=== PATIENT | female | born 1970 ===

== ENCOUNTER 2020-10-08 15:33 | Outpatient (REF) | payer MEDICAID, SELFPAY ==
--- NOTE | 2020-10-08 | MM_ITS ---
EXAMINATION: MM SCREENING DIGITAL BREAST TOMOSYNTHESIS, BILATERAL CLINICAL INFORMATION: Screening. Asymptomatic. The lifetime risk of breast cancer based on the Tyrer-Cuzick Model is 6%. COMPARISON: Mammography: 10/03/2019, 08/24/2018, 08/03/2017 TECHNIQUE: Digital breast tomosynthesis is performed in both the craniocaudal and mediolateral oblique views along with computer-aided detection (CAD). Synthesized 2D images are generated from the tomosynthesis. FINDINGS: There are scattered areas of fibroglandular density (ACR BI-RADS breast composition Category b). There are no significant masses, abnormal calcifications, or other abnormalities. Parenchymal pattern is similar to prior studies. Low right axillary tail node stable. No significant changes. MM/MM tomosynthesis screening BI IMPRESSION: No mammographic evidence of malignancy. ASSESSMENT: BI-RADS 2: Benign RECOMMENDATION: Routine annual mammography screening. This patient's information was entered into a reminder system with a target due date for their next mammogram.
== END 2020-10-08 15:34 | disposition home or self-care (01) ==
LOC: HO.MAMMO 15:33
PROVIDERS: PCP Nurse Practitioner Family; Visit Provider Nurse Practitioner Family
DX: Z12.31 Encounter for screening mammogram for malignant neoplasm of breast (principal)
CPT/HCPCS: 77063; 77067

== ENCOUNTER 2020-11-20 09:57 | Outpatient (REF) | payer MEDICAID, SELFPAY ==
[2020-11-21 20:37] LABS: C. trachomatis RNA TMA NOT DETECTED (NOT DETECTED); N. gonorrhoeae RNA TMA NOT DETECTED (NOT DETECTED)
[2020-11-24 03:02] LABS: HPV 16 RNA NOT DETECTED (NOT DETECTED); HPV mRNA E6/E7 rflx Detected (Not Detected)
== END 2020-11-20 09:58 | disposition home or self-care (01) ==
LOC: HO.LAB 09:57
PROVIDERS: PCP Nurse Practitioner Family; Visit Provider Advanced Practice Midwife
DX: Z01.419 Encounter for gynecological examination (general) (routine) without abnormal findings (principal); R23.2 Flushing; Z20.2 Contact with and (suspected) exposure to infections with a predominantly sexual mode of transmission
CPT/HCPCS: 36415; 87491; 87591; 87624; 87625; 88141; 88142

== ENCOUNTER 2020-12-21 07:03 | Outpatient (REF) | payer MEDICAID, SELFPAY ==
[2020-12-21 08:27] LABS: Anion Gap 14 (12-20); Blood Urea Nitrogen 9 mg/dL (9-16); Calcium 9.6 mg/dL (8.4-10.2); Carbon Dioxide 28 mmol/L (22-29); Chloride 101 mmol/L (96-108); Cholesterol 91 mg/dL; Estimated Glomerular Filt Rate > 60; Glucose Random 145 mg/dL (60-115); HDL Cholesterol 38 mg/dL; LDL Cholesterol Calculated 29 mg/dl; Potassium 4.8 mmol/L (3.3-5.1); Sodium 138 mmol/L (135-145); Triglycerides 121 mg/dL
[2020-12-21 09:19] LABS: Vitamin B12 221 pg/mL (200-900)
== END 2020-12-21 07:04 | disposition home or self-care (01) ==
LOC: HO.LAB 07:03
PROVIDERS: PCP Nurse Practitioner Family; Visit Provider Nurse Practitioner Family
DX: E11.65 Type 2 diabetes mellitus with hyperglycemia (principal)
CPT/HCPCS: 36415; 80048; 80061; 82607

== ENCOUNTER 2021-02-21 13:39 | Outpatient (REF) | payer MEDICAID, SELFPAY ==
[2021-02-27 18:07] LABS: HPV mRNA E6/E7 rflx Not Detected (Not Detected)
== END 2021-02-21 13:40 | disposition home or self-care (01) ==
LOC: HO.LAB 13:39
PROVIDERS: Visit Provider Advanced Practice Midwife
DX: R87.615 Unsatisfactory cytologic smear of cervix (principal); Z11.51 Encounter for screening for human papillomavirus (HPV)
CPT/HCPCS: 87624; 88142; 99212

== ENCOUNTER 2021-05-09 08:09 | Outpatient (REF) | payer MEDICAID, SELFPAY ==
--- NOTE | ~2021-05-09 | XR_ITS ---
EXAMINATION: XR HIP, RIGHT WITH AP PELVIS CLINICAL INFORMATION: Pain. COMPARISON: Radiographs dated 04/05/2018. TECHNIQUE: Two views of the right hip. FINDINGS: Bones and soft tissues are normal. No fracture. There is a tiny round, well-corticated accessory ossification center seen lateral to the right acetabular roof. Alignment is anatomic. Hip joint space is maintained. There are pelvic phleboliths. Intervertebral cages are noted L4-L5. XR/XR hip RT w [id number] IMPRESSION: Unremarkable bilateral hips.
== END 2021-05-09 08:10 | disposition home or self-care (01) ==
LOC: HO.HOSX 08:09
PROVIDERS: Visit Provider Physician Assistant
DX: M25.851 Other specified joint disorders, right hip (principal); M25.551 Pain in right hip; M54.31 Sciatica, right side
CPT/HCPCS: 73502; 99202

== ENCOUNTER 2021-05-22 12:55 | Outpatient (REF) | payer MEDICAID, SELFPAY ==
--- NOTE | ~2021-05-22 | XR_ITS ---
EXAMINATION: XR KNEE AP STANDING CLINICAL INFORMATION: Right knee pain COMPARISON: None TECHNIQUE: AP bilateral standing view of the knees was obtained. FINDINGS: Bone alignment is normal. No fracture or dislocation is seen. The joint spaces are normal. Soft tissues are normal. XR/XR knee standing BI IMPRESSION: Normal knees.
--- NOTE | ~2021-05-22 | FL_ITS ---
PROCEDURE: XR ARTHROGRAM HIP, RIGHT CLINICAL INFORMATION: Right hip pain. COMPARISON: 05/09/2021 TECHNIQUE: Fluoroscopic-guided intra-articular injection of the right hip. FINDINGS: Informed consent was obtained from the patient prior to the procedure. During this process, the procedure and potential alternatives were explained, along with the intended outcome and benefits. The risks of the procedure, as well as the risk of not doing the procedure, were discussed. The patient was given the opportunity to ask questions regarding the procedure and appeared competent to make medical decisions. A signed consent form which documents this discussion was placed in the medical record. Using sterile technique and fluoroscopic guidance a 22-gauge spinal needle was directed down onto the right femoral neck. A small amount of contrast was administered showing intra-articular positioning of the needle. A mixture of 4 mL of 1% lidocaine, 4 mm of 0.25% bupivacaine, and 80 mg of Depo-Medrol were then instilled into the right hip joint. Patient tolerated procedure without difficulty. At the end of the procedure with patient sitting she stated that the pain was alleviated. FLUOROSCOPY TIME: 0.6 minutes. DOSE AREA PRODUCT: 2.780 Gy-cm2 (coe-centimeter squared). FL/FL arthrogram hip RT IMPRESSION: Right hip intra-articular injection under fluoroscopy as described.
== END 2021-05-22 12:56 | disposition home or self-care (01) ==
LOC: HO.XRAY 12:55
PROVIDERS: PCP Nurse Practitioner Family; Visit Provider Physician Assistant
DX: M25.851 Other specified joint disorders, right hip (principal); M25.561 Pain in right knee; M25.562 Pain in left knee
CPT/HCPCS: 27093; 73525; 73565

== ENCOUNTER 2021-06-06 11:19 | Outpatient (REF) | payer MEDICAID, SELFPAY ==
--- NOTE | ~2021-06-06 | US_ITS ---
EXAMINATION: US RETROPERITONEAL LIMITED (RENAL ONLY) CLINICAL INFORMATION: Calculus of kidney. COMPARISON: Renal ultrasound 02/14/2020. Ultrasound abdomen complete 01/10/2020. CT abdomen and pelvis 04/29/2019. KUB 07/01/2017 and 06/24/2017. TECHNIQUE: Real-time imaging of the kidneys. FINDINGS: RIGHT KIDNEY: 11.7 x 3.7 x 6.9 cm (SAG x AP x TRV). The kidney is normal in size, contour, and echogenicity. Renal cortical thickness is normal. No renal calculi or hydronephrosis. Exophytic simple appearing cyst of the right renal interpolar region measuring 6.4 x 5.0 x 5.9 cm in size. LEFT KIDNEY: 11.3 x 5.0 x 5.2 cm (SAG x AP x TRV). The kidney is normal in size, contour, and echogenicity. Renal cortical thickness is normal. No calculi or focal parenchymal lesions. No hydronephrosis. US/US renal BI IMPRESSION: 1. Redemonstration of a exophytic simple appearing renal cyst involving the right renal interpolar region measuring up to 6.4 cm in size, which does not require follow-up. 2. No nephrolithiasis or hydronephrosis.
== END 2021-06-06 11:20 | disposition home or self-care (01) ==
LOC: HO.US 11:19
DX: N20.0 Calculus of kidney (principal)
CPT/HCPCS: 76775

== ENCOUNTER → 2021-06-12 12:48 | Outpatient (BNVA) | payer MEDICAID, SELFPAY | PROVIDERS: PCP Nurse Practitioner Family | DX: N20.2 Calculus of kidney with calculus of ureter (principal) | CPT/HCPCS: 81002; 99212 ==

== ENCOUNTER → 2021-07-04 14:11 | Outpatient (BNVA) | payer MEDICAID, SELFPAY | PROVIDERS: Visit Provider Physician Assistant | DX: M25.851 Other specified joint disorders, right hip (principal) | CPT/HCPCS: 99212 ==

== ENCOUNTER 2021-07-22 08:07 | Outpatient (REF) | payer MEDICAID, SELFPAY ==
[2021-07-22 08:46] LABS: Hematocrit 45.3 % (37.0-47.0); Hemoglobin 14.3 g/dl (12.0-16.0); Mean Corpuscular HGB Conc 31.6 g/dl (31.0-35.0); Mean Corpuscular Hemoglobin 30.4 pg (27.0-33.0); Mean Corpuscular Volume 96.4 fL (80.0-98.0); Mean Platelet Volume 10.5 fL (9.4-12.3); Platelet Count 311 X10*3/uL (160-400); Red Cell Distribution Width 12.6 % (11.0-16.0); White Blood Count 7.5 X10*3/uL (4.8-10.8)
[2021-07-22 09:11] LABS: Alanine Aminotransferase 100 U/L (0-31); Albumin Level 4.6 g/dL (3.5-5.0); Alkaline Phosphatase 85 U/L (39-117); Anion Gap 11 (12-20); Aspartate Amino Transferase 61 U/L (5-31); Bilirubin Total 0.8 mg/dL (0.0-1.0); Blood Urea Nitrogen 8 mg/dL (9-16); Calcium 9.5 mg/dL (8.4-10.2); Carbon Dioxide 27 mmol/L (22-29); Chloride 106 mmol/L (96-108); Cholesterol 87 mg/dL; Estimated Glomerular Filt Rate > 60; Glucose Random 122 mg/dL (60-115); HDL Cholesterol 32 mg/dL; LDL Cholesterol Calculated 30 mg/dl; Potassium 4.4 mmol/L (3.3-5.1); Sodium 140 mmol/L (135-145); Total Protein 7.7 g/dL (6.5-8.0); Triglycerides 125 mg/dL
== END 2021-07-22 08:08 | disposition home or self-care (01) ==
LOC: HO.LAB 08:07
PROVIDERS: PCP Nurse Practitioner Family; Visit Provider Nurse Practitioner Family
DX: E11.65 Type 2 diabetes mellitus with hyperglycemia (principal)
CPT/HCPCS: 36415; 80053; 80061; 85027

== ENCOUNTER 2021-10-22 14:46 | Outpatient (REF) | payer MEDICAID, SELFPAY ==
--- NOTE | ~2021-10-22 | MM_ITS ---
EXAMINATION: MM SCREENING DIGITAL BREAST TOMOSYNTHESIS, BILATERAL CLINICAL INFORMATION: Screening. Asymptomatic. The lifetime risk of breast cancer based on the Tyrer-Cuzick Model is 6%. COMPARISON: Mammography: 10/08/2020, 10/03/2019, 08/24/2018 08/03/2017, 01/27/2017, 07/09/2016, 07/06/2015 TECHNIQUE: Digital breast tomosynthesis is performed in both the craniocaudal and mediolateral oblique views along with computer-aided detection (CAD). Synthesized 2D images are generated from the tomosynthesis. FINDINGS: There are scattered areas of fibroglandular density (ACR BI-RADS breast composition Category b). There are no significant masses, abnormal calcifications, or other abnormalities. There are bilateral solitary low axillary tail nodes again noted, similar to prior studies. No developing density. Skin contours are smooth. No significant changes from prior exams. MM/MM tomosynthesis screening BI IMPRESSION: No mammographic evidence of malignancy. ASSESSMENT: BI-RADS 2: Benign RECOMMENDATION: Routine annual mammography screening. This patient's information was entered into a reminder system with a target due date for their next mammogram.
== END 2021-10-22 14:47 | disposition home or self-care (01) ==
LOC: HO.MAMMO 14:46
PROVIDERS: PCP Nurse Practitioner Family; Visit Provider Nurse Practitioner Family
DX: Z12.31 Encounter for screening mammogram for malignant neoplasm of breast (principal)
CPT/HCPCS: 77063; 77067

== ENCOUNTER 2021-11-22 12:51 | Outpatient (REF) | payer MEDICAID, SELFPAY ==
[2021-11-26 21:12] LABS: HPV mRNA E6/E7 rflx Not Detected (Not Detected)
== END 2021-11-22 12:52 | disposition home or self-care (01) ==
LOC: HO.LAB 12:51
PROVIDERS: PCP Nurse Practitioner Family; Visit Provider Advanced Practice Midwife
DX: Z01.411 Encounter for gynecological examination (general) (routine) with abnormal findings (principal); Z11.51 Encounter for screening for human papillomavirus (HPV); N95.1 Menopausal and female climacteric states; R87.619 Unspecified abnormal cytological findings in specimens from cervix uteri
CPT/HCPCS: 87624; 88142

== ENCOUNTER → 2021-11-28 09:05 | Outpatient (BNVA) | payer MEDICAID, SELFPAY | PROVIDERS: PCP Nurse Practitioner Family; Visit Provider Physician Assistant | DX: M25.851 Other specified joint disorders, right hip (principal) | CPT/HCPCS: 99212 ==

== ENCOUNTER 2021-12-04 13:12 | Outpatient (REF) | payer MEDICAID, SELFPAY ==
--- NOTE | ~2021-12-04 | FL_ITS ---
PROCEDURE: XR ARTHROGRAM HIP, RIGHT CLINICAL INFORMATION: Unilateral primary osteoarthritis, right hip. COMPARISON: None TECHNIQUE: Following explaining fluoroscopy-guided right hip arthrogram procedure, benefits and risk, a written consent was obtained. Patient was placed supine on fluoroscopy table and anterior aspect of right hip joint was cleaned and draped. 1% lidocaine was injected. A 22-gauge spinal needle was then injected from the marked site to the lateral border of the right femoral head and neck junction and 2 mL of nonionic contrast was injected and a single image obtained. Following confirming intra-articular contrast, 1 mL/18 mg of Depo-Medrol, 4 mL of 1% lidocaine and 4 mL of bupivacaine/Sensorcaine was injected and needle withdrawn. Complete hemostasis achieved at puncture site. Sterile Band-Aid applied postprocedure. Patient tolerated procedure well. FINDINGS: There are no fractures or dislocations. No joint effusion is identified. No bone, joint or soft tissue abnormality is demonstrated. Successful injection of steroid injection into the right hip joint space. FLUOROSCOPY TIME: 0.6 minutes. DOSE AREA PRODUCT: 3.712 uGy-m2 (microgray-meter squared). FL/FL arthrogram hip RT IMPRESSION: Successful fluoroscopy-guided right hip steroid injection performed without immediate complications.
== END 2021-12-04 13:13 | disposition home or self-care (01) ==
LOC: HO.XRAY 13:12
PROVIDERS: PCP Nurse Practitioner Family; Visit Provider Physician Assistant
DX: M16.11 Unilateral primary osteoarthritis, right hip (principal)
CPT/HCPCS: 27093; 73525

== ENCOUNTER 2021-12-18 11:28 | Outpatient (REF) | payer MEDICAID, SELFPAY ==
[2021-12-18 11:47] LABS: MANUAL DIFF FLAG NO
[2021-12-18 12:12] LABS: Basophils Absolute Auto 0.1 X10*3/uL (0.0-0.2); Basophils Percent Auto 0.7 % (0-2); Eosinophils Absolute Auto 0.2 X10*3/uL (0.0-0.4); Eosinophils Percent Auto 1.5 % (0-4); Hematocrit 42.8 % (37.0-47.0); Hemoglobin 13.6 g/dl (12.0-16.0); Imm Gran Abs Auto 0.03 X10*3/uL (0.00-0.03); Imm Gran Pct Auto 0.3 % (0.0-0.4); Lymphocytes Percent Auto 37.3 % (20-40); Mean Corpuscular HGB Conc 31.8 g/dl (31.0-35.0); Mean Corpuscular Hemoglobin 31.3 pg (27.0-33.0); Mean Corpuscular Volume 98.4 fL (80.0-98.0); Monocytes Absolute Auto 0.8 X10*3/uL (0.1-1.2); Neutrophils Absolute Auto 5.7 x10*3/uL (2.0-8.3); Neutrophils Percent Auto 53.2 % (45-73); Platelet Count 320 X10*3/uL (160-400); Red Blood Count 4.35 X10*6/uL (4.20-5.50); Red Cell Distribution Width 13.5 % (11.0-16.0); White Blood Count 10.7 X10*3/uL (4.8-10.8)
[2021-12-18 13:01] LABS: Alanine Aminotransferase 96 U/L (0-31); Albumin Level 4.3 g/dL (3.5-5.0); Alkaline Phosphatase 100 U/L (39-117); Aspartate Amino Transferase 51 U/L (5-31); Bilirubin Direct 0.3 mg/dL (0.0-0.5); Bilirubin Total 0.5 mg/dL (0.0-1.0); Total Protein 7.4 g/dL (6.5-8.0)
[2021-12-18 14:14] LABS: Lipase 137 U/L (8-78)
[2021-12-24 16:17] LABS: FIB-ALT 89 U/L (6-29); FIB-Alpha-2-Macroglobulin 146 mg/dL (106-279); FIB-Apolipoprotein A1 171 mg/dL (101-198); FIB-GGT 40 U/L (3-70); FIB-Haptoglobin 154 mg/dL (43-212); FIB-Total Bilirubin 0.4 mg/dL (0.2-1.2); Liver Fibrosis Score 0.07; Liver Fibrosis Stage F0; Nec Inflam Act Grade A1-A2; Nec Inflam Act Score 0.43
== END 2021-12-18 11:29 | disposition home or self-care (01) ==
LOC: HO.LAB 11:28
PROVIDERS: PCP Nurse Practitioner Family; Visit Provider Internal Medicine Gastroenterology
DX: R74.8 Abnormal levels of other serum enzymes (principal)
CPT/HCPCS: 36415; 80076; 81596; 83690; 85025

== ENCOUNTER 2021-12-31 13:09 | Outpatient (REF) | payer MEDICAID, SELFPAY ==
[2021-12-31 14:46] LABS: Blood Urea Nitrogen 12 mg/dL (9-16); Estimated Glomerular Filt Rate > 60
== END 2021-12-31 13:10 | disposition home or self-care (01) ==
LOC: HO.LAB 13:09
PROVIDERS: PCP Nurse Practitioner Family; Visit Provider Internal Medicine Gastroenterology
DX: R74.8 Abnormal levels of other serum enzymes (principal)
CPT/HCPCS: 36415; 82565; 84520

== ENCOUNTER 2022-01-01 06:35 | Outpatient (REF) | payer MEDICAID, SELFPAY ==
--- NOTE | ~2022-01-01 | CT_ITS ---
EXAMINATION: CT ABDOMEN AND PELVIS WITH CONTRAST CLINICAL INFORMATION: Abnormal levels of serum enzymes. COMPARISON: Ultrasound kidney 06/06/2021. CT abdomen 04/29/2019. TECHNIQUE: Multidetector volumetric images were obtained from the superior aspect of the liver through the pubic symphysis following administration 85 mL of Omnipaque 350 intravenous contrast. Sagittal and coronal reformatted images were obtained on the technologist's workstation. Oral contrast: No This CT examination was performed using dose optimization techniques as appropriate, variously including the following: *Automated exposure control *Adjustment of mA and/or kV according to patient size (this includes techniques or standardized protocols for targeted exams where dose is matched to indication/reason for exam; i.e. extremities or head) *Use of iterative reconstruction technique DLP: 520 mGy-cm FINDINGS: LUNG BASES: There is minimal atelectatic changes in the lingula and left lung base. Heart size is normal. There is no pericardial effusion. LIVER, GALLBLADDER, AND BILIARY TREE: The liver is normal in size, shape, and diffusely attenuated. No focal hepatic lesion or biliary ductal dilatation is present. The gallbladder is contracted but no radiopaque calculi seen. PANCREAS: Unremarkable SPLEEN: Unremarkable ADRENAL GLANDS: Unremarkable KIDNEYS AND URETERS: The kidneys are normal in size, shape, and attenuation. No hydronephrosis, hydroureter, or calculi seen. No perinephric stranding. There is a 6.4 x 5.7 cm cyst upper midpole right kidney. BLADDER: Unremarkable GASTROINTESTINAL TRACT: There is oral contrast opacification of small bowel loops and ascending colon without distention. There is scattered stool seen throughout the colon without obstruction. ABDOMINAL WALL: No significant hernia is appreciated. LYMPH NODES: Normal VASCULAR: Unremarkable PELVIC VISCERA: There is a 3.4 x 3.5 cm right adnexal cyst, likely ovarian in origin. The uterus is anteverted. There is no free fluid. OSSEOUS STRUCTURES: There are cages at the L4-L5 disc level for disc fusion. No aggressive lytic or sclerotic process seen. CT/CT abdomen pelvis w con IMPRESSION: Diffuse hepatic steatosis without focal lesion. The gallbladder is contracted. Right renal cyst is stable compared to previous CT exam 04/29/2019. There is a right paraovarian or ovarian cyst, new since the last CT. Fleischner guidelines were followed.
[2022-01-01] MEDS: Barium Sulfate Oral (Berry) 450 ML ORAL.SUSP 900 ML PO (09:04)
[2022-01-01] MEDS: iohexoL 350 MG/ML 100 ML INFUS..BTL IV (09:05)
== END 2022-01-01 06:36 | disposition home or self-care (01) ==
LOC: HO.CT 06:35
PROVIDERS: PCP Nurse Practitioner Family; Visit Provider Internal Medicine Gastroenterology
DX: R74.8 Abnormal levels of other serum enzymes (principal)
CPT/HCPCS: 74177; Q9967

== ENCOUNTER 2022-02-10 08:41 | Outpatient (REF) | payer MEDICAID, SELFPAY | END 2022-02-10 08:42 | disposition home or self-care (01) | LOC: HO.LAB 08:41 | PROVIDERS: PCP Nurse Practitioner Family; Visit Provider Obstetrics & Gynecology | DX: R87.810 Cervical high risk human papillomavirus (HPV) DNA test positive (principal); R87.610 Atypical squamous cells of undetermined significance on cytologic smear of cervix (ASC-US) | CPT/HCPCS: 57454; 88305 ==

== ENCOUNTER 2022-02-10 11:09 | Outpatient (REF) | payer MEDICAID, SELFPAY ==
[2022-02-10 11:36] LABS: COVID-19 Test Positive (Negative)
== END 2022-02-10 11:10 | disposition home or self-care (01) ==
LOC: HO.LAB 11:09
PROVIDERS: Visit Provider Internal Medicine
DX: Z20.822 Contact with and (suspected) exposure to COVID-19 (principal)
CPT/HCPCS: 87635; C9803

== ENCOUNTER 2022-02-18 09:00 | Outpatient (REF) | payer MEDICAID, SELFPAY ==
[2022-02-18 09:18] LABS: COVID-19 Test Positive (Negative)
== END 2022-02-18 09:01 | disposition home or self-care (01) ==
LOC: HO.LAB 09:00
PROVIDERS: Visit Provider Internal Medicine
DX: Z20.822 Contact with and (suspected) exposure to COVID-19 (principal)
CPT/HCPCS: 87635; C9803

== ENCOUNTER 2022-02-21 12:19 | Outpatient (REF) | payer MEDICAID, SELFPAY ==
[2022-02-21 13:21] LABS: COVID-19 Test Negative (Negative); IDNOW Serial# 55D5AD1C
== END 2022-02-21 12:20 | disposition home or self-care (01) ==
LOC: HO.LAB 12:19
PROVIDERS: PCP Nurse Practitioner Family; Visit Provider Internal Medicine
DX: Z20.822 Contact with and (suspected) exposure to COVID-19 (principal)
CPT/HCPCS: 87635; C9803

== ENCOUNTER → 2022-03-03 11:27 | Outpatient (BNVA) | payer MEDICAID, SELFPAY | PROVIDERS: PCP Nurse Practitioner Family; Visit Provider Obstetrics & Gynecology | DX: N87.0 Mild cervical dysplasia (principal); Z98.890 Other specified postprocedural states | CPT/HCPCS: 99212 ==

== ENCOUNTER 2022-05-20 18:21 | Emergency (ER) | payer MEDICAID, SELFPAY ==
[2022-05-20 18:26] VITALS: BP 116/79; PULSE 89; RESP 18; TEMP 37; O2SAT 98; BMI 30.9
--- NOTE | 2022-05-20 21:34 | ED_ITS ---
HPI - Neck Pain/Injury General Chief Complaint: Neck Pain/Injury Stated Complaint: neck pain/shoulder pain Time Seen by Provider: 05/20/22 21:29 History of Present Illness HPI Narrative: Patient complains of right-sided neck and shoulder pain without injury that began 3 days ago, she thinks she slept in the wrong position, the pain is worst when she rotates her head to the right, there is no radiation of the pain there is no numbness or muscle weakness no loss of sensation no changes to bowel or bladder no fever Related Data Home Medications Medication Instructions Recorded Confirmed amitriptyline 50 mg tablet 50 mg PO DAILY 11/20/20 11/28/21 cetirizine 10 mg tablet (Zyrtec) 10 mg PO DAILY PRN 11/20/20 11/28/21 clonazepam 1 mg tablet 1 mg PO DAILY 11/20/20 11/28/21 metformin 1,000 mg tablet 1,000 mg PO BID 11/20/20 11/28/21 oxycodone 5 mg tablet 5 mg PO TID PRN 11/20/20 11/28/21 pregabalin 300 mg capsule (Lyrica) 300 mg PO BID 11/20/20 11/28/21 sennosides 8.6 mg capsule (senna) 8.6 mg PO DAILY 11/20/20 11/28/21 sitagliptin 100 mg tablet (Januvia) 100 mg PO DAILY 11/20/20 11/28/21 sumatriptan succinate 50 mg tablet 50 mg PO Q2-4H PRN 11/20/20 11/28/21 (Imitrex) empagliflozin 10 mg tablet 10 mg PO DAILY 05/09/21 11/28/21 (Jardiance) Previous Rx's Medication Instructions Recorded acetaminophen 500 mg tablet 1,000 mg PO QID PRN pain #30 tabs 05/20/22 cyclobenzaprine 5 mg tablet 5 mg PO TID PRN muscle spasm #10 05/20/22 tabs Allergies Allergy/AdvReac Type Severity Reaction Status Date / Time Penicillins Allergy Intermediate RASH Verified 11/28/21 09:24 Sulfa (Sulfonamide Allergy Intermediate RASH, hives Verified 11/28/21 09:24 Antibiotics) [SULFA (SULFONAMIDE ANTIBIOTICS)] penicillin V Allergy Unknown hives, rash Verified 11/28/21 09:24 morphine AdvReac Unknown GI upset Verified 11/28/21 09:24 cat dander Allergy Unknown sneezing Uncoded 11/28/21 09:24 pollen Allergy Unknown sneezing Uncoded 11/28/21 09:24 Review of Systems Review of Systems: Positive for right-sided neck pain without injury Negatives are no fever no chills no dizziness no weakness no fainting no feeling faint no headache no numbness weakness or tingling no radiation of pain no changes to bowel or bladder no chest pain no shortness of breath no palpitations no abdominal pain no incontinence no dysuria no constipation no skin rash Yes all other systems are reviewed and are negative [facility] Past Medical History Source: nursing notes reviewed Medical History Asthma Diabetes mellitus History of anxiety History of depression Renal and ureteric calculus Surgical History History of back surgery History of bladder surgery History of endometrial ablation Hx of tubal ligation Social History Social History Alcohol intake: never Patient Tobacco Use Status: Former Tobacco user Advance Directives: No Advance Directives Information Provided: No Current occupational status: disabled Current occupation: lt handed Physical Exam Vital Signs: Vital Signs: Last Vital Signs Temp 98.6 F 05/20/22 18:26 Pulse 89 05/20/22 18:26 Resp 18 05/20/22 18:26 BP 116/79 05/20/22 18:26 Pulse Ox 98 05/20/22 18:26 O2 Del Method 05/20/22 18:26 BMI result Body Mass Index 30.9 General appearance is comfortable no acute distress Head is normocephalic atraumatic Neck had right lateral neck tenderness as well as some right trapezius tenderness, the shoulder had good range of motion, there was no midline or bony tenderness, skin of the neck and trapezius was normal in appearance Chest clear to auscultation bilateral no respiratory distress The abdomen soft nontender Extremities full range of motion x4 Neuro sales representative meats strength is 5/5 and symmetrical in both hands, sensation is intact and symmetrical in both hands, gait and balance are normal Course Course Course Narrative: Patient with right-sided neck pain worse with certain movements of the neck, no radiation no neurologic deficits no changes to bowel or bladder no trauma is given script for muscle relaxer and advised if it does not get better on its own in a few days follow with primary doctor and to return if she develops weakness or loss of sensation or fever or pain out of control Discharge Plan Discharge Clinical Impression: Neck pain Patient Disposition: Home, Self-Care Additional Instructions: Pain is likely from strained muscles or ligaments in her neck and usually will get better on its own in a few days If it is not improving follow with primary care doctor for physical therapy and further evaluation Return to the ER any time for weakness, loss of sales representative meats strength, loss of sensation, fever, severe pain not controlled by medication, any worse condition or any concerns Prescriptions: New cyclobenzaprine 5 mg tablet 5 mg PO TID PRN (Reason: muscle spasm) Qty: 10 0RF acetaminophen 500 mg tablet 1,000 mg PO QID PRN (Reason: pain) Qty: 30 0RF No Action Jardiance 10 mg tablet 10 mg PO DAILY Januvia 100 mg tablet 100 mg PO DAILY metformin 1,000 mg tablet 1,000 mg PO BID senna 8.6 mg capsule 8.6 mg PO DAILY clonazepam 1 mg tablet 1 mg PO DAILY amitriptyline 50 mg tablet 50 mg PO DAILY cetirizine [Zyrtec] 10 mg tablet 10 mg PO DAILY PRN pregabalin [Lyrica] 300 mg capsule 300 mg PO BID oxycodone 5 mg tablet 5 mg PO TID PRN sumatriptan succinate [Imitrex] 50 mg tablet 50 mg PO Q2-4H PRN Rx Instructions: do not exceed 4 doses per 24 hrs
== END 2022-05-20 21:48 | disposition home or self-care (01) ==
PROVIDERS: Emergency Provider Emergency Medicine
DX: M54.2 Cervicalgia (principal); E11.9 Type 2 diabetes mellitus without complications; Z87.891 Personal history of nicotine dependence; Z79.84 Long term (current) use of oral hypoglycemic drugs
CPT/HCPCS: 99282; 99283

== ENCOUNTER 2022-05-22 11:02 | Outpatient (REF) | payer MEDICAID, SELFPAY ==
--- NOTE | ~2022-05-22 | US_ITS ---
EXAMINATION: US RETROPERITONEAL LIMITED (RENAL ONLY) CLINICAL INFORMATION: Calculus of kidney with calculus of ureter. COMPARISON: CT abdomen and pelvis 01/01/2022. Renal ultrasound 06/06/2021 and 02/14/2020. X-ray KUB 07/01/2017 and 06/24/2017. TECHNIQUE: Real-time imaging of the kidneys. FINDINGS: RIGHT KIDNEY: 12.5 x 4.4 x 6.2 cm (SAG x AP x TRV). The kidney is normal in size, contour, and echogenicity. Renal cortical thickness is normal. No renal calculi or hydronephrosis. There is again noted to be an upper to mid pole cyst measuring 5.8 x 4.8 x 5.2 cm in size which appears to be a simple cyst. LEFT KIDNEY: 11.6 x 4.7 x 5.9 cm (SAG x AP x TRV). The kidney is normal in size, contour, and echogenicity. Renal cortical thickness is normal. No calculi or focal parenchymal lesions. No hydronephrosis. US/US renal BI IMPRESSION: No hydronephrosis. Right renal cyst which appears to be simple..
== END 2022-05-22 11:03 | disposition home or self-care (01) ==
LOC: HO.HMGCX 11:02
DX: N20.2 Calculus of kidney with calculus of ureter (principal)
CPT/HCPCS: 76775

== ENCOUNTER → 2022-07-28 08:41 | Outpatient (BNVA) | payer MEDICAID, SELFPAY | PROVIDERS: Visit Provider Physician Assistant | DX: M25.851 Other specified joint disorders, right hip (principal) | CPT/HCPCS: 99212 ==

== ENCOUNTER 2022-08-07 12:52 | Outpatient (REF) | payer MEDICAID, SELFPAY ==
--- NOTE | ~2022-08-07 | FL_ITS ---
EXAMINATION: XR ARTHROGRAM HIP, RIGHT CLINICAL INFORMATION: Right hip primary osteoarthritis. COMPARISON: Right hip steroid injection 12/04/2021. TECHNIQUE: Following explaining fluoroscopy-guided right hip arthrogram and steroid injection procedure, benefits and risk, a written consent was obtained. The patient was placed supine on fluoroscopy table and the anterior aspect of the right hip joint was cleaned and draped in usual sterile manner. 1% lidocaine was injected at the marked site, overlying the right femoral neck lateral cortex. A 22-gauge spinal needle was then advanced from the skin to the lateral border of the right femoral neck and 2 mL of nonionic contrast was injected. A single image was obtained for documentation. Subsequently 4 mL of 1% lidocaine, 4 mL of 0.25% bupivacaine and 1 mL/80 mg Depo-Medrol was injected and the needle withdrawn. Complete hemostasis was achieved at the puncture site. A sterile dressing applied postprocedure. The patient tolerated the procedure extremely well. FINDINGS: On a single image of the right hip there is maintained right hip joint space. No joint effusion, bony erosive changes or spurring seen. The right hip arthrogram reveals no findings. Successful fluoroscopy-guided steroid injection without immediate complications. FLUOROSCOPY TIME: 0.5 minutes. DOSE AREA PRODUCT: 3.9 uGy-m2 (microgray-meter squared). FL/FL arthrogram hip RT IMPRESSION: Successful fluoroscopy-guided right hip steroid injection.
== END 2022-08-07 12:53 | disposition home or self-care (01) ==
LOC: HO.XRAY 12:52
PROVIDERS: Visit Provider Physician Assistant
DX: M16.11 Unilateral primary osteoarthritis, right hip (principal)
CPT/HCPCS: 27093; 73525; J1040; Q9967

== ENCOUNTER → 2022-10-02 13:27 | Outpatient (BNVA) | payer MEDICAID, SELFPAY | PROVIDERS: PCP Nurse Practitioner Family; Visit Provider Nurse Practitioner Family | DX: R10.9 Unspecified abdominal pain (principal); N20.0 Calculus of kidney | CPT/HCPCS: 99212 ==

== ENCOUNTER 2022-10-28 09:43 | Outpatient (REF) | payer MEDICAID, SELFPAY ==
--- NOTE | ~2022-10-28 | MM_ITS ---
EXAMINATION: MM SCREENING DIGITAL BREAST TOMOSYNTHESIS, BILATERAL CLINICAL INFORMATION: Screening. Asymptomatic. The lifetime risk of breast cancer based on the Tyrer-Cuzick Model is 7.2%. COMPARISON: Mammography: October 22, 2021 and studies dating back to July 09, 2016 TECHNIQUE: Digital breast tomosynthesis is performed in both the craniocaudal and mediolateral oblique views along with computer-aided detection (CAD). Synthesized 2D images are generated from the tomosynthesis. FINDINGS: There are scattered areas of fibroglandular density (ACR BI-RADS breast composition Category b). There are no significant masses, abnormal calcifications, or other abnormalities. MM/MM tomosynthesis screening BI IMPRESSION: No significant changes from prior exam. ASSESSMENT: BI-RADS 1: Negative RECOMMENDATION: Routine annual mammography screening. This patient's information was entered into a reminder system with a target due date for their next mammogram.
== END 2022-10-28 09:44 | disposition home or self-care (01) ==
LOC: HO.MAMMO 09:43
PROVIDERS: Visit Provider Nurse Practitioner Family
DX: Z12.31 Encounter for screening mammogram for malignant neoplasm of breast (principal)
CPT/HCPCS: 77063; 77067

== ENCOUNTER 2022-10-30 09:49 | Outpatient (REF) | payer MEDICAID, SELFPAY ==
--- NOTE | ~2022-10-30 | US_ITS ---
EXAMINATION: US RETROPERITONEAL LIMITED (RENAL ONLY) CLINICAL INFORMATION: Unspecified abdominal pain. COMPARISON: Renal ultrasound 05/22/2022 and 06/06/2021. CT abdomen and pelvis 01/01/2022. TECHNIQUE: Real-time imaging of the kidneys. FINDINGS: RIGHT KIDNEY: 14.7 x 7.1 x 8.0 cm (SAG x AP x TRV). The kidney is normal in size, contour, and echogenicity. Renal cortical thickness is normal. No renal calculi or hydronephrosis. Benign-appearing 6.2 cm renal cyst, no imaging follow-up recommended. LEFT KIDNEY: 11.8 x 4.6 x 5.5 cm (SAG x AP x TRV). The kidney is normal in size, contour, and echogenicity. Renal cortical thickness is normal. No calculi or focal parenchymal lesions. No hydronephrosis. US/US renal BI IMPRESSION: Benign-appearing 6.2 cm right renal cyst, no imaging follow-up recommended.
== END 2022-10-30 09:50 | disposition home or self-care (01) ==
LOC: HO.US 09:49
PROVIDERS: Visit Provider Nurse Practitioner Family
DX: R10.9 Unspecified abdominal pain (principal); N20.0 Calculus of kidney
CPT/HCPCS: 76775

== ENCOUNTER 2022-11-02 12:19 | Emergency (ER) | payer MEDICAID, SELFPAY ==
[2022-11-02 12:41] VITALS: BP 128/84; PULSE 90; RESP 16; TEMP 36.6; O2SAT 96; BMI 32.7
--- NOTE | 2022-11-02 12:46 | ED_ITS ---
HPI - Back Pain/Injury General Chief Complaint: Back Pain/Injury <COURTNEY Tong Last Filed: 11/02/22 12:47> Stated Complaint: L flank pain <COURTNEY Tong Last Filed: 11/02/22 12:47> Time Seen by Provider: 11/02/22 12:54 <COURTNEY Tong Last Filed: 11/02/22 12:47> Source: patient and certification officer <COURTNEY Mares Last Filed: 11/02/22 14:15> Mode of arrival: ambulatory <COURTNEY Mares Last Filed: 11/02/22 14:15> Limitations: language barrier <COURTNEY Mares Last Filed: 11/02/22 14:15> History of Present Illness HPI Narrative: Patient is a 51 year old assigned female at with no reported medical history presenting to the emergency department today with left low back pain. Patient states that she woke up with left lower back pain that radiates down her left leg. Patient denies any dizziness, lightheadedness, abdominal pain, nausea, vomiting, fever, chills, blurry vision, double vision, loss of vision, chest pain, difficulty breathing, shortness of breath, night sweats, pain with urination, increased urinary frequency, increased urinary urgency, blood in her urine or stool, syncope or a near syncopal episode, recent trauma or falls, bowel incontinence, bladder incontinence, bowel retention, bladder retention, or any other complaints at this time. <COURTNEY Mares - Last Filed: 11/02/22 14:15> MD elicited complaint: back pain <COURTNEY Mares Last Filed: 11/02/22 14:15> Onset (ago): hour(s) <COURTNEY Mares Last Filed: 11/02/22 14:15> Timing: constant <COURTNEY Mares Last Filed: 11/02/22 14:15> Severity: mild <COURTNEY Mares Last Filed: 11/02/22 14:15> Pain scale (0-10): 2 <COURTNEY Mares Last Filed: 11/02/22 14:15> Quality: dull <COURTNEY Mares - Last Filed: 11/02/22 14:15> Radiation: left upper leg <COURTNEY Mares - Last Filed: 11/02/22 14:15> Exacerbating factors: none <COURTNEY Mares - Last Filed: 11/02/22 14:15> Relieving factors: none <COURTNEY Mares - Last Filed: 11/02/22 14:15> Associated symptoms: denies other symptoms <COURTNEY Mares - Last Filed: 11/02/22 14:15> Work related injury: No <COURTNEY Mares - Last Filed: 11/02/22 14:15> Related Data Home Medications: Home Medications Medication Instructions Recorded Confirmed amitriptyline 50 mg tablet 50 mg PO DAILY 11/20/20 10/02/22 cetirizine 10 mg tablet (Zyrtec) 10 mg PO DAILY PRN 11/20/20 10/02/22 clonazepam 1 mg tablet 1 mg PO DAILY 11/20/20 10/02/22 metformin 1,000 mg tablet 1,000 mg PO BID 11/20/20 10/02/22 oxycodone 5 mg tablet 5 mg PO TID PRN 11/20/20 10/02/22 pregabalin 300 mg capsule (Lyrica) 300 mg PO BID 11/20/20 10/02/22 sennosides 8.6 mg capsule (senna) 8.6 mg PO DAILY 11/20/20 10/02/22 sitagliptin phosphate 100 mg 100 mg PO DAILY 11/20/20 10/02/22 tablet (Januvia) sumatriptan succinate 50 mg tablet 50 mg PO Q2-4H PRN 11/20/20 10/02/22 (Imitrex) empagliflozin 10 mg tablet 10 mg PO DAILY 05/09/21 10/02/22 (Jardiance) Previous Rx's Medication Instructions Recorded acetaminophen 500 mg tablet 1,000 mg PO QID PRN pain #30 tabs 05/20/22 cyclobenzaprine 5 mg tablet 5 mg PO TID PRN muscle spasm #10 05/20/22 tabs tamsulosin 0.4 mg capsule 0.4 mg PO daily 90 days #90 caps 10/02/22 cyclobenzaprine 5 mg tablet 5 mg PO TID PRN back pain 7 days 11/02/22 #21 tabs <COURTNEY Tong Last Filed: 11/02/22 12:47> Allergies/Adverse Reactions: Allergies Allergy/AdvReac Type Severity Reaction Status Date / Time Penicillins Allergy Intermediate RASH Verified 10/02/22 21:15 Sulfa (Sulfonamide Allergy Intermediate RASH, hives Verified 10/02/22 21:15 Antibiotics) [SULFA (SULFONAMIDE ANTIBIOTICS)] penicillin V Allergy Unknown hives, rash Verified 10/02/22 21:15 morphine AdvReac Unknown GI upset Verified 10/02/22 21:15 cat dander Allergy Unknown sneezing Uncoded 10/02/22 21:15 pollen Allergy Unknown sneezing Uncoded 10/02/22 21:15 <COURTNEY Tong - Last Filed: 11/02/22 12:47> Review of Systems Constitutional: Constitutional: Reports no additional constitutional complaints, Denies chills, Denies fever(s) and Denies night sweats <COURTNEY Mares Last Filed: 11/02/22 14:15> Eyes: Eyes: Reports no additional eye complaints, Denies blurry vision, Denies change in vision, Denies diplopia, Denies eye discharge, Denies loss of vision and Denies eye pain <COURTNEY Mares Last Filed: 11/02/22 14:15> ENT: Denies dizziness <COURTNEY Mares - Last Filed: 11/02/22 14:15> Cardiovascular: Cardiovascular: Reports no additional cardiovascular complaints, Denies chest pain, Denies lightheadedness, Denies Loss of Consciousness and Denies dyspnea <COURTNEY Mares Last Filed: 11/02/22 14:15> Respiratory: Respiratory: Reports no additional respiratory complaints and Denies dyspnea <COURTNEY Mares Last Filed: 11/02/22 14:15> Gastrointestinal: Gastrointestinal: Reports no additional gastrointestinal complaints, Denies abdominal pain, Denies melena, Denies hematochezia, Denies change in bowel habits and Denies change in stool character <COURTNEY Mares Last Filed: 11/02/22 14:15> Genitourinary: Genitourinary: Denies hematuria, Denies urinary frequency, Denies dysuria, Denies urinary incontinence, Denies urinary hesitancy and Denies urinary urgency <COURTNEY Mares - Last Filed: 11/02/22 14:15> Musculoskeletal: Musculoskeletal: Reports no additional musculoskeletal complaints, Reports back pain, Denies numbness and Denies tingling <COURTNEY Mares - Last Filed: 11/02/22 14:15> Neurologic: Denies dizziness, Denies loss of vision, Denies numbness and Denies tingling <COURTNEY Mares - Last Filed: 11/02/22 14:15> Psychiatric: Psychiatric: Reports no additional psychiatric complaints <COURTNEY Mares - Last Filed: 11/02/22 14:15> Endocrine: Endocrine: Reports no additional endocrine complaints <COURTNEY Mares - Last Filed: 11/02/22 14:15> Hematologic/Lymphatic: Hematologic/Lymphatic: Reports no additional hematologic/lymphatic complaints <COURTNEY Mares - Last Filed: 11/02/22 14:15> Allergic/Immunologic: Allergic/Immunologic: Reports no additional allergic/immunologic complaints <COURTNEY Mares - Last Filed: 11/02/22 14:15> [facility] Past Medical History Attestation statement: The following information was validated with the patient. <COURTNEY Mares - Last Filed: 11/02/22 14:15> Source: old records reviewed and nursing notes reviewed <COURTNEY Mares - Last Filed: 11/02/22 14:15> Medical History: Medical History Asthma Bilateral nephrolithiasis Diabetes mellitus History of anxiety History of depression Renal and ureteric calculus <COURTNEY Tong - Last Filed: 11/02/22 12:47> Surgical History: Surgical History History of back surgery History of bladder surgery History of endometrial ablation Hx of tubal ligation <COURTNEY Tong - Last Filed: 11/02/22 12:47> Social History Social History: Social History Alcohol intake: never Patient Tobacco Use Status: Former Tobacco user Advance Directives: No Advance Directives Information Provided: No Current occupational status: disabled Current occupation: lt handed <COURTNEY Tong - Last Filed: 11/02/22 12:47> Physical Exam Vital Signs: Vital Signs: Last Vital Signs Temp 98 F 11/02/22 12:41 Pulse 90 11/02/22 12:41 Resp 16 11/02/22 12:41 BP 128/84 11/02/22 12:41 Pulse Ox 96 11/02/22 12:41 O2 Del Method 11/02/22 12:41 BMI result Body Mass Index 32.7 <COURTNEY Tong - Last Filed: 11/02/22 12:47> Vital Signs: Last Vital Signs Temp 98 F 11/02/22 12:41 Pulse 90 11/02/22 12:41 Resp 16 11/02/22 12:41 BP 128/84 11/02/22 12:41 Pulse Ox 96 11/02/22 12:41 O2 Del Method 11/02/22 12:41 BMI result Body Mass Index 32.7 <COURTNEY Mares - Last Filed: 11/02/22 14:15> Const: General: cooperative, no acute distress, alert and awake <COURTNEY Mares - Last Filed: 11/02/22 14:15> Nutritional Appearance: well nourished <COURTNEY Mares - Last Filed: 11/02/22 14:15> Orientation/consciousness: patient oriented x3 <COURTNEY Mares - Last Filed: 11/02/22 14:15> Limitations: no limitations <COURTNEY Mares - Last Filed: 11/02/22 14:15> HEENT: Head: Yes normal to inspection and Yes atraumatic <COURTNEY Mares - Last Filed: 11/02/22 14:15> Ears: hearing grossly normal bilaterally and external ears normal <COURTNEY Mares - Last Filed: 11/02/22 14:15> General nose exam: Normal external nose present, no nasal discharge noted and no epistaxis <COURTNEY Mares - Last Filed: 11/02/22 14:15> Face and sinus: Yes normal facial exam, No abrasion and No laceration <COURTNEY Mares - Last Filed: 11/02/22 14:15> Mouth: Normal oral and palatal mucosa present, no drooling and no muffled voice <Cyn Obrien NM - Last Filed: 11/02/22 14:15> Eyes: General: appearance normal, both eyes and all related structures <Cyn Obrien NM - Last Filed: 11/02/22 14:15> Periorbital: periorbital findings normal <Cyn Obrien NM - Last Filed: 11/02/22 14:15> Eyelids: Yes eyelids normal <Cyn Obrien NM - Last Filed: 11/02/22 14:15> Conjunctivae: conjunctivae normal <Cyn Obrien NM - Last Filed: 11/02/22 14:15> Pupils: Equal, round and reactive pupils present <Cyn Obrien NM - Last Filed: 11/02/22 14:15> EOM: EOMs intact bilaterally <Cyn Obrien NM - Last Filed: 11/02/22 14:15> Neck: Neck: Yes normal visual inspection, Yes full ROM and Yes no lymphadenopathy <Cyn Obrien NM - Last Filed: 11/02/22 14:15> Chest: Chest palpation & inspection: normal inspection of the chest <Cyn Obrien NM - Last Filed: 11/02/22 14:15> Resp: Effort & Inspection: normal respiratory effort and able to speak in complete sentences <Cyn Obrien NM - Last Filed: 11/02/22 14:15> Auscultation: clear to auscultation bilaterally <Cyn Obrien NM - Last Filed: 11/02/22 14:15> Cardio: Rate: regular rate <Cyn Obrien NM - Last Filed: 11/02/22 14:15> Rhythm: regular rhythm <Cyn Obrien NM - Last Filed: 11/02/22 14:15> Heart sounds: S1 normal heart sound present and S2 normal heart sound present <Cyn Obrien NM - Last Filed: 11/02/22 14:15> GI: Inspection: Yes normal to inspection <Cyn Obrien NM - Last Filed: 11/02/22 14:15> Palpation (GI): Soft to palpation, not firm, nontender and no guarding <Cyn Obrien NM - Last Filed: 11/02/22 14:15> : General: Yes no CVA tenderness <Cyn Obrien PA - Last Filed: 11/02/22 14:15> Back/Spine/Pelvis: Back: no CVA tenderness <Cyn Obrien PA - Last Filed: 11/02/22 14:15> Cervical Spine: normal cervical lordosis and cervical ROM normal <Cyn Obrien PA - Last Filed: 11/02/22 14:15> Thoracic/Lumbar Spine: thoracic and lumbar spine normal to inspection and thoraco-lumbar ROM normal <Cyn Obrien PA - Last Filed: 11/02/22 14:15> Neuro: General: patient oriented x3 and moves all extremities <Cyn Obrien PA - Last Filed: 11/02/22 14:15> Cranial nerves: Yes Equal, round and reactive pupils present <Cyn Obrien PA - Last Filed: 11/02/22 14:15> Cognition (Neuro): normal cognition <Cyn Obrien NM - Last Filed: 11/02/22 14:15> Motor exam (neuro): 5/5 motor strength present throughout <Cyn Obrien PA - Last Filed: 11/02/22 14:15> Sensory Exam: Normal double simultaneous stimulation for sensation <Cyn Obrien NM - Last Filed: 11/02/22 14:15> Coordination: [id number] test normal <Cyn Obrien PA - Last Filed: 11/02/22 14:15> Extrem: General: Yes normal to inspection, Yes full ROM and Yes capillary refill normal <Cyn Obrien PA - Last Filed: 11/02/22 14:15> Psych: Appearance: grossly normal <Cyn Obrien PA - Last Filed: 11/02/22 14:15> Mental Status: mental status grossly normal <Cyn Obrien PA - Last Filed: 11/02/22 14:15> Affect: normal affect <Cyn Obrien PA - Last Filed: 11/02/22 14:15> Attitude: cooperative <Cyn Obrien PA - Last Filed: 11/02/22 14:15> Thought process: Normal thought process present <Cyn Alanisbritta NM - Last Filed: 11/02/22 14:15> Thought content: Normal thought content present <COURTNEY Mares - Last Filed: 11/02/22 14:15> Insight: Good insight present (Psych) <COURTNEY Mares - Last Filed: 11/02/22 14:15> Course Course Course Narrative: JALYN 12:50PM - 51yoF who is [place]-speaking presenting to the ER with complaints of left back pain radiating to her left buttocks that started this morning. Reports she has a history of chronic back pain and she has had surgery in the past for her back. She denies any fevers, chills, chest pain or shortness of breath, nausea/vomiting, abdominal pain, flank pain, dysuria, hematuria, abnormal va ginal discharge, diarrhea constipation, recent falls or trauma or heavy lifting or any other symptoms complaints or concerns at this time. Plan: This is most likely more musculoskeletal in nature. Patient will be sent to EM for further evaluation treatment <COURTNEY Tong - Last Filed: 11/02/22 12:47> Medications Administered Discontinued Medications Generic Name Dose Route Start Last Admin Trade Name Freq PRN Reason Stop Dose Admin Cyclobenzaprine HCl 5 mg 11/02/22 13:13 11/02/22 13:25 Cyclobenzaprine Hcl 5 Mg Tablet PO 11/02/22 13:14 5 mg ONCE ONE Administration Ketorolac Tromethamine 15 mg 11/02/22 13:13 11/02/22 13:25 Ketorolac Tromethamine 15 Mg/Ml Vial IM 11/02/22 13:14 15 mg ONCE ONE Administration <COURTNEY Tong - Last Filed: 11/02/22 12:47> Medications Administered Discontinued Medications Generic Name Dose Route Start Last Admin Trade Name Freq PRN Reason Stop Dose Admin Cyclobenzaprine HCl 5 mg 11/02/22 13:13 11/02/22 13:25 Cyclobenzaprine Hcl 5 Mg Tablet PO 11/02/22 13:14 5 mg ONCE ONE Administration Ketorolac Tromethamine 15 mg 11/02/22 13:13 11/02/22 13:25 Ketorolac Tromethamine 15 Mg/Ml Vial IM 11/02/22 13:14 15 mg ONCE ONE Administration <COURTNEY Mares - Last Filed: 11/02/22 14:15> Medical Decision Making Medical Decision Making MDM Narrative: Patient is a 51 year old assigned female at with no reported medical history presenting to the emergency department today with left low back pain that radiates down the left leg. Patient's physical exam was unremarkable. Patient's clinical presentation is most consistent with sciatic back pain. I explained my physical exam findings to the patient. I answered all questions asked by the patient. Patient received IM Toradol and PO Flexeril which she stated helped her symptoms significantly. I stressed the importance of the patient taking her medication as prescribed. I stressed the importance of the patient following up with her primary care provider. I stressed the importance of the patient returning to the emergency department immediately if her symptoms were to worsen or if she were to develop any dizziness, shortness of breath, difficulty breathing, chest pain, blurry vision, loss of vision, nausea, vomiting, abdominal pain, fever, chills, back pain, or any other complaints. Patient verbalized agreement and understanding with this treatment plan and discharge. <COURTNEY Mares - Last Filed: 11/02/22 14:15> Differential Diagnosis Differential Diagnoses: The differential diagnosis associated with the presentation includes <COURTNEY Mares - Last Filed: 11/02/22 14:15> low back pain, sciatic back pain <COURTNEY Mares - Last Filed: 11/02/22 14:15> Discharge Plan Discharge Clinical Impression: Sciatica <COURTNEY Tong - Last Filed: 11/02/22 12:47> Patient Disposition: Home, Self-Care <COURTNEY Tong - Last Filed: 11/02/22 12:47> Instructions: Sciatica (ED), Back Pain (ED) <COURTNEY Tong Last Filed: 11/02/22 12:47> Additional Instructions: Follow up with your primary care provider. Return to the emergency department immediately if your symptoms worsen or if you develop any dizziness, shortness of breath, difficulty breathing, chest pain, blurry vision, loss of vision, nausea, vomiting, abdominal pain, fever, chills, back pain, or any other complaints. Nnamdi un seguimiento con jacques proveedor de atenci?n primaria. Regrese a la ynai de emergencias de inmediato si deborah s?ntomas empeoran o si presenta mareos, dificultad para respirar, dolor de pecho, visi?n borrosa, p?rdida de la visi?n, n?useas, v?mitos, dolor abdominal, fiebre, escalofr?os, dolor de espalda o cualquier otras quejas. <COURTNEY Tong - Last Filed: 11/02/22 12:47> Prescriptions: New cyclobenzaprine 5 mg tablet 5 mg PO TID PRN (Reason: back pain) 7 Days Qty: 21 0RF No Action cyclobenzaprine 5 mg tablet 5 mg PO TID PRN (Reason: muscle spasm) Qty: 10 0RF acetaminophen 500 mg tablet 1,000 mg PO QID PRN (Reason: pain) Qty: 30 0RF Jardiance 10 mg tablet 10 mg PO DAILY Januvia 100 mg tablet 100 mg PO DAILY metformin 1,000 mg tablet 1,000 mg PO BID senna 8.6 mg capsule 8.6 mg PO DAILY clonazepam 1 mg tablet 1 mg PO DAILY amitriptyline 50 mg tablet 50 mg PO DAILY cetirizine [Zyrtec] 10 mg tablet 10 mg PO DAILY PRN pregabalin [Lyrica] 300 mg capsule 300 mg PO BID oxycodone 5 mg tablet 5 mg PO TID PRN sumatriptan succinate [Imitrex] 50 mg tablet 50 mg PO Q2-4H PRN Rx Instructions: do not exceed 4 doses per 24 hrs tamsulosin 0.4 mg capsule 0.4 mg PO daily 90 Days Qty: 90 0RF <COURTNEY Tong - Last Filed: 11/02/22 12:47> Referrals: [facility] [place] Family Medicine [Provider Group] (Call to establish and follow up with a primary care provider. If you already have a primary care provider, please follow up with them. Llame para establecer y hacer un seguimiento con un proveedor de atenci?n primaria. Si ya tiene un proveedor de atenci?n primaria, nnamdi un seguimiento con ?l.) [facility] [place] Primary Care, [facility] [Provider Group] (Call to establish and follow up with a primary care provider. If you already have a primary care provider, please follow up with them. Llame para establecer y hacer un seguimiento con un proveedor de atenci?n primaria. Si ya tiene un proveedor de atenci?n primaria, nnamdi un seguimiento con ?l.) [facility] [Provider Group] (Call to establish and follow up with a primary care provider. If you already have a primary care provider, please follow up with them. Llame para establecer y hacer un seguimiento con un proveedor de atenci?n primaria. Si ya tiene un proveedor de atenci?n primaria, nnamdi un seguimiento con ?l.) <COURTNEY Tong - Last Filed: 11/02/22 12:47> Interventions: ED Discharge Assessment Last Done: 11/02/22 13:34 <COURTNEY Tong - Last Filed: 11/02/22 12:47> Discharge Date/Time: 11/02/22 13:34 <COURTNEY Tong - Last Filed: 11/02/22 12:47> Print Language: [place] <COURTNEY Tong - Last Filed: 11/02/22 12:47>
--- OUTSIDE RECORDS SUMMARY | 2022-11-02 12:56 | XMS_ITS ---
:1970 Author Organization [facility] Address [address] [place] [address] Care Team Providers Name Role Phone Johann Moreno Jr Unavailable Unavailable PROBLEMS Type Condition ICD9-CM Code MRF08-LF Code Onset Condition SNO MED Code Dates Status Problem Epigastric pain R10.13 Active 7992 2009 Problem Elevated lipase R74.8 Active Problem Elevated liver R74.8 Active 77734 400 enzymes Problem Fatty liver K76.0 Active [id number] ALLERGIES Substance Reaction Event Type Date Status Sulfa Unknown Drug Allergy Nov, Active Penicillin Unknown Drug Allergy Nov, Active ENCOUNTERS Encounter Location Date Diagnosis [facility] [address], Ep igastric pain R10.13 [facility] [address] [place] [address] [facility] [address] Dec, [facility] [address] [place] [address] [facility] [address] Dec, [facility] [address] [place] [address] [facility] [address] Dec, Ep igastric pain R10.13 [facility] [address] [place] [address] [facility] [address] Nov, Ep igastric pain R10.13 [facility] [address] [place] [address] [facility] [address] Nov, El evated lipase R74.8 and [facility] [address] [place] Epigastric pain R10.13 [address] [facility] [address] Nov, 2021 Ep igastric pain R10.13 [facility] [address] [place] and Fatty liver K76.0 [address] [facility] [address] Jul, 2020 [facility] [address] [place] [address] [facility] [address] May, 2020 [facility] [address] [place] [address] [facility] [address] May, 2020 El evated liver enzymes [facility] [address] R74.8 [address] [facility] [address] Dec, 2019 El evated liver enzymes [facility] [address] [place] R74.8 [address] [facility] [address] Oct, 2019 [facility] [address] [place] [address] [facility] [address] Nov, 2017 El evated liver enzymes [facility] [place] R74.8 [phone] IMMUNIZATIONS Vaccine Route Administration Date Status Influenza Unknown Jul 09, 2021 Administered Influenza Unknown Aug 21, 2019 Administered SOCIAL HISTORY Qualifiers Date Former Smoker REASON FOR REFERRAL FUNCTIONAL STATUS PLAN OF CARE Activity Details Follow Up 1 Year Reason: Future Appointment Provider Name:Johann ohara , 2022-12-17 09:20:00 AM, [address], [address], [place], [address], Pending Test CT ABD & PELVIS WITH CONTRAS T Pending Test LIVER PROFILE Pending Test CBC w/o DIFF Pending Test PROTHROMBIN TIME (PT, INR) Pending Test LIVER PROFILE VITAL SIGNS Weight 190 lbs 2021-12-18 Weight 184 lbs 2020-06-20 Weight 185 lbs 2019-12-30 Weight 197 lbs 2017-12-11 Height 64 in 2021-12-18 Height 64 in 2020-06-20 Height 64 in 2019-12-30 Height 64 in 2017-12-11 BMI 32.61 kg/m2 2021-12-18 BMI 31.58 kg/m2 2020-06-20 BMI 31.75 kg/m2 2019-12-30 BMI 33.81 kg/m2 2017-12-11 Heart Rate 92 /min 2017-12-11 Temperature 97.5 degrees Fahrenheit 2021-12-18 Temperature 97.1 degrees Fahrenheit 2020-06-20 Blood pressure systolic 000 mm Hg 2021-12-18 Blood pressure diastolic 00 mm Hg 2021-12-18 MEDICATIONS Medication Instructions Dosage Frequency Start End Duration Statu s Date Date metFORMIN HCl 500 Orally Twice a 1 tablet 12h Active MG day with meals Senna 8.6 MG Orally Once a 2 tablets 24h Act danyell day at bedtime as needed Amitriptyline HCl Orally Once a 1 tablet 24h Active 25 MG day Lyrica 150 MG Orally Once a 1 capsule 24h Ac tive day 1 to 3 hours before bedtime in the evening Cetirizine HCl 10 Orally Once a 1 tablet 24h Active MG day Omeprazole 20 MG Orally Once a 1 capsule 24h Dec, day( s) Active day 30 minutes 2021 before morning meal Multi Orally QD 1 24h Active Vitamin/Minerals - Triamcinolone Active Acetonide Albuterol Sulfate Inhalation Three 3 ml as 8h Active (2.5 MG/3ML) times a day needed 0.083% FreeStyle Lancets Active Omeprazole 20 MG Orally Once a 1 tablet 24h Nov, days Active day 30 minutes 2021 before morning meal FreeStyle Lite Active Test Atorvastatin Orally Once a 1 tablet 24h 30 day(s) Ac tive Calcium 10 MG day clonazePAM 1 MG Orally Once a 1 tablet 24h A ctive day oxyCODONE HCl 5 Orally every 6 1 tablet 6h Active MG hrs as needed Januvia Active SUMAtriptan Orally Twice a 1 tablet 12h Acti ve Succinate 50 MG day as needed PROCEDURES Procedure Date Ordered Result Body Site BP NOT ASSESS PATIENT NOT ELIGIBLE Jun 20, 2020 Pt scrn tbco id as non user December 18, 2021 TOBACCO NON-USER Jun 20, 2020 DOC MEDS VERIFIED W/PT OR RE December 18, 2021 DOC MEDS VERIFIED W/PT OR RE Jun 20, 2020 COLORECTAL CA SCREEN DOC REV December 18, 2021 SUPPLIES, CLINICAL STAFF TIME DURING INFECTIOUS Jun 20, 2020 DISEASE PANDEMIC TV 11-20 Minutes December 30, 2019 RESULTS Name Result Date Reference Range CT abdomen pelvis w con 2022-01-01 Complete Blood Count Auto Diff 2021-12-18 White Blood Count 10.7 4.8-10.8 Red Blood Count 4.35 4.20-5.50 Hemoglobin 13.6 12.0-16.0 Hematocrit 42.8 37.0-47.0 Mean Corpuscular Volume 98.4 80.0-98. 0 Mean Corpuscular Hemoglobin 31.3 27.0 -33.0 Mean Corpuscular HGB Conc 31.8 31.0-3 5.0 Red Cell Distribution Width 13.5 11.0 -16.0 Platelet Count 320 160-400 Mean Platelet Volume 10.0 9.4-12.3 Neutrophils Percent Auto 53.2 45-73 Imm Gran Pct Auto 0.3 0.0-0.4 Lymphocytes Percent Auto 37.3 20-40 Monocytes Percent Auto 7.0 2-11 Eosinophils Percent Auto 1.5 0-4 Basophils Percent Auto 0.7 0-2 NRBC Pct Auto 0.0 0.0-0.2 Neutrophils Absolute Auto 5.7 2.0-8. 3 Imm Gran Abs Auto 0.03 0.00-0.03 Lymphocytes Absolute Auto 4.0 1.2-4. 9 Monocytes Absolute Auto 0.8 0.1-1.2 Eosinophils Absolute Auto 0.2 0.0-0. 4 Basophils Absolute Auto 0.1 0.0-0.2 NRBC Abs Auto 0.000 0.0-0.012 Liver Panel 2021-12-18 Bilirubin Total 0.5 0.0-1.0 Bilirubin Direct 0.3 0.0-0.5 Aspartate Amino Transferase 51 5-31 Alanine Aminotransferase 96 0-31 Total Protein 7.4 6.5-8.0 Albumin Level 4.3 3.5-5.0 Alkaline Phosphatase 100 39-117 Lipase 2021-12-18 Lipase 137 8-78 Liver Fibrosis Pnl 2021-12-18 Liver Fibrosis Score 0.07 Liver Fibrosis Stage F0 Liver Fibrosis Interpretation SEE NOTE Nec Inflam Act Score 0.43 Nec Inflam Act Grade A1-A2 Nec Inflam Act Interpretation SEE NOTE EEV-Ylqol-8-Macroglobulin 146 106-27 9 FIB-Haptoglobin 154 43-212 FIB-Apolipoprotein A1 171 101-198 FIB-Total Bilirubin 0.4 0.2-1.2 FIB-GGT 40 3-70 FIB-ALT 89 6-29 Reference ID [id number] Footnote SEE NOTE LIVER PROFILE 2020-01-10 PROTEIN, TOTAL 8.2 6.5-8.0 ALBUMIN 4.7 3.5-5.0 BILIRUBIN, TOTAL 0.6 0.0-1.0 BILIRUBIN, DIRECT 0.3 0.0-0.5 ALK. PHOS. 83 39-117 GOT 74 5-31 GPT 129 0-31 US ABD 2020-01-10 LIVER PROFILE 2017-12-11 PROTEIN, TOTAL 7.9 6.5-8.0 ALBUMIN 4.7 3.5-5.0 BILIRUBIN, TOTAL 0.3 0.0-1.0 BILIRUBIN, DIRECT < 0.2 0.0-0.5 ALK. PHOS. 108 39-117 GOT 75 5-31 GPT 130 0-31 IRON + IBC (FE) 2017-12-11 IRON 46 30-160 IBC 339 228-428 % SATURATION 14 15-50 FERRITIN 2017-12-11 FERRITIN 171 10-250 CBC w DIFF 2017-12-11 WBC 6.3 4.8-10.8 ABSOLUTE NEUTROPHIL COUNT 2.5 2.2-7. 9 RBC 4.68 4.20-5.50 HEMOGLOBIN 15.4 12.0-16.0 HEMATOCRIT 46.2 37-47 MCV 98.7 80-98 MCH 32.8 27.0-33.0 MCHC 33.3 31.0-35.0 PLATELET COUNT 289 160-400 RDW 11.9 11.0-16.0 NEUTROPHILS 39.3 45-73 LYMPHOCYTES 49.1 20-40 MONOCYTES 7.4 2-11 EOSINOPHILS 2.5 0-4 BASOPHILS 1.7 0-2 HEPATITIS B PROFILE 2017-12-11 HEPATITIS B SURFACE ANTIGEN NEGATIVE NEGA TIVE HEPATITIS B CORE ANTIBODY NONREACTIVE NONREA CTIVE HEPATITIS B SURFACE ANTIBODY NONREACTIVE NON REACTIVE HEPATITIS B INTERPRETATION SEE NOTE VUIWQ-1-GTGKBCATSAF (A1A) 2017-12-11 WDPIT-3-NNTVEGECTPI 101 83-199 CERULOPLASMIN 2017-12-11 CERULOPLASMIN 29 18-53 MITOCHONDRIAL AB 2017-12-11 MITOCHONDRIAL ANTIBODIES Negative Negativ e MITOCHONDRIAL AB. TITER Test not performed SMOOTH MUSCLE ANTIBODIES 2017-12-11 SMOOTH MUSCLE ANTIBODIES <20 <20 FLUOR. ANTINUCLEAR AB SCREEN (PANDA) 2017-12-11 HARINDER SCREEN, IFA Positive Negative HARINDER IFA TITER 1:40 Negative HARINDER PATTERN Homogeneous () REASON FOR VISIT Patient presents today for elevated lft's, r/f omeprazole, CT scan, labs, omeprazole, script , CT scan, Patient presents today for elevated liver function tests, labs, ov recall, patient presents todayevelated liver enzymes, patient presents today for elevated LFT 's, Pt no show, patient present today for elevated liver funtion tests, PATIENT PRESENTS TODAY FOR elevated liver funtion tests Insurance Providers [facility] Health Member Patient Patient Patient Patient Patient Subscriber Subscriber Subscriber Group Insurance Plan Plan Plan Plan ID Relationship Address Phone Name Date of ID Name Date of No Type Insurance Insurance Insurance Coverage to Subscriber Address Phone Name Dates MEDICAID [phone] MEDICAID self DAVID [id number] OF [facility] [address] [place] [address] [facility] A [address] [employer] [phone] [employer] self DAVID [id number] [facility] [id number] Health [place] Plan [facility] Plan A [id number]
[2022-11-02] MEDS: Ketorolac Tromethamine 15 MG/ML VIAL IM (13:25)
[2022-11-02] MEDS: Cyclobenzaprine HCl 5 MG TABLET PO (13:25)
== END 2022-11-02 13:34 | disposition home or self-care (01) ==
PROVIDERS: Emergency Provider Emergency Medicine Emergency Medical Services
DX: M54.42 Lumbago with sciatica, left side (principal); Z79.899 Other long term (current) drug therapy
CPT/HCPCS: 96372; 99283; 99284; J1885

== ENCOUNTER → 2022-11-07 13:51 | Outpatient (BNVA) | payer MEDICAID, SELFPAY | PROVIDERS: PCP Nurse Practitioner Family; Visit Provider Nurse Practitioner Family | DX: N20.0 Calculus of kidney (principal); N28.1 Cyst of kidney, acquired; Z79.891 Long term (current) use of opiate analgesic; Z79.899 Other long term (current) drug therapy | CPT/HCPCS: 99212 ==

== ENCOUNTER 2022-11-28 12:24 | Outpatient (REF) | payer MEDICAID, SELFPAY ==
[2022-11-28 18:43] LABS: CT PCR NOT DETECTED (Not Detect.); NG PCR NOT DETECTED (Not Detect.)
[2022-12-05 02:04] LABS: HPV mRNA E6/E7 rflx Not Detected (Not Detected)
== END 2022-11-28 12:25 | disposition home or self-care (01) ==
LOC: HO.LNP 12:24
PROVIDERS: PCP Nurse Practitioner Family; Visit Provider Advanced Practice Midwife
DX: Z01.419 Encounter for gynecological examination (general) (routine) without abnormal findings (principal); Z11.51 Encounter for screening for human papillomavirus (HPV); N95.1 Menopausal and female climacteric states; Z20.2 Contact with and (suspected) exposure to infections with a predominantly sexual mode of transmission
CPT/HCPCS: 0353U; 87624; 88142

== ENCOUNTER 2022-12-17 09:37 | Outpatient (REF) | payer MEDICAID, SELFPAY ==
[2022-12-17 10:47] LABS: Hematocrit 45.2 % (37.0-47.0); Hemoglobin 14.3 g/dl (12.0-16.0); Mean Corpuscular HGB Conc 31.6 g/dl (31.0-35.0); Mean Corpuscular Hemoglobin 30.9 pg (27.0-33.0); Mean Corpuscular Volume 97.6 fL (80.0-98.0); Mean Platelet Volume 10.9 fL (9.4-12.3); Platelet Count 307 X10*3/uL (160-400); Red Blood Count 4.63 X10*6/uL (4.20-5.50); Red Cell Distribution Width 12.6 % (11.0-16.0); White Blood Count 6.2 X10*3/uL (4.8-10.8)
[2022-12-17 11:28] LABS: Alanine Aminotransferase 164 U/L (0-31); Albumin Level 4.4 g/dL (3.5-5.0); Alkaline Phosphatase 90 U/L (39-117); Aspartate Amino Transferase 102 U/L (5-31); Bilirubin Direct 0.2 mg/dL (0.0-0.5); Bilirubin Total 0.7 mg/dL (0.0-1.0); Lipase 33 U/L (8-78); Total Protein 7.4 g/dL (6.5-8.0)
[2022-12-17 12:04] LABS: Syphilis Screen Nonreactive (Nonreactive)
[2022-12-17 12:07] LABS: HBc Num1 0.16 S/CO (0.00-0.79); HIV AB/AG Nonreactive (Nonreactive); HIV Num 1 0.06 S/CO (0.00-0.99); Hepatitis B Core Antibody Nonreactive (Nonreactive); ~HepC Num1 0.13 S/CO (0.00-0.79); ~Hepatitis C Antibody Nonreactive (Nonreactive)
== END 2022-12-17 09:38 | disposition home or self-care (01) ==
LOC: HO.LAB 09:37
PROVIDERS: Absent Provider Internal Medicine Gastroenterology; PCP Nurse Practitioner Family; Visit Provider Advanced Practice Midwife
DX: Z11.4 Encounter for screening for human immunodeficiency virus [HIV] (principal); Z20.2 Contact with and (suspected) exposure to infections with a predominantly sexual mode of transmission; K76.0 Fatty (change of) liver, not elsewhere classified; R74.8 Abnormal levels of other serum enzymes; R10.13 Epigastric pain
CPT/HCPCS: 36415; 80076; 83690; 85027; 86704; 86780; 86803; 87389

== ENCOUNTER 2023-01-06 14:20 | Emergency (ER) | payer OTHER, MEDICAID, SELFPAY ==
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
[2023-01-06 15:17] VITALS: BP 129/76; PULSE 93; RESP 18; TEMP 36.8; O2SAT 96; BMI 32.5
[2023-01-06 16:37] LABS: MANUAL DIFF FLAG NO
[2023-01-06 16:46] LABS: Basophils Absolute Auto 0.1 X10*3/uL (0.0-0.2); Eosinophils Absolute Auto 0.2 X10*3/uL (0.0-0.4); Eosinophils Percent Auto 2.4 % (0-4); Hematocrit 46.3 % (37.0-47.0); Hemoglobin 14.8 g/dl (12.0-16.0); Imm Gran Abs Auto 0.01 X10*3/uL (0.00-0.03); Imm Gran Pct Auto 0.1 % (0.0-0.4); Lymphocytes Absolute Auto 3.2 X10*3/uL (1.2-4.9); Lymphocytes Percent Auto 41.5 % (20-40); Mean Corpuscular Hemoglobin 30.8 pg (27.0-33.0); Mean Corpuscular Volume 96.5 fL (80.0-98.0); Mean Platelet Volume 10.1 fL (9.4-12.3); Monocytes Absolute Auto 0.6 X10*3/uL (0.1-1.2); Monocytes Percent Auto 7.7 % (2-11); Neutrophils Absolute Auto 3.7 x10*3/uL (2.0-8.3); Neutrophils Percent Auto 47.3 % (45-73); Platelet Count 322 X10*3/uL (160-400); Red Cell Distribution Width 12.6 % (11.0-16.0); White Blood Count 7.8 X10*3/uL (4.8-10.8)
[2023-01-06 17:11] LABS: Alanine Aminotransferase 188 U/L (0-31); Albumin Level 4.7 g/dL (3.5-5.0); Alkaline Phosphatase 88 U/L (39-117); Anion Gap 14 (12-20); Aspartate Amino Transferase 158 U/L (5-31); Bilirubin Total 0.6 mg/dL (0.0-1.0); Blood Urea Nitrogen 10 mg/dL (9-16); Calcium 10.3 mg/dL (8.4-10.2); Carbon Dioxide 28 mmol/L (22-29); Chloride 104 mmol/L (96-108); Creatinine Clr Calc Pharmacy 87.5; Estimated Glomerular Filt Rate > 60; Glucose Random 101 mg/dL (60-115); Magnesium 2.1 mg/dL (1.6-2.6); Potassium 4.4 mmol/L (3.3-5.1); Sodium 142 mmol/L (135-145); Total Protein 7.9 g/dL (6.5-8.0)
[2023-01-06 17:15] LABS: HCG Quantitative < 2 mIU/mL
[2023-01-06] MEDS: Acetaminophen 325 MG TABLET 975 MG PO (18:09)
--- NOTE | 2023-01-06 18:10 | PC.NURSE ---
pt medicated per nov for 03/30 right isabella epain- awaiting ct results
[2023-01-06] MEDS: iohexoL 350 MG/ML 100 ML INFUS..BTL IV (18:33)
== END 2023-01-06 19:58 | disposition home or self-care (01) ==
PROVIDERS: Physician Assistant; Emergency Provider Emergency Medicine Emergency Medical Services; PCP Nurse Practitioner Family
DX: S39.012A Strain of muscle, fascia and tendon of lower back, initial encounter (principal); S20.214A Contusion of middle front wall of thorax, initial encounter; V43.62XA Car passenger injured in collision with other type car in traffic accident, initial encounter; Y93.89 Activity, other specified; Y92.414 Local residential or business street as the place of occurrence of the external cause; Y99.9 Unspecified external cause status; Z79.899 Other long term (current) drug therapy
CPT/HCPCS: 36415; 70450; 71260; 72125; 74177; 80053; 83735; 84702; 85025; 99284; Q9967

== ENCOUNTER 2023-01-19 10:02 | Outpatient (REF) | payer MEDICAID, SELFPAY ==
[2023-01-19 11:45] LABS: Alanine Aminotransferase 162 U/L (0-31); Albumin Level 4.7 g/dL (3.5-5.0); Alkaline Phosphatase 97 U/L (39-117); Aspartate Amino Transferase 113 U/L (5-31); Bilirubin Direct 0.3 mg/dL (0.0-0.5); Bilirubin Total 0.8 mg/dL (0.0-1.0); Total Protein 8.2 g/dL (6.5-8.0)
== END 2023-01-19 10:03 | disposition home or self-care (01) ==
LOC: HO.LAB 10:02
PROVIDERS: Visit Provider Internal Medicine Gastroenterology
DX: R74.8 Abnormal levels of other serum enzymes (principal)
CPT/HCPCS: 36415; 80076

== ENCOUNTER 2023-03-26 10:36 | Outpatient (REF) | payer MEDICAID, SELFPAY ==
[2023-03-31 11:08] LABS: Mitochondrial Antibodies NEGATIVE (NEGATIVE)
[2023-04-01 12:34] LABS: Smooth Muscle Antibody <20 U (<20)
[2023-04-03 13:23] LABS: Anti Nuclear Antibody Screen POSITIVE (NEGATIVE)
== END 2023-03-26 10:37 | disposition home or self-care (01) ==
LOC: HO.LAB 10:36
PROVIDERS: Visit Provider Internal Medicine Gastroenterology
DX: R79.89 Other specified abnormal findings of blood chemistry (principal)
CPT/HCPCS: 36415; 80076; 82103; 82390; 86015; 86038; 86039; 86255; 86256

== ENCOUNTER 2023-04-08 10:00 | Outpatient (RCR) | payer OTHER, MEDICAID, SELFPAY | END 2023-04-08 11:20 | disposition home or self-care (01) | LOC: HO.PT 10:00 | PROVIDERS: PCP Nurse Practitioner Family; Visit Provider Nurse Practitioner Family | DX: M54.42 Lumbago with sciatica, left side (principal) | CPT/HCPCS: 97110; 97112; 97162 ==

== ENCOUNTER 2023-05-01 07:39 | Outpatient (REF) | payer MEDICAID, SELFPAY ==
--- NOTE | ~2023-05-01 | US_ITS ---
EXAMINATION: US ABDOMEN COMPLETE CLINICAL INFORMATION: Abnormal liver function. Calculus of kidney. COMPARISON: CT abdomen and pelvis 01/06/2023. Renal ultrasound 10/30/2022. Ultrasound abdomen 01/10/2020. TECHNIQUE: Real-time imaging of the abdominal viscera. Limited visualization due to bowel gas. FINDINGS: PANCREAS: Pancreatic duct measures up to 0.4 cm in diameter at the level of the pancreatic body. Limited visualization of the pancreas. ABDOMINAL AORTA: Nonaneurysmal. INFERIOR VENA CAVA: Visualized portions are normal. LIVER: Hepatomegaly, 19.6 cm. Diffuse increase in echogenicity of the liver is characteristic of primary hepatocellular disease, possibly due to hepatic steatosis and further limits visualization. GALLBLADDER: No gallstones. COMMON BILE DUCT: Normal in caliber measuring 0.7 cm in diameter. RIGHT KIDNEY: No hydronephrosis or renal calculi. The kidney measures 12.8 cm in maximum dimension. 6.3 x 4.0 x 6.1 cm right renal upper pole cyst with thin septation redemonstrated with benign features. There is no indication for followup imaging. LEFT KIDNEY: Left renal midpole 0.6 x 0.5 x 0.6 cm heterogeneous echogenic focus was not identified on prior exams, possibly representing a nonobstructive calculus versus echogenic cortical lesion such as an angiomyolipoma. Limited visualization due to bowel gas. No hydronephrosis. The kidney measures 11.6 cm in maximum dimension. SPLEEN: Normal. The spleen measures 8.9 cm in maximum dimension. FREE FLUID: None. US/US abdomen complete IMPRESSION: 1. Left renal midpole 0.6 cm heterogeneous echogenic focus was not identified on prior exams, possibly representing a nonobstructive calculus versus echogenic cortical lesion such as an angiomyolipoma. Limited visualization due to bowel gas. No hydronephrosis. 2. Hepatomegaly, 19.6 cm. Diffuse increase in echogenicity of the liver is characteristic of primary hepatocellular disease, possibly due to hepatic steatosis and further limits visualization. 3. Pancreatic duct measures up to 0.4 cm in diameter at the level of the pancreatic body. Limited visualization of the pancreas. Correlation with clinical exam recommended to determine further management. Additional imaging with CT scan or MRI could be considered for further evaluation.
== END 2023-05-01 07:40 | disposition home or self-care (01) ==
LOC: HO.US 07:39
PROVIDERS: Absent Provider Nurse Practitioner Family; PCP Nurse Practitioner Family; Visit Provider Internal Medicine Gastroenterology
DX: R94.5 Abnormal results of liver function studies (principal); R79.89 Other specified abnormal findings of blood chemistry
CPT/HCPCS: 76700

== ENCOUNTER 2023-05-06 13:41 | Outpatient (AMB) | payer MEDICAID, SELFPAY ==
--- NOTE | 2023-05-06 13:48 | MHC.OFFVIS ---
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 Accompanied by: Unknown Allergies Penicillins Allergy (Intermediate, Verified 05/06/23 14:17) Rash Sulfa (Sulfonamide Antibiotics) [SULFA (SULFONAMIDE ANTIBIOTICS)] Allergy (Intermediate, Verified 05/06/23 14:17) Rash, hives penicillin V Allergy (Unknown, Verified 05/06/23 14:17) hives, rash cat dander Allergy (Verified 05/06/23 14:17) Sneezing pollen extracts Allergy (Verified 05/06/23 14:17) Sneezing morphine Adverse Reaction (Unknown, Verified 05/06/23 14:17) Gastrointestinal Upset Medication List - Last Reconciled 05/06/23 by JOON Larsen-ALVAREZ albuterol sulfate 90 mcg/actuation (Ventolin HFA) grams inhalation amitriptyline 50 mg PO DAILY ascorbic acid (vitamin C) (Vitamin C) 500 mg PO atorvastatin 10 mg PO cetirizine (Zyrtec) 10 mg PO DAILY PRN clonazepam 1 mg PO DAILY clonazepam 0.5 mg PO cyclobenzaprine 5 mg PO TID PRN 7 days empagliflozin (Jardiance) 25 mg PO metformin 1,000 mg PO BID omeprazole 20 mg PO pregabalin (Lyrica) 300 mg PO BID sennosides (senna) 8.6 mg PO DAILY sitagliptin phosphate (Januvia) 100 mg PO DAILY sumatriptan succinate (Imitrex) 50 mg PO Q2-4H PRN HPI HPI Comments History of Present Illness Details Julia is a pleasant 51-year-old Irish-speaking female of Dr. Lopez who was accompanied by her mom and niece at todays visit. She has a past medical history of asthma, nephrolithiasis, diabetes mellitus, anxiety, and depression. She presents to the office today for follow-up of her recent renal ultrasound imaging. Recent renal imaging reviewed with the patient and her family today. Right kidney with no hydronephrosis or renal calculi. 6.3 x 4.0 x 6.1 cm right renal upper pole cyst with thin septation redemonstrated with benign features. There is no indication for follow-up per radiology report. Left kidney with renal midpole 0.6 x 0.5 x 0.6 cm heterogeneous echogenic focus was not identified on prior exams, possibly representing a nonobstructive calculus versus echogenic cortical lesion such as an angiomyolipoma. Limited visualization due to bowel gas. No hydronephrosis. In office urinalysis results reviewed with the patient today. When asked patient denies any changes to her urinary habits. She denies urinary frequency, urinary urgency, urinary incontinence, hematuria, dysuria, fever and or chills. She does report intermittent left-sided flank pain however does not find this bothersome at this time. Discussed surveillance monitoring versus obtaining KUB and or CT KUB. However, patient reports pain is intermittent and not bothersome at this time. Discussed and stressed the importance of drinking plenty of water daily. She otherwise offers no issues or concerns at this time. [facility] Medical History (Updated 05/07/23 @ 11:03 by MARCELINA Larsen) Asthma Bilateral nephrolithiasis Diabetes mellitus History of anxiety History of depression Renal and ureteric calculus Surgical History History of back surgery History of bladder surgery History of endometrial ablation Hx of tubal ligation Family History Father Diabetes Mother HTN (hypertension) Diabetes Social History Household Members: None Housing: Apartment Alcohol intake: current Alcohol intake frequency: holidays/special occasions only Patient Tobacco Use Status: Former Tobacco user Current occupational status: disabled Current occupation: lt handed Sexual orientation: Straight/Heterosexual Gender identity: Female Female Reproductive History Menstrual Age of Menarche: 10 Review of Systems Const Reports as per HPI Eyes Reports no additional complaints ENT Reports no additional complaints Card Reports no additional complaints Resp Reports as per HPI GI Reports no additional complaints Reports as per HPI Musc Reports no additional complaints Neuro Reports no additional complaints Psych Reports as per HPI Endo Reports as per HPI Physical Exam Const General: cooperative, healthy appearing, comfortable, no acute distress, well developed, alert and awake Nutritional Appearance: well nourished Orientation/consciousness: patient oriented x3 Limitations: no limitations HEENT Head: Yes normal to inspection and Yes atraumatic Ears: hearing grossly normal bilaterally and external ears normal General nose exam: Normal external nose present, no nasal discharge noted and no epistaxis Face and sinus: Yes normal facial exam, No abrasion and No laceration Mouth: Normal oral and palatal mucosa present, no drooling and no muffled voice Eyes General: appearance normal, both eyes and all related structures Periorbital: periorbital findings normal Eyelids: Yes eyelids normal Conjunctivae: conjunctivae normal Pupils: Equal, round and reactive pupils present EOM: EOMs intact bilaterally Neck Neck: Yes normal visual inspection, Yes full ROM and Yes no lymphadenopathy Chest Chest palpation & inspection: normal inspection of the chest Resp Effort & Inspection: normal respiratory effort and able to speak in complete sentences Auscultation: clear to auscultation bilaterally Cardio Rate: regular rate Rhythm: regular rhythm Heart sounds: S1 normal heart sound present and S2 normal heart sound present GI Inspection: Yes normal to inspection Palpation (GI): Soft to palpation, not firm, nontender and no guarding General: Yes no CVA tenderness Back/Spine/Pelvis Back: no CVA tenderness Cervical Spine: normal cervical lordosis and cervical ROM normal Thoracic/Lumbar Spine: thoracic and lumbar spine normal to inspection and thoraco-lumbar ROM normal Neuro General: patient oriented x3 and moves all extremities Cranial nerves: Yes Equal, round and reactive pupils present Cognition (Neuro): normal cognition Motor exam (neuro): 5/5 motor strength present throughout Sensory Exam: double simultaneous stimulation for sensation normal Coordination: [id number] test normal Extrem General: Yes normal to inspection, Yes full ROM and Yes capillary refill normal Psych Appearance: grossly normal Mental Status: mental status grossly normal Affect: normal affect Attitude: cooperative Thought process: Normal thought process present Thought content: Normal thought content present Insight: Fair insight present (Psych) Judgement: Fair judgement present (Psych) Results AMB Urinalysis, Automated UA Leukoctes 0 Linh/uL Last Edit by Lo Viveros on 05/06/23 14:02 UA Nitrite Last Edit by Lo Viveros on 05/06/23 14:02 UA Urobilinogen 0.2 mg/dL Last Edit by Lo Viveros on 05/06/23 14:02 UA Protein 0 mg/dL Last Edit by Lo Viveros on 05/06/23 14:02 UA pH 6.0 Last Edit by Lo Viveros on 05/06/23 14:02 UA Blood 0 Kaiden/uL Last Edit by Lo Viveros on 05/06/23 14:02 UA Specific [place] 1.025 Last Edit by Lo Viveros on 05/06/23 14:02 UA Ketone Last Edit by Lo Viveros on 05/06/23 14:02 UA Bilirubin 0 mg/dL Last Edit by Lo Viveros on 05/06/23 14:02 UA Glucose 0 mg/dL Last Edit by Lo Viveros on 05/06/23 14:02 Results Reviewed Results Reviewed: Laboratory Last Values Urine pH (Auto) 6.0 05/06/23 13:55 Specific [place] (Auto) 1.025 05/06/23 13:55 Urine Protein (Auto) 0 mg/dL 05/06/23 13:55 Glucose (UA)(Auto) 0 mg/dL 05/06/23 13:55 Urine Blood (Auto) 0 Kaiden/uL 05/06/23 13:55 Urine Bilirubin (Auto) 0 mg/dL 05/06/23 13:55 Urine Urobilinogen (Auto) 0.2 mg/dL 05/06/23 13:55 Leukocyte Esterase (Auto) 0 Linh/uL 05/06/23 13:55 Date of Service: 05/01/23 EXAMINATION: US ABDOMEN COMPLETE FINDINGS: PANCREAS: Pancreatic duct measures up to 0.4 cm in diameter at the level of the pancreatic body. Limited visualization of the pancreas. ABDOMINAL AORTA: Nonaneurysmal. INFERIOR VENA CAVA: Visualized portions are normal. LIVER: Hepatomegaly, 19.6 cm. Diffuse increase in echogenicity of the liver is characteristic of primary hepatocellular disease, possibly due to hepatic steatosis and further limits visualization. GALLBLADDER: No gallstones. COMMON BILE DUCT: Normal in caliber measuring 0.7 cm in diameter. RIGHT KIDNEY: No hydronephrosis or renal calculi. The kidney measures 12.8 cm in maximum dimension. 6.3 x 4.0 x 6.1 cm right renal upper pole cyst with thin septation redemonstrated with benign features. There is no indication for followup imaging. LEFT KIDNEY: Left renal midpole 0.6 x 0.5 x 0.6 cm heterogeneous echogenic focus was not identified on prior exams, possibly representing a nonobstructive calculus versus echogenic cortical lesion such as an angiomyolipoma. Limited visualization due to bowel gas. No hydronephrosis. The kidney measures 11.6 cm in maximum dimension. SPLEEN: Normal. The spleen measures 8.9 cm in maximum dimension. FREE FLUID: None. IMPRESSION: 1. Left renal midpole 0.6 cm heterogeneous echogenic focus was not identified on prior exams, possibly representing a nonobstructive calculus versus echogenic cortical lesion such as an angiomyolipoma. Limited visualization due to bowel gas. No hydronephrosis. 2. Hepatomegaly, 19.6 cm. Diffuse increase in echogenicity of the liver is characteristic of primary hepatocellular disease, possibly due to hepatic steatosis and further limits visualization. 3. Pancreatic duct measures up to 0.4 cm in diameter at the level of the pancreatic body. Limited visualization of the pancreas. ? Correlation with clinical exam recommended to determine further management. Additional imaging with CT scan or MRI could be considered for further evaluation. 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 Recent ultrasound results reviewed with the patient today; as noted above. Patient reporting intermittent left-sided flank pain discussed surveillance monitoring verses surgical intervention verses obtaining KUB and or CT KUB; will continue with surveillance monitoring at this time Discussed, educated, and encouraged to drink plenty of water daily. Patient otherwise denies any urinary issues or concerns at this time. Patient is happy with current voiding parameters. Renal ultrasound in 6 months Follow-up in 6 months with imaging to be completed prior; or sooner with any issues, concerns, and or questions. Orders: Orders US renal BI 6 Months D17.9 - Benign lipomatous neoplasm, unspecified, N20.0 - Calculus of kidney AMB Urinalysis Automated 05/06/23 Z13.9 - Encounter for screening, unspecified Patient Instructions: The patient had an opportunity to ask questions regarding the treatment plan. All questions were answered. Physical exam, labs, and imaging were discussed and reviewed in detail. As well as risks, benefits, and discussion of treatment choices. No major barriers to understanding were identified. The patient expressed understanding and agreement with the above treatment plan. The patient was made aware they should contact our office by phone for worsening of their current condition, the appearance of new symptoms, or with any questions or concerns. Compliance is encouraged with any medications and follow up testing that is ordered. It is a privilege to be allowed the opportunity to participate in? your urological care.? Again, if you have any questions or concerns If you have any questions or concerns please do not hesitate to contact me. The office is [phone]. This note is constructed using voice recognition software. While every effort has been made to ensure accuracy route sales representative errors may have been included. Yours sincerely, TATY Larsen Coding Level of Care Code Est Pt Level 3 (19896) Diagnoses Angiolipoma D17.9 Renal cyst N28.1 Flank pain R10.9 Nephrolithiasis N20.0
== END 2023-05-06 14:17 | disposition home or self-care (01) ==
PROVIDERS: Visit Provider Nurse Practitioner Family
DX: D17.9 Benign lipomatous neoplasm, unspecified (principal); N28.1 Cyst of kidney, acquired; R10.9 Unspecified abdominal pain; N20.0 Calculus of kidney
CPT/HCPCS: 99213

== ENCOUNTER → 2023-05-06 13:41 | Outpatient (BNVA) | payer MEDICAID, SELFPAY | PROVIDERS: Visit Provider Nurse Practitioner Family | DX: N20.0 Calculus of kidney (principal); N28.1 Cyst of kidney, acquired; D17.9 Benign lipomatous neoplasm, unspecified | CPT/HCPCS: 81003; 99213 ==

== ENCOUNTER 2023-05-14 17:24 | Emergency (ER) | payer MEDICAID, SELFPAY ==
--- NOTE | ~2023-05-14 | XR_ITS ---
EXAMINATION: XR LUMBOSACRAL SPINE CLINICAL INFORMATION: Pain. COMPARISON: None available. TECHNIQUE: Three views of the lumbosacral spine. FINDINGS: The alignment is normal. There is mild diffuse lumbar disc degenerative change with mild endplate sclerosis and scattered osteophytes. There is a disc spacer at L4-L5 which appears to be in good position. The hardware is intact. There is mild L5-S1 facet degenerative change. There is no fracture. XR/XR lumbar spine 2-3V IMPRESSION: 1. L4-L5 postoperative change. 2. Mild diffuse lumbar disc and mild lower lumbar facet degenerative change. 3. No fracture or malalignment.
--- NOTE | ~2023-05-14 | CT_ITS ---
EXAMINATION: CT ABDOMEN AND PELVIS WITHOUT CONTRAST CLINICAL INFORMATION: Pain, bilateral flank, history of calculi. COMPARISON: None available. TECHNIQUE: Multidetector volumetric imaging was performed from the superior aspect of the liver through the pubic symphysis. Sagittal and coronal reformatted images were obtained on the technologist's workstation. This CT examination was performed using dose optimization techniques as appropriate, variously including the following: *Automated exposure control. *Adjustment of mA and/or kV according to patient size (this includes techniques or standardized protocols for targeted exams where dose is matched to indication/reason for exam; i.e. extremities or head). *Use of iterative reconstruction technique. DLP: 688 mGy-cm FINDINGS: LUNG BASES: The visualized lung bases are unremarkable. LIVER, GALLBLADDER, AND BILIARY TREE: The liver is of diminished attenuation and mildly enlarged measuring up to 22 cm. No focal liver lesions are seen. There is no intrahepatic biliary duct dilatation. The gallbladder is unremarkable with no evidence of radiopaque gallstones, gallbladder wall thickening, or obvious pericholecystic inflammatory changes. PANCREAS: Unremarkable. SPLEEN: Unremarkable. ADRENAL GLANDS: Unremarkable. KIDNEYS AND URETERS: There is a 7 cm cyst [id number] pole of the right kidney. There are no renal calculi. There is no hydronephrosis. BLADDER: Unremarkable. GASTROINTESTINAL TRACT: There is retained stool throughout. The appendix is unremarkable. ABDOMINAL WALL: No significant hernia is appreciated. LYMPH NODES: Normal. VASCULAR: Unremarkable. PELVIC VISCERA: Unremarkable. OSSEOUS STRUCTURES: There is L4-L5 fusion. CT/CT abdomen pelvis wo IV con IMPRESSION: 1. No acute intra-abdominal process. 2. Mildly enlarged fatty infiltrated liver. 3. Retained stool of uncertain significance. Fleischner guidelines were followed.
[2023-05-14 17:36] VITALS: BP 131/78; PULSE 100; RESP 19; TEMP 37.1; O2SAT 99; BMI 32.2
--- NOTE | 2023-05-14 17:36 | ED.GENADULT ---
HPI - General Adult General Chief complaint: Back Pain/Injury Stated complaint: lower back pain radiates down left leg Time Seen by Provider: 05/14/23 18:22 Source: patient Mode of arrival: ambulatory Limitations: no limitations History of Present Illness HPI narrative: Patient is a 52-year-old female who presents emergency department for evaluation of back pain. Reported onset 9 days ago. Pain is diffuse across the lower back but left worse than right and radiates into the abdomen/suprapubic region. She states that the pain does not radiate to her legs, but they feel generally weak. She is ambulatory with a steady gait. She has been experiencing associated nausea without vomiting, and urinary frequency. She denies fevers, chills, chest pain, shortness of breath, upper abdominal pain, constipation, diarrhea, bloody or black stools, abnormal vaginal discharge, vaginal bleeding, numbness or tingling of the extremities. She endorses that this pain feels similar to prior kidney stones. She does also endorse a history of chronic back pain but feels this is different Related Data Home Medications Medication Instructions Recorded Confirmed amitriptyline 50 mg tablet 50 mg PO DAILY 11/20/20 10/02/22 cetirizine 10 mg tablet (Zyrtec) 10 mg PO DAILY PRN 11/20/20 10/02/22 clonazepam 1 mg tablet 1 mg PO DAILY 11/20/20 10/02/22 metformin 1,000 mg tablet 1,000 mg PO BID 11/20/20 10/02/22 pregabalin 300 mg capsule (Lyrica) 300 mg PO BID 11/20/20 10/02/22 sennosides 8.6 mg capsule (senna) 8.6 mg PO DAILY 11/20/20 10/02/22 sitagliptin phosphate 100 mg 100 mg PO DAILY 11/20/20 10/02/22 tablet (Januvia) sumatriptan succinate 50 mg tablet 50 mg PO Q2-4H PRN 11/20/20 10/02/22 (Imitrex) albuterol sulfate 90 mcg/actuation g inhalation 11/07/22 aerosol inhaler (Ventolin HFA) ascorbic acid (vitamin C) 500 mg 500 mg PO 11/07/22 tablet (Vitamin C) atorvastatin 10 mg tablet 10 mg PO 11/07/22 clonazepam 0.5 mg tablet 0.5 mg PO 11/07/22 empagliflozin 25 mg tablet 25 mg PO 11/07/22 (Jardiance) omeprazole 20 mg capsule,delayed 20 mg PO 11/07/22 release Previous Rx's Medication Instructions Recorded cyclobenzaprine 5 mg tablet 5 mg PO TID PRN back pain 7 days 11/02/22 #21 tabs polyethylene glycol 3350 17 17 g PO DAILY #119 grams 05/14/23 gram/dose oral powder (Miralax) Allergies Allergy/AdvReac Type Severity Reaction Status Date / Time Penicillins Allergy Intermediate Rash Verified 05/14/23 17:36 Sulfa (Sulfonamide Allergy Intermediate Rash, hives Verified 05/14/23 17:36 Antibiotics) [SULFA (SULFONAMIDE ANTIBIOTICS)] penicillin V Allergy Unknown hives, rash Verified 05/14/23 17:36 cat dander Allergy Sneezing Verified 05/14/23 17:36 pollen extracts Allergy Sneezing Verified 05/14/23 17:36 morphine AdvReac Unknown Gastrointestinal Verified 05/14/23 17:36 Upset Review of Systems Review of Systems: Constitutional : No Weight loss, No Fever, No Chills ENT/Mouth :? No sore throat, No Rhinorrhea Eyes: No Swelling, No Redness Cardiovascular : No Chest Pain, No SOB, No Edema Respiratory : No Cough, No Sputum, No Wheezing Gastrointestinal : Positive Nausea, no Vomiting, no Diarrhea, positive abdominal pain, No Hematochezia, No Melena Genitourinary : No Dysuria, positive Urinary Frequency, No Hematuria, No Urgency? Musculoskeletal : No joint pain, No Myalgias, No Joint Swelling. positive back pain Skin : No Skin Lesions, No rash Neuro : No Weakness, No Numbness, No Dizziness, No Headache Psych : No Anxiety/Panic, No Depression Heme/Lymph: No Bruising, No Lymphadenopathy Endocrine : No Polyuria, No Polydipsia Yes all other systems are reviewed and are negative [facility] Past Medical History Attestation statement: The following information was validated with the patient. Source: old records reviewed Medical History Asthma Bilateral nephrolithiasis Diabetes mellitus History of anxiety History of depression Renal and ureteric calculus Surgical History History of back surgery History of bladder surgery History of endometrial ablation Hx of tubal ligation Family History Family History Father Diabetes Mother HTN (hypertension) Diabetes Social History Social History Household Members: None Housing: Apartment Alcohol intake: unknown Patient Tobacco Use Status: Former Tobacco user Advance Directives: No Advance Directives Information Provided: Yes Current occupational status: disabled Current occupation: lt handed Sexual orientation: Straight/Heterosexual Gender identity: Female Physical Exam ED Vital Signs: Vital Signs - 24 hr 05/14/23 17:36 Temperature 98.7 F Pulse Rate 100 Respiratory Rate 19 Blood Pressure 131/78 Pulse Oximetry 99 Oxygen Delivery Method Room Air BMI result Body Mass Index 32.2 Appearance: Alert.?Oriented to person, place and time. No acute distress.?Normal affect. Neck: Normal inspection.? Neck supple.?? CVS: Heart sounds normal. Normal heart rate and rhythm.? Pulses normal.?? Respiratory: No respiratory distress.? Lung sounds clear to auscultation bilaterally?? Abdomen: Soft and non-tender. No rigidity. No guarding. No rebound tenderness. Normoactive bowel sounds. Back: Left CVA tenderness, mild discomfort on the right. Diffuse tenderness upon palpation of the paraspinal muscles of the lumbar region to the coccyx. Straight leg test negative bilaterally. Skin: Skin warm and dry.? Normal skin color.? Extremities: No lower extremity edema.? No calf ttp? Neuro: Moves all extremities spontaneously. Sensation intact bilaterally. CN II-XII intact. No focal neuro deficits. Ambulates with normal steady gait. Course Course Course Narrative: RME- 52 year old female presents for evaluation of lower back pain. Hx of diabetes, chronic back pain. No weakness, bladder or bowel symptoms. Denies any specific injury. Symptoms started 10 days ago. Plan for lumbar xray Reevaluation(s) Reevaluation #1: Patient with improvement in pain after receiving ketorolac. XR of the lumbar spine is with out acute etiology, degenerative changes are present [address] of the abdomen and pelvis without acute findings, no evidence of calculi, there is however mention of retained stool, is possible that constipation may be etiology of pain versus musculoskeletal at this time. Discussed plan of care for discharge home, acetaminophen/ibuprofen for pain management in addition to MiraLax. Advised outpatient follow-up with primary care provider within 3 days. Discussed worrisome signs and symptoms that would warrant re-evaluation, all questions were answered. Time: 20:35 Medications Administered Discontinued Medications Generic Name Dose Route Start Last Admin Trade Name Reji PRN Reason Stop Dose Admin Sodium Chloride 1,000 mls @ 999 mls/hr 05/14/23 18:45 05/14/23 20:22 Ns IV 05/14/23 19:45 Infused .Q1H1M KAYLA Infusion Ketorolac Tromethamine 30 mg 05/14/23 18:44 05/14/23 19:02 Ketorolac Tromethamine 30 Mg/Ml Vial IVPUSH 05/14/23 18:45 30 mg ONCE ONE Administration Ondansetron HCl 4 mg 05/14/23 18:44 05/14/23 19:02 Ondansetron Hcl 4 Mg/2 Ml Vial IVPUSH 05/14/23 18:45 4 mg ONCE ONE Administration Medical Decision Making Medical Decision Making MDM Narrative: Patient is a 52-year-old female with past medical history of nephrolithiasis, renal cyst, sciatica presenting to emergency department for evaluation of back pain radiating to the abdomen as per HPI. At the time of my examination she does appear uncomfortable, she is afebrile currently. Abdominal examination is benign, not consistent with acute abdomen at this time. Left CVA tenderness upon palpation, with diffuse tenderness upon palpation of the paraspinal muscles. Concern at this time for nephrolithiasis v. obstructive calculi v. hydronephrosis v. pyelonephritis v. urinary tract infection v. muscular pain/radiculopathy. Lower suspicion for diverticulitis/colitis. Plan to obtain labs, urinalysis, CT abdomen and pelvis, lumbar x-ray. Will trial ketorolac for pain, Zofran for nausea. Differential Diagnosis Differential Diagnoses: The differential diagnosis associated with the presentation includes (As noted above) Admission/Observation Consideration of admission/observation: Escalation of care including admission/observation considered (I considered admission for back/abdominal pain. See course narrative for further detail.) Lab Data MDM Lab Attestation statement: I reviewed the patient's lab results. (See course narrative for further detail) 05/14/23 18:54 08/24/23 18:54 Labs: Lab Results 05/14/23 05/14/23 05/14/23 Range/Units 18:22 18:54 18:54 WBC 7.7 (4.8-10.8) X10*3/uL RBC 4.44 (4.20-5.50) X10*6/uL Hgb 13.4 (12.0-16.0) g/dl Hct 42.6 (37.0-47.0) % MCV 95.9 (80.0-98.0) fL MCH 30.2 (27.0-33.0) pg MCHC 31.5 (31.0-35.0) g/dl RDW 12.9 (11.0-16.0) % Plt Count 286 (160-400) X10*3/uL MPV 10.3 (9.4-12.3) fL Immature Gran % (Auto) 0.1 (0.0-0.4) % Neut % (Auto) 39.7 L (45-73) % Lymph % (Auto) 48.3 H (20-40) % [place] % (Auto) 8.4 (2-11) % Eos % (Auto) 2.7 (0-4) % Baso % (Auto) 0.8 (0-2) % Lymph # (Auto) 3.7 (1.2-4.9) X10*3/uL [place] # (Auto) 0.6 (0.1-1.2) X10*3/uL Eos # (Auto) 0.2 (0.0-0.4) X10*3/uL Baso # (Auto) 0.1 (0.0-0.2) X10*3/uL Abs Immat Gran (auto) 0.01 (0.00-0.03) X10*3/uL Absolute Neuts (auto) 3.0 (2.0-8.3) x10*3/uL Absolute Nucleated RBC 0.000 (0.0-0.012) X10*3/uL Nucleated RBC % (auto) 0.0 (0.0-0.2) /100WBC Sodium 142 (135-145) mmol/L Potassium 4.2 (3.3-5.1) mmol/L Chloride 106 (96-108) mmol/L Carbon Dioxide 24 (22-29) mmol/L Anion Gap 16 (12-20) BUN 10 (9-16) mg/dL Creatinine 0.85 (0.5-1.4) mg/dL Estim Creat Clear Calc 80.7 Estimated GFR > 60 Random Glucose 157 H (60-115) mg/dL Calcium 9.8 (8.4-10.2) mg/dL Total Bilirubin 0.3 (0.0-1.0) mg/dL AST 96 H (5-31) U/L ALT 157 H (0-31) U/L Alkaline Phosphatase 123 H (39-117) U/L Total Protein 8.0 (6.5-8.0) g/dL Albumin 4.3 (3.5-5.0) g/dL Urine Color Yellow Urine Appearance Clear Urine pH 5.5 (5.0-9.0) Ur Specific [place] 1.025 (1.005-1.025) Urine Protein Negative (Neg-Trace) mg/dL Urine Glucose (UA) >=1000 H (Negative) mg/dL Urine Ketones Trace (Negative) mg/dL Urine Blood Negative (Negative) Urine Nitrite Negative (Negative) Ur Leukocyte Esterase Negative (Negative) Urine RBC 0-2 (0-2) /HPF Urine WBC 0-5 (0-5) /HPF Ur Squamous Epith Cells 0-2 (0-2) /HPF Urine Bacteria None Seen (None Seen) Hyaline Casts 0-2 (0-2) /LPF Independent Interpretation I performed an independent interpretation of an: Plain X-Ray (I personally interpreted XR imaging of the lumbar spine and agree with radiologist impression, no acute etiology) Radiology Impression Discussion of test interpretation with radiology: I have reviewed the radiologist's reading. Radiologist Impression: XR/XR lumbar spine 2-3V IMPRESSION: 1. L4-L5 postoperative change. ? 2. Mild diffuse lumbar disc and mild lower lumbar facet degenerative change. ? 3. No fracture or malalignment. CT/CT abdomen pelvis wo IV con IMPRESSION: 1. No acute intra-abdominal process. ? 2. Mildly enlarged fatty infiltrated liver. ? 3. Retained stool of uncertain significance. External Record Review External record reviewed: Outpatient record Prescription Management I considered prescription management with: Pain Medication (Acetaminophen/ibuprofen) and Other (MiraLax) Discharge Plan Discharge Clinical Impression: Lumbar radiculopathy, Constipation Patient Disposition: Home, Self-Care Instructions: Constipation (ED), Lumbar Radiculopathy (ED), Lower Back Exercises (ED) Additional Instructions: You can take ibuprofen 200 mg, 3 tablets (600mg) every 6-8 hours as needed for pain, in addition to Tylenol 500 mg, 2 tablets (1,000mg) every 4-6 hours as needed for pain, but not to exceed 3 doses daily (3,000mg).? Take MiraLax as prescribed for constipation, stop taking if you develop diarrhea. Follow a high-fiber diet. Contact your primary care provider and arrange for a follow-up visit within 3 days. Return back to emergency department any new or worsening symptoms or concerns. Prescriptions: New polyethylene glycol 3350 [Miralax] 17 gram/dose powder 17 g PO DAILY Qty: 119 0RF No Action cyclobenzaprine 5 mg tablet 5 mg PO TID PRN (Reason: back pain) 7 Days Qty: 21 0RF Januvia 100 mg tablet 100 mg PO DAILY metformin 1,000 mg tablet 1,000 mg PO BID senna 8.6 mg capsule 8.6 mg PO DAILY clonazepam 1 mg tablet 1 mg PO DAILY amitriptyline 50 mg tablet 50 mg PO DAILY cetirizine [Zyrtec] 10 mg tablet 10 mg PO DAILY PRN pregabalin [Lyrica] 300 mg capsule 300 mg PO BID sumatriptan succinate [Imitrex] 50 mg tablet 50 mg PO Q2-4H PRN Rx Instructions: do not exceed 4 doses per 24 hrs clonazepam 0.5 mg tablet 0.5 mg PO Jardiance 25 mg tablet 25 mg PO atorvastatin 10 mg tablet 10 mg PO ascorbic acid (vitamin C) [Vitamin C] 500 mg tablet 500 mg PO albuterol sulfate [Ventolin HFA] 90 mcg/actuation HFA aerosol inhaler inhalation omeprazole 20 mg capsule,delayed release(DR/EC) 20 mg PO Referrals: Khushboo Lopez NP [Primary Care Provider] -
[2023-05-14 18:30] LABS: Appearance Urine Clear; Color Urine Yellow; Glucose Urine UA >=1000 mg/dL (Negative); Leukocyte Esterase Urine Negative (Negative); Nitrite Urine Negative (Negative); PH 5.5 (5.0-9.0); Specific Gravity - Urine 1.025 (1.005-1.025); UMIC TRIGGER UACC YES; Urine Blood Negative (Negative); Urine Ketones Trace mg/dL (Negative); Urine Protein Negative (Neg-Trace)
[2023-05-14 18:33] LABS: Bacteria Urine None Seen (None Seen); Hyaline Casts Urine 0-2 /LPF (0-2); RBC Urine 0-2 /HPF (0-2); Squamous Epithelial Cell Urine 0-2 /HPF (0-2); WBC Urine 0-5 /HPF (0-5)
[2023-05-14 18:59] LABS: MANUAL DIFF FLAG NO
[2023-05-14 19:00] LABS: Basophils Absolute Auto 0.1 X10*3/uL (0.0-0.2); Basophils Percent Auto 0.8 % (0-2); Eosinophils Absolute Auto 0.2 X10*3/uL (0.0-0.4); Eosinophils Percent Auto 2.7 % (0-4); Hematocrit 42.6 % (37.0-47.0); Hemoglobin 13.4 g/dl (12.0-16.0); Imm Gran Abs Auto 0.01 X10*3/uL (0.00-0.03); Imm Gran Pct Auto 0.1 % (0.0-0.4); Lymphocytes Absolute Auto 3.7 X10*3/uL (1.2-4.9); Lymphocytes Percent Auto 48.3 % (20-40); Mean Corpuscular HGB Conc 31.5 g/dl (31.0-35.0); Mean Corpuscular Hemoglobin 30.2 pg (27.0-33.0); Mean Corpuscular Volume 95.9 fL (80.0-98.0); Mean Platelet Volume 10.3 fL (9.4-12.3); Monocytes Absolute Auto 0.6 X10*3/uL (0.1-1.2); Monocytes Percent Auto 8.4 % (2-11); Neutrophils Percent Auto 39.7 % (45-73); Platelet Count 286 X10*3/uL (160-400); Red Blood Count 4.44 X10*6/uL (4.20-5.50); Red Cell Distribution Width 12.9 % (11.0-16.0); White Blood Count 7.7 X10*3/uL (4.8-10.8)
[2023-05-14] MEDS: 0.9 % Sodium Chloride 1,000 ML 999 ML IV (19:00)
[2023-05-14] MEDS: ondansetron HCL 4 MG/2 ML VIAL IVPUSH (19:02)
[2023-05-14] MEDS: Ketorolac Tromethamine 30 MG/ML VIAL IVPUSH (19:02)
[2023-05-14 19:15] LABS: Alanine Aminotransferase 157 U/L (0-31); Albumin Level 4.3 g/dL (3.5-5.0); Alkaline Phosphatase 123 U/L (39-117); Anion Gap 16 (12-20); Aspartate Amino Transferase 96 U/L (5-31); Bilirubin Total 0.3 mg/dL (0.0-1.0); Blood Urea Nitrogen 10 mg/dL (9-16); Calcium 9.8 mg/dL (8.4-10.2); Carbon Dioxide 24 mmol/L (22-29); Chloride 106 mmol/L (96-108); Creatinine Clr Calc Pharmacy 80.7; Estimated Glomerular Filt Rate > 60; Glucose Random 157 mg/dL (60-115); Potassium 4.2 mmol/L (3.3-5.1); Sodium 142 mmol/L (135-145)
== END 2023-05-14 20:43 | disposition home or self-care (01) ==
PROVIDERS: Nurse Practitioner Family; Physician Assistant; Emergency Provider Emergency Medicine; PCP Nurse Practitioner Family
DX: M54.16 Radiculopathy, lumbar region (principal); K59.00 Constipation, unspecified; M54.50 Low back pain, unspecified; E11.9 Type 2 diabetes mellitus without complications; Z87.891 Personal history of nicotine dependence; Z79.899 Other long term (current) drug therapy; Z79.84 Long term (current) use of oral hypoglycemic drugs
CPT/HCPCS: 36415; 72100; 74176; 80053; 81001; 85025; 96361; 96374; 96375; 99284; 99285; J1885; J2405

== ENCOUNTER 2023-06-10 08:07 | Outpatient (REF) | payer MEDICAID, SELFPAY ==
[2023-06-10 08:52] LABS: Hematocrit 46.6 % (37.0-47.0); Hemoglobin 14.6 g/dl (12.0-16.0); Mean Corpuscular HGB Conc 31.3 g/dl (31.0-35.0); Mean Corpuscular Hemoglobin 29.9 pg (27.0-33.0); Mean Corpuscular Volume 95.3 fL (80.0-98.0); Mean Platelet Volume 10.6 fL (9.4-12.3); Platelet Count 305 X10*3/uL (160-400); Red Blood Count 4.89 X10*6/uL (4.20-5.50); Red Cell Distribution Width 12.9 % (11.0-16.0); White Blood Count 6.8 X10*3/uL (4.8-10.8)
[2023-06-10 10:13] LABS: Alanine Aminotransferase 152 U/L (0-31); Albumin Level 4.7 g/dL (3.5-5.0); Alkaline Phosphatase 111 U/L (39-117); Aspartate Amino Transferase 83 U/L (5-31); Bilirubin Direct 0.2 mg/dL (0.0-0.5); Bilirubin Total 0.5 mg/dL (0.0-1.0); Total Protein 8.4 g/dL (6.5-8.0)
[2023-06-16 00:09] LABS: FIB-ALT 136 U/L (6-29); FIB-Alpha-2-Macroglobulin 174 mg/dL (106-279); FIB-Apolipoprotein A1 143 mg/dL (101-198); FIB-GGT 74 U/L (3-70); FIB-Haptoglobin 164 mg/dL (43-212); FIB-Total Bilirubin 0.4 mg/dL (0.2-1.2); Liver Fibrosis Score 0.17; Liver Fibrosis Stage F0; Nec Inflam Act Grade A3; Nec Inflam Act Score 0.64
== END 2023-06-10 08:08 | disposition home or self-care (01) ==
LOC: HO.LAB 08:07
PROVIDERS: PCP Nurse Practitioner Family; Visit Provider Internal Medicine Gastroenterology
DX: R79.89 Other specified abnormal findings of blood chemistry (principal)
CPT/HCPCS: 36415; 80076; 81596; 85027

== ENCOUNTER 2023-08-27 08:03 | Outpatient (REF) | payer MEDICAID, SELFPAY ==
[2023-08-27 09:02] LABS: Hemoglobin 13.8 g/dl (12.0-16.0); Mean Corpuscular HGB Conc 31.4 g/dl (31.0-35.0); Mean Corpuscular Hemoglobin 29.7 pg (27.0-33.0); Mean Corpuscular Volume 94.8 fL (80.0-98.0); Mean Platelet Volume 10.9 fL (9.4-12.3); Platelet Count 319 X10*3/uL (160-400); Red Blood Count 4.64 X10*6/uL (4.20-5.50); Red Cell Distribution Width 13.2 % (11.0-16.0); White Blood Count 6.7 X10*3/uL (4.8-10.8)
[2023-08-27 09:15] LABS: Alanine Aminotransferase 185 U/L (0-31); Albumin Level 4.6 g/dL (3.5-5.0); Alkaline Phosphatase 108 U/L (39-117); Aspartate Amino Transferase 134 U/L (5-31); Bilirubin Direct 0.3 mg/dL (0.0-0.5); Bilirubin Total 0.6 mg/dL (0.0-1.0); Total Protein 8.4 g/dL (6.5-8.0)
== END 2023-08-27 08:04 | disposition home or self-care (01) ==
LOC: HO.LAB 08:03
PROVIDERS: Visit Provider Internal Medicine Gastroenterology
DX: R79.89 Other specified abnormal findings of blood chemistry (principal)
CPT/HCPCS: 36415; 80076; 85027

== ENCOUNTER 2023-09-30 15:09 | Outpatient (AMB) | payer MEDICAID, SELFPAY ==
--- NOTE | 2023-09-30 16:04 | MHC.OFFVIS ---
Intake Intake Visit Reasons: OV-Right hip injection-last injection 07/28/22 Allergies Penicillins Allergy (Intermediate, Verified 05/14/23 17:36) Rash Sulfa (Sulfonamide Antibiotics) [SULFA (SULFONAMIDE ANTIBIOTICS)] Allergy (Intermediate, Verified 05/14/23 17:36) Rash, hives penicillin V Allergy (Unknown, Verified 05/14/23 17:36) hives, rash cat dander Allergy (Verified 05/14/23 17:36) Sneezing pollen extracts Allergy (Verified 05/14/23 17:36) Sneezing morphine Adverse Reaction (Unknown, Verified 05/14/23 17:36) Gastrointestinal Upset HPI OV-Right hip injection-last injection 07/28/22 HPI Details Ms Martin presents for telehealth visit right hip. She is s/p right hip injection from about 1 year ago. She states she injection was helpful. She was able to perform most activities. She states over the last 3 weeks her pain has returned. The pain comes and goes. Denies injury. She has pain with stair use. She states the pain is within the groin. [facility] Medical History Asthma Bilateral nephrolithiasis Diabetes mellitus History of anxiety History of depression Renal and ureteric calculus Surgical History History of back surgery History of bladder surgery History of endometrial ablation Hx of tubal ligation Family History Father Diabetes Mother HTN (hypertension) Diabetes Social History Household Members: None Housing: Apartment Alcohol intake: unknown Patient Tobacco Use Status: Former Tobacco user Current occupational status: disabled Current occupation: lt handed Sexual orientation: Straight/Heterosexual Gender identity: Female Female Reproductive History Menstrual Age of Menarche: 10 Review of Systems Const All systems reviewed & are unremarkable except as noted in HPI and below Physical Exam Resp Effort & Inspection: normal respiratory effort and able to speak in complete sentences Assessment & Plan Assessment & Plan (1) Right hip impingement syndrome: Code(s): M25.851 - Other specified joint disorders, right hip Plan: She would like to proceed with another intra-articular hip injection. I did explain to her that will book this at the hospital under fluoroscopy. I also encouraged her to work on her home exercise program as this can help with her discomfort and strengthening of the core hips hamstrings and glutes. She does understand this and will see me back as needed after injection. Orders: Orders FL arthrogram hip RT Today M16.11 - Unilateral primary osteoarthritis, right hip Telehealth Telehealth Location of provider rendering services: practice address Location of patient: address on file Patient Identification confirmed using: Name, : Yes Telehealth method: voice only Patient verbally consented to treatment: Yes Patient verbally consented to billing insurance company: Yes Patient informed of any privacy concerns related to visit: Yes Minutes spent on Phone/Video with Pt.: 10 Coding Level of Care Code Tele Est Pt Level 3 (63913) Diagnoses Right hip impingement syndrome M25.851
== END 2023-09-30 16:11 | disposition home or self-care (01) ==
PROVIDERS: PCP Nurse Practitioner Family; Visit Provider Physician Assistant
DX: M25.851 Other specified joint disorders, right hip (principal)
CPT/HCPCS: 99213

== ENCOUNTER → 2023-09-30 15:09 | Outpatient (BNVA) | payer MEDICAID, SELFPAY | PROVIDERS: PCP Nurse Practitioner Family; Visit Provider Physician Assistant ==

== ENCOUNTER 2023-10-16 10:01 | Outpatient (REF) | payer MEDICAID, SELFPAY ==
--- NOTE | ~2023-10-16 | US_ITS ---
EXAMINATION: US RETROPERITONEAL LIMITED (RENAL ONLY) CLINICAL INFORMATION: Calculus of kidney. COMPARISON: CT abdomen and pelvis 05/14/2023. Ultrasound abdomen complete 05/01/2023. Renal ultrasound 10/30/2022. X-ray KUB 07/01/2017 and 06/24/2017. TECHNIQUE: Real-time imaging of the kidneys. FINDINGS: RIGHT KIDNEY: 12.7 x 4.5 x 5.6 cm (SAG x AP x TRV). The kidney is normal in size, contour, and echogenicity. Renal cortical thickness is normal. No renal calculi or hydronephrosis. Right upper pole hypoechoic simple renal cyst is seen measuring 6.6 x 5.1 x 6.3 cm in size (previously 6.3 x 4.0 x 6.1 cm). LEFT KIDNEY: 11.3 x 4.8 x 5.8 cm (SAG x AP x TRV). The kidney is normal in size, contour, and echogenicity. Renal cortical thickness is normal. No calculi or focal parenchymal lesions. No hydronephrosis. US/US renal BI IMPRESSION: 1. No renal calculi are seen. The previously reported left renal echogenic focus is not demonstrated on the current examination. 2. Unchanged large Right upper pole renal cyst.
== END 2023-10-16 10:02 | disposition home or self-care (01) ==
LOC: HO.US 10:01
PROVIDERS: PCP Nurse Practitioner Family; Visit Provider Nurse Practitioner Family
DX: N20.0 Calculus of kidney (principal); D17.9 Benign lipomatous neoplasm, unspecified
CPT/HCPCS: 76775

== ENCOUNTER 2023-10-26 13:04 | Outpatient (REF) | payer MEDICAID, SELFPAY ==
--- NOTE | ~2023-10-26 | FL_ITS ---
RIGHT HIP ARTHROGRAM INDICATIONS: Right hip pain. Intra-articular steroid injection. Procedure: Risks and benefits and possible complications were discussed with the patient and the consent form was signed. The patient was placed hip on the fluoroscopy table. The right hip was prepped and draped in normal sterile fashion. 1% buffered lidocaine was used for anesthesia. A 22-gauge spinal needle was used to access the hip joint. Intra-articular position of the needle within the hip joint was verified using 3 cc of Omnipaque 300. A total of 5 mL 1% lidocaine and 80 mg Depo-Medrol was then injected into the hip joint. The needle was then removed and a Band-Aid was applied to the injection site. The patient tolerated the procedure well. There were no immediate complications. Single spot image of the right hip shows no significant arthritic changes. FL/FL arthrogram hip RT Impression: Successful Fluoroscopic right hip steroid injection The procedure was performed by Mesfin Curry PA-C, and directly supervised by Dr. Chun.
== END 2023-10-26 13:05 | disposition home or self-care (01) ==
LOC: HO.XRAY 13:04
PROVIDERS: PCP Nurse Practitioner Family; Visit Provider Physician Assistant
DX: M16.11 Unilateral primary osteoarthritis, right hip (principal)
CPT/HCPCS: 27093; 73525

== ENCOUNTER → 2023-10-26 13:13 | Outpatient (BNV) | payer MEDICAID, SELFPAY | PROVIDERS: PCP Nurse Practitioner Family; Visit Provider Radiology Diagnostic Radiology | DX: M16.11 Unilateral primary osteoarthritis, right hip (principal) | CPT/HCPCS: 20610; 77002 ==

== ENCOUNTER 2023-10-31 10:07 | Outpatient (REF) | payer MEDICAID, SELFPAY | END 2023-10-31 10:08 | disposition home or self-care (01) | LOC: HO.MAMMO 10:07 | PROVIDERS: PCP Nurse Practitioner Family; Visit Provider Nurse Practitioner Family | DX: Z12.31 Encounter for screening mammogram for malignant neoplasm of breast (principal) | CPT/HCPCS: 77063; 77067 ==

== ENCOUNTER → 2023-10-31 10:30 | Outpatient (BNV) | payer MEDICAID, SELFPAY | PROVIDERS: PCP Nurse Practitioner Family; Visit Provider Radiology Diagnostic Radiology | DX: Z12.31 Encounter for screening mammogram for malignant neoplasm of breast (principal) | CPT/HCPCS: 77063; 77067 ==

== ENCOUNTER 2023-11-04 14:42 | Outpatient (AMB) | payer MEDICAID, SELFPAY ==
--- NOTE | 2023-11-04 14:37 | A.OFFVIS_ITS ---
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 Required: No Accompanied by: Mother Allergies Penicillins Allergy (Intermediate, Verified 11/04/23 15:07) Rash Sulfa (Sulfonamide Antibiotics) [SULFA (SULFONAMIDE ANTIBIOTICS)] Allergy (Intermediate, Verified 11/04/23 15:07) Rash, hives penicillin V Allergy (Unknown, Verified 11/04/23 15:07) hives, rash cat dander Allergy (Verified 11/04/23 15:07) Sneezing pollen extracts Allergy (Verified 11/04/23 15:07) Sneezing morphine Adverse Reaction (Unknown, Verified 11/04/23 15:07) Gastrointestinal Upset Medication List - Last Reconciled 11/04/23 by TATY Larsen albuterol sulfate 90 mcg/actuation (Ventolin HFA) grams inhalation amitriptyline 100 mg PO DAILY ascorbic acid (vitamin C) (Vitamin C) 500 mg PO atorvastatin 10 mg PO cetirizine (Zyrtec) 10 mg PO DAILY PRN empagliflozin (Jardiance) 25 mg PO metformin 1,000 mg PO BID omeprazole 20 mg PO oxycodone 5 mg PO TID PRN polyethylene glycol 3350 (Miralax) 17 grams PO DAILY sennosides (senna) 8.6 mg PO DAILY sitagliptin phosphate (Januvia) 100 mg PO DAILY sumatriptan succinate (Imitrex) 50 mg PO Q2-4H PRN HPI HPI Comments History of Present Illness Details Julia is a pleasant 52-year-old Romanian-speaking female of Dr. Lopez who was accompanied by her mom and niece at todays visit. She has a past medical history of asthma, nephrolithiasis, diabetes mellitus, anxiety, and depression. She presents to the office today for follow-up of her recent renal ultrasound imaging. Recent renal imaging reviewed with the patient and her family today. Right kidney with no calculi or hydronephrosis. Right upper pole hypoechoic simple renal cyst is seen measuring 6.6 x 5.1 x 6.3 cm. Left kidney with no ca lculi, lesions, and or hydronephrosis. In office urinalysis results reviewed with the patient today. She currently denies any bothersome urinary issues or concerns. She reports be happy with current voiding parameters. She denies urinary frequency, urinary urgency, urinary incontinence, hematuria, dysuria, fever and or chills. Discussed and stressed the importance of drinking plenty of water daily. 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 She otherwise offers no issues or concerns at this time. [facility] Medical History Bilateral nephrolithiasis Renal and ureteric calculus Asthma Diabetes mellitus History of anxiety History of depression Surgical History History of bladder surgery History of back surgery Hx of tubal ligation History of endometrial ablation Family History Father Diabetes Mother HTN (hypertension) Diabetes Social History Household Members: None Housing: Apartment Alcohol intake: unknown Patient Tobacco Use Status: Former Tobacco user Current occupational status: disabled Current occupation: lt handed Sexual orientation: Straight/Heterosexual Gender identity: Female Female Reproductive History Menstrual Age of Menarche: 10 Review of Systems Const Reports as per HPI Eyes Reports no additional complaints ENT Reports no additional complaints Card Reports no additional complaints Resp Reports as per HPI GI Reports no additional complaints Reports as per HPI Musc Reports no additional complaints Neuro Reports no additional complaints Psych Reports as per HPI Endo Reports as per HPI Physical Exam Const General: cooperative, healthy appearing, comfortable, no acute distress, well developed, alert and awake Orientation/consciousness: patient oriented x3 Limitations: no limitations HEENT Head: Yes normal to inspection, Yes normocephalic and Yes atraumatic General nose exam: Normal external nose present, no nasal discharge noted and no epistaxis Face and sinus: Yes normal facial exam, No abrasion and No laceration Mouth: Normal oral and palatal mucosa present, no drooling and no muffled voice Eyes General: appearance normal, both eyes and all related structures EOM: EOMs intact bilaterally Neck Neck: Yes normal visual inspection Chest Chest palpation & inspection: normal inspection of the chest Resp Effort & Inspection: normal respiratory effort and able to speak in complete sentences Cardio Rate: regular rate GI Inspection: Yes normal to inspection General: Yes no CVA tenderness Back/Spine/Pelvis Back: no CVA tenderness Skin General skin exam: no rashes or lesions noted Neuro General: patient oriented x3 Cognition (Neuro): normal cognition Motor exam (neuro): 5/5 motor strength present throughout Sensory Exam: double simultaneous stimulation for sensation normal Coordination: kuisjr-[id number] test normal Extrem General: Yes normal to inspection Psych Appearance: grossly normal Mental Status: mental status grossly normal Speech and movement: Normal speech and movement present and Clear speech present Affect: normal affect Attitude: cooperative Thought process: Normal thought process present Thought content: Normal thought content present Insight: Fair insight present (Psych) Judgement: Fair judgement present (Psych) Results AMB Urinalysis, Automated UA Leukoctes 0 Linh/uL Last Edit by Angela Hameed CMA on 11/04/23 14 :47 UA Nitrite Negative Last Edit by Angela Hameed [facility] on 11/04/23 14: 47 UA Urobilinogen 0.2 mg/dL Last Edit by Angela Hameed [facility] on 4 14:47 UA Protein 15 mg/dL Last Edit by Angela Hameed [facility] on 11/04/23 14:4 7 UA pH 5.5 Last Edit by Angela Hameed [facility] on 11/04/23 14:47 UA Blood 0 Kaiden/uL Last Edit by Angela Hameed [facility] on 11/04/23 14:47 UA Specific [place] 1.030 Last Edit by Angela Hameed CMA on 14:47 UA Ketone Negative Last Edit by Angela Hameed [facility] on 11/04/23 14:4 7 UA Bilirubin 0 mg/dL Last Edit by Angela Hameed [facility] on 11/04/23 14: 47 UA Glucose 1000 mg/dL Last Edit by Angela Hameed [facility] on 11/04/23 14 :47 Results Reviewed Results Reviewed: Laboratory Last Values Urine pH (Auto) 5.5 11/04/23 14:44 Specific [place] (Auto) 1.030 11/04/23 14:44 Urine Protein (Auto) 15 mg/dL 11/04/23 14:44 Glucose (UA)(Auto) 1000 mg/dL 11/04/23 14:44 Urine Ketones (Auto) Negative 11/04/23 14:44 Urine Blood (Auto) 0 Kaiden/uL 11/04/23 14:44 Urine Nitrite (Auto) Negative 11/04/23 14:44 Urine Bilirubin (Auto) 0 mg/dL 11/04/23 14:44 Urine Urobilinogen (Auto) 0.2 mg/dL 11/04/23 14:44 Leukocyte Esterase (Auto) 0 Linh/uL 11/04/23 14:44 Date of Service: 10/16/23 EXAMINATION: US RETROPERITONEAL LIMITED (RENAL ONLY) Real-time imaging of the kidneys. FINDINGS: RIGHT KIDNEY: 12.7 x 4.5 x 5.6 cm (SAG x AP x TRV). The kidney is normal in size, contour, and echogenicity. Renal cortical thickness is normal. No renal calculi or hydronephrosis. Right upper pole hypoechoic simple renal cyst is seen measuring 6.6 x 5.1 x 6.3 cm in size (previously 6.3 x 4.0 x 6.1 cm). LEFT KIDNEY: 11.3 x 4.8 x 5.8 cm (SAG x AP x TRV). The kidney is normal in size, contour, and echogenicity. Renal cortical thickness is normal. No calculi or focal parenchymal lesions. No hydronephrosis. IMPRESSION: 1. No renal calculi are seen. The previously reported left renal echogenic focus is not demonstrated on the current examination. 2. Unchanged large Right upper pole renal cyst. Assessment & Plan Assessment & Plan (1) Nephrolithiasis: Code(s): N20.0 - Calculus of kidney (2) Renal cyst: Code(s): N28.1 - Cyst of kidney, acquired Plan In office urinalysis results reviewed with the patient today; as noted above. Recent renal ultrasound results reviewed with the patient today; as noted above. Discussed, educated, and stressed the importance of drinking plenty of water daily. Discussed at length potential causes of nephrolithiasis as well as renal cysts. She currently denies any bothersome urinary issues or concerns. She is happy with current voiding parameters. Will obtain renal ultrasound in 1 year. Follow-up in 1 year with imaging to be completed prior; or sooner with any issues, concerns, and or questions. Orders: Orders AMB Urinalysis Automated Today R33.9 - Retention of urine, unspecified US renal BI 364 Days N20.0 - Calculus of kidney, N28.1 - Cyst of kidney, acq uired Patient Instructions: The patient had an opportunity to ask questions regarding the treatment plan. All questions were answered. Physical exam, labs, and imaging were discussed and reviewed in detail. As well as risks, benefits, and discussion of treatment choices. No major barriers to understanding were identified. The patient expr essed understanding and agreement with the above treatment plan. The patient was made aware they should contact our office by phone for worsening of their current condition, the appearance of new symptoms, or with any questions or concerns. Compliance is encouraged with any medications and follow up testing that is ordered. It is a privilege to be allowed the opportunity to participate in? your urological care.? Again, if you have any questions or concerns If you have any questions or concerns please do not hesitate to contact me. The office is [phone]. This note is constructed using voice recognition software. While every effort has been made to ensure accuracy elevator adjuster errors may have been included. Yours sincerely, TATY Larsen Coding Level of Care Code Est Pt Level 3 (92991) Diagnoses Nephrolithiasis N20.0 Renal cyst N28.1
== END 2023-11-04 15:03 | disposition home or self-care (01) ==
PROVIDERS: PCP Nurse Practitioner Family; Visit Provider Nurse Practitioner Family
DX: N20.0 Calculus of kidney (principal); N28.1 Cyst of kidney, acquired; R33.9 Retention of urine, unspecified
CPT/HCPCS: 99213

== ENCOUNTER → 2023-11-04 14:42 | Outpatient (BNVA) | payer MEDICAID, SELFPAY | PROVIDERS: PCP Nurse Practitioner Family; Visit Provider Nurse Practitioner Family | DX: N20.0 Calculus of kidney (principal); N28.1 Cyst of kidney, acquired | CPT/HCPCS: 81003; 99212 ==

== ENCOUNTER 2023-11-20 08:59 | Outpatient (REF) | payer MEDICAID, SELFPAY ==
[2023-11-20 11:11] LABS: Free T4 (Free Thyroxine) 0.93 ng/dL (0.71-1.85)
== END 2023-11-20 09:00 | disposition home or self-care (01) ==
LOC: HO.LAB 08:59
PROVIDERS: PCP Nurse Practitioner Family; Visit Provider Nurse Practitioner Family
DX: E03.8 Other specified hypothyroidism (principal)
CPT/HCPCS: 36415; 84439; 84443

== ENCOUNTER 2023-11-24 07:46 | Outpatient (REF) | payer MEDICAID, SELFPAY ==
[2023-11-24 08:47] LABS: Iron 59 mcg/dL (30-160); Percent Iron Saturation 17 % (15-50); Total Iron Binding Capacity 352 mcg/dL (228-428); Unsaturated Iron Binding 293 ug/dL
== END 2023-11-24 07:47 | disposition home or self-care (01) ==
LOC: HO.LAB 07:46
PROVIDERS: PCP Nurse Practitioner Family; Visit Provider Nurse Practitioner Family
DX: G25.81 Restless legs syndrome (principal)
CPT/HCPCS: 36415; 83540

== ENCOUNTER 2023-12-04 12:53 | Outpatient (AMB) | payer MEDICAID, SELFPAY ==
--- NOTE | 2023-12-04 12:58 | A.OFFVIS_ITS ---
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 Required: Yes Labeler Language: Zambian Information Interpreted: non-clinical & clinical Reduction Furnace Operator: Reduction Furnace Operator Present (Radha Candido TABARES) Accompanied by: Self / Same As Patient Allergies Penicillins Allergy (Intermediate, Verified 12/04/23 13:07) Rash Sulfa (Sulfonamide Antibiotics) [SULFA (SULFONAMIDE ANTIBIOTICS)] Allergy (Intermediate, Verified 12/04/23 13:07) Rash, hives penicillin V Allergy (Unknown, Verified 12/04/23 13:07) hives, rash cat dander Allergy (Verified 12/04/23 13:07) Sneezing pollen extracts Allergy (Verified 12/04/23 13:07) Sneezing morphine Adverse Reaction (Unknown, Verified 12/04/23 13:07) Gastrointestinal Upset Post menopausal: Yes HPI HPI Comments History of Present Illness Details She is a postmenopausal woman presenting for her 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 She is doing well with no concerns. Attempting to eat a healthy diet with calcium and vitamin D and stays active with exercise. Currently sexually active. Denies any vaginal dryness or irritation. STI testing offered; she accepts. Last pap smear; 2022-neg/neg., prior CINI. Last mammogram; 2023. Colonoscopy is UTD. Denies any family history of breast, ovarian or colon cancer. [facility] Medical History Bilateral nephrolithiasis Renal and ureteric calculus Asthma Diabetes mellitus History of anxiety History of depression Surgical History History of bladder surgery History of back surgery Hx of tubal ligation History of endometrial ablation Family History Father Diabetes Mother HTN (hypertension) Diabetes Social History Household Members: None Housing: Apartment Alcohol intake: unknown Patient Tobacco Use Status: Former Tobacco user Current occupational status: disabled Current occupation: lt handed Sexual orientation: Straight/Heterosexual Gender identity: Female Female Reproductive History Menstrual Age of Menarche: 10 Total pregnancies: 2 Full term: 2 Number of Living Children: 2 Date of last pap smear: 12/02/22 Date of Mammogram: 10/31/23 Review of Systems Const All systems reviewed & are unremarkable except as noted in HPI and below Reports as per HPI Eyes Reports no additional complaints ENT Reports no additional complaints Card Reports no additional complaints Resp Reports no additional complaints GI Reports as per HPI and Reports no additional complaints Reports as per HPI Musc Reports no additional complaints Skin/Breast Reports as per HPI Neuro Reports no additional complaints Psych Reports no additional complaints Endo Reports no additional complaints Saran/Lymph Reports no additional complaints Aller/Immun Reports no additional complaints Physical Exam Vital Signs: Last Vital Signs BP 124/82 12/04/23 12:59 BMI result Body Mass Index 31.8 Const General: cooperative, healthy appearing, no acute distress, well developed and alert Orientation/consciousness: patient oriented x3 HEENT Head: Yes normal to inspection Eyes General: appearance normal, both eyes and all related structures Neck Neck: Yes normal visual inspection Thyroid: Thyroid normal Chest Chest palpation & inspection: normal inspection of the chest and other (no puckering, dimpling, peau de orange, retraction, discharge, masses, ) Breast/axilla inspection: normal inspection of the breasts (w/scar) Breast/axilla palpation: normal palpation of the breasts Resp Effort & Inspection: normal respiratory effort GI Inspection: Yes normal to inspection Palpation (GI): Soft to palpation Rectal Exam - Female: deferred General: Yes bladder normal to palpation External Female Exam: normal external appearance and normal appearance of the urethra Speculum Exam - Vagina: normal appearance of the vagina, normal palpation, normal vaginal discharge and vagina atrophic Speculum Exam - Cervix: normal appearance of the cervix and normal palpation Bimanual exam- vagina & uterus: normal bimanual exam, normal palpation, uterine size normal, bladder normal to palpation, normal palpation and non-tender Bimanual Exam- Adnexa, other: no masses Skin General skin exam: no rashes or lesions noted Rashes: no rashes Neuro General: patient oriented x3 Cognition (Neuro): normal cognition Extrem General: Yes normal to inspection Psych Attitude: cooperative Thought process: Normal thought process present Assessment & Plan Assessment & Plan (1) Encounter for well woman exam with routine gynecological exam: Code(s): Z01.419 - Encounter for gynecological examination (general) (routine) without abnormal findings Plan Discussed: Current recommendations for pap smears per ASCCP guidelines. Breast awareness, periodic self breast exams and yearly mammogram. Maintain a healthy lifestyle, well balanced diet including Calcium 1,200 mg and Vitamin D 600 IU daily, and routine exercise. Contact the office with any postmenopausal bleeding. Patient verbalizes understanding and agrees to the plan of care. She was given opportunity to ask questions and all questions were answered to the best of my ability. RTO in 1 year for annual ob gyn physician assistant exam. This note is constructed using voice recognition software. While every effort has been made to ensure accuracy, slime plant operator errors may have been included. Orders: Orders Pap Smear Today N87.0 - Mild cervical dysplasia, R87.610 - Atypical squamous cells of undetermined significance on cytologic smear of cervix (ASC-US), R87.810 - Cervical high risk human papillomavirus (HPV) DNA test positive, Z01.419 - Encounter for gynecological examination (general) (routine) without abnormal findings, Z20.2 - Contact with and (suspected) exposure to infections with a predominantly sexual mode of transmission CT NG by PCR Today N87.0 - Mild cervical dysplasia, R87.610 - Atypical squamous cells of undetermined significance on cytologic smear of cervix (ASC-US), R87.810 - Cervical high risk human papillomavirus (HPV) DNA test positive, Z01.419 - Encounter for gynecological examination (general) (routine) without abnormal findings, Z20.2 - Contact with and (suspected) exposure to infections with a predominantly sexual mode of transmission Coding Level of Care Code Est Pt Prev Care 40-64y(18490) Diagnoses Encounter for well woman exam with routine gynecological exam Z01.419
[2023-12-04 12:59] VITALS: BP 124/82; BMI 31.8
== END 2023-12-04 13:31 | disposition home or self-care (01) ==
PROVIDERS: PCP Nurse Practitioner Family; Visit Provider Advanced Practice Midwife
DX: Z01.419 Encounter for gynecological examination (general) (routine) without abnormal findings (principal)
CPT/HCPCS: 99396

== ENCOUNTER 2023-12-04 12:53 | Outpatient (REF) | payer MEDICAID, SELFPAY ==
[2023-12-05 06:36] LABS: CT PCR NOT DETECTED (Not Detect.); NG PCR NOT DETECTED (Not Detect.)
[2023-12-12 09:18] LABS: HPV mRNA E6/E7 rflx Not Detected (Not Detected)
== END 2023-12-04 12:54 | disposition home or self-care (01) ==
LOC: HO.LNP 12:53
PROVIDERS: Visit Provider Advanced Practice Midwife
DX: Z01.419 Encounter for gynecological examination (general) (routine) without abnormal findings (principal); N87.0 Mild cervical dysplasia; R87.610 Atypical squamous cells of undetermined significance on cytologic smear of cervix (ASC-US); R87.810 Cervical high risk human papillomavirus (HPV) DNA test positive; Z20.2 Contact with and (suspected) exposure to infections with a predominantly sexual mode of transmission
CPT/HCPCS: 0353U; 87624; 88142; 99396

== ENCOUNTER 2023-12-14 10:59 | Outpatient (REF) | payer MEDICAID, SELFPAY ==
--- NOTE | ~2023-12-14 | XR_ITS ---
EXAMINATION: XR HIP, RIGHT WITH AP PELVIS CLINICAL INFORMATION: Pain. COMPARISON: Radiographs dated 05/09/2021. TECHNIQUE: AP and frog-leg lateral views of the right hip are submitted, together with a frontal view of the pelvis. FINDINGS: No fracture. Alignment is anatomic. Hip joint space is maintained. Soft tissues are unremarkable. Pelvic phleboliths and tubal ligation clips are noted. Intervertebral cage devices are noted at L5-S1. XR/XR hip RT min 2V IMPRESSION: Unremarkable right hip.
== END 2023-12-14 11:00 | disposition home or self-care (01) ==
LOC: HO.HOSX 10:59
PROVIDERS: Visit Provider Physician Assistant
DX: M25.551 Pain in right hip (principal); M25.851 Other specified joint disorders, right hip
CPT/HCPCS: 73502; 99212

== ENCOUNTER 2023-12-14 14:32 | Outpatient (AMB) | payer MEDICAID, SELFPAY ==
--- NOTE | 2023-12-14 15:04 | MHC.OFFVIS ---
Intake Vital Signs 12/14/23 15:06 Height 5 ft 4 in Weight 185 lb BMI 31.8 Intake Visit Reasons: OV-Right hip follow up Intake Note: Julia a 52 year old male presents today for a follow up of right hip pain. Patient reports injection with pain management has not helped. States with stair use she has to take one step out of time. Current pain level is 6 out of 10. Allergies Penicillins Allergy (Intermediate, Verified 12/14/23 15:06) Rash Sulfa (Sulfonamide Antibiotics) [SULFA (SULFONAMIDE ANTIBIOTICS)] Allergy (Intermediate, Verified 12/14/23 15:06) Rash, hives penicillin V Allergy (Unknown, Verified 12/14/23 15:06) hives, rash cat dander Allergy (Verified 12/14/23 15:06) Sneezing pollen extracts Allergy (Verified 12/14/23 15:06) Sneezing morphine Adverse Reaction (Unknown, Verified 12/14/23 15:06) Gastrointestinal Upset HPI OV-Right hip follow up HPI Details 52-year-old female returns to the office today for a follow-up of right hip pain. She has had injections in the joint in the past which have provided significant relief however her most recent injection in October has cause increased discomfort over time. She continues to have discomfort with lifting the leg and walking long distances. She denies numbness and tingling. [facility] Medical History Bilateral nephrolithiasis Renal and ureteric calculus Asthma Diabetes mellitus History of anxiety History of depression Surgical History History of bladder surgery History of back surgery Hx of tubal ligation History of endometrial ablation Family History Father Diabetes Mother HTN (hypertension) Diabetes Social History Household Members: None Housing: Apartment Alcohol intake: unknown Patient Tobacco Use Status: Former Tobacco user Current occupational status: disabled Current occupation: lt handed Sexual orientation: Straight/Heterosexual Gender identity: Female Female Reproductive History Menstrual Age of Menarche: 10 Review of Systems Const All systems reviewed & are unremarkable except as noted in HPI and below Physical Exam Vital Signs: BMI result Body Mass Index 31.8 Resp Effort & Inspection: normal respiratory effort and able to speak in complete sentences Extrem Other: Right hip no pain with palpation over the greater troch. She has no pain with range of motion of the hip. She does have pain with some internal and external rotation against resistance. PASTORA + No pain with hip flexion. Results Reviewed Results Reviewed: X-rays of the right hip obtained in the office today are negative for any acute abnormalities. Assessment & Plan Assessment & Plan (1) Right hip impingement syndrome: Code(s): M25.851 - Other specified joint disorders, right hip Plan: Given her failed conservative treatment and ongoing discomfort and limitations with activities we have decided to move forward with the MRI arthrogram of the right hip to further evaluate the source of her pain and integrity of surrounding structures of the hip. Once this is complete she will see me back to discuss the results. Orders: Orders MR hip RT w con Today M25.851 - Other specified joint disorders, right hip Coding Level of Care Code Est Pt Level 3 (12843) Diagnoses Right hip impingement syndrome M25.851
[2023-12-14 15:06] VITALS: BMI 31.8
== END 2023-12-14 15:28 | disposition home or self-care (01) ==
PROVIDERS: PCP Nurse Practitioner Family; Visit Provider Physician Assistant
DX: M25.851 Other specified joint disorders, right hip (principal)
CPT/HCPCS: 99213

== ENCOUNTER 2024-01-13 07:34 | Outpatient (REF) | payer MEDICAID, SELFPAY ==
[2024-01-13 08:27] LABS: Hematocrit 44.7 % (37.0-47.0); Hemoglobin 14.1 g/dl (12.0-16.0); Mean Corpuscular HGB Conc 31.5 g/dl (31.0-35.0); Mean Corpuscular Hemoglobin 29.1 pg (27.0-33.0); Mean Corpuscular Volume 92.4 fL (80.0-98.0); Mean Platelet Volume 10.8 fL (9.4-12.3); Platelet Count 328 X10*3/uL (160-400); Red Blood Count 4.84 X10*6/uL (4.20-5.50); Red Cell Distribution Width 13.7 % (11.0-16.0); White Blood Count 6.9 X10*3/uL (4.8-10.8)
[2024-01-13 09:12] LABS: Alanine Aminotransferase 174 U/L (0-31); Albumin Level 4.7 g/dL (3.5-5.0); Alkaline Phosphatase 111 U/L (39-117); Aspartate Amino Transferase 125 U/L (5-31); Bilirubin Direct 0.3 mg/dL (0.0-0.5); Bilirubin Total 0.7 mg/dL (0.0-1.0); Lipase 52 U/L (8-78); Total Protein 8.5 g/dL (6.5-8.0)
[2024-01-25 15:24] LABS: FIB-ALT 147 U/L (6-29); FIB-Alpha-2-Macroglobulin 185 mg/dL (106-279); FIB-Apolipoprotein A1 126 mg/dL (101-198); FIB-GGT 90 U/L (3-70); FIB-Haptoglobin 162 mg/dL (43-212); FIB-Total Bilirubin 0.4 mg/dL (0.2-1.2); Liver Fibrosis Score 0.24; Liver Fibrosis Stage F0-F1; Nec Inflam Act Grade A3
== END 2024-01-13 07:35 | disposition home or self-care (01) ==
LOC: HO.LAB 07:34
PROVIDERS: PCP Nurse Practitioner Family; Visit Provider Internal Medicine Gastroenterology
DX: K76.0 Fatty (change of) liver, not elsewhere classified (principal)
CPT/HCPCS: 36415; 80076; 81596; 83690; 85027

== ENCOUNTER 2024-01-18 12:56 | Outpatient (REF) | payer MEDICAID, SELFPAY ==
--- NOTE | ~2024-01-18 | MR_ITS ---
EXAMINATION: MR HIP WITH CONTRAST, RIGHT CLINICAL INFORMATION: Right hip pain. COMPARISON: Right hip fluoroscopic arthrography done earlier the same day. Right hip radiographs dated 12/14/2023. TECHNIQUE: MRI of the right hip was performed after the intra-articular administration of a dilute gadolinium-containing solution on a high-field scanner. FINDINGS: ACETABULAR LABRUM: Shallow, slightly irregular contrast within the undersurface of the anterosuperior labrum, consistent with undersurface fraying/tearing. The remaining labrum is intact. ARTICULAR CARTILAGE/BONE: Anterosuperior glenoid full-thickness articular cartilage fissuring with focal subchondral cystic change. Tiny marginal osteophytes. No stress reaction, fracture, or avascular necrosis. The alpha angle equals approximately 42 degrees as measured at the 3:00 position on the sagittal oblique images. The acetabular depth is within normal limits. No concerning lytic or blastic osseous lesion. MUSCLES/TENDONS: Minimal gluteus minimus tendinosis. No transverse tendon tear or tendon retraction. JOINT FLUID/BURSA: Within normal limits. INTRAPELVIC STRUCTURES: Unremarkable. MR/MR hip RT w con IMPRESSION: 1. Undersurface fraying/tearing of the anterosuperior labrum. 2. Mild right hip osteoarthritis. No stress reaction, fracture, or avascular necrosis. 3. Minimal gluteus minimus tendinosis.
--- NOTE | ~2024-01-18 | FL_ITS ---
Right hip arthrogram Indications: Right hip pain. Intra-articular gadolinium injection is needed prior to MRI. Procedure: Risks and benefits and possible complications were discussed with the patient and the consent form was signed. The patient was placed hip on the fluoroscopy table. The right hip was prepped and draped in normal sterile fashion. 1% buffered lidocaine was used for anesthesia. A 22-gauge spinal needle was used to access the hip joint. Intra-articular position of the needle within the hip joint was verified using 3 cc of Omnipaque 300. A total of 10 mL of gadolinium/saline (1:200) contrast mixture was then injected into the hip joint. The needle was then removed and a Band-Aid was applied to the injection site. The patient tolerated the procedure well and was sent for to MRI. There were no immediate complications. FL/FL Pre MRI Contrast Inj Impression: Fluoroscopic right hip arthrogram The procedure was performed by Mesfin Curry PA-C, and directly supervised by Dr. Gonzalez.
[2024-01-18] MEDS: gadobutroL 2 ML VIAL IVPUSH (14:56)
== END 2024-01-18 12:57 | disposition home or self-care (01) ==
LOC: HO.XRAY 12:56
PROVIDERS: PCP Nurse Practitioner Family; Visit Provider Physician Assistant
DX: M25.851 Other specified joint disorders, right hip (principal)
CPT/HCPCS: 23350; 27093; 73722; 77002; A9585

== ENCOUNTER → 2024-01-18 12:59 | Outpatient (BNV) | payer MEDICAID, SELFPAY | PROVIDERS: PCP Nurse Practitioner Family; Visit Provider Physician Assistant Surgical | DX: M25.551 Pain in right hip (principal) | CPT/HCPCS: 23350; 27093 ==

== ENCOUNTER 2024-02-17 08:07 | Outpatient (REF) | payer MEDICAID, SELFPAY ==
--- NOTE | ~2024-02-17 | XR_ITS ---
EXAMINATION: XR FOOT, RIGHT CLINICAL INFORMATION: Pain at the heel for couple of weeks COMPARISON: None available. TECHNIQUE: AP, lateral, and oblique views of the right foot. FINDINGS: The bones are intact. No fracture. Alignment is anatomic. There is mild narrowing of the first metatarsophalangeal joint. Small posterior plantar calcaneal spur is seen. XR/XR foot RT min 3V IMPRESSION: 1. No acute bony abnormality. 2. Small posterior plantar calcaneal spur.
== END 2024-02-17 08:08 | disposition home or self-care (01) ==
LOC: HO.XRAY 08:07
PROVIDERS: PCP Nurse Practitioner Family; Visit Provider Nurse Practitioner Family
DX: M79.671 Pain in right foot (principal)
CPT/HCPCS: 73630

== ENCOUNTER 2024-02-18 11:46 | Outpatient (AMB) | payer MEDICAID, SELFPAY ==
--- NOTE | 2024-02-18 11:48 | A.OFFVIS_ITS ---
Vital Signs 02/18/24 11:49 Height 5 ft 4 in Intake Visit Reasons: MRI review of her right hip Intake Note: This is a 53 year old female who presents for a telephone visit to review the MRI of her right hip. Allergies Penicillins Allergy (Intermediate, Verified 02/18/24 11:49) Rash Sulfa (Sulfonamide Antibiotics) [SULFA (SULFONAMIDE ANTIBIOTICS)] Allergy (Intermediate, Verified 02/18/24 11:49) Rash, hives penicillin V Allergy (Unknown, Verified 02/18/24 11:49) hives, rash cat dander Allergy (Verified 02/18/24 11:49) Sneezing pollen extracts Allergy (Verified 02/18/24 11:49) Sneezing morphine Adverse Reaction (Unknown, Verified 02/18/24 11:49) Gastrointestinal Upset Medication List - Last Reconciled 02/18/24 by Park Bauer, JANEY albuterol sulfate 90 mcg/actuation (Ventolin HFA) grams inhalation amitriptyline 100 mg PO DAILY ascorbic acid (vitamin C) (Vitamin C) 500 mg PO atorvastatin 10 mg PO cetirizine (Zyrtec) 10 mg PO DAILY PRN empagliflozin (Jardiance) 25 mg PO levothyroxine 25 mcg PO QAM metformin 1,000 mg PO BID omeprazole 20 mg PO oxycodone 5 mg PO TID PRN polyethylene glycol 3350 (Miralax) 17 grams PO DAILY ropinirole 0.25 mg PO QPM sennosides (senna) 8.6 mg PO DAILY sitagliptin phosphate (Januvia) 100 mg PO DAILY sumatriptan succinate (Imitrex) 50 mg PO Q2-4H PRN HPI HPI MRI review of her right hip: Details: telehealth visit MRI rt hip patient states she continues to have discomfort in the groin and pain with walking. [facility] Medical History Bilateral nephrolithiasis Renal and ureteric calculus Asthma Diabetes mellitus History of anxiety History of depression Surgical History History of bladder surgery History of back surgery Hx of tubal ligation History of endometrial ablation Family History Father Diabetes Mother HTN (hypertension) Diabetes Social History Household Members: None Housing: Apartment Alcohol intake: unknown Patient Tobacco Use Status: Former Tobacco user Current occupational status: disabled Current occupation: lt handed Sexual orientation: Straight/Heterosexual Gender identity: Female Female Reproductive History Menstrual Age of Menarche: 10 Review of Systems Const All systems reviewed & are unremarkable except as noted in HPI and below Physical Exam Resp Effort & Inspection: normal respiratory effort and able to speak in complete sentences Results Reviewed Results Reviewed: MR hip RT w con IMPRESSION: 1. Undersurface fraying/tearing of the anterosuperior labrum. 2. Mild right hip osteoarthritis. No stress reaction, fracture, or avascular necrosis. 3. Minimal gluteus minimus tendinosis. Assessment & Plan Assessment & Plan (1) Right hip impingement syndrome: Code(s): M25.851 - Other specified joint disorders, right hip Category: Medical Plan: We discussed MRI findings and given her continued pain and limitations she will meet with Dr Guevara to discuss treatment options. Coding Level of Care Code Tele Est Pt Level 3 (76488) Diagnoses Right hip impingement syndrome M25.851
== END 2024-02-18 12:40 | disposition home or self-care (01) ==
LOC: HO.HOS 11:46
PROVIDERS: PCP Nurse Practitioner Family; Visit Provider Physician Assistant
DX: M25.851 Other specified joint disorders, right hip (principal)
CPT/HCPCS: 99213

== ENCOUNTER → 2024-02-18 11:46 | Outpatient (BNVA) | payer MEDICAID, SELFPAY | PROVIDERS: PCP Nurse Practitioner Family; Visit Provider Physician Assistant ==

== ENCOUNTER 2024-03-07 11:53 | Outpatient (AMB) | payer MEDICAID, SELFPAY ==
--- NOTE | 2024-03-07 12:16 | MHC.OFFVIS ---
Vital Signs 03/07/24 12:17 Height 5 ft 4 in Weight 180 lb BMI 30.9 Intake Visit Reasons: OV-f/u after MRi right hip ---patient has OA- Intake Note: Julia is a 53 year old female who presents today with her daughter for a follow up of right hip pain. Patient was seen last with Naeem Montes who reviewed her MRI and referred for discussion of further intervention. Hx of DM. Accompanied by: Daughter Allergies Penicillins Allergy (Intermediate, Verified 03/07/24 12:18) Rash Sulfa (Sulfonamide Antibiotics) [SULFA (SULFONAMIDE ANTIBIOTICS)] Allergy (Intermediate, Verified 03/07/24 12:18) Rash, hives penicillin V Allergy (Unknown, Verified 03/07/24 12:18) hives, rash cat dander Allergy (Verified 03/07/24 12:18) Sneezing pollen extracts Allergy (Verified 03/07/24 12:18) Sneezing morphine Adverse Reaction (Unknown, Verified 03/07/24 12:18) Gastrointestinal Upset HPI HPI OV-f/u after MRi right hip ---patient has OA-: Details: Julia is a 53 year old female who presents today with her daughter for a follow up of right hip pain. Patient was seen last with Naeem Montes who reviewed her MRI and referred for discussion of further intervention. Hx of DM. She describes having difficulty walking comfortably. The pain localizes to the anterior aspect of her right hip. She has had 4 steroid injections. They worked for short periods but do not last. [facility] Medical History Bilateral nephrolithiasis Renal and ureteric calculus Asthma Diabetes mellitus History of anxiety History of depression Surgical History History of bladder surgery History of back surgery Hx of tubal ligation History of endometrial ablation Family History Father Diabetes Mother HTN (hypertension) Diabetes Social History Household Members: None Housing: Apartment Alcohol intake: unknown Patient Tobacco Use Status: Former Tobacco user Current occupational status: disabled Current occupation: lt handed Sexual orientation: Straight/Heterosexual Gender identity: Female Female Reproductive History Menstrual Age of Menarche: 10 Physical Exam Vital Signs: BMI result Body Mass Index 30.9 Extrem Other: Positive impingement test on the right. Mild gait disturbance with mild Trendelenburg on the right. Results Reviewed Results Reviewed: I personally reviewed the MR images. MRI shows [id number] focal arthritic change in the acetabulum with possible small undersurface anterior superior labral tear. Assessment & Plan Assessment & Plan (1) Arthritis of right hip: Code(s): M16.11 - Unilateral primary osteoarthritis, right hip Category: Medical Plan: This is a 53-year-old woman with mild to moderate hip arthritis who is received 4 steroid injections. MRI shows a small labral tear with a normal normal alpha angle and no significant concern for repairable labral tear. Given her anxiety level i.e. she does not want surgery and her age and MRI I recommend continue physical therapy. I discussed this with her. I think for injections into the right hip over the past year is bordering on too many and I would like to see her back in 3 months' time. She understands the plan and is amenable to it. Plan Follow up will be in 3 months Coding Level of Care Code Est Pt Level 4 (90424) Diagnoses Arthritis of right hip M16.11
[2024-03-07 12:17] VITALS: BMI 30.9
== END 2024-03-07 12:51 | disposition home or self-care (01) ==
PROVIDERS: PCP Nurse Practitioner Family; Visit Provider Orthopaedic Surgery
DX: M16.11 Unilateral primary osteoarthritis, right hip (principal)
CPT/HCPCS: 99214

== ENCOUNTER → 2024-03-07 11:53 | Outpatient (BNVA) | payer MEDICAID, SELFPAY | PROVIDERS: PCP Nurse Practitioner Family; Visit Provider Orthopaedic Surgery | DX: M16.11 Unilateral primary osteoarthritis, right hip (principal) | CPT/HCPCS: 99212 ==

== ENCOUNTER 2024-06-06 08:58 | Outpatient (AMB) | payer MEDICAID, SELFPAY ==
--- NOTE | 2024-06-06 09:00 | A.OFFVIS_ITS ---
Vital Signs 06/06/24 09:05 Height 5 ft 4 in Weight 180 lb BMI 30.9 Intake Visit Reasons: OV- 3 month f/u rt hip ---patient has OA- Intake Note: Julia is a 53 year old female who presents today for a follow up of her right hip arthritis, last hip injection 09/30/23. Patient reports her last injection gave her mild relief. She mentions that she was referred to get physical therapy which she hasn't heard from yet. Patient expresses that her pain today is manageable but she would like to know other treatment options. Allergies Penicillins Allergy (Intermediate, Verified 06/06/24 09:03) Rash Sulfa (Sulfonamide Antibiotics) [SULFA (SULFONAMIDE ANTIBIOTICS)] Allergy (Intermediate, Verified 06/06/24 09:03) Rash, hives penicillin V Allergy (Unknown, Verified 06/06/24 09:03) hives, rash cat dander Allergy (Verified 06/06/24 09:03) Sneezing pollen extracts Allergy (Verified 06/06/24 09:03) Sneezing morphine Adverse Reaction (Unknown, Verified 06/06/24 09:03) Gastrointestinal Upset HPI HPI OV- 3 month f/u rt hip ---patient has OA-: Details: Julia is doing well with mild pain. [facility] Medical History (Updated 06/06/24 @ 09:46 by Cruz Guevara MD) Bilateral nephrolithiasis Renal and ureteric calculus Asthma Diabetes mellitus History of anxiety History of depression Surgical History History of bladder surgery History of back surgery Hx of tubal ligation History of endometrial ablation Family History Father Diabetes Mother HTN (hypertension) Diabetes Social History Household Members: None Housing: Apartment Alcohol intake: unknown Patient Tobacco Use Status: Former Tobacco user Current occupational status: disabled Current occupation: lt handed Sexual orientation: Straight/Heterosexual Gender identity: Female Female Reproductive History Menstrual Age of Menarche: 10 Physical Exam Vital Signs: BMI result Body Mass Index 30.9 Extrem Other: Positive impingement test on the right. Mild gait disturbance with mild Trendelenburg on the right. Assessment & Plan Assessment & Plan (1) Arthritis of right hip: Code(s): M16.11 - Unilateral primary osteoarthritis, right hip Category: Medical Plan: Mild OA on the right which has responded to injections. Surgery would be pretty aggressive and I do not recommend it. We did discuss treatment options. If her pain worsens she will contact me and I will order a an additional injection. (2) Sciatica of right side: Code(s): M54.31 - Sciatica, right side Category: Medical Plan: This complicates her hip pain. She is aware of this. (3) History of anxiety: Code(s): Z86.59 - Personal history of other mental and behavioral disorders Category: Medical Plan: She has some anxiety relating to surgery and I restated that I think surgery is too aggressive for her at this time. Coding Level of Care Code Est Pt Level 3 (45948) Complex EM visit Add On G2211 Diagnoses Arthritis of right hip M16.11 Sciatica of right side M54.31 History of anxiety Z86.59
[2024-06-06 09:05] VITALS: BMI 30.9
== END 2024-06-06 09:31 | disposition home or self-care (01) ==
PROVIDERS: PCP Nurse Practitioner Family; Visit Provider Orthopaedic Surgery
DX: M16.11 Unilateral primary osteoarthritis, right hip (principal); M54.31 Sciatica, right side; Z86.59 Personal history of other mental and behavioral disorders
CPT/HCPCS: 99213

== ENCOUNTER → 2024-06-06 08:58 | Outpatient (BNVA) | payer MEDICAID, SELFPAY | PROVIDERS: PCP Nurse Practitioner Family; Visit Provider Orthopaedic Surgery | DX: M16.11 Unilateral primary osteoarthritis, right hip (principal); M54.31 Sciatica, right side; Z86.59 Personal history of other mental and behavioral disorders | CPT/HCPCS: 99212 ==

== ENCOUNTER 2024-06-21 12:34 | Emergency (ER) | payer MEDICAID, SELFPAY ==
--- NOTE | ~2024-06-21 | XR_ITS ---
EXAMINATION: XR CHEST CLINICAL INFORMATION: Chest pain for 3 days. COMPARISON: January 25, 2018. TECHNIQUE: PA view of the chest was obtained. FINDINGS: No significant abnormality is noted involving the heart, lungs, mediastinum, bony thorax or soft tissues. XR/XR chest 1V IMPRESSION: Unremarkable examination. Electronically signed by: Abilio Barrera MD 06/21/2024 03:01 PM EDT RP
--- NOTE | 2024-06-21 12:36 | ECG_ITS ---
Test Reason : chest pain Blood Pressure : / mmHG Vent. Rate : 089 BPM Atrial Rate : 089 BPM P-R Int : 156 ms QRS Dur : 074 ms QT Int : 362 ms P-R-T Axes : 039 019 -06 degrees QTc Int : 440 ms Normal sinus rhythm Nonspecific T wave abnormality Abnormal ECG When compared with ECG of 30-APR-2019 19:19, Nonspecific T wave abnormality is now Present Referred By: Generic ED Physician Electronically Signed By:ZOILA HAMILTON
[2024-06-21 12:51] VITALS: BP 135/87; PULSE 92; RESP 18; TEMP 37; O2SAT 98; BMI 32.6
--- NOTE | 2024-06-21 12:51 | ED_ITS ---
HPI - General Adult General Chief complaint: Chest Pain Stated complaint: Chest pain, L arm pain Time Seen by Provider: 06/21/24 15:12 Source: patient and family Mode of arrival: ambulatory Limitations: no limitations History of Present Illness ED Provider: DR. Ha HPI narrative: A 53-year-old female came in for evaluation of left-sided neck pain started 2 days ago, pain is radiating to the left shoulder and front of the left side of his chest and go around the left ear, pain has been constant more with moving the neck from right to left or left to right, no recent travel, no lower extremity swelling or tenderness, no shortness of breath, no significant history of heart disease. Related Data Home Medications ?Medication ?Instructions ?Recorded ?Confirmed cetirizine 10 mg tablet (Zyrtec) 10 mg PO DAILY PRN 11/20/20 02/18/24 metformin 1,000 mg tablet 1,000 mg PO BID 11/20/20 02/18/24 sitagliptin phosphate 100 mg 100 mg PO DAILY 11/20/20 02/18/24 tablet (Januvia) sumatriptan succinate 50 mg tablet 50 mg PO Q2-4H PRN 11/20/20 02/18/24 (Imitrex) albuterol sulfate 90 mcg/actuation g inhalation 11/07/22 02/18/24 aerosol inhaler (Ventolin HFA) ascorbic acid (vitamin C) 500 mg 500 mg PO 11/07/22 02/18/24 tablet (Vitamin C) atorvastatin 10 mg tablet 10 mg PO 11/07/22 02/18/24 empagliflozin 25 mg tablet 25 mg PO 11/07/22 02/18/24 (Jardiance) omeprazole 20 mg capsule,delayed 20 mg PO 11/07/22 02/18/24 release amitriptyline 50 mg tablet 100 mg PO DAILY 11/04/23 02/18/24 oxycodone 5 mg tablet 5 mg PO TID PRN severe pain 11/04/23 02/18/24 levothyroxine 25 mcg tablet 25 mcg PO QAM 12/04/23 02/18/24 ropinirole 0.25 mg tablet 0.25 mg PO QPM 12/04/23 02/18/24 Previous Rx's ?Medication ?Instructions ?Recorded polyethylene glycol 3350 17 17 g PO DAILY #119 grams 05/14/23 gram/dose oral powder (Miralax) oxycodone 5 mg tablet 5 mg PO Q8H PRN pain #10 tabs 06/21/24 Allergies Allergy/AdvReac Type Severity Reaction Status Date / Time Penicillins Allergy Intermediate Rash Verified 06/21/24 12:52 Sulfa (Sulfonamide Allergy Intermediate Rash, hives Verified 06/21/24 12:52 Antibiotics) [SULFA (SULFONAMIDE ANTIBIOTICS)] penicillin V Allergy Unknown hives, rash Verified 06/21/24 12:52 cat dander Allergy Sneezing Verified 06/21/24 12:52 pollen extracts Allergy Sneezing Verified 06/21/24 12:52 morphine AdvReac Unknown Gastrointestinal Verified 06/21/24 12:52 Upset Review of Systems 2 Review of Systems: All other systems are reviewed and are negative Constitutional: Reports as per HPI and Reports no additional constitutional complaints Eyes: Reports as per HPI and Reports no additional eye complaints Reports system reviewed and no additional complaints, except as documented Cardiovascular: Reports as per HPI and Reports no additional cardiovascular complaints Respiratory: Reports as per HPI and Reports no additional respiratory complaints Gastrointestinal: Reports as per HPI and Reports no additional gastrointestinal complaints Genitourinary: Reports no additional female genitourinary complaints Musculoskeletal: Reports no additional musculoskeletal complaints Skin/Breast: Reports system reviewed and no additional complaints, except as docu Psychiatric: Reports no additional psychiatric complaints Endocrine: Reports no additional endocrine complaints Hematologic/Lymphatic: Reports no additional hematologic/lymphatic complaints Allergic/Immunologic: Reports no additional allergic/immunologic complaints Reports system reviewed and no additional complaints, except as documented and Reports Abnormal speech present [facility] Past Medical History Medical History Bilateral nephrolithiasis Renal and ureteric calculus Asthma Diabetes mellitus History of anxiety History of depression Surgical History History of bladder surgery History of back surgery Hx of tubal ligation History of endometrial ablation Family History Family History Father Diabetes Mother HTN (hypertension) Diabetes Social History Social History Household Members: None Housing: Apartment Alcohol intake: unknown Patient Tobacco Use Status: Former Tobacco user Advance Directives: No Advance Directives Information Provided: No Do you have a plan to hurt others: No Plan Patient : No Current occupational status: disabled Current occupation: lt handed Sexual orientation: Straight/Heterosexual Gender identity: Female Physical Exam ED Vital Signs: Vital Signs - 24 hr 06/21/24 12:51 06/21/24 15:09 06/21/24 16:27 Temperature 98.6 F 98.3 F 97.7 F Pulse Rate 92 91 78 Respiratory Rate 18 16 16 Blood Pressure 135/87 125/85 115/74 Pulse Oximetry 98 96 96 Oxygen Delivery Method Room Air Room Air Room Air BMI result Body Mass Index 32.6 Vital signs have been reviewed and appear to be correct. Blood pressure elevated. Heart rate normal. Respiratory rate normal. Temperature normal. Oxygen saturation normal. Appearance: Alert. Oriented X3. No acute distress. Head: Normal external exam. Normocephalic. Atraumatic. No Ghosh signs noted. No raccoon eyes noted Eyes: PERRLA. EOMI. Conjunctiva and sclera normal. Eyelids normal. ENT: TM's Normal. Pharynx normal. Uvula midline. Moist mucous membranes. No trismus noted. No drooling noted. No muffled voice noted. Neck: Normal inspection. Neck supple. FROM. No adenopathy. Thyroid Normal. No meningeal signs. No neck mass noted, Increase left shoulder and left arm pain when turning head to left or right. CVS: Normal heart rate and rhythm. Heart sound normal. No murmurs noted. Pulses normal throughout. Respiratory: No respiratory distress. Painless inspiration. Breath sounds normal. No wheezes/rales/rhonchi noted. Chest nontender. No accessory muscle usage noted or decreased air movement noted. Abdomen: Soft and nontender. Bowel sounds normal in all 4 quadrants. No distention noted. No organomegaly noted. No visible injury noted. Back: No CVA tenderness. Full range of motion noted. Skin: Skin warm and dry. Normal skin color. Normal skin turgor. No rashes/lesions/lacerations noted. Extremities: No lower extremity edema. Extremities exhibit normal range of motion. Extremities nontender. Neuro: Oriented X 3. Cranial nerve exam: II-XII are grossly intact No motor deficit. No sensory deficit. Reflexes normal. Course Course Course Narrative: RME, this is a rapid medical exam performed by Leroy Arnett please refer to primary provider for complete H&P- 53-year-old female presents for evaluation of chest pain. The pain started couple of hours ago. The pain radiates to her left shoulder and left ear. Plan for cardiac workup Reevaluation(s) Reevaluation #1: patient feels better after morphine, physical exam is more consistent with left cervical radiculopathy, ACS work is unremarkable. Patient has no risk for PE or DVT. Time: 17:35 Medications Administered Discontinued Medications Generic Name Dose Route Start Last Admin Trade Name Freq PRN Reason Stop Dose Admin Ketorolac Tromethamine 15 mg 06/21/24 15:17 06/21/24 15:27 Ketorolac Tromethamine 15 Mg/Ml Vial IVPUSH 06/21/24 15:18 15 mg ONCE ONE Administration Morphine Sulfate 1 mg 06/21/24 15:17 06/21/24 15:27 Morphine Sulfate 2 Mg/Ml Cartridge IVPUSH 06/21/24 15:18 1 mg ONCE ONE Administration Protocol Medical Decision Making Differential Diagnosis Differential Diagnoses: The differential diagnosis associated with the presentation includes ( ACS, pneumonia, pneumothorax, pleural effusion, electrolyte derangement, severe anemia, cervical radiculopathy, myofascial chest wall pain.) Admission/Observation Consideration of admission/observation: Escalation of care including admission/observation considered Lab Data MDM Lab Attestation statement: I reviewed the patient's lab results. 06/21/24 13:15 06/21/24 13:15 Labs: Lab Results 06/21/24 06/21/24 Range/Units 13:15 15:24 WBC 10.0 (4.8-10.8) X10*3/uL RBC 4.83 (4.20-5.50) X10*6/uL Hgb 14.3 (12.0-16.0) g/dl Hct 44.1 (37.0-47.0) % MCV 91.3 (80.0-98.0) fL MCH 29.6 (27.0-33.0) pg MCHC 32.4 (31.0-35.0) g/dl RDW 14.6 (11.0-16.0) % Plt Count 316 (160-400) X10*3/uL MPV 10.0 (9.4-12.3) fL Immature Gran % (Auto) 0.4 (0.0-0.4) % Neut % (Auto) 47.2 (45-73) % Lymph % (Auto) 44.1 H (20-40) % [place] % (Auto) 5.3 (2-11) % Eos % (Auto) 2.1 (0-4) % Baso % (Auto) 0.9 (0-2) % Lymph # (Auto) 4.4 (1.2-4.9) X10*3/uL [place] # (Auto) 0.5 (0.1-1.2) X10*3/uL Eos # (Auto) 0.2 (0.0-0.4) X10*3/uL Baso # (Auto) 0.1 (0.0-0.2) X10*3/uL Abs Immat Gran (auto) 0.04 H (0.00-0.03) X10*3/uL Absolute Neuts (auto) 4.7 (2.0-8.3) x10*3/uL Absolute Nucleated RBC 0.000 (0.0-0.012) X10*3/uL Nucleated RBC % (auto) 0.0 (0.0-0.2) /100WBC PT 14.5 H (10.9-12.4) SEC INR 1.2 H (0.9-1.1) Sodium 141 (135-145) mmol/L Potassium 4.0 (3.3-5.1) mmol/L Chloride 107 (96-108) mmol/L Carbon Dioxide 20 L (22-29) mmol/L Anion Gap 18 (12-20) BUN 12 (9-16) mg/dL Creatinine 0.86 (0.5-1.4) mg/dL Estim Creat Clear Calc 79.4 Estimated GFR > 60 Random Glucose 165 H (60-115) mg/dL Calcium 10.1 (8.4-10.2) mg/dL Total Bilirubin 0.5 (0.0-1.0) mg/dL AST 89 H (5-31) U/L ALT 160 H (0-31) U/L Alkaline Phosphatase 90 (39-117) U/L Troponin I High Sens < 2.7 < 2.7 (<3.5-17.0) ng/L Total Protein 8.3 H (6.5-8.0) g/dL Albumin 4.5 (3.5-5.0) g/dL Lipase 45 (8-78) U/L Independent Interpretation I performed an independent interpretation of an: Plain X-Ray ( chest: No acute intrathoracic pathology.) Radiology Impression Discussion of test interpretation with radiology: I have reviewed the radiologist's reading. Discharge Plan Discharge Clinical Impression: Left cervical radiculopathy Patient Disposition: Home, Self-Care Instructions: Cervical Radiculopathy (ED) Prescriptions: New oxycodone 5 mg tablet 5 mg PO Q8H PRN (Reason: pain) Qty: 10 0RF Rx Instructions: Partial Fill upon patient request. No Action polyethylene glycol 3350 [Miralax] 17 gram/dose powder 17 g PO DAILY Qty: 119 0RF Januvia 100 mg tablet 100 mg PO DAILY metformin 1,000 mg tablet 1,000 mg PO BID cetirizine [Zyrtec] 10 mg tablet 10 mg PO DAILY PRN sumatriptan succinate [Imitrex] 50 mg tablet 50 mg PO Q2-4H PRN Rx Instructions: do not exceed 4 doses per 24 hrs amitriptyline 50 mg tablet 100 mg PO DAILY Jardiance 25 mg tablet 25 mg PO atorvastatin 10 mg tablet 10 mg PO ascorbic acid (vitamin C) [Vitamin C] 500 mg tablet 500 mg PO albuterol sulfate [Ventolin HFA] 90 mcg/actuation HFA aerosol inhaler inhalation omeprazole 20 mg capsule,delayed release(DR/EC) 20 mg PO ropinirole 0.25 mg tablet 0.25 mg PO QPM levothyroxine 25 mcg tablet 25 mcg PO QAM oxycodone 5 mg tablet 5 mg PO TID PRN (Reason: severe pain) Referrals: Khushboo Lopez NP [Primary Care Provider] - Print Language: Sammarinese
[2024-06-21 13:19] LABS: MANUAL DIFF FLAG NO
[2024-06-21 13:21] LABS: Basophils Absolute Auto 0.1 X10*3/uL (0.0-0.2); Basophils Percent Auto 0.9 % (0-2); Eosinophils Absolute Auto 0.2 X10*3/uL (0.0-0.4); Eosinophils Percent Auto 2.1 % (0-4); Hematocrit 44.1 % (37.0-47.0); Hemoglobin 14.3 g/dl (12.0-16.0); Imm Gran Abs Auto 0.04 X10*3/uL (0.00-0.03); Imm Gran Pct Auto 0.4 % (0.0-0.4); Lymphocytes Absolute Auto 4.4 X10*3/uL (1.2-4.9); Lymphocytes Percent Auto 44.1 % (20-40); Mean Corpuscular HGB Conc 32.4 g/dl (31.0-35.0); Mean Corpuscular Hemoglobin 29.6 pg (27.0-33.0); Mean Corpuscular Volume 91.3 fL (80.0-98.0); Monocytes Absolute Auto 0.5 X10*3/uL (0.1-1.2); Monocytes Percent Auto 5.3 % (2-11); Neutrophils Absolute Auto 4.7 x10*3/uL (2.0-8.3); Neutrophils Percent Auto 47.2 % (45-73); Platelet Count 316 X10*3/uL (160-400); Red Blood Count 4.83 X10*6/uL (4.20-5.50); Red Cell Distribution Width 14.6 % (11.0-16.0)
[2024-06-21 13:26] LABS: INTERNATIONAL NORM RATIO 1.2 (0.9-1.1); Prothrombin Time 14.5 SEC (10.9-12.4)
[2024-06-21 13:50] LABS: Alanine Aminotransferase 160 U/L (0-31); Albumin Level 4.5 g/dL (3.5-5.0); Alkaline Phosphatase 90 U/L (39-117); Anion Gap 18 (12-20); Aspartate Amino Transferase 89 U/L (5-31); Bilirubin Total 0.5 mg/dL (0.0-1.0); Blood Urea Nitrogen 12 mg/dL (9-16); Calcium 10.1 mg/dL (8.4-10.2); Carbon Dioxide 20 mmol/L (22-29); Chloride 107 mmol/L (96-108); Creatinine Clr Calc Pharmacy 79.4; Estimated Glomerular Filt Rate > 60; Glucose Random 165 mg/dL (60-115); Lipase 45 U/L (8-78); Sodium 141 mmol/L (135-145); Total Protein 8.3 g/dL (6.5-8.0)
[2024-06-21 13:54] LABS: Troponin-I High Sensitivity < 2.7 ng/L (<3.5-17.0)
[2024-06-21 15:09] VITALS: BP 125/85; PULSE 91; RESP 16; TEMP 36.8; O2SAT 96
[2024-06-21] MEDS: Morphine Sulfate 2 MG/ML CARTRIDGE 1 MG IVPUSH (15:27)
[2024-06-21] MEDS: Ketorolac Tromethamine 15 MG/ML VIAL IVPUSH (15:27)
[2024-06-21 15:53] LABS: Troponin-I High Sensitivity < 2.7 ng/L (<3.5-17.0)
[2024-06-21 16:27] VITALS: BP 115/74; PULSE 78; RESP 16; TEMP 36.5; O2SAT 96
[2024-06-21 18:08] VITALS: BP 122/78; PULSE 74; RESP 16; TEMP 36.7; O2SAT 99
[2024-06-21 18:42] VITALS: BP 122/78; PULSE 74; RESP 16; TEMP 36.7; O2SAT 99
== END 2024-06-21 18:42 | disposition home or self-care (01) ==
PROVIDERS: Physician Assistant; Emergency Provider Emergency Medicine; PCP Nurse Practitioner Family
DX: M54.12 Radiculopathy, cervical region (principal); R07.9 Chest pain, unspecified
CPT/HCPCS: 36415; 71045; 80053; 83690; 84484; 85025; 85610; 93005; 96374; 96375; 99284; 99285; J1885; J2270

== ENCOUNTER → 2024-10-25 13:09 | Outpatient (BNV) | payer MEDICAID, SELFPAY | PROVIDERS: PCP Nurse Practitioner Family; Visit Provider Specialist | DX: N28.1 Cyst of kidney, acquired (principal) | CPT/HCPCS: 76775 ==

== ENCOUNTER 2024-10-31 12:38 | Outpatient (REF) | payer MEDICAID, SELFPAY | END 2024-10-31 12:39 | disposition home or self-care (01) | LOC: HO.MAMMO 12:38 | PROVIDERS: PCP Nurse Practitioner Family; Visit Provider Nurse Practitioner Family | DX: Z12.31 Encounter for screening mammogram for malignant neoplasm of breast (principal) | CPT/HCPCS: 77063; 77067; 81003; 99212 ==

== ENCOUNTER → 2024-10-31 13:30 | Outpatient (BNV) | payer MEDICAID, SELFPAY | PROVIDERS: PCP Nurse Practitioner Family; Visit Provider Internal Medicine | DX: Z12.31 Encounter for screening mammogram for malignant neoplasm of breast (principal) | CPT/HCPCS: 77063; 77067 ==

== ENCOUNTER 2024-10-31 14:44 | Outpatient (AMB) | payer MEDICAID, SELFPAY ==
--- NOTE | 2024-10-31 15:10 | MHC.OFFVIS ---
Intake Visit Reasons: 1y/US(set) Intake Note: Patient presents today for follow up Nephrolithiasis, Renal Cyst, Angiolipoma, and Ultrasound Results Imagin10/16/23 Urology Medications: none Blood Thinner: none Print Finisher Required: No Accompanied by: Self / Same As Patient Allergies Penicillins Allergy (Intermediate, Verified 10/31/24 21:31) Rash Sulfa (Sulfonamide Antibiotics) [SULFA (SULFONAMIDE ANTIBIOTICS)] Allergy (Intermediate, Verified 10/31/24 21:31) Rash, hives penicillin V Allergy (Unknown, Verified 10/31/24 21:31) hives, rash cat dander Allergy (Verified 10/31/24 21:31) Sneezing pollen extracts Allergy (Verified 10/31/24 21:31) Sneezing morphine Adverse Reaction (Unknown, Verified 10/31/24 21:31) Gastrointestinal Upset Medication List - Last Reconciled 10/31/24 by TATY Larsen albuterol sulfate 90 mcg/actuation (Ventolin HFA) grams inhalation amitriptyline 100 mg PO DAILY ascorbic acid (vitamin C) (Vitamin C) 500 mg PO atorvastatin 10 mg PO cetirizine (Zyrtec) 10 mg PO DAILY PRN dulaglutide (Trulicity) mg subcut QWEEK empagliflozin (Jardiance) 25 mg PO levothyroxine 25 mcg PO QAM metformin 1,000 mg PO BID omeprazole 20 mg PO oxycodone 5 mg PO Q8H PRN oxycodone 5 mg PO TID PRN polyethylene glycol 3350 (Miralax) 17 grams PO DAILY ropinirole 0.25 mg PO QPM sitagliptin phosphate (Januvia) 100 mg PO DAILY sumatriptan succinate (Imitrex) 50 mg PO Q2-4H PRN HPI Comments Details: Julia is a pleasant 53 year-old Kazakh-speaking female of Dr. Lopez. She has a past medical history of asthma, nephrolithiasis, diabetes mellitus, anxiety, and depression. She presents to the office today for follow-up of her renal cyst and nephrolithiasis. Recent renal imaging results reviewed with the patient today 11/15 bilateral kidneys are normal in size and echotexture. There is a 6.9 cm right Bosniak 1 renal cysts noted. No nephrolithiasis or hydronephrosis noted. In discussion with the patient today she denies any bothersome urinary issues or concerns. She reports be happy with current voiding parameters. She denies urinary frequency, urinary urgency, urinary incontinence, hematuria, dysuria, fever and or chills. In office urinalysis results reviewed with the patient today. Discussed and stressed the importance of drinking plenty of water daily. She otherwise offers no issues or concerns at this time. [facility] Medical History Bilateral nephrolithiasis Renal and ureteric calculus Asthma Diabetes mellitus History of anxiety History of depression Surgical History History of bladder surgery History of back surgery Hx of tubal ligation History of endometrial ablation Family History Father Diabetes Mother HTN (hypertension) Diabetes Social History Household Members: None Housing: Apartment Alcohol intake: unknown Patient Tobacco Use Status: Former Tobacco user Current occupational status: disabled Current occupation: lt handed Sexual orientation: Straight/Heterosexual Gender identity: Female Female Reproductive History Menstrual Age of Menarche: 10 Review of Systems Const All systems reviewed & are unremarkable except as noted in HPI and below Physical Exam Const General: cooperative, healthy appearing, comfortable, no acute distress, well developed, alert and awake Orientation/consciousness: patient oriented x3 Limitations: no limitations HEENT Head: Yes normal to inspection, Yes normocephalic and Yes atraumatic Ears: hearing grossly normal bilaterally Eyes General: appearance normal, both eyes and all related structures Neck Neck: Yes normal visual inspection and Yes trachea midline Chest Chest palpation & inspection: normal inspection of the chest Resp Effort & Inspection: normal respiratory effort and able to speak in complete sentences Cardio Rate: regular rate GI Inspection: Yes normal to inspection General: Yes no CVA tenderness Back/Spine/Pelvis Back: no CVA tenderness Skin General skin exam: no rashes or lesions noted Neuro General: patient oriented x3 Extrem General: Yes normal to inspection Psych Appearance: grossly normal and well kempt Mental Status: mental status grossly normal Speech and movement: Normal speech and movement present and Clear speech present Affect: normal affect Attitude: cooperative Thought process: Normal thought process present Thought content: Normal thought content present Insight: Fair insight present (Psych) Judgement: Fair judgement present (Psych) Results AMB Urinalysis, Automated UA Leukoctes 0 Linh/uL Last Edit by Lo Viveros on 10/31/24 16:06 UA Nitrite Last Edit by Lo Viveros on 10/31/24 16:06 UA Urobilinogen 0.2 mg/dL Last Edit by Lo Viveros on 10/31/24 16:06 UA Protein 15 mg/dL Last Edit by Lo Viveros on 10/31/24 16:06 UA pH 6.0 Last Edit by Lo Viveros on 10/31/24 16:06 UA Blood 0 Kaiden/uL Last Edit by Lo Viveros on 10/31/24 16:06 UA Specific [place] 1.025 Last Edit by Lo Viveros on 10/31/24 16:06 UA Ketone Last Edit by Lo Viveros on 10/31/24 16:06 UA Bilirubin 0 mg/dL Last Edit by Lo Viveros on 10/31/24 16:06 UA Glucose 1000 mg/dL Last Edit by Lo Viveros on 10/31/24 16:06 Results Reviewed Results Reviewed: Laboratory Last Values Urine pH (Auto) 6.0 10/31/24 16:05 Specific [place] (Auto) 1.025 10/31/24 16:05 Urine Protein (Auto) 15 mg/dL 10/31/24 16:05 Glucose (UA)(Auto) 1000 mg/dL 10/31/24 16:05 Urine Blood (Auto) 0 Kaiden/uL 10/31/24 16:05 Urine Bilirubin (Auto) 0 mg/dL 10/31/24 16:05 Urine Urobilinogen (Auto) 0.2 mg/dL 10/31/24 16:05 Leukocyte Esterase (Auto) 0 Linh/uL 10/31/24 16:05 Date of Service: 10/25/24 US Renal Comparison: None Findings: Right kidney normal size and echotexture, 11.8 cm length. Left kidney normal size and echotexture, 11.8 cm length. There is a 6.9 x 5.6 x 5.4 Bosniak 1 right renal cortical cyst. IMPRESSION: 1. Bosniak 1 right renal cortical cyst. Assessment & Plan Assessment & Plan (1) Nephrolithiasis: Code(s): N20.0 - Calculus of kidney Category: Medical (2) Renal cyst: Code(s): N28.1 - Cyst of kidney, acquired Category: Medical Plan In office urinalysis results reviewed with the patient today; as noted above. Recent renal ultrasound results reviewed with the patient today; as noted above. Discussed, educated, and stressed the importance of drinking plenty of water daily. Discussed at length potential causes of nephrolithiasis as well as renal cysts. She currently denies any bothersome urinary issues or concerns. She is happy with current voiding parameters. Will obtain renal ultrasound in 1 year. Follow-up in 1 year with imaging to be completed prior; or sooner with any issues, concerns, and or questions. Orders: Orders US renal BI 1 Year N20.0 - Calculus of kidney, N28.1 - Cyst of kidney, acquired AMB Urinalysis Automated Today Z13.9 - Encounter for screening, unspecified Patient Instructions: The patient had an opportunity to ask questions regarding the treatment plan. All questions were answered. Physical exam, labs, and imaging were discussed and reviewed in detail. As well as risks, benefits, and discussion of treatment choices. No major barriers to understanding were identified. The patient expressed understanding and agreement with the above treatment plan. The patient was made aware they should contact our office by phone for worsening of their current condition, the appearance of new symptoms, or with any questions or concerns. Compliance is encouraged with any medications and follow up testing that is ordered. It is a privilege to be allowed the opportunity to participate in? your urological care.? Again, if you have any questions or concerns If you have any questions or concerns please do not hesitate to contact me. The office is [phone]. This note is constructed using voice recognition software. While every effort has been made to ensure accuracy chronometer assembler errors may have been included. Yours sincerely, TATY Larsen Coding Level of Care Code Est Pt Level 3 (39939) Diagnoses Nephrolithiasis N20.0 Renal cyst N28.1
== END 2024-10-31 15:43 | disposition home or self-care (01) ==
PROVIDERS: PCP Nurse Practitioner Family; Visit Provider Nurse Practitioner Family
DX: N20.0 Calculus of kidney (principal); N28.1 Cyst of kidney, acquired; Z13.9 Encounter for screening, unspecified
CPT/HCPCS: 99213

== ENCOUNTER 2024-12-12 09:21 | Outpatient (REF) | payer MEDICAID, SELFPAY ==
--- NOTE | ~2024-12-12 | MM_ITS ---
EXAMINATION: MM DIAGNOSTIC DIGITAL BREAST TOMOSYNTHESIS, LEFT CLINICAL INFORMATION: Call back from screening for asymmetry in the retroareolar region of the left breast on MLO view. COMPARISON: Mammography: [facility] on PACS. TECHNIQUE: Digital breast tomosynthesis is performed in both the craniocaudal and mediolateral oblique views along with computer-aided detection (CAD). Synthesized 2D images are generated from the tomosynthesis. FINDINGS: There are scattered areas of fibroglandular density (ACR BI-RADS breast composition Category b). Previously seen asymmetry in the retroareolar region of the left breast on MLO view does not persist on additional imaging projections and likely represented overlapping breast tissue. No suspicious masses calcifications or other abnormal findings. MM/MM tomosynthesis added views L IMPRESSION: No mammographic abnormality, the previously seen asymmetry does not persist on additional imaging projections and likely represented overlapping breast tissue. ASSESSMENT: BI-RADS BI-RADS 1 - Negative RECOMMENDATION: 1 year F/U Results were provided to the patient at time of visit by the technologist. This patient's information was entered into a reminder system with a target due date for their next mammogram. Electronically signed by: Yoli Sullivan DO 12/12/2024 11:47 AM EDT
== END 2024-12-12 09:22 | disposition home or self-care (01) ==
LOC: HO.MAMMO 09:21
PROVIDERS: PCP Nurse Practitioner Family; Visit Provider Nurse Practitioner Family
DX: R92.8 Other abnormal and inconclusive findings on diagnostic imaging of breast (principal)
CPT/HCPCS: 77061; 77065

== ENCOUNTER → 2024-12-12 09:30 | Outpatient (BNV) | payer MEDICAID, SELFPAY | PROVIDERS: PCP Nurse Practitioner Family; Visit Provider Internal Medicine | DX: R92.8 Other abnormal and inconclusive findings on diagnostic imaging of breast (principal) | CPT/HCPCS: 77061; 77065 ==

== ENCOUNTER 2024-12-26 10:35 | Outpatient (REF) | payer MEDICAID, SELFPAY ==
[2024-12-26 11:34] LABS: Hematocrit 43.8 % (37.0-47.0); Hemoglobin 13.9 g/dl (12.0-16.0); Mean Corpuscular HGB Conc 31.7 g/dl (31.0-35.0); Mean Corpuscular Hemoglobin 29.2 pg (27.0-33.0); Mean Platelet Volume 10.5 fL (9.4-12.3); Platelet Count 316 X10*3/uL (160-400); Red Blood Count 4.76 X10*6/uL (4.20-5.50); Red Cell Distribution Width 14.2 % (11.0-16.0); White Blood Count 8.1 X10*3/uL (4.8-10.8)
--- OUTSIDE RECORDS SUMMARY | 2024-12-26 12:30 | XMS_ITS | Encounter Summary ---
Author Organization [employer] Address [address] [place] [address] Care Team Providers Care Transportation Maintenance Worker Name Role Phone Khushboo Lopez CORY Primary Care Provider Encounter Details Date Type Department Care Team (Late st Contact Info) Description 06/30/2024 Orders Only [facility] MEDICAL [address] [place] [address] Provider, MD Robbie Social History Tobacco Use Types Packs/Day Years Used Date Smoking Tobacco: Former Cigarettes Q uit: 09/21/1988 Passive Smoke Exposure: Current Smokeless Tobacco: Never Comments:Last smoked >10 yea rs Alcohol Use Standard Drinks/Week Comments Not Currently 1 (1 standard drink = 0.6 oz pur e alcohol) Depression Answer Date Recorded Patient Health Questionnaire-9 Score 2 02/16/2024 Patient Health Questionnaire-9 Score 2 02/16/2024 Last PHQ-9: Questionnaire Data Not on file 0 02/16/2024 Housing Stability Answer Date Recorded What is your housing situation today? I have yuli casillas 02/16/[address] you li ve. Do you have problems with any of the following? None of the above 02/16/2024 Food Insecurity Answer Date Recorded Within the past 12 months, y ou worried that your food would run out before you got money to buy more: Never True 02/16/2024 Within the past 12 months,th e food you bought just didn't last and you didn't have enough money to get more: Never True Transportation Answer Date Recorded In the past 12 months, has l ack of transportation kept you from medical appts, meetings, work or from getting things needed for daily living? No 02/16/2024 Utilities Answer Date Recorded In the past 12 months, has t he electric, gas, oil or water company threatened to shut off services in your home? No 02/16/2024 Depression Answer Date Recorded Patient Health Questionnaire-2 Score 0 02/16/2024 Comments Unknown Sex and Gender Information Value Date Recorded Sex Assigned at Female 11/07/2022 9:31 AM EST Legal Sex Female 8:38 PM EDT Gender Identity Female 11/07/2022 9:31 AM EST Sexual Orientation Choose not to disclose 2022 9:31 AM EST Occupation Industry Job Start Date Job End Date disability Not on file Not on file Not on file documented as of this encounter Plan of Treatment Upcoming Encounters Date Type Department Care Team (Late st Contact Info) Description 02/15/2025 3:30 PM EDT Office Visit [facility] MEDICAL [address] [place] [address] Khushboo Lopez CNP [address] [place] [address] 11/30/2025 2:00 PM EDT Office Visit [facility] OPTOMETRY [address] [place] [address] Brenda Marcelino OD [address] [place] [address] documented as of this encounter Procedures Procedure Name Priority Date/Time Associated Diagnosis Comments XR CHEST 1 VIEW Routine 06/21/2024 8:10 AM EDT documented in this encounter Results * XR Chest 1 View (06/21/2024 8:10 AM EDT) Anatomical Region Laterality Modality Chest Radiographic Latanya ging us Historical Provider MD URIAS XR PROCEDURES Final R esult documented in this encounter Visit Diagnoses Not on filedocumented in this encounter Additional Health Concerns Assessment Noted Time PHQ-9 Depression Total Score: 2 02/16/20 24 3:19 PM EDT documented as of this encounter Care Teams Transportation Maintenance Worker Relationship Specialty Start Date End Date Khushboo Lopez CNP [address] [place] [address] PCP - General Family Medicine 09/02/22 documented as of this encounter
--- OUTSIDE RECORDS SUMMARY | 2024-12-26 12:30 | XMS_ITS | Encounter Summary ---
Author Organization [employer] Address [address] [place] [address] Care Team Providers Care Relations Mgr Name Role Phone Khushboo Lopez CNP Primary Care Provider [phone] Reason for Visit * Reason Onset Date Comments request US referral 12/12/2024 Encounter Details Date Type Department Care Team (Late st Contact Info) Description 12/12/[address] [facility] MEDICAL [address] [place] [address] Khushboo Lopez CNP [address] [place] [address] request US referral Social History Tobacco Use Types Packs/Day Years Used Date Smoking Tobacco: Former Cigarettes Q uit: 09/21/1988 Passive Smoke Exposure: Past Smokeless Tobacco: Never Comments:Last smoked >10 yea rs Alcohol Use Standard Drinks/Week Comments Not Currently 1 (1 standard drink = 0.6 oz pur e alcohol) Alcohol Answer Date Recorded How often do you have a drink containing alcohol ? 0 10/19/2024 How many drinks containing a lcohol do you have on a typical day when you are drinking? 0 10/19/2024 How often do you have six or more drinks on one occasion? 0 10/19/2024 Depression Answer Date Recorded Patient Health Questionnaire-9 [...] things needed for daily living? No 02/16/2024 Intimate Partner Violence Answer Date R ecorded Within the last year, have y ou been afraid of your partner or ex-partner? 2 10/19/2024 Within the last year, have y ou been humiliated or emotionally abused in other ways by your partner or ex-partner? 2 Within the last year, have y ou been kicked, hit, slapped, or otherwise physically hurt by your partner or ex-partner? 2 10/19/2024 Within the last year, have y ou been raped or forced to have any kind of sexual activity by your partner or ex-partner? 2 10/19/2024 Utilities Answer Date Recorded In the past 12 months, has t he electric, gas, oil or water company threatened to shut off services in your home? No 02/16/2024 Depression Answer Date Recorded Patient Health Questionnaire-2 Score 0 02/16/2024 Internet Access Answer Date Recorded Internet Access Q1 Yes 10/19/2024 Internet Access Q2 Not on file 10/19/2024 Comments No Sex and Gender Information Value Date Recorded Sex Assigned at Female 11/07/2022 9:31 AM EST Legal Sex Female 8:38 PM EDT Gender Identity Female 11/07/2022 9:31 AM EST Sexual Orientation Choose not to disclose 2022 9:31 AM EST Occupation Industry Job Start Date Job End Date disability Not on file Not on file Not on file documented as of this encounter Miscellaneous Notes * Telephone Encounter - Toshia Soto - 12/12/2024 2:24 PM EDT Called [facility] back and they needed insurance auth. Obtained and faxed to fax number given * Telephone Encounter - Kassidy Radford - 12/12/2024 9:44 AM EDT Sarah ([facility]) called stating the patient is scheduled for a diagnostic mammogram and ultrasound today (12/12/24) and I need a referral sent to fax number: [phone], thank you! documented in this encounter Plan of Treatment Upcoming Encounters Date Type Department Care Team (Late st Contact Info) Description 02/15/2025 3:30 PM EDT Office Visit [facility] MEDICAL [address] [place] [address] Khushboo Lopez CNP [address] [place] [address] 11/30/2025 2:00 PM EDT Office Visit [facility] OPTOMETRY [address] [place] [address] Brenda Marcelino OD [address] [place] [address] documented as of this encounter Visit Diagnoses Not on filedocumented in this encounter Additional Health Concerns Assessment Noted Time PHQ-9 Depression Total Score: 2 02/16/20 24 3:19 PM EDT documented as of this encounter Care Teams Relations Mgr Relationship Specialty Start Date End Date Khushboo Lopez CNP [address] [place] [address] PCP - General Family Medicine 09/02/22 documented as of this encounter
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
--- OUTSIDE RECORDS SUMMARY | 2024-12-26 12:30 | XMS_ITS | Encounter Summary ---
Author Organization [employer] [facility] Address [address] [facility] 7t [place] [address] Care Team Providers Care Cloth Weaver Name Role Phone Khushboo Lopez CNP Primary Care Provider [phone] Encounter Details Date Type Department Care Team (Late Contact Info) Description 11/13/2022 Abstract [facility] [address] [place] [address] Marla Aparicio FNP [address] [place] [address] Social History Tobacco Use Types Packs/Day Years Used Date Smoking Tobacco: Former Cigarettes Q uit: 2004 Smokeless Tobacco: Never Comments:Last smoked >10 yea rs Comments Unknown Sex and Gender Information Value Date Recorded Sex Assigned at Female 11/07/2022 9:31 AM EST Legal Sex Female 8:38 PM EDT Gender Identity Female 11/07/2022 9:31 AM EST Sexual Orientation Choose not to disclose 2022 9:31 AM EST COVID-19 Exposure Response Date Recorded In the last 10 days, have yo u been in contact with someone who was confirmed or suspected to have Coronavirus/COVID-19? No / Unsure 11/14/2022 11:41 AM EST documented as of this encounter Plan of Treatment Upcoming Encounters Date Type Department Care Team (Late st Contact Info) Description 02/15/2025 3:30 PM EDT Office Visit [facility] [address] [place] [address] Khushboo Lopez CNP 73 [place] [address] 11/30/2025 2:00 PM EDT Office Visit [facility] OPTOMETRY 73 [facility] [place] [address] Brenda Marcelino, OD 73 [facility] [place] [address] documented as of this encounter Visit Diagnoses Not on filedocumented in this encounter Care Teams Cloth Weaver Relationship Specialty Start Date End Date Khushboo Lopez CNP 73 [place] [address] PCP - General Family Medicine 09/02/22 documented as of this encounter
--- OUTSIDE RECORDS SUMMARY | 2024-12-26 12:30 | XMS_ITS | Encounter Summary ---
Author Organization [employer] Address [address] [place] [address] 7 [place] [address] Care Team Providers Care Finisher Fine Diamond Dies Name Role Phone Khushboo Lopez CNP Primary Care Provider [phone] Encounter Details Date Type Department Care Team (Late st Contact Info) Description 09/07/2022 Orders Only [facility] MEDICAL [address] [place] [address] Nancy Song MD 73 [place] [address] Chronic low back pain with sciatica, sciatica laterality unspecified, unspecified back pain laterality (Primary Dx) Social History Tobacco Use Types Packs/Day Years Used Date Smoking Tobacco: Never Assessed Comments Unknown Sex and Gender Information Value Date Recorded Sex Assigned at Female 11/07/2022 9:31 AM EST Legal Sex Female 8:38 PM EDT Gender Identity Female 11/07/2022 9:31 AM EST Sexual Orientation Choose not to disclose 2022 9:31 AM EST documented as of this encounter Plan of Treatment Upcoming Encounters Date Type Department Care Team (Late st Contact Info) Description 02/15/2025 3:30 PM EDT Office Visit [facility] MEDICAL [address] [place] [address] Khushboo Lopez CNP [address] [place] [address] 11/30/2025 2:00 PM EDT Office Visit [facility] OPTOMETRY [address] [place] [address] Brenda Marcelino OD 73 [place] [address] documented as of this encounter Visit Diagnoses Diagnosis Chronic low back pain with sciatica, sciatica laterality unspecified, unspecified back pain laterality- Primary documented in this encounter Care Teams Finisher Fine Diamond Dies Relationship Specialty Start Date End Date Khushboo Lopez CNP [address] [place] [address] PCP - General Family Medicine 09/02/22 documented as of this encounter
--- OUTSIDE RECORDS SUMMARY | 2024-12-26 12:30 | XMS_ITS | Encounter Summary ---
Author Organization [employer] Address [address] [facility] 7t [place] [address] Care Team Providers Care Conditioner Tumbler Operator Name Role Phone Khushboo Lopez CNP Primary Care Provider [phone] Encounter Details Date Type Department Care Team (Late Contact Info) Description 04/13/2023 Orders Only [facility] MEDICAL [address] [place] [address] Provider, MD Robbie Social History Tobacco Use Types Packs/Day Years Used Date Smoking Tobacco: Former Cigarettes Q uit: 2003 Smokeless Tobacco: Never Comments:Last smoked >10 yea rs Depression Answer Date Recorded Patient Health Questionnaire-9 Score 5 01/14/2023 Depression Answer Date Recorded Patient Health Questionnaire-2 Score 2 01/14/2023 Comments Unknown Sex and Gender Information Value [...] PM EDT Office Visit [facility] MEDICAL [address] [place] [address] Khushboo Lopez CNP [address] [place] [address] 11/30/2025 2:00 PM EDT Office Visit [facility] OPTOMETRY 73 [place] [address] Brenda Marcelino, BRADY 73 [place] [address] documented as of this encounter Procedures Procedure Name Priority Date/Time Associated Diagnosis Comments HEPATIC FUNCTION PANEL Routine 03/26/2023 documented in this encounter Results * Hepatic Function Panel (03/26/2023) Blood Venous blood specimen / Unknown us Historical Provider LAB BLOOD ORDERABLES Rehana l Result documented in this encounter Visit Diagnoses Not on filedocumented in this encounter Additional Health Concerns Assessment Noted Time PHQ-9 Depression Total Score: 5 01/15/20 23 8:09 AM EDT documented as of this encounter Care Teams Conditioner Tumbler Operator Relationship Specialty Start Date End Date Khushboo Lopez CNP 73 [place] [address] PCP - General Family Medicine 09/02/22 documented as of this encounter
--- OUTSIDE RECORDS SUMMARY | 2024-12-26 12:30 | XMS_ITS | Encounter Summary ---
Author Organization [employer] [facility] Address [address] [facility] 7t [place] [address] Care Team Providers Care Wood Buffer Name Role Phone Khushboo Lopez CNP Primary Care Provider [phone] Encounter Details Date Type Department Care Team (Late Contact Info) Description 11/14/2022 Abstract [facility] [address] [place] [address] Marla Aparicio FNP [address] [place] [address] Social History Tobacco Use Types Packs/Day Years [...] Description 02/15/2025 3:30 PM EDT Office Visit [facility] 73 [place] [address] Khushboo Lopez CNP 73 [place] [address] 11/30/2025 2:00 PM EDT Office Visit [facility] OPTOMETRY [address] [place] [address] Brenda Marcelino, OD [address] [place] [address] documented as of this encounter Visit Diagnoses Not on filedocumented in this encounter Care Teams Wood Buffer Relationship Specialty Start Date End Date Khushboo Lopez CNP [address] [place] [address] PCP - General Family Medicine 09/02/22 documented as of this encounter
--- OUTSIDE RECORDS SUMMARY | 2024-12-26 12:30 | XMS_ITS ---
Author Organization [facility] Address [address] [place] [address] Care Team Providers Care Cdl Driver Name Role Phone John Khushboo Primary Care Provider Johann Mondragon Jr Unavailable [phone] Allergies Allergen (clinical drug ingredient) Drug/Non Drug Allergy documented on EMR Reaction Allergy Type Onset Date Status Sulfa Unknown Drug Allergy Active Penicillin Unknown Drug Allergy Active REASON FOR VISIT Patient presents today for elevated liver tests Medications Medication SIG (Take, Route, Frequency, Duration) Notes Start Date End Date Status Omeprazole 20 MG 1 tablet 30 minutes before morning meal Orally Once a day for 30 days 12/18/2021 Active Trulicity 0.75 MG/0.5ML INJECT 1 PEN SUBCUTANEOUSLY ONCE WEEKLY Subcutaneous for 28 Active Vitamin C 500 MG TAKE 1 TABLET BY WALESKA TH EVERY DAY Oral for 90 Active Jardiance 25 MG TAKE 1 TABLET BY WALESKA TH EVERY DAY Oral for 30 Active Levothyroxine Sodium 25 MCG TAKE 1 TABLET (25 MCG) BY MOUTH IN THE MORNING Oral for 90 Active Triamcinolone Acetonide Active FreeStyle Lite Test Active FreeStyle Lancets Ac tive Omeprazole 20 MG 1 capsule 30 minutes before morning meal Orally Once a day for 30 days 12/20/2021 Active rOPINIRole HCl 0.25 MG TAKE 1 TABLET BY MOUTH EVERY EVENING Oral for 90 Active SUMAtriptan Succinate 50 MG 1 tablet as needed Orally Twice a day Active Albuterol Sulfate (2.5 MG/3ML) 0.083% 3 ml as needed Inhalation Three times a day Active oxyCODONE HCl 5 MG 1 tablet as needed O rally every 6 hrs Active Atorvastatin Calcium 10 MG 1 tablet Oral ly Once a day for 30 day(s) Active Januvia Active Multi Vitamin/Minerals - 1 Orally QD Active Lyrica 150 MG 1 capsule 1 to 3 yuli rs before bedtime in the evening Orally Once a day Active metFORMIN HCl 500 MG 1 tablet with meals Orally Twice a day Active Senna 8.6 MG 2 tablets at bedtime as needed Orally Once a day Active Cetirizine HCl 10 MG 1 tablet Orally Once a day Active clonazePAM 1 MG 1 tablet Orally Once a day Active Amitriptyline HCl 25 MG 1 tablet Orally Once a day Active Social History Tobacco Use: Social History Observation Description Date Details (start date - stop date) Former Smoker NA - NA Tobacco Use/Smoking Question Answer Notes Patient is a former smoker How long has it been since you last smoked? > 10 years Alcohol Screen Question Answer Notes Did you have a drink contain ing alcohol in the past year? Yes How often did you have a dri nk containing alcohol in the past year? Monthly or less (1 point) How many drinks did you have on a typical day when you were drinking in the past year? 1 or 2 drinks (0 point) How often did you have 6 or more drinks on one occasion in the past year? Never (0 point) Points 1 Interpretation Negative Vital Signs Temperature 97.3 degrees Fahrenheit 09/12/20 24 Blood pressure systolic 000 mm Hg 09/12/20 24 Blood pressure diastolic 00 mm Hg 024 Height 64 in 09/12/2024 Weight 190 lbs 09/12/2024 BMI 32.61 kg/m2 09/12/2024 Encounters Encounter Location Date Provider Diagnosis [address] [place] [id number] 09/12/2024 Johann Moreno Jr Elevated LFTs R79.89 and Gastroesophageal reflux disease, unspecified whether esophagitis present K21.9 Assessments Encounter Date Diagnosis (ICD Code) Assessment Notes Treatment Notes Treatment Clinical Notes Section Notes 09/12/2024 Elevated LFTs (ICD-10 - R79.89) labs to be done in December Currently, she is doing well. Over function tests remained elevated but are stable. We reviewed this today. We discussed diet, lifestyle modifications , and weight loss regarding the treatment of reflux and fatty liver. She will continue omeprazole for reflux. Followup liver function tests and fibrosis testing will be done in December. She will followup in the office in one year. 09/12/2024 Gastroesophageal reflux disease, unspecified whether esophagitis present (ICD-10 - K21.9) Currently, she is doing well. Over function tests remained elevated but are stable. We reviewed this today. We discussed diet, lifestyle modifications , and weight loss regarding the treatment of reflux and fatty liver. She will continue omeprazole for reflux. Followup liver function tests and fibrosis testing will be done in December. She will followup in the office in one year. Plan Of Treatment Treatment Notes Assessment Notes Elevated LFTs labs to be done in A pril Pending Test Test Name Order Date LIVER PROFILE 09/12/2024 CBC w/o DIFF 09/12/2024 Liver Fibrosis Pnl 09/12/2024 Next Appt Details Follow Up: 1 Year, Reason: Provider Name:Johann ohara , 09/07/2025 01:35:00 PM, [address] [place] [address], [address], [phone], Progress Notes * DAVID BROWNDOB:[birth year] (53 yo F)Acc No.[id number]:09/12/2024 Progress Notes Patient:?STEPHANIE DAVID Provider:?Johann Moreno MD :[id number]???Age:53 Y???Sex:Female D ate:09/12/2024 Address:[address] [place], [place] [id number] Pcp:Khushboo Lopez Subjective: * Chief Complaints: * ???1. Patient presents today for elevated liver tests. * HPI: ???New symptom(s):? The patient is a pleasant 53-year-old woman seen today in followup of fatty liver and gastroesophageal reflux disease. Since we saw her last, she's been doing well. She reports reflux symptoms are under good control on omeprazole 20 mg daily. She has no dysphagia, hematemesis, or melena. Weight and appetite have been stable. ?She was seen in the emergency department in June with neck and shoulder pain. Liver function tests were done at that time. This showed mild elevations of her AST and ALT at 89 and 160 respectively which were improved from December of this year. We reviewed this today. She has no complaints of jaundice, fatigue, or pruritus. * Medical History:?Depression, Diabetes mellitus, Asthma, Gastroesophageal reflux disease, Colonoscopy 06/28/19, hyperplastic polyps, ten-year followup recommended.. * Surgical History:?lower back fusion L-4,L-5 2003, bladder surgery , tubal ligation . * Family History:?Father: sheila rivas, diagnosed with Diabetes.?Mother: alive, diagnosed with Diabetes, HTN (hypertension).? denies family hx of colon cancer, colon polyps and liver ds. * Social History:?Tobacco Use:?Tobacco Use/Smoking?Patient is a?former smoker,?How long has it been since you last smoked??> 10 years.?Drugs/Alcohol:?Alcohol Screen?Did you have a drink containing alcohol in the past year??Yes,?How often did you have a drink containing alcohol in the past year??Monthly or less (1 point), How many drinks did you have on a typical day when you were drinking in the past year??1 or 2 drinks (0 point),?How often did you have 6 or more drinks on one occasion in the past year??Never (0 point),?Points?1,?Interpretation?Negative.?Miscellaneous:?Marital status: single. Occupation: unemployed. * Medications:?Taking clonazeP AM 1 MG Tablet 1 tablet Orally Once a day, Taking Amitriptyline HCl 25 MG Tablet 1 tablet Orally Once a day, Taking Multi Vitamin/Minerals - Tablet 1 Orally QD, Taking Lyrica 150 MG Capsule 1 capsule 1 to 3 hours before bedtime in the evening Orally Once a day, Taking metFORMIN HCl 500 MG Tablet 1 tablet with meals Orally Twice a day, Taking Senna 8.6 MG Tablet 2 tablets at bedtime as needed Orally Once a day, Taking Cetirizine HCl 10 MG Tablet 1 tablet Orally Once a day, Taking SUMAtriptan Succinate 50 MG Tablet 1 tablet as needed Orally Twice a day, Taking Albuterol Sulfate (2.5 MG/3ML) 0.083% Nebulization Solution 3 ml as needed Inhalation Three times a day, Taking oxyCODONE HCl 5 MG Tablet 1 tablet as needed Orally every 6 hrs, Taking Atorvastatin Calcium 10 MG Tablet 1 tablet Orally Once a day, Taking Januvia , Taking Triamcinolone Acetonide , Taking FreeStyle Lite Test , Taking FreeStyle Lancets , Taking Omeprazole 20 MG Capsule Delayed Release 1 capsule 30 minutes before morning meal Orally Once a day, Taking rOPINIRole HCl 0.25 MG Tablet TAKE 1 TABLET BY MOUTH EVERY EVENING Oral , Taking Vitamin C 500 MG Tablet TAKE 1 TABLET BY MOUTH EVERY DAY Oral , Taking Jardiance 25 MG Tablet TAKE 1 TABLET BY MOUTH EVERY DAY Oral , Taking Levothyroxine Sodium 25 MCG Tablet TAKE 1 TABLET (25 MCG) BY MOUTH IN THE MORNING Oral , Taking Omeprazole 20 MG Tablet Delayed Release 1 tablet 30 minutes before morning meal Orally Once a day, Taking Trulicity 0.75 MG/0.5ML Solution Auto-injector INJECT 1 PEN SUBCUTANEOUSLY ONCE WEEKLY Subcutaneous , Medication List reviewed and reconciled with the patient * Allergies:?Penicillin, Sulfa . Objective: * Vitals:?Wt: 190 lbs, Ht: 64 in, BMI:32.61 Index, BP: 000/00 mm Hg, Temp: 97.3. * Examination: ???General Examination: ???On examination today, she appears well. Skin is anicteric. Lungs are clear. Heart shows a regular rate and rhythm. Abdomen is soft without focal mass or tenderness. Extremities are without edema. Assessment: * Assessment: 1.?Elevated LFTs - R79.89 (P rimary)?2.?Gastroesophageal reflux disease, unspecified whether esophagitis present - K21.9? Currently, she is doing well . Over function tests remained elevated but are stable. We reviewed this today. We discussed diet, lifestyle modifications, and weight loss regarding the treatment of reflux and fatty liver. She will continue omeprazole for reflux. Followup liver function tests and fibrosis testing will be done in December. She will followup in the office in one year. Plan: * Treatment: * Procedure Codes:?3017F COLOR ECTAL CA SCREEN DOC REV, G9903 Pt scrn tbco id as non user, G9745 DOC RSN FOR NOT SCREEN/REC F/U HBP * Preventive Medicine:? ??Counseling:?Care goal follow-up plan:?Above Normal BMI Follow-up?Giving encouragement to exercise,?BMI management provided?Yes.? * Follow Up:?1 Year * * Sign off status: Completed true * Provider:?Johann Moreno MD Date:?1 11/13/2023 Generated for Lissett giles/Anthony/Jonitting on:?2024 12:30 PM EDT History and Physical Notes * HPI (History of Present Illness) Category Sub-Category Detail Notes Category Not es New symptom(s) The patient is a pleasant 53-year-old woman seen today in followup of fatty liver and gastroesophageal reflux disease. Since we saw her last, she's been doing well. She reports reflux symptoms are under good control on omeprazole 20 mg daily. She has no dysphagia, hematemesis, or melena. Weight and appetite have been stable. She was seen in the emergency department in June with neck and shoulder pain. Liver function tests were done at that time. This showed mild elevations of her AST and ALT at 89 and 160 respectively which were improved from December of this year. We reviewed this today. She has no complaints of jaundice, fatigue, or pruritus. Examination Category Sub-Category Detail Notes Category Not es General Examination On exami nation today, she appears well. Skin is anicteric. Lungs are clear. Heart shows a regular rate and rhythm. Abdomen is soft without focal mass or tenderness. Extremities are without edema.
--- OUTSIDE RECORDS SUMMARY | 2024-12-26 12:30 | XMS_ITS | Encounter Summary ---
Author Organization [employer] Address [address] [facility] 7t [place] [address] Care Team Providers Care Manager Of Product Name Role Phone Khushboo Lopez CNP Primary Care Provider Encounter Details Date Type Department Care Team (Late st Contact Info) Description 03/11/2024 Orders Only [facility] [address] [place] [address] Khushboo Lopez CNP [address] [place] [address] Social History Tobacco Use Types Packs/Day Years [...] Description 02/15/2025 3:30 PM EDT Office Visit [facility] MEDICAL [address] [place] [address] Khushboo Lopez CNP [address] [place] [address] 11/30/2025 2:00 PM EDT Office Visit [facility] OPTOMETRY [address] [place] [address] Brenda Marcelino OD [address] [place] [address] documented as of this encounter Procedures Procedure Name Priority Date/Time Associated Diagnosis Comments HM PAP/HPV Routine 12/04/2023 10:25 AM EDT documented in this encounter Results * HM PAP/HPV (12/04/2023 10:25 AM EDT) Khushboo Lopez CNP HEALTH MAINTENANCE Final Resu lt documented in this encounter Visit Diagnoses Not on filedocumented in this encounter Additional Health Concerns Assessment Noted Time PHQ-9 Depression Total Score: 2 02/16/20 24 3:19 PM EDT documented as of this encounter Care Teams Manager Of Product Relationship Specialty Start Date End Date Khushboo Lopez CNP [address] [place] [address] PCP - General Family Medicine 09/02/22 documented as of this encounter
--- OUTSIDE RECORDS SUMMARY | 2024-12-26 12:30 | XMS_ITS | Encounter Summary ---
Author Organization [employer] Address [address] [facility] 7t [place] [address] Care Team Providers Care Material Manager Name Role Phone Khushboo Lopez CORY Primary Care Provider [phone] Encounter Details Date Type Department Care Team (Late st Contact Info) Description 07/04/2024 Orders Only [facility] MEDICAL [address] [place] [address] Provider, MD Robbie Social History Tobacco Use [...] Description 02/15/2025 3:30 PM EDT Office Visit [facility] MEDICAL [address] [place] [address] Khushboo Lopez, LEGAL DOCUMENT ASSISTANT [address] [place] [address] 11/30/2025 2:00 PM EDT Office Visit [facility] OPTOMETRY [address] [place] [address] Brenda Marcelino, BRADY [address] [place] [address] documented as of this encounter Procedures Procedure Name Priority Date/Time Associated Diagnosis Comments TROPONIN T, HIGH SENSITIVITY (HS-ANJELICA) Routine 06/21/2024 2:51 PM EDT CBC WITH AUTO DIFFERENTIAL Routine 06/21/2024 2:51 PM EDT PROTHROMBIN TIME-INR Routine 06/21/2024 2:51 PM EDT LIPID PANEL, STANDARD Routine 06/21/2024 2:51 PM EDT COMPREHENSIVE METABOLIC PANEL Routine 06/21/2024 2:51 PM EDT documented in this encounter Results * Comprehensive Metabolic Panel (06/21/2024 2:51 PM EDT) Blood Venous blood specimen / Unknown Result [facility] Provider MD LAB BLOOD ORDERABLES Rehana l Result * Lipid Panel, Standard (06/21/2024 2:51 PM EDT) Blood Venous blood specimen / Unknown Result [facility] Provider MD LAB BLOOD ORDERABLES Rehana l Result * Troponin T, High Sensitivity (hs-Anjelica) (06/21/2024 2:51 PM EDT) Result [facility] Provider MD LAB BLOOD ORDERABLES Rehana l Result * Prothrombin Time-INR (06/21/2024 2:51 PM EDT) Blood Venous blood specimen / Unknown Result [facility] MD LAB BLOOD ORDERABLES Rehana l Result * CBC auto differential (06/21/2024 2:51 PM EDT) Blood Venous blood specimen / Unknown Result [facility] MD LAB BLOOD ORDERABLES Rehana l Result documented in this encounter Visit Diagnoses Not on filedocumented in this encounter Additional Health Concerns Assessment Noted Time PHQ-9 Depression Total Score: 2 02/16/20 24 3:19 PM EDT documented as of this encounter Care Teams Material Manager Relationship Specialty Start Date End Date Khushboo Lopez CNP [address] [place] [address] PCP - General Family Medicine 09/02/22 documented as of this encounter
--- OUTSIDE RECORDS SUMMARY | 2024-12-26 12:30 | XMS_ITS | Data Portability ---
Author Organization [facility] Pain Managem ent, PAIN OFFICE Address [address] [place] [address] Care Team Providers Care Algologist Name Role Phone HARINDER TANG Primary Care Provider Assessment Encounter Date Assessment Date Assessment LastModified by Organization Details LastModified Time 11/12/2016 11/12/2016 Julia Martin is a 45 year old woman with complaints of low back pain radiating into both lower extremities. She is S/P back surgery and has persistent pain. She states she has trialed physical therapy and injections and had no pain benefit. She is being seen at [facility] and has been getting prescriptions for oxycodone . She reports good pain benefit with medication . She states her functionality is better when she takes the medication. [facility] is denying the oxycodone . I have explained in detail that I am primarily an interventional pain specialist and I do not write Chronic opioid pain medications . She states she is not interested in trialing any injections at present. She is being seen at [facility]. I have advised her that it is in her best interest to be seen at one pain center. [email or web address] Not available 11/28/2016 11:35:02 Plan of Treatment Reminders Order Date Submit Date Provider Last Modified By Organization Details Last Modified Time Details Appointments None record ed. Lab None record ed. Referral None record ed. Procedures None record ed. Surgeries None record ed. Imaging None record ed. Medication Orders None record ed. Patient TargetsNo targets recorded. Patient Instructions Encounter Date Encounter Id Patient Instructions Last Modified By Organization Details Last Modified Time 11/12/2016 [id number] She was advised to continue with activities as tolerated. [email or web address] Not available 11/23/2016 20:13:23 Reason for Referral None Reported. Procedures Surgical History Date Name Laterality Status Provider Name and Address Organization Details Recorded Time Back Surgery completed Preet Renee MD [address] [facility] , [address], [place], [address], [facility] - Pain Management 11/12/2016 13:58:58 Other completed Preet Renee MD [address] [facility] , [address], [place], [address], [facility] - Pain Management 11/12/2016 13:59:56 Tubal Ligation completed Preet Renee MD [address] [facility] , [address], [place], [address], [facility] - Pain Management 11/12/2016 14:00:18 Imaging Results None recorded. Procedure Notes None recorded. Medical Equipment None Reported. Allergies Allergen ID Allergen Name Allergen Category Reaction Reaction Severity Criticality Documentation Date Start Date Code Code System Note Provider Name and Address Organization Details Recorded Time 29860 Product containin g penicilli n (product) medicatio n rash Not available Not available 11/12/2016 27320 8001 SNOMED Preet becerra MD [address] [facility] , [address], [place], [address], [facility] - Pain Management 7 13:54:29 95775 Substance with sulfonami de structure and antibacte rial mechanism of action (substanc e) medicatio n rash Not available Not available 11/12/2016 66211 8003 OMED Preet becerra MD [address] [facility] , [address], [place], [place], [address], [facility] - Pain Management 7 13:54:44 39992 house dust allergeni c extract environme nt,medica tion Not available Not available Not available 11/24/2016 12536 9 RxNorm Kirstin meyer [facility] Pain Management 7 14:35:07 22025 cat dander environme nt Not available Not available Not available 11/24/2016 19053 UNK Kirstin meyer [place] - Pain Management 7 14:35:29 Medications Name Sig Start Date Stop Date Status Note LastModified by Organization Details LastModified Time metformin 500 mg tablet Take 1 tablet twice a day by oral route. active Not Available Not Available No t Available clonazepam 1 mg tablet Take 1 tablet every day by oral route. active Not Available Not Available No t Available Tylenol Arthritis Pain 650 mg tablet,extended release Take 2 tablets twice a day by oral route. active Not Available Not Available No t Available Lyrica 150 mg capsule Take 1 capsule twice a day by oral route. active Not Available Not Available No t Available senna active Not Available Not Availa ble Not Available amitriptyline 25 mg 1 tab at bedtime active Not Available Not Available No t Available omeprazole 20 mg tablet,delayed release Take by oral route. active Not Available Not Available No t Available loratadine 10 mg capsule Take by oral route. active Not Available Not Available No t Available Multi Vitamin active Not Available Not Available Not Available Vitals Date Recorded Heart rate Oxygen saturation Oxygen saturation in Arterial blood by Pulse oximetry Body height Body weight Body mass index (BMI) Systolic blood pressure Diastolic blood pressure Provider Name and Address Organization Details Last Updated DateTime 7 87 /min 97 % 97 % 162.56 cm 68163.0 3 g 30.7 kg/m2 127 mm[Hg] 86 mm[Hg] Preet becerra MD [facility] , [address], [place], [address], [place] [facility] 7 13:52:31 Social History Question Answer Notes LastModified by Organizat ion Details LastModified Time Tobacco Smoking Status Former Smoker Quit x 12 years Not Available [facility] 07/06/2020 03:16:11 What Is Your Level Of Alcohol Consumption? None [id number] Information not available 07/06/2020 Are You Currently Employed? No [id number] Information not available 07/06/2020 Which Illicit Or Recreational Drugs Have You Used? No [id number] Information not available 07/06/2020 Education 9 Information n ot available 11/12/2016 Live Alone Or With Others? Alone Information not available 11/12/2016 Marital Status Single zuleyma Informati on not available 11/12/2016 How Many Years Have You Smoked Tobacco? 3 [id number] Information not available 07/06/2020 Sex: Unknown Functional Status None recorded. Mental Status None recorded. Family History Relationship Description Onset Age of this Age Resolved Age Notes LastModified by Organization Details LastModified Time Maternal Aunt Malignant neoplastic disease [email or web address] Not available 10/23 13:57:38 Medical History Condition Response Anxiety Disorder Y Neuropathy/Neuralgia Y Headache Y Arthritis Y Kidney Stones Y GERD/Reflux Y Fibromyalgia Y Depression Y Asthma Y Gynecological HistoryNo gynecological history recorded. 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 29503862 M47.817 Displaceme nt of lumbar intervertebral disc without myelopathy 55280341 M51.26 Muscle pain 87943620 M79 .1 Health Concerns Section Related Observation LastModified by Organization Detai ls LastModified Time None Recorded Concern Status LastModified by Organization Details LastModified Time None Recorded Advance Directives Directive None Recorded Payers Encounter Date Sequence Insurance Name Policy Number Policy Suero Covered Member ID Suero Member ID Guarantor Name 11/12/2016 1 [place] [facility] Julia Martin [id number] Julia Martin Notes Date Note Type Note Provider Name and Address Organization Details Recorded Time 11/12/2016 text/html Pain Management L-spineReported bypatient.Location :Julia Martin is a 45 year old woman with complaints of low back pain radiating into both lower extremities . She has been chronic low back pain. She has been having an exacerbation of her pain for the past one and half years. 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 The pain in her lower extremities is an aching and throbbing type of pain and is associated with tingling. Severity:current pain level 5/10; worst pain 8/10;worsening;int erference with sleep;interference with work Duration:constant Onset/Timing:gradu al onset; chronic Context:cannot identify Alleviating Factors:heat; medication; rest; She is taking oxycodone which she states helps . Aggravating Factors:flexion; standing; walking Associated Symptoms:no weakness; no numbness; no bladder compromise; no bowel compromise Radiation:bilatera l LE Work Related:no ADL (Activities of Daily Living):walking; sweeping; mopping Prior EMG:none Previous SurgeryShe is S/P surgery in 2004 at L4-5 level Previous Injections:JUAN; She had injections at [facility] with no pain benefit. Previous PT:She had aquatic physical therapy and massage with no [facility] pain benefit. 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
--- OUTSIDE RECORDS SUMMARY | 2024-12-26 12:30 | XMS_ITS | Encounter Summary ---
Author Organization [employer] Address [address] [facility] [address] [place] [address] Care Team Providers Care Railway Yard Assistant Name Role Phone Khushboo Lopez CORY Primary Care Provider [phone] Encounter Details Date Type Department Care Team (Late st Contact Info) Description 02/03/2024 Orders Only [facility] MEDICAL [address] [place] [address] Provider, MD Robbie Social History Tobacco Use Types Packs/Day Years Used Date Smoking Tobacco: Former Cigarettes Q uit: 09/21/1988 Passive Smoke Exposure: Current Smokeless Tobacco: Never Comments:Last smoked >10 yea rs Alcohol Use Standard Drinks/Week Comments Not Currently 1 (1 standard drink = 0.6 oz pur e alcohol) Depression Answer Date Recorded Patient Health Questionnaire-9 Score 5 01/14/2023 Housing Stability Answer Date Recorded What is your housing situation today? I have yuli casillas 07/08/[address] you li ve. Do you have problems with any of the following? None of the above 07/08/2023 Food Insecurity Answer Date Recorded Within the past 12 months, y ou worried that your food would run out before you got money to buy more: Never True 07/08/2023 Within the past 12 months,th e food you bought just didn't last and you didn't have enough money to get more: Never True Transportation Answer Date Recorded In the past 12 months, has l ack of transportation kept you from medical appts, meetings, work or from getting things needed for daily living? No 07/08/2023 Utilities Answer Date Recorded In the past 12 months, has t he electric, gas, oil or water company threatened to shut off services in your home? No 07/08/2023 Depression Answer Date Recorded Patient Health Questionnaire-2 [...] Visit [facility] MEDICAL [address] [place] [address] Khushboo Lopez, CORY [address] [place] [address] 11/30/2025 2:00 PM EDT Office Visit [facility] OPTOMETRY [address] [place] [address] Brenda Marcelino OD [address] [place] [address] documented as of this encounter Procedures Procedure Name Priority Date/Time Associated Diagnosis Comments FL ARTHROGRAM HIP RT Routine 01/18/2024 6:12 AM EDT MRI HIP RIGHT W CONTRAST Routine 01/18/2024 6:11 AM EDT documented in this encounter Results * FL ARTHROGRAM HIP RT (01/18/2024 6:12 AM EDT) Anatomical Region Laterality Modality Radiographic Latanya ging us Historical Provider MD URIAS FLUOROSCOPY PROCEDURE S Final Result * MRI HIP RIGHT W CONTRAST (01/18/2024 6:11 AM EDT) Anatomical Region Laterality Modality Magnetic Resonan ce us Historical Provider MD URIAS MRI PROCEDURES Final Result documented in this encounter Visit Diagnoses Not on filedocumented in this encounter Additional Health Concerns Assessment Noted Time PHQ-9 Depression Total Score: 5 01/15/20 23 8:09 AM EDT documented as of this encounter Care Teams Railway Yard Assistant Relationship Specialty Start Date End Date Khushboo Lopez CNP [address] [place] [address] PCP - General Family Medicine 09/02/22 documented as of this encounter
--- OUTSIDE RECORDS SUMMARY | 2024-12-26 12:31 | XMS_ITS | Encounter Summary ---
Author Organization [employer] Address [address] [facility] [address]t [place] [address] Care Team Providers Care Edi Programmer Name Role Phone Khushboo Lopez CNP Primary Care Provider [phone] Reason for Referral * Imaging (Routine) - Authorized Specialty Diagnoses / Procedures Referred By Shilpi damon Referred To Contact Radiology Diagnoses Abnormal mammogram of left breast Procedures BI US Breast Complete Left Khushboo Lopez CNP [address] [place] [address] Phone: tel: fax: [address] Phone: tel: fax: Referral ID Status Reason Start Date Expiration Date V isits Requested Visits Authorized [id number] Authorized 11/11/2024 11/11/2025 1 1 * Imaging (Routine) - Closed Specialty Diagnoses / Procedures Referred By Shilpi damon Referred To Contact Radiology Diagnoses Abnormal mammogram of left breast Procedures BI Mammogram Diagnostic Left Khushboo Lopez CNP [address] [place] [address] Phone: tel: fax: [address] Phone: tel: fax: Referral ID Status Reason Start Date Expiration Date Visits Re quested Visits Authorized [id number] Closed 11/11/2024 11/11/2025 1 1 Reason for Visit * Reason Onset Date Comments Breast Cancer Screening 11/11/2024 Encounter Details Date Type Department Care Team (Late st Contact Info) Description 11/11/2024 Telephone [facility] MEDICAL [address] [place] [address] Khushboo Lopez CNP [address] [place] [address] Breast Cancer Screening Social History Tobacco Use Types Packs/Day Years [...] the past 12 months, has t he [employer], gas, oil or water company threatened to [...] encounter Miscellaneous Notes * Telephone Encounter - Bobbi Salomon - 11/12/2024 9:57 AM EST Orders faxed to [facility] * Telephone Encounter - Khushboo Lopez CNP - 11/11/2024 10:32 AM EST Orders entered; will need to be faxed to [facility] * Telephone Encounter - Yajaira Shipley - 11/11/2024 9:44 AM EST Dorys from [facility] Mammography Dept [phone] LMOM Will need two new mammogram orders due to abnormal findings on 10/31 Diagnostic mammo for asymmetry of left breast Ultrasound of left breast for asymmetry documented in this encounter Plan of Treatment Upcoming Encounters Date Type Department Care Team (Late st Contact Info) Description 02/15/2025 3:30 PM EDT Office Visit [facility] MEDICAL [address] [place] [address] Khushboo Lopez CNP [address] [place] [address] 11/30/2025 2:00 PM EDT Office Visit [facility] OPTOMETRY [address] [place] [address] Brenda Marcelino OD [address] [place] [address] Scheduled Orders Name Type Priority Associated Diagnoses Orde r Schedule BI US Breast Complete Left Imaging Routine Abnormal mammogram of left breast Expected: 11/11/2024, Expires: 01/09/2026 documented as of this encounter Procedures Procedure Name Priority Date/Time Associated Diagnosis Comments BI MAMMOGRAM DIAGNOSTIC LEFT Routine 12/12/2024 Abnormal mammogram of left breast documented in this encounter Results * BI Mammogram Diagnostic Left (12/12/2024) Anatomical Region Laterality Modality Breast Left Mammography us Khushboo Lopez DETONATOR ASSEMBLER IMG BI PROCEDURES Final Resul t documented in this encounter Visit Diagnoses Diagnosis Abnormal mammogram of left breast- Primary documented in this encounter Additional Health Concerns Assessment Noted Time PHQ-9 Depression Total Score: 2 02/16/20 3:19 PM EDT documented as of this encounter Care Teams Edi Programmer Relationship Specialty Start Date End Date Khushboo Lpoez CNP [address] [place] [address] PCP - General Family Medicine 09/02/22 documented as of this encounter
--- OUTSIDE RECORDS SUMMARY | 2024-12-26 12:31 | XMS_ITS | Encounter Summary ---
Author Organization [employer] Address [address] [facility] [address] [place] [address] Care Team Providers Care Supervisor Net Making Name Role Phone Khushboo Lopez CORY Primary Care Provider [phone] Encounter Details Date Type Department Care Team (Late st Contact Info) Description 11/23/2023 Orders Only [facility] MEDICAL [address] [place] [address] Provider, MD Robbie Social History Tobacco Use [...] Description 02/15/2025 3:30 PM EDT Office Visit [facility] MEDICAL [address] [place] [address] Khushboo Lopez CNP [address] [place] [address] 11/30/2025 2:00 PM EDT Office Visit [facility] OPTOMETRY [address] [place] [address] Brenda Marcelino OD [address] [place] [address] documented as of this encounter Procedures Procedure Name Priority Date/Time Associated Diagnosis Comments TSH AND FREE T4 Routine 11/20/2023 6:22 PM EST documented in this encounter Results * TSH and Free T4 (11/20/2023 6:22 PM EST) us Historical Provider LAB BLOOD ORDERABLES Rehana l Result documented in this encounter Visit Diagnoses Not on filedocumented in this encounter Additional Health Concerns Assessment Noted Time PHQ-9 Depression Total Score: 5 01/15/20 23 8:09 AM EDT documented as of this encounter Care Teams Supervisor Net Making Relationship Specialty Start Date End Date Khushboo Lopez CNP [address] [place] [address] PCP - General Family Medicine 09/02/22 documented as of this encounter
--- OUTSIDE RECORDS SUMMARY | 2024-12-26 12:31 | XMS_ITS | Encounter Summary ---
Author Organization [employer] Address [address] [facility] [address] [place] [address] Care Team Providers Care Logistic Manager Name Role Phone Khushboo Lopez CNP Primary Care Provider [phone] Reason for Visit * Reason Comments Med Change Request Encounter Details Date Type Department Care Team (Late st Contact Info) Description 11/11/2024 Shravan Mcdonnell [facility] MEDICAL [address] [place] [address] Khushboo Lopez CNP [address] [place] [address] Social History Tobacco Use Types Packs/Day Years [...] encounter Miscellaneous Notes * Telephone Encounter - Sharee Mast LPN - 11/14/2024 11:38 AM EST Pa not needed * Telephone Encounter - Khushboo Lopez CNP - 11/11/2024 11:47 AM EST See pharmacy request, do we need to do PA for this? documented in this encounter Plan of Treatment Upcoming Encounters Date Type Department Care Team (Late st Contact Info) Description 02/15/2025 3:30 PM EDT Office Visit [facility] MEDICAL [address] [place] [address] Khushboo Lopez CNP [address] [place] [address] 11/30/2025 2:00 PM EDT Office Visit [facility] OPTOMETRY [address] [place] [address] Brenda Marcelino, OD [address] [place] [address] documented as of this encounter Visit Diagnoses Not on filedocumented in this encounter Additional Health Concerns Assessment Noted Time PHQ-9 Depression Total Score: 2 02/16/20 24 3:19 PM EDT documented as of this encounter Care Teams Logistic Manager Relationship Specialty Start Date End Date Khushboo Lopez CNP [address] [place] [address] PCP - General Family Medicine 09/02/22 documented as of this encounter
--- OUTSIDE RECORDS SUMMARY | 2024-12-26 12:31 | XMS_ITS | Encounter Summary ---
Author Organization [employer] Address [address] [facility] [address] [place] [address] Care Team Providers Care Treater Helper Name Role Phone Khushboo Lopez CNP Primary Care Provider [phone] Encounter Details Date Type Department Care Team (Late st Contact Info) Description 11/18/2023 Orders Only [facility] MEDICAL [address] [place] [address] Khushboo Lopez CNP [address] [place] [address] Social History Tobacco Use Types Packs/Day Years [...] Description 02/15/2025 3:30 PM EDT Office Visit [facility] MEDICAL [address] [place] [address] Khushboo Lopez CNP [address] [place] [address] 11/30/2025 2:00 PM EDT Office Visit [facility] OPTOMETRY [address] [place] [address] Brenda Marcelino OD [address] [place] [address] documented as of this encounter Procedures Procedure Name Priority Date/Time Associated Diagnosis Comments HM MAMMOGRAPHY Routine 10/31/2023 6:08 AM EST documented in this encounter Results * Hm Mammography (10/31/2023 6:08 AM EST) Anatomical Region Laterality Modality Other Khushboo Lopez CNP HEALTH MAINTENANCE Final Resu lt documented in this encounter Visit Diagnoses Not on filedocumented in this encounter Additional Health Concerns Assessment Noted Time PHQ-9 Depression Total Score: 5 01/15/20 23 8:09 AM EDT documented as of this encounter Care Teams Treater Helper Relationship Specialty Start Date End Date Khushboo Lopez CNP [address] [place] [address] PCP - General Family Medicine 09/02/22 documented as of this encounter
--- OUTSIDE RECORDS SUMMARY | 2024-12-26 12:31 | XMS_ITS | Patient Health Record ---
Author Organization [facility] Address [address] [place] [address] Care Team Providers Care Fractionation Supervisor Name Role Phone Khushboo Lopez Primary Care Provider Johann Mondragon Jr Unavailable Allergies Allergen (clinical drug ingredient) Drug/Non Drug Allergy documented on EMR Reaction Allergy Type Onset Date Status Sulfa Unknown Drug Allergy Active Penicillin Unknown Drug Allergy Active Results Component Value Reference Range Notes Complete Blood Count no Diff Reviewed date:01/13/2024 08:39:28 AM Interpretation: Performing Lab:[facility], [address] [place] [address] Notes/Report: White Blood Count 6.9 4.8-10.8 X10*3/uL Red Blood Count 4.84 4.20-5.50 X10*6/uL Hemoglobin 14.1 12.0-16.0 g/dl Hematocrit 44.7 37.0-47.0 % Mean Corpuscular Volume 92.4 80.0-98.0 fL Mean Corpuscular Hemoglobin 29.1 27.0-33.0 pg Mean Corpuscular HGB Conc 31.5 31.0-35.0 g/dl Red Cell Distribution Width 13.7 11.0-16.0 % Platelet Count 328 160-400 X10*3/uL Mean Platelet Volume 10.8 9.4-12.3 fL NRBC Pct Auto 0.0 0.0-0.2 /100WBC NRBC Abs Auto 0.000 0.0-0.012 X10*3/uL Liver Panel Reviewed date:01/14/2024 08:17:59 AM Interpretation: Performing Lab:[facility], [address] [place] [phone] Notes/Report: Bilirubin Total 0.7 0.0-1.0 mg/dL Bilirubin Direct 0.3 0.0-0.5 mg/dL Aspartate Amino Transferase 125 5-31 U/L Alanine Aminotransferase 174 0-31 U/L Total Protein 8.5 6.5-8.0 g/dL Albumin Level 4.7 3.5-5.0 g/dL Alkaline Phosphatase 111 39-117 U/L Lipase Reviewed date:01/14/2024 08:17:54 AM Interpretation: Performing Lab:[facility], [address] [place] [phone] Notes/Report: Lipase 52 8-78 U/L Liver Fibrosis Pnl Reviewed date:01/28/2024 10:15:13 AM Interpretation: Performing Lab:[facility], [address] [place] [phone] Notes/Report: Liver Fibrosis Score 0.24 Liver Fibrosis Stage F0-F1 Liver Fibrosis Interpretation SEE NOTE no fibrosis Fibro Test Score (f) Metavir Score f>=0 and f<=0.21 : F0 (no fibrosis) f>0.21 and f<=0.27 : F0-F1 (no fibrosis) f>0.27 and f<=0.31 : F1 (minimal fibrosis) f>0.31 and f<=0.48 : F1-F2 (minimal fibrosis) f>0.48 and f<=0.58 : F2 (moderate fibrosis) f>0.58 and f<=0.72 : F3 (advanced fibrosis) f>0.72 and f<=0.74 : F3-F4 (advanced fibrosis) f>0.74 and f<=1.00 : F4 (severe fibrosis) Nec Inflam Act Score 0.70 Nec Inflam Act Grade A3 Nec Inflam Act Interpretation SEE NOTE severe activity ActiTest Score (a) Metavir Score a>=0 and a<=0.17 : A0 (no activity) a>0.17 and a<=0.29 : A0-A1 (no activity) a>0.29 and a<=0.36 : A1 (minimal activity) a>0.36 and a<=0.52 : A1-A2 (minimal activity) a>0.52 and a<=0.60 : A2 (significant activity) a>0.60 and a<=0.62 : A2-A3 (significant activity) a>0.62 and a<=1.00 : A3 (severe activity) YEO-[id number]-7-Macroglobulin 185 106-279 mg/dL FIB-Haptoglobin 162 43-212 mg/dL FIB-Apolipoprotein A1 126 101-198 mg/dL FIB-Total Bilirubin 0.4 0.2-1.2 mg/dL FIB-GGT 90 3-70 U/L FIB-ALT 147 6-29 U/L Reference ID [id number] Footnote SEE NOTE The reliability of results is dependent on compliance with the preanalytical and analytical conditions recommended by [employer]. The tests have to be deferred for: acute hemolysis, acute hepatitis, acute inflammation, extra hepatic cholestasis. The advice of a specialist should be sought for interpretation in chronic hemolysis and Gilbert's syndrome. The test interpretation is not validated in liver transplant patients. Isolated extreme values of one of the components should lead to caution in interpreting the results. In case of discordance between a biopsy result and a test, it is recommended to seek the advice of a specialist. The causes of these discordances could be due to a flaw of the test or to a flaw in the biopsy: i.e. a liver biopsy has a 33% variability rate for one fibrosis stage. FibroTest is interpretable for chronic hepatitis B and C, alcoholic and non alcoholic steatosis. ActiTest is interpretable for chronic hepatitis B and C. The performance characteristics have been determined by [employer] [facility]. It has not been cleared or approved by the U.S. Food and Drug Administration. Performance characteristics refer to the analytical performance of the test. [employer], the associated logo, Compendium and all associated [employer] horton are the registered trademarks of [employer]. All third constitution party horton - (R) and (TM) - are the property of their respective owners. (C) 0186-7406 [employer]. All rights reserved. THIS TEST WAS PERFORMED AT: [employer] [facility] [address] [place] [address] VISHAL CARROLL MD,PHD,STEVE Complete Blood Count no Diff (Not yet reviewed by provider) Interpretation: Performing Lab:[facility], [address] [facility] [facility], [place] [address] Notes/Report: White Blood Count 8.1 4.8-10.8 X10*3/uL Red Blood Count 4.76 4.20-5.50 X10*6/uL Hemoglobin 13.9 12.0-16.0 g/dl Hematocrit 43.8 37.0-47.0 % Mean Corpuscular Volume 92.0 80.0-98.0 fL Mean Corpuscular Hemoglobin 29.2 27.0-33.0 pg Mean Corpuscular HGB Conc 31.7 31.0-35.0 g/dl Red Cell Distribution Width 14.2 11.0-16.0 % Platelet Count 316 160-400 X10*3/uL Mean Platelet Volume 10.5 9.4-12.3 fL NRBC Pct Auto 0.0 0.0-0.2 /100WBC NRBC Abs Auto 0.000 0.0-0.012 X10*3/uL Reason For Referral No Information Medications Medication SIG (Take, Route, Frequency, Duration) Notes Start Date End Date Status SUMAtriptan Succinate 50 MG 1 tablet as needed Orally Twice a day Active Albuterol Sulfate (2.5 MG/3ML) 0.083% 3 ml as needed Inhalation Three times a day Active oxyCODONE HCl 5 MG 1 tablet as needed O rally every 6 hrs Active Omeprazole 20 MG 1 tablet 30 minutes before morning meal Orally Once a day for 30 days 12/18/2021 Active Atorvastatin Calcium 10 MG 1 tablet Oral ly Once a day for 30 day(s) Active Trulicity 0.75 MG/0.5ML INJECT 1 PEN SUBCUTANEOUSLY ONCE WEEKLY Subcutaneous for 28 Active Januvia Active Triamcinolone Acetonide Active FreeStyle Lite Test Active FreeStyle Lancets Ac tive clonazePAM 1 MG 1 tablet Orally Once a day Active Amitriptyline HCl 25 MG 1 tablet Orally Once a day Active Multi Vitamin/Minerals - 1 Orally QD [...] 1 tablet Orally Once a day Active Omeprazole 20 MG 1 capsule 30 minutes before morning meal Orally Once a day for 30 days 12/20/2021 Active rOPINIRole HCl 0.25 MG TAKE 1 TABLET BY MOUTH EVERY EVENING Oral for 90 Active Vitamin C 500 MG TAKE 1 TABLET BY WALESKA TH EVERY DAY Oral for 90 Active Jardiance 25 MG TAKE 1 TABLET BY WALESKA TH EVERY DAY Oral for 30 Active Levothyroxine Sodium 25 MCG TAKE 1 TABLET (25 MCG) BY MOUTH IN THE MORNING Oral for 90 Active Immunizations Vaccine Route Administration Date Status Comme nts Influenza Unknown 08/21/2019 Administered Influenza Unknown 07/09/2021 Administered Influenza Unknown 07/08/2022 Administered Influenza Unknown 06/09/2023 Administered Influenza Unknown 08/23/2024 Administered Social History Tobacco Use: Social History Observation [...] Never (0 point) Points 1 Interpretation Negative Problems Problem Type SNOMED Code ICD Code Onset Dates Problem Status W/U Status Risk Notes Problem 72434570 Epigastric pain (R10.13) Active confirmed Problem 967321641 Elevated LFTs (R79.89) Active confirmed Problem 523934339 Elevated liver enzymes (R74.8) Active confirmed Problem 712655544 Fatty liver (K76.0) Active confirmed Problem 291802717 Elevated lipase (R74.8) Active confirmed Problem 286002531 Gastroesophageal reflux disease, unspecified whether esophagitis present (K21.9) Active confirmed Vital Signs Temperature 97.3 degrees Fahrenheit 09/12/2024 Blood pressure diastolic 00 mm Hg 09/12/2024 Height 64 in 09/12/2024 Blood pressure systolic 000 mm Hg 09/12/2024 Weight 190 lbs 09/12/2024 BMI 32.61 kg/m2 09/12/2024 Encounters Encounter Location Date Provider Diagnosis [facility] [address] [place] [address] 09/12/2024 Johann Moreno Jr Elevated LFTs R79.89 and Gastroesophageal reflux disease, unspecified whether esophagitis present K21.9 [facility] [address] [place] [address] 12/31/2023 Johann Moreno Jr [facility] [address] [place] [address] 01/11/2024 Johann Moreno Jr Epigastric pain R10.13 [facility] [address] [place] [address] 01/28/2024 [facility] [address] [place] [address] 02/01/2024 Johann Moreno Jr Assessments Encounter Date Diagnosis (ICD Code) Assessment [...] followup in the office in one year. 01/11/2024 Epigastric pain (ICD-10 - R10.13) Plan Of Treatment Pending Test Test Name Order Date LIVER PROFILE 04/09/2023 LIVER PROFILE 12/17/2022 LIVER PROFILE 12/30/2019 LIVER PROFILE 06/19/2023 LIVER PROFILE 06/20/2020 LIVER PROFILE 12/18/2022 LIVER PROFILE 09/12/2024 LIVER PROFILE 01/22/2023 LIVER PROFILE 12/07/2023 LIVER PROFILE 06/11/2023 LIPASE 12/07/2023 LIPASE 12/17/2022 CBC w/o DIFF 06/11/2023 CBC w/o DIFF 12/07/2023 CBC w/o DIFF 04/09/2023 CBC w/o DIFF 12/17/2022 CBC w/o DIFF 06/19/2023 CBC w/o DIFF 06/20/2020 CBC w/o DIFF 09/12/2024 PROTHROMBIN TIME (PT, INR) 06/20/2020 CERULOPLASMIN 01/22/2023 MITOCHONDRIAL AB 01/22/2023 SMOOTH MUSCLE ANTIBODIES 01/22/2023 CT ABD & PELVIS WITH CONTRAST 12/18/2021 US ABD 04/09/2023 Complete Blood Count no Diff 2024 Alpha 1 Anti-trypsin 01/22/2023 Liver Fibrosis Pnl 09/12/2024 Liver Fibrosis Pnl 12/07/2023 Liver Fibrosis Pnl 04/09/2023 HARINDER Reflex Titer and Pattern 01/22/2023 Next Appt Details Provider Name:Johann ohara , 09/07/2025 01:35:00 PM, [address] [place] [address], [address], [place], [address], Insurance Providers Payer Name Payer Address Payer Phone Subscriber Number Group Number Insured Name Patient Relationship to Insured Coverage Start Date Coverage End Date [facility] [address] [place] [address] [id number] DAVID KAY Self - patient is the insured Medical (General) History Medical History History ICD Code depression diabetes mellitus asthma gastroesophageal reflux disease colonoscopy 06/28/19, hyperplastic polyps , ten-year followup recommended. Surgical History Surgery Date(Month/Year) lower back fusion L-4,L-5 2003 bladder surgery tubal ligation
--- OUTSIDE RECORDS SUMMARY | 2024-12-26 12:31 | XMS_ITS ---
Author Organization [facility] Address [address] [place] [address] Care Team Providers Care Technical Illustrator Name Role Phone Khushboo Lopez Primary Care Provider Gee Moreno Jr, Johann Temple [phone] REASON FOR VISIT results of recent blood work? Encounters Encounter Location Date Provider Diagnosis [facility] [address] [place] [address] 02/01/2024 Johann Moreno Jr Plan Of Treatment Next Appt Details Provider Name:Johann ohara Jr, 09/07/2025 01:35:00 PM, [address], [address], [place], [address], Progress Notes * DAVID BROWNDOB:[birth year] (53 yo F)Acc No.[id number]:02/01/2024 Patient:?DAVID BROWN :1970???Age:53 Y???Sex:Female Address:[address], [place], [address] * true * Date:? Generated for Zoilai chan/Anthony/eTransmitting on:?2024 12:30 PM EDT
--- OUTSIDE RECORDS SUMMARY | 2024-12-26 12:31 | XMS_ITS | Encounter Summary ---
Author Organization [employer] Address [address] [facility] 7t [place] [address] Care Team Providers Care Oil Well Fishing Tool Technician Name Role Phone Khushboo Lopez CNP Primary Care Provider [phone] Encounter Details Date Type Department Care Team (Late st Contact Info) Description 11/15/2024 Orders Only [facility] [address] [place] [address] Khushboo Lopez CNP [address] [place] [address] Social History Tobacco Use Types Packs/Day Years [...] 3:30 PM EDT Office Visit [facility] MEDICAL [address] [place] [address] Khushboo Lopez CNP [address] [place] [address] 11/30/2025 2:00 PM EDT Office Visit [facility] OPTOMETRY [address] [place] [address] Ernstkathia Brenda, OD [address] [place] [address] documented as of this encounter Procedures Procedure Name Priority Date/Time Associated Diagnosis Comments MAMMO SCREENING TOMOSYNTHESIS BILATERAL Routine 10/31/2024 10:00 AM EST documented in this encounter Results * MAMMO SCREENING TOMOSYNTHESIS BILATERAL (10/31/2024 10:00 AM EST) Anatomical Region Laterality Modality Mammography Khushboo Lopez CNP IMG BI PROCEDURES Final Resul t documented in this encounter Visit Diagnoses Not on filedocumented in this encounter Additional Health Concerns Assessment Noted Time PHQ-9 Depression Total Score: 2 02/16/20 24 3:19 PM EDT documented as of this encounter Care Teams Oil Well Fishing Tool Technician Relationship Specialty Start Date End Date Khushboo Lopez CNP [address] [place] [address] PCP - General Family Medicine 09/02/22 documented as of this encounter
--- OUTSIDE RECORDS SUMMARY | 2024-12-26 12:31 | XMS_ITS ---
Author Organization [facility] Address [address] [place] [address] Care Team Providers Care Law Enforcement Officer Name Role Phone Khushboo Lopez Primary Care Provider Gee Moreno Jr, Johann Temple REASON FOR VISIT elevated LFT's Encounters Encounter Location Date Provider Diagnosis [facility] [address] [place] [address] 12/07/2024 Johann Moreno Jr Plan Of Treatment Next Appt Details Provider Name:Johann ohara Jr, 09/07/2025 01:35:00 PM, [address], [address], [place], [address], Progress Notes * DAVID BROWNDOB:[birth year] (54 yo F)Acc No.[id number]:12/07/2024 Progress Notes Patient:?DAVID BROWN Provider:?Johann Moreno MD :1970???Age:53 Y???Sex:Female D ate:12/07/2024 Address:[address] [facility] [address], [place], [place] Pcp:Khushboo Lopez Subjective: * Chief Complaints: * ???1. elevated LFT's. * Medical History:? Objective: * Vitals:? Assessment: Plan: * Treatment: * * The named appointment provid er may or may not be the originator of this progress note, and it is not deemed complete until electronically signed by the appointment provider. Sign off status: Pending * Provider:?Johann Moreno MD Date:?0 12/07/2024 Generated for Lissett giles/Anthony/Luz on:?2024 12:31 PM EDT
--- OUTSIDE RECORDS SUMMARY | 2024-12-26 12:31 | XMS_ITS | Encounter Summary ---
Author Organization [employer] Address [address] [facility] 7t [place] [address] Care Team Providers Care Linux Network Administrator Name Role Phone Khushboo Lopez CNP Primary Care Provider [phone] Reason for Visit * Reason Comments Med Refill Encounter Details Date Type Department Care Team (Late st Contact Info) Description 09/18/2023 Refill [facility] MEDICAL [address] [place] [address] Khushboo Lopez CNP [address] [place] [address] Social History Tobacco Use Types Packs/Day Years [...] housing situation today? I have yuliuziel casillas 07/08/[address] you [...] encounter Miscellaneous Notes * Telephone Encounter - Sancho Mast CMA - 09/18/2023 5:14 PM EST This was sent 08/22/2023 with 2 refills, refill not appropriate. Ascorbic Acid (vitamin C) 500 MG tablet [[id number]] Order Details Dose: 500 mg Route: Oral Frequency: Daily Dispense Quantity: 30 tablet Refills: 2 Sig: TAKE 1 TABLET BY MOUTH EVERY DAY Start Date: 08/24/23 End Date: -- documented in this encounter Plan of Treatment Upcoming Encounters Date Type Department Care Team (Late st Contact Info) Description 02/15/2025 3:30 PM EDT Office Visit [facility] MEDICAL [address] [place] [address] Khushboo Lopez, CORY [address] [place] [address] 11/30/2025 2:00 PM EDT Office Visit [facility] OPTOMETRY [address] [place] [address] Brenda Marcelino, OD [address] [place] [address] documented as of this encounter Visit Diagnoses Not on filedocumented in this encounter Additional Health Concerns Assessment Noted Time PHQ-9 Depression Total Score: 5 01/15/20 23 8:09 AM EDT documented as of this encounter Care Teams Linux Network Administrator Relationship Specialty Start Date End Date Khushboo Lopez CNP [address] [place] [address] PCP - General Family Medicine 09/02/22 documented as of this encounter
--- OUTSIDE RECORDS SUMMARY | 2024-12-26 12:31 | XMS_ITS | Clinical Summary ---
Author Organization [address] [facility] Address [address] [place] [address] Phone Care Team Providers Care Dietetic Intern Name Role Phone Khushboo Lopez ANODE CREW SUPERVISOR Primary Care Provider Allergies Active Allergy Reactions Criticality Noted Date Comments Penicillins 12/01/2024 Sulfa (Sulfonamide Antibiotics) 11/19 Medications Hospital, Clinic, or Other Facility Administered Medication Ordered Dose Route Frequency Start Date End Date Status lidocaine (PF) (XYLOCAINE-MPF) 1 % injection 0.5 mLIndications:Planta r fascial fibromatosis .5 mL inj Once PRN Procedure 12/01/2024 12/01/2024 Ended triamcinolone acetonide (KENALOG-40) 40 mg/mL injection 20 mgIndications:Planta r fascial fibromatosis 20 mg IAtc Once PRN Procedure 12/01/2024 12/01/2024 Ended Encounters Date Type Department Care Team Description 12/01/2024 9:00 AM EDT Consult Orthopedic Surgery [facility] [address] [phone] Ozzy Vivar, DPM Plantar fascial fibromatosis (Primary Dx); Calcaneal spur, right foot; Pain in right foot; Equinus contracture of ankle from Last 3 Months Social History Tobacco Use Types Packs/Day Years Used Date Smoking Tobacco: Never Assessed Comments Unknown Sex and Gender Information Value Date Recorded Sex Assigned at Not on file Legal Sex Female 10:30 AM EST Gender Identity Not on file Sexual Orientation Not on file Plan of Treatment Upcoming Encounters Date Type Department Care Team ([facility] Contact Info) Description 01/05/2025 9:00 AM EDT Office Visit Orthopedic Surgery [facility] [address] [phone] Ozzy Vivar, DPMaxime [address] [facility] [address] [place] [address] Health Maintenance Due Date Last Done Comments Breast Cancer Screening 1970 Diabetes: Annual GFR (Glomerular Filtration Rate) 1970 Diabetes: Annual Retina Eye Exam 12/27/1979 Cervical Cancer Screening: Pap Smear 1990 HIV Screening 10/18/2024 Hepatitis C Screening 10/18/2024 Social Influencers of Health Screening 10/18/2024 Diabetes: Annual Urine Albumin-Creatinine Ratio (uACR) 12/01/2024 Depression Screening 02/15/2025 02/16/2024 Diabetes: Annual Foot Exam 03/17/2025 03/17/2024 Diabetes: Blood Sugar Control Test (HGBA1C) 05/17/2025 11/17/2024 DTaP,Tdap,and Td Vaccines (3 - Td or Tdap) 07/10/2026 07/10/2016, 01/13/2013 Cholesterol Screening (Lipid Panel) 06/21/2029 06/21/2024 Colorectal Cancer Screening: Colonoscopy 06/28/2029 06/28/2019 Hepatitis B Vaccines Completed 10/29/2020, 07/26/2020, 04/02/2020 Zoster Vaccines Completed 01/20/2022, 11/01/2021 COVID-19 Vaccine Completed 07/09/2024, 12/2022, 08/17/2022, Additional history exists Influenza Vaccine Completed 07/09/2024, , 07/08/2022, Additional history exists Pneumococcal Vaccine: 50+ Years Completed 08/17/2024, 03/18/2019 Pneumococcal Vaccine: Pediatrics (0 to 5 Years) and At-Risk Patients (6 to 64 Years) Completed 08/17/2024, 03/18/2019 Hepatitis A Vaccines Completed 11/21/2024, 05/16/20 24 HIB Vaccines Aged Out No longer eligi ble based on patient's age to complete this topic HPV Vaccines Aged Out No longer eligi ble based on patient's age to complete this topic IPV Vaccines Aged Out No longer eligi ble based on patient's age to complete this topic MMR Vaccines Aged Out No longer eligi ble based on patient's age to complete this topic Meningococcal ACWY Vaccine Aged Out N o longer eligible based on patient's age to complete this topic Meningococcal B Vacine Aged Out No lo nger eligible based on patient's age to complete this topic RSV Immunization Patients Under 20 months Aged Out No longer eligible based on patient's age to complete this topic Varicella Vaccines Aged Out No longer eligible based on patient's age to complete this topic Procedures Procedure Name Priority Date/Time Associated Diagnosis Comments INJECTION TENDON OR LIGAMENT Routine 12/01/2024 9:00 AM EDT Plantar fascial fibromatosis from Last 3 Months Results * Injection tendon or ligament (12/01/2024 9:00 AM EDT) Narrative Ozzy Vivar DPM - 12/01/2024 9:00 AM EDT Ozzy Vivar DPM ? 12/01/2024 ??7:11 PM Injection tendon or ligament Indications: pain Details: 25 G needle Medications: 0.5 mL lidocaine (PF) 1 %; 20 mg triamcinolone acetonide 40 mg/mL Informed Consent: ??Site: ??Foot ligament tendon Ozzy Vivar DPM IN CLINIC/BEDSIDE ORDERAB LES Final Result from Last 3 Months Insurance MEDICAID - [place] Care Teams Dietetic Intern Relationship Specialty Start Date End Date Khushboo Lopez NP [address] [place] [address] PCP - General Nurse Practitioner 10/18/24
--- OUTSIDE RECORDS SUMMARY | 2024-12-26 12:31 | XMS_ITS | Encounter Summary ---
Author Organization [employer] Address [address] [facility] 7t [place] [address] Care Team Providers Care Development Planner Name Role Phone Khushboo Lopez CORY Primary Care Provider [phone] Reason for Visit * Reason Comments Med Refill Encounter Details Date Type Department Care Team (Late st Contact Info) Description 07/20/2023 Refill [facility] MEDICAL [address] [place] [address] Nelli Kingston, JOON [address] [place] [address] Mild intermittent asthma without complication Social History Tobacco Use Types Packs/Day Years [...] Description 02/15/2025 3:30 PM EDT Office Visit [facility] MEDICAL [address] [place] [address] Khushboo Lopez CNP [address] [place] [address] 11/30/2025 2:00 PM EDT Office Visit [facility] OPTOMETRY [address] [place] [address] Brenda Marcelino, BRADY [address] [place] [address] documented as of this encounter Visit Diagnoses Diagnosis Mild intermittent asthma without complication documented in this encounter Additional Health Concerns Assessment Noted Time PHQ-9 Depression Total Score: 5 01/15/20 23 8:09 AM EDT documented as of this encounter Care Teams Development Planner Relationship Specialty Start Date End Date Khushboo Lopez CNP [address] [place] [address] PCP - General Family Medicine 09/02/22 documented as of this encounter
--- OUTSIDE RECORDS SUMMARY | 2024-12-26 12:31 | XMS_ITS | Encounter Summary ---
Author Organization [employer] Address [address] [facility] [address]t [place] [address] Care Team Providers Care Lasting Machine Operator Bed Name Role Phone Khushboo Lopez CORY Primary Care Provider [phone] Encounter Details Date Type Department Care Team (Late st Contact Info) Description 11/06/2024 Orders Only [facility] MEDICAL [address] [place] [address] Provider, MD Robbie Social History Tobacco Use [...] Description 02/15/2025 3:30 PM EDT Office Visit [facility] MEDICAL [address] [place] [address] Khushboo Lopez, CORY [address] [place] [address] 11/30/2025 2:00 PM EDT Office Visit [facility] OPT[facility] [address] [place] [address] Brenda Marcelino OD [address] [place] [address] documented as of this encounter Procedures Procedure Name Priority Date/Time Associated Diagnosis Comments US RENAL BI Routine 10/25/2024 9:22 AM EST documented in this encounter Results * US RENAL BI (10/25/2024 9:22 AM EST) Anatomical Region Laterality Modality Abdomen Ultrasound us Historical Provider MD URIAS US PROCEDURES Final R esult documented in this encounter Visit Diagnoses Not on filedocumented in this encounter Additional Health Concerns Assessment Noted Time PHQ-9 Depression Total Score: 2 02/16/20 24 3:19 PM EDT documented as of this encounter Care Teams Lasting Machine Operator Bed Relationship Specialty Start Date End Date Khushboo Lopez CNP [address] [place] [address] PCP - General Family Medicine 09/02/22 documented as of this encounter
--- OUTSIDE RECORDS SUMMARY | 2024-12-26 12:31 | XMS_ITS | Encounter Summary ---
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 Social History Tobacco Use Types Packs/Day Years [...] enough money to get more: Never True 10/ Transportation Answer Date Recorded In the past [...] Description 02/15/2025 3:30 PM EDT Office Visit [facility] MEDICAL [address] [place] [address] Khushboo Lopez CNP [address] [place] [address] 11/30/2025 2:00 PM EDT Office Visit [facility] OPTOMETRY [address] [place] [address] Brenda Marcelino, OD [address] [place] [address] documented as of this encounter Procedures Procedure Name Priority Date/Time Associated Diagnosis Comments AMB REFERRAL TO OB-HYPERCIL CORE TRANSFORMER ASSEMBLER Routine 12/04/2023 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 documented in this encounter Results * Referral to Obstetrics / Gynecology (12/04/2023) Khushboo Lopez CNP OUTPATIENT REFERRAL ORDERABLE S Final Result documented in this encounter Visit Diagnoses Diagnosis 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
[2024-12-26 13:24] LABS: Alanine Aminotransferase 135 U/L (0-31); Albumin Level 4.5 g/dL (3.5-5.0); Alkaline Phosphatase 89 U/L (39-117); Aspartate Amino Transferase 78 U/L (5-31); Bilirubin Direct 0.2 mg/dL (0.0-0.5); Bilirubin Total 0.6 mg/dL (0.0-1.0)
[2024-12-31 18:48] LABS: FIB-ALT 105 U/L (6-29); FIB-Alpha-2-Macroglobulin 154 mg/dL (106-279); FIB-Apolipoprotein A1 118 mg/dL (101-198); FIB-GGT 81 U/L (3-70); FIB-Haptoglobin 152 mg/dL (43-212); FIB-Total Bilirubin 0.4 mg/dL (0.2-1.2); Liver Fibrosis Stage F0; Nec Inflam Act Grade A2; Nec Inflam Act Score 0.55; Reference ID 5432038
== END 2024-12-26 10:36 | disposition home or self-care (01) ==
LOC: HO.LAB 10:35
PROVIDERS: PCP Nurse Practitioner Family; Visit Provider Internal Medicine Gastroenterology
DX: R79.89 Other specified abnormal findings of blood chemistry (principal)
CPT/HCPCS: 36415; 80076; 81596; 85027

== ENCOUNTER 2025-06-27 14:09 | Outpatient (REF) | payer MEDICAID, SELFPAY ==
--- OUTSIDE RECORDS SUMMARY | 2024-12-07 06:20 | XMS_ITS ---
Author Organization [facility] Address [address] [place] [address] Care Team Providers Care Botany Technician Name Role Phone Khushboo Lopez Primary Care Provider Johann Mondragon Jr [phone] REASON FOR VISIT elevated LFT's Encounters Encounter Location Date Provider Diagnosis [facility] [address] [place] [address] 12/07/2024 Johann Moreno Jr Plan Of Treatment Next Appt Details Provider Name:Johann ohara Jr, 09/07/2025 01:35:00 PM, [address], [address], [place], [address], Progress Notes * DAVID BROWNDOB:[birth year] (54 yo F)Acc No.[id number]:12/07/2024 Progress Notes Patient: DAVID CHIN Provider: Kam Moreno MD :1970 A ge:53 Y S ex:Female Date:12/07/2024 Address:[address], [id number] Pcp:Khushboo Lopez Subjective: * Chief Complaints: * 1 . elevated LFT's. * Medical History: Objective: * Vitals: Assessment: Plan: * Treatment: * * The named appointment provid er may or may not be the originator of this progress note, and it is not deemed complete until electronically signed by the appointment provider. Sign off status: Pending * Provider: Kam Moreno MD Date: 0 12/07/2024 Generated for Lissett giles/Anthony/Luz on: 1 05:31 PM EDT
--- NOTE | ~2025-06-27 | XR_ITS ---
EXAMINATION: XR HUMERUS RIGHT HISTORY: Right arm pain. COMPARISON: There are no prior studies available for comparison. FINDINGS: AP and lateral views of the right humerus are submitted. Osseous mineralization is normal. There is no fracture or dislocation. The visualized shoulder and elbow joint spaces are preserved. The soft tissues are unremarkable. XR/XR humerus RT IMPRESSION: Unremarkable examination of the right humerus. Electronically signed by: Miah Ruffin MD 06/27/2025 02:33 PM EDT
--- OUTSIDE RECORDS SUMMARY | 2025-06-27 17:30 | XMS_ITS | Encounter Summary ---
Author Organization [employer] Address [address] [facility] [address]t [place] [address] Care Team Providers Care County Demonstrator Name Role Phone Khushboo Lopez CNP Primary Care Provider [phone] Encounter Details Date Type Department Care Team ([facility] Contact Info) Description 11/13/2022 Abstract [facility] MEDICAL [address] [place] [address] Marla Aparicio FNP [address] [place] [address] Social History Tobacco Use Types Packs/Day Years [...] Encounters Date Type Department Care Team (Late Contact Info) Description 08/23/2025 4:30 PM EST Office Visit [facility] MEDICAL [address] [place] [address] Khushboo Lopez CNP [address] [place] [address] 11/30/2025 2:00 PM EDT Office Visit [facility] OPTOMETRY [address] [place] [address] Brenda Marcelino, OD [address] [place] [address] documented as of this encounter Visit Diagnoses Not on filedocumented in this encounter Care Teams County Demonstrator Relationship Specialty Start Date End Date Khushboo Lopez CNP [address] [place] [address] PCP - General Family Medicine 09/02/22 documented as of this encounter
--- OUTSIDE RECORDS SUMMARY | 2025-06-27 17:30 | XMS_ITS | Encounter Summary ---
Author Organization [employer] Address [address] [facility] [address] [place] [address] Care Team Providers Care Battery Builder Name Role Phone Khushboo Lopez CNP Primary Care Provider [phone] Encounter Details Date Type Department Care Team ([facility] Contact Info) Description 11/14/2022 Abstract [facility] MEDICAL [address] [place] [address] Marla Aparicio FNP [address] [place] [address] Social History Tobacco Use Types Packs/Day Years [...] Description 08/23/2025 4:30 PM EST Office Visit [facility] MEDICAL [address] [place] [address] Khushboo Lopez CNP [address] [facility] [place] [address] 11/30/2025 2:00 PM EDT Office Visit [facility] OPTOMETRY [address] [place] [address] Brenda Marcelino, OD [address] [place] [address] documented as of this encounter Visit Diagnoses Not on filedocumented in this encounter Care Teams Battery Builder Relationship Specialty Start Date End Date Khushboo Lopez CNP [address] [facility] [place] [address] PCP - General Family Medicine 09/02/22 documented as of this encounter
--- OUTSIDE RECORDS SUMMARY | 2025-06-27 17:30 | XMS_ITS | Encounter Summary ---
Author Organization [employer] Address [address] [facility] [address] [place] [address] Care Team Providers Care Cone Marker Name Role Phone Khushboo Lopez CNP Primary Care Provider [phone] Encounter Details Date Type Department Care Team (Late st Contact Info) Description 09/07/[address] [facility] MEDICAL [address] [place] [address] Nancy Song MD [address] [place] [address] Chronic low back pain with sciatica, sciatica [...] Care Team (Late st Contact Info) Description 08/23/2025 4:30 PM EST Office Visit [facility] MEDICAL [address] [place] [address] Khushboo Lopez CNP [address] [place] [address] 11/30/2025 2:00 PM EDT Office Visit [facility] OPTOMETRY [address] [place] [address] Brenda Marcelino OD [address] [place] [address] documented as of this encounter Visit Diagnoses Diagnosis Chronic low back pain with sciatica, sciatica laterality unspecified, unspecified back pain laterality- Primary documented in this encounter Care Teams Cone Marker Relationship Specialty Start Date End Date Khushboo Lopez CNP [address] [place] [address] PCP - General Family Medicine 09/02/22 documented as of this encounter
--- OUTSIDE RECORDS SUMMARY | 2025-06-27 17:30 | XMS_ITS | Clinical Summary ---
Author Organization [employer] Address [address] [facility] 7t [place] [address] Care Team Providers Care Rip Saw Operator Name Role Phone Khushboo Lopez CNP Primary Care Provider [phone] Allergies Active Allergy Reactions Criticality Noted Date Comments Cat Dander 09/17/2022 Other reaction(s): sneezing Dust Mite Extract 11/13/2022 Gramineae Pollens 09/17/2022 Other reaction(s): sneezing Penicillamine Rash Low 09/17/2022 Penicillin G Rash Low 10/19/2024 Sulfa Antibiotics Rash,Unknown Low 09/17/2022 Medications Multiple Vitamins-Minera ls (Multi For Her) tablet in the morning. Ac tive Lancet Devices (Autolet) lancing device in the morning and in the evening. 020 Active omeprazole (PriLOSEC) [address] capsule in the morning. 022 Active Glucose Blood (FREESTYLE LITE TEST ) Active FreeStyle lancetsIndicati ons:Type 2 diabetes mellitus with hyperglycemia, without long-term current use of insulin (HCC) USE DIRECTED SUBCUTANEOUS TWICE DAILY 200 each 1 023 Active amitriptyline (Elavil) 50 MG tablet Take 50 mg by mouth at bedtime. 024 Active atorvastatin (Lipitor) 10 MG tablet TAKE 1 TABLET BY MOUTH EVERY DAY 90 tablet 3 024 Active triamcinolone (Nasacort) 55 MCG/ACT nasal inhaler INSTILL 1 SPRAY IN EACH NOSTRIL ONCE A DAY 50.7 mL 2 024 Active FREESTYLE LITE test strip USE TO CHECK BLOOD SUGAR TWICE DAILY 200 strip 3 025 Active rOPINIRole (Requip) 0.5 MG tablet Take 0.5 mg by mouth at bedtime. 025 Active metFORMIN (Glucophage) 1000 MG tablet TAKE 1 TABLET BY MOUTH WITH BREAKFAST AND 1 TABLET WITH EVENING MEAL 180 tablet 3 025 Active SUMAtriptan (Imitrex) 50 MG tablet Take 1 tablet (50 mg) by mouth if needed each day for migraine. May repeat dose once in 2 hours if no relief. Do not exceed 2 doses in 24 hours. 27 tablet 3 025 Active cetirizine (ZyrTEC) 10 MG tabletIndicatio ns:Seasonal allergic rhinitis due to pollen TAKE 1 TABLET BY MOUTH ONCE DAILY NEEDED FOR ALLERGIES 90 tablet 3 025 Active senna (Senokot) 8.6 MG tablet TAKE 1 TABLET BY MOUTH EVERY DAY 90 tablet 3 025 Active albuterol (Ventolin HFA) 108 (90 Base) MCG/ACT inhalerIndicati ons:Mild intermittent asthma without complication INHALE 1 TO 2 PUFF INTO THE LUNGS BY MOUTH EVERY 4 HOURS NEEDED FOR SHORTNESS OF BREATH 18 g 3 025 Active Ascorbic Acid (vitamin C) 500 MG tablet Take 1 tablet (500 mg) by mouth Once per day. 90 tablet 1 025 Active Dulaglutide (Trulicity) 0.75 MG/0.5ML solution auto-injectorIn dications:Type 2 diabetes mellitus with hyperglycemia, without long-term current use of insulin (HCC) Inject 0.75 mg under the skin 1 (one) time per week. 6.5 mL 1 025 Active Alcohol Swabs (Alcohol Prep) 70 % pads USE DIRECTED TWICE DAILY TO TEST BLOOD SUGAR 100 each 3 025 Active albuterol (2.5 MG/3ML) 0.083% nebulizer solutionIndicat ions:Mild intermittent asthma without complication USE 1 VIAL VIA NEBULIZER THREE TIMES DAILY NEEDED. 810 mL 025 Active empagliflozin (Jardiance) 25 MG Take 1 tablet (25 mg) by mouth Once per day. 90 tablet 3 025 Active levothyroxine (Synthroid, Levoxyl) 50 MCG tablet Take 1 tablet (50 mcg) by mouth Once per day. 90 tablet 3 025 Active oxyCODONE (Roxicodone) 5 MG immediate release tabletIndicatio ns:Chronic bilateral low back pain with sciatica, sciatica laterality unspecified Take 1 tablet (5 mg) by mouth 3 times daily for 28 days. For severe pain if needed 84 tablet 025 2024 Active oxyCODONE (Roxicodone) 5 MG immediate release tabletIndicatio ns:Chronic bilateral low back pain with sciatica, sciatica [...] pain with left-sided sciatica Overview (11/20/2022): In [facility] ER 11/02/22. Given Flexeril 5mg and Torodol [...] Encounters Date Type Department Care Team Description 06/27/[address] [address] Khushboo Lopez CNP 06/19/[address] [address] Khushboo Lopez CNP Chronic bilateral low back pain with sciatica, sciatica laterality unspecified 05/25/2025 Results Follow-Up [address] [address] Khushboo Lopez CNP Comprehensive metabolic panel, CBC auto differential, TSH Reflex on Abnormal to Free T4, Additional followed-up results: 4 05/24/2025 3:00 PM EDT Office Visit [address] [address] ChalpinaxNikkiKhushboo, FILM MAKER Type 2 diabetes mellitus with hyperglycemia, without long-term current use of insulin (CMS/HCC) (Primary Dx); Health maintenance examination; Gastroesophageal reflux disease with esophagitis without hemorrhage; Elevated liver enzymes; Subclinical hypothyroidism; Fatty liver; Failed back syndrome; Migraine without aura and without status migrainosus, not intractable; Mild intermittent asthma without complication; Severe episode of recurrent major depressive disorder, without psychotic features (CMS/HCC); Anxiety; Dizziness; Class 1 obesity due to excess calories with serious comorbidity and body mass index (BMI) of 32.0 to 32.9 in adult; Chronic bilateral low back pain with sciatica, sciatica laterality unspecified 05/24/[address] [address] [place] Khushboo, FILM MAKER 05/05/[address] [address] [place] Khushboo, FILM MAKER 05/04/[address] [address] [place] Khushboo, FILM MAKER Mild intermittent asthma without complication 04/18/[address] [address] [facility] Subclinical hypothyroidism 04/14/[address] [address] AprilxNikkiKhushboo, FILM MAKER Subclinical hypothyroidism 04/05/[address] [address] [place], Khushboo, FILM MAKER Chronic bilateral low back pain with sciatica, sciatica laterality unspecified 04/03/[address] [address] [place] Khushboo, FILM MAKER Type 2 diabetes mellitus with hyperglycemia, without long-term current use of insulin (CMS/HCC) 04/03/[address] [address] Khushboo Lopez CNP 04/03/2025 Refill [facility] MEDICAL [address] [place] [address] Khushboo Lopez CNP Type 2 diabetes mellitus with hyperglycemia, without long-term current use of insulin ([facility]) 04/03/2025 Refill [facility] MEDICAL [address] [place] [address] Khushboo Lopez CNP Chronic bilateral low back pain with sciatica, sciatica laterality unspecified from Last 3 Months Immunizations Immunization Administration Dates Next Due Hep A, Adult [...] Date Recorded Patient Health Questionnaire-2 Score 0 02/15/2025 Internet Access Answer Date Recorded Internet Access [...] Sign Reading Time Taken Comments Blood Pressure 108/68 05/24/2025 2:32 PM EDT Pulse 85 05/24/2025 2:32 PM EDT Temperature 36.4 C (97.5 F) 05/24/2025 2:32 PM EDT Respiratory Rate 17 08/17/2024 2:41 PM EST Oxygen Saturation 96% 05/24/2025 2:32 PM EDT Inhaled Oxygen Concentration - - Weight 86.2 kg (190 lb) 05/24/2025 2:32 PM EDT Height 162.6 cm (5' 4 ) 05/24/2025 2:32 PM EDT Body Mass Index 32.61 05/24/2025 2:32 PM EDT Plan of Treatment Upcoming Encounters Date Type Department Care Team (Late st Contact Info) Description 08/23/2025 4:30 PM EST Office Visit [facility] MEDICAL [address] [place] [address] Khushboo Lopez, CORY [address] [place] [address] 11/30/2025 2:00 PM EDT Office Visit [facility] OPTOMETRY [address] [place] [address] Brenda Marcelino, BRADY [address] [place] [address] Health Maintenance Due Date Last Done Comments CT Colonography 1969 FIT DNA/Cologuard 1969 FIT 1969 FOBT 1969 Sigmoidoscopy 1969 HPV/Cotest 12/27/1999 Diabetes: Urine Protein Screening 02/03/2023 02/03/2022, 10/29/2020 Influenza Vaccine (#1) 2025 , 05/28/2023, 07/08/2022, Additional history exists Alcohol/Substance Use Screening 10/19/2025 10/19/2024 SDOH Screening 10/19/2025 10/19/2024 Diabetes: Hemoglobin A1C 11/21/2025 025, 02/15/2025, 11/17/2024, Additional history exists Diabetes: Foot Exam 01/05/2026 01/05/2025, 11/16/2024, 11/16/2024, Additional history exists Depression Screening 02/15/2026 02/15/2025, 02/16/20 24 Disability Screening 05/24/2026 05/24/2025 Lipid Panel 05/24/2026 05/24/2025, 1009/2023, 02/03/2022, Additional history exists Tobacco Screening 05/24/2026 05/24/2025 DTaP/Tdap/Td Vaccines (2 - Td or Tdap) [...] Completed 07/09/2024, 12/2022, 08/17/2022, Additional history exists Pneumococcal Vaccine: 50+ Years Completed 08/17/2024, 03/18/2019 Hepatitis A Vaccines Completed 11/21/2024, 05/16/20 24 HIV Screening Completed 05/24/2025 HIB Vaccines Aged Out No longer eligi ble based on patient's age to complete this topic HPV Vaccines Aged Out No longer eligi ble based on patient's age to complete this topic IPV Vaccines Aged Out No longer eligi ble based on patient's age to complete this topic Meningococcal B Vaccine Aged Out No l onger eligible based on patient's age to complete [...] Date/Time Associated Diagnosis Comments AMB REFERRAL TO DERMATOLOGY Routine 06/20/2025 Epidermal cyst POCT GLYCOSYLATED HEMOGLOBIN (HGB A1C) Routine 05/24/2025 3:42 PM EDT Type 2 diabetes mellitus with hyperglycemia, without long-term current use of insulin ([facility]) THYROXINE (T4), FREE, DIRECT (NON ORDERABLE) Routine 05/24/2025 3:34 PM EDT HIV P24 ANTIGEN/ANTIBODY WITH REFLEX TO CONFIRMATION Routine 05/24/2025 3:34 PM EDT LIPID PANEL, STANDARD Routine 05/24/2025 3:34 PM EDT Health maintenance examination Type 2 diabetes mellitus with hyperglycemia, without long-term current use of insulin ([facility]) TSH REFLEX ON ABNORMAL TO FREE T4 Routine 05/24/2025 3:34 PM EDT Type 2 diabetes mellitus with hyperglycemia, without long-term current use of insulin ([facility]) Subclinical hypothyroidism Dizziness CBC WITH AUTO DIFFERENTIAL Routine 05/24/2025 3:34 PM EDT Type 2 diabetes mellitus with hyperglycemia, without long-term current use of insulin (CMS/HCC) Dizziness COMPREHENSIVE METABOLIC PANEL Routine 05/24/2025 3:34 PM EDT Type 2 diabetes mellitus with hyperglycemia, without long-term current use of insulin (CMS/HCC) Elevated liver enzymes Dizziness AMB REFERRAL TO PODIATRY Routine 01/05/2025 Calcaneal spur of foot, right Right foot pain BI MAMMOGRAM DIAGNOSTIC LEFT Routine 12/12/2024 Abnormal mammogram of left breast HM PAP/HPV Routine 12/04/2023 10:25 AM EDT ALBUMIN, RANDOM URINE W/CREATININE Routine 02/03/2022 10:00 AM EDT ZZZ HISTORICAL HEPATITIS C ANTIBODY TEST Routine 09/26/2019 3:51 PM EST COLONOSCOPY Routine 06/28/2019 12:00 AM EDT from Last 3 Months or Most Recently Relevant to Health Maintenance Results * Referral to Dermatology (06/20/2025) Evelyn Mora NP OUTPATIENT REFERRAL O RDERABLES Final Result * (ABNORMAL) POCT glycosylated hemoglobin (Hgb A1c) (05/24/2025 3:42 PM EDT) Hemoglobin A1C 6.8(A) 4.0 - 5.7 % Blood Capillary blood specimen / Unknown 05/24/2025 3:42 PM EDT Khushboo Lopez CNP POINT OF CARE TEST ENTER/EDIT ORDERABLES Final Result * (ABNORMAL) TSH Reflex on Abnormal to Free T4 (05/24/2025 3:34 PM EDT) TSH 5.210(H) 0.450 - 4.500 uIU/mL [facility] 1 Blood Venous blood specimen / Unknown 05/24/2025 3:34 PM EDT 05/24/2025 Narrative Resulting Agency Comment Performed at: - [facility] [id number] Single Corner Cutter: Mana Ventura MD, Phone: [phone] Khushboo Lopez FILM MAKER LAB BLOOD ORDERABLES Final Re sult Performing Organization Address City/[facility]/ZIP Co de Phone Number [facility] 1 * Thyroxine (T4), Free, Direct (05/24/2025 3:34 PM EDT) [facility] T4,Free(Direct) 1.32 0.82 - 1.77 ng/dL [facility] 1 05/24/2025 3:34 PM EDT 05/24/2025 Narrative Resulting Agency Comment Performed at: - [facility] [id number] Single Corner Cutter: Mana Ventura MD, Phone: [phone] Khushboo John FILM MAKER HISTORICAL/NON ORDERABLE LABS Final Result Performing Organization Address City/[facility]/ZIP Co de Phone Number [facility] * (ABNORMAL) CBC auto differential (05/24/2025 3:34 PM EDT) [facility] White Blood Cell Count 9.5 3.4 - 10.8 x10E3/uL [facility] 1 Red Blood Cell Count 4.66 3.77 - 5.28 x10E6/uL [facility] 1 Hemoglobin 13.6 11.1 - 15.9 g/dL [facility] 1 Hematocrit 41.7 34.0 - 46.6 % [facility] 1 MCV 90 79 - 97 fL [facility] 1 MCH 29.2 26.6 - 33.0 pg [facility] 1 MCHC 32.6 31.5 - 35.7 g/dL [facility] 1 RDW 13.4 11.7 - 15.4 % [facility] 1 Platelet Count 344 150 - 450 x10E3/uL [facility] 1 Neutrophils 37 Not Estab. % [facility] 1 Lymphocytes 55 Not Estab. % [facility] 1 Monocytes 5 Not Estab. % [facility] 1 Eosinophils 2 Not Estab. % [facility] 1 Basophils 1 Not Estab. % [facility] 1 Absolute Neutrophils 3.6 1.4 - 7.0 x10E3/uL [facility] 1 Absolute Lymphocytes 5.2(H) 0.7 - 3.1 x10E3/uL [facility] 1 Absolute Monocytes 0.5 0.1 - 0.9 x10E3/uL [facility] 1 Absolute Eosinophils 0.2 0.0 - 0.4 x10E3/uL [facility] 1 Absolute Basophils 0.1 0.0 - 0.2 x10E3/uL [facility] 1 Immature Granulocytes 0 Not Estab. % [facility] 1 Immature Grans (Abs) 0.0 0.0 - 0.1 x10E3/uL [facility] 1 Blood Venous blood specimen / Unknown 05/24/2025 3:34 PM EDT 05/24/2025 Narrative Resulting Agency Comment Performed at: - [facility] [id number] Single Corner Cutter: Mana Ventura MD, Phone: [phone] [employer] LAB BLOOD ORDERABLES Final Re sult Performing Organization Address City/[facility]/ZIP Co de Phone Number [facility] * HIV p24 Antigen/Antibody With Reflex to Confirmation (05/24/2025 3:34 PM EDT) [facility] HIV Ab/p24 Ag Screen Non Reactive Non Reactive [facility] 1 Comment: HIV-1/HIV-2 antibodies and HIV-1 p24 antigen were NOT detected. There is no laboratory evidence of HIV infection. HIV Negative 05/24/2025 3:34 PM EDT 05/24/2025 Narrative Resulting Agency Comment Performed at: [facility] [address], [address], [place], [place] [id number] Single Corner Cutter: Ray Yip MD, Phone: [phone] KhushbooZen Planner LAB BLOOD ORDERABLES Final Re sult [facility] * (ABNORMAL) Lipid Panel, Standard 17574 (05/24/2025 3:34 PM EDT) Cholesterol, Total 83(L) 100 - 199 mg/dL [facility] 1 Triglycerides 144 0 - 149 mg/dL [facility] 1 HDL Cholesterol 36(L) >39 mg/dL [facility] 1 VLDL Cholesterol Grover 25 5 - 40 mg/dL [facility] 1 LDL Chol Calc (NIH) 22 0 - 99 mg/dL [facility] 1 Blood Venous blood specimen / Unknown 05/24/2025 3:34 PM EDT 05/24/2025 Narrative Resulting Agency Comment Performed at: - [facility] [address] [id number] Single Corner Cutter: Mana Ventura MD, Phone: [phone] us Khushboo Lopez [facility] LAB BLOOD ORDERABLES Final Re sult [facility] * (ABNORMAL) Comprehensive metabolic panel (05/24/2025 3:34 PM EDT) Glucose 88 70 - 99 mg/dL [facility] 1 Urea Nitrogen (BUN) 8 6 - 24 mg/dL [facility] 1 Creatinine, Serum 0.79 0.57 - 1.00 mg/dL [facility] 1 eGFR 88 >59 mL/min/1.7 3 [facility] 1 BUN/Creatinine Ratio 10 9 - 23 [facility] 1 Sodium 138 134 - 144 mmol/L [facility] 1 Potassium 4.0 3.5 - 5.2 mmol/L [facility] 1 Chloride 98 96 - 106 mmol/L [facility] 1 Anion Gap 19.0(H) 10.0 - 18.0 mmol/L [facility] 1 Carbon Dioxide 21 20 - 29 mmol/L [facility] 1 Calcium 9.9 8.7 - 10.2 mg/dL [facility] 1 Protein, Total 7.7 6.0 - 8.5 g/dL [facility] 1 Albumin 4.6 3.8 - 4.9 g/dL [facility] 1 Globulin 3.1 1.5 - 4.5 g/dL [facility] 1 Bilirubin, Total 0.5 0.0 - 1.2 mg/dL [facility] 1 Alkaline Phosphatase 86 44 - 121 IU/L [facility] 1 Comment: Effective June 05, 2025 Alkaline Phosphatase reference interval will be changing to: Age Male Female 0 - 5 days 47 - 127 47 - 127 6 - 10 days 29 - 242 29 - 242 11 - 20 days 109 - 357 109 - 357 21 - 30 days 94 - 494 94 - 494 1 - 2 months 149 - 539 149 - 539 3 - 6 months 131 - 452 131 - 452 7 - 11 months 117 - 401 117 - 401 12 months - 6 years 158 - 369 158 - 369 7 - 12 years 150 - 409 150 - 409 13 years 156 - 435 78 - 227 14 years 114 - 375 64 - 161 15 years 88 - 279 56 - 134 16 years 74 - 207 51 - 121 17 years 63 - 161 47 - 113 18 - 20 years 51 - 125 42 - 106 21 - 50 years 47 - 123 41 - 116 51 - 80 years 49 - 135 51 - 125 >80 years 48 - 129 48 - 129 AST 113(H) 0 - 40 IU/L [facility] 1 ALT 136(H) 0 - 32 IU/L [facility] 1 Blood Venous blood specimen / Unknown 05/24/2025 3:34 PM EDT 05/24/2025 Narrative Resulting Agency Comment Performed at: 01 - [address] [id number] Single Corner Cutter: Mana Ventura MD, Phone: [phone] Khushbooromy Lopez [facility] LAB BLOOD ORDERABLES Final Re sult [facility] * Referral to Podiatry (01/05/2025) Kuhshbooromy Lopez FILM MAKER OUTPATIENT REFERRAL ORDERABLE S Final Result * BI Mammogram Diagnostic Left (12/12/2024) Anatomical Region Laterality Modality Breast Left Mammography Khushboo Aprilx FILM MAKER IMG BI PROCEDURES Final Resul t * HM PAP/HPV (12/04/2023 10:25 AM EDT) Khushbooromy Chenx [facility] Final Resu lt * -Microalbumin, Urine (02/03/2022 10:00 AM EDT) Microalbumin Urine 16.3 (<20) MG/L [facility] Comment: The urine microalbumin test is designed to monitor renal function. When screening for [place] proteinuria, urine electrophoresis is recommended. Microalb/Creat Ratio 13.5 (0-20) MG/GM [facility] Creatinine, Urine 120.9 MG/DL [facility] 02/03/2022 10:0 0 AM EDT Khushboogarrett ChenIdeapod [facility] LAB URINE ORDERABLES Final Re sult Performing Organization Address [facility] Co de Phone Number [facility] [address] * -Hepatitis C Antibody Test (09/26/2019 3:51 PM EST) ANTI-HEPATITIS C NEGATIVE (NEG) [facility] Comment: Reference range: Negative This test was performed on the [employer] immunoassay system. 09/26/2019 3:51 PM EST Khushboo Cycellambrocio [facility] HISTORICAL/NON ORDERABLE LABS Final Result Performing Organization Address [facility] de Phone Number [facility] [address] * EGD-COLONOSCOPY: [facility] (06/28/2019 12:00 AM EDT) Anatomical Region Laterality Modality Endoscopy 06/28/2019 Narrative 06/28/2019 12:00 AM EDT Refer to Fovea for result details [facility] Procedure: EGD-COLONOSCOPY: [facility] Procedure Note Provider, MD Robbie - 01/15/2023 Refer to Fovea for result details [facility] Procedure: EGD-COLONOSCOPY: [facility] Historical Provider ENDOSCOPY PROCEDURE ORDER ONEIL Final Result from Last 3 Months or Most Recently Relevant to Health Maintenance Insurance [place] Advance Directives Documents on File Type Date Recorded Patient Delicatessen Manager Expl anation HealthCare Proxy 05/25/2025 10:56 AM HCP Care Teams Rip Saw Operator Relationship Specialty Start Date End Date Khushboo Lopez CNP [address] [place] [address] PCP - General Family Medicine 09/02/22
--- OUTSIDE RECORDS SUMMARY | 2025-06-27 17:31 | XMS_ITS | Encounter Summary ---
Author Organization [employer] Address [address] [facility] 7t [place] [address] Care Team Providers Care Chief Operating Engineer Name Role Phone Khushboo Lopez CNP Primary Care Provider [phone] Reason for Visit * Reason Comments Med Change Request Encounter Details Date Type Department Care Team (Late st Contact Info) Description 01/10/2025 Shravan Mcdonnell [facility] MED[facility] [address] [place] [address] Khushboo Lopez CNP [address] [place] [address] Social History Tobacco Use Types Packs/Day Years [...] encounter Miscellaneous Notes * Telephone Encounter - Sun Leegwen - 01/10/2025 2:44 PM EDT Duplicate documented in this encounter Plan of Treatment Upcoming Encounters Date Type Department Care Team (Late st Contact Info) Description 08/23/2025 4:30 PM EST Office Visit [facility] MEDICAL [address] [place] [address] Khushboo Lopez CNP [address] [place] [address] 11/30/2025 2:00 PM EDT Office Visit [facility] OPTOMETRY [address] [place] [address] Brenda Marcelino OD [address] [place] [address] documented as of this encounter Visit Diagnoses Not on filedocumented in this encounter Additional Health Concerns Assessment Noted Time PHQ-9 Depression Total Score: 2 02/16/20 24 3:19 PM EDT documented as of this encounter Care Teams Chief Operating Engineer Relationship Specialty Start Date End Date Khushboo Lopez CNP [address] [place] [address] PCP - General Family Medicine 09/02/22 documented as of this encounter
--- OUTSIDE RECORDS SUMMARY | 2025-06-27 17:31 | XMS_ITS | Encounter Summary ---
Author Organization [employer] Address [address] [facility] 7t [place] [address] Care Team Providers Care Rigging Up Worker Name Role Phone Khushboo Lopez CORY Primary Care Provider [phone] Encounter Details Date Type Department Care Team (Late st Contact Info) Description 02/03/2024 Orders Only [facility] MEDICAL [address] [place] [address] Provider, MD Robbie Social History Tobacco Use [...] PM EST Office Visit [facility] MEDICAL [address] [place] [address] Khushboo Lopez, CORY [address] [place] [address] 11/30/2025 2:00 PM EDT Office Visit [facility] OPTOMETRY [address] [place] [address] Brenda Marcelino OD [address] [place] [address] documented as of this encounter Procedures Procedure [...] documented as of this encounter Care Teams Rigging Up Worker Relationship Specialty Start Date End Date Khushboo Lopez CNP [address] [place] [address] PCP - General Family Medicine 09/02/22 documented as of this encounter
--- OUTSIDE RECORDS SUMMARY | 2025-06-27 17:31 | XMS_ITS | Clinical Summary ---
Author Organization [address] [place] [address] Address [address] [place] [address] Phone Care Team Providers Care Aluminizer Name Role Phone Khushboo Lopez SECURITY SHIFT MANAGER Primary Care Provider [phone] Allergies Active Allergy Reactions Criticality Noted Date Comments Penicillins 12/01/2024 Sulfa (Sulfonamide Antibiotics) 11/19 Medications Alcohol Prep Pads pads, medicated USE DIRECTED TWICE DAILY TO TEST BLOOD SUGAR 04/18/2024 Active amitriptyline (ELAVIL) 100 mg tablet Take 1 tablet (100 mg total) by mouth. at bedtime Active Vitamin C 500 mg tablet TAKE 1 TABLET BY MOUTH EVERY DAY Oral for 90 01/29/2024 Active atorvastatin (LIPITOR) 10 mg tablet Take 1 tablet (10 mg total) by mouth 1 (one) time each day. Active blood sugar diagnostic (FreeStyle Lite Strips) test strip 2 (two) times a day. Active cetirizine (ZyrTEC) 10 mg tablet Take 1 tablet (10 mg total) by mouth 1 (one) time each day if needed for allergies. Active Encounters Date Type Department Care Team Description 05/29/2025 3:45 PM EDT Office Visit Orthopedic Surgery [place] [address] [phone] Ozzy Vivar DPM Arthritis of right ankle (Primary Dx); Disorder of ligament of foot, left; Plantar fascial fibromatosis 04/20/2025 9:15 AM EDT Office Visit Orthopedic [facility] [address] [phone] Ozzy Vivar DPM Arthritis of right ankle (Primary Dx); Disorder of ligament of foot, left; Plantar fascial fibromatosis from Last 3 Months Social History Tobacco Use Types Packs/Day Years Used Date Smoking Tobacco: Never Assessed Comments Unknown Sex and Gender Information Value Date Recorded Sex Assigned at Not on file Legal Sex Female 10:30 AM EST Gender Identity Not on file Sexual Orientation Not on file Last Filed Vital Signs Vital Sign Reading Time Taken Comments Blood Pressure - - Pulse - - Temperature - - Respiratory Rate - - Oxygen Saturation - - Inhaled Oxygen Concentration - - Weight 87.5 kg (193 lb) 04/20/2025 8:48 AM EDT Height 162.6 cm (5' 4.02 ) 04/20/2025 8:48 AM ED T Body Mass Index 33.11 04/20/2025 8:48 AM EDT Plan of Treatment Upcoming Encounters Date Type Department Care Team (Late st Contact Info) Description 08/09/2025 2:00 PM EST Office Visit Orth[facility] [place] [address] [phone] Ozzy Vivar, DPMaxime [address] [phone] Health Maintenance Due Date Last Done Comments Breast Cancer Screening 1969 Diabetes: Annual Retina Eye Exam 12/27/1979 Cervical Cancer Screening: Pap Smear 1990 Depression Screening 09/21/2024 Hepatitis C Screening 10/18/2024 Social Influencers of Health Screening 10/18/2024 Diabetes: Annual Urine Albumin-Creatinine Ratio (uACR) 12/01/2024 Influenza Vaccine (#1) 2025 , 05/28/2023, 07/08/2022, Additional history exists Diabetes: Blood Sugar Control Test (HGBA1C) 11/21/2025 05/24/2025, 02/15/2025, 11/17/2024 Diabetes: Annual Foot Exam 01/05/2026 01/05/2025, Diabetes: Annual GFR (Glomerular Filtration Rate) 05/24/2026 05/24/2025 DTaP,Tdap,and Td Vaccines (3 - Td or Tdap) 07/10/2026 07/10/2016, 01/13/2013 Colorectal Cancer Screening: Colonoscopy 06/28/2029 06/28/2019 Cholesterol Screening (Lipid Panel) 05/24/2030 05/24/2025, 06/21/2024 RSV Immunization Adult Patients (1 - 1-dose 75+ series) 2044 Hepatitis B Vaccines Completed 10/29/2020, 07/26/2020, 04/02/2020 [...] Diagnosis Comments INJECTION TENDON OR LIGAMENT Routine 04/20/2025 9:15 AM EDT Disorder of ligament of foot, left from Last 3 Months Results * Injection tendon or ligament (04/20/2025 9:15 AM EDT) Narrative Ozzy Vivar DPM - 04/20/2025 9:15 AM EDT Ozzy Vivar DPM 04/20/2025 12:39 PM Injection tendon or ligament Indications: pain Details: 25 G needle Medications: 0.5 mL lidocaine (PF) 1 %; 20 mg triamcinolone acetonide 40 mg/mL Informed Consent: Site: Foot ligament tendon us Ozzy Vivar DPMaxime IN CLINIC/BEDSIDE ORDERAB LES Final Result from Last 3 Months Insurance MEDICAID - [place] Care Teams Aluminizer Relationship Specialty Start Date End Date Khushboo Lopez NP [address] [place] [address] PCP - General Nurse Practitioner 10/18/24
--- OUTSIDE RECORDS SUMMARY | 2025-06-27 17:31 | XMS_ITS | Encounter Summary ---
Author Organization [employer] Address 75 [facility] 7t [place] [address] Care Team Providers Care Tank Truck Driver Name Role Phone Khushboo Lopez CNP Primary Care Provider [phone] Encounter Details Date Type Department Care Team (Late st Contact Info) Description 11/18/2023 Orders Only [facility] MEDICAL [address] [place] [address] Khushboo Lopez CNP [address] [place] [address] Social History Tobacco Use Types Packs/Day Years [...] Description 08/23/2025 4:30 PM EST Office Visit [facility] MEDICAL [address] [place] [address] Khushboo Lopez CNP [address] [place] [address] 11/30/2025 2:00 PM EDT Office Visit [facility] OPTOMETRY [address] [place] [address] Brenda Marcelino, BRADY [address] [place] [address] documented as of this encounter Procedures Procedure [...] documented as of this encounter Care Teams Tank Truck Driver Relationship Specialty Start Date End Date Khushboo Lopez CNP [address] [place] [address] PCP - General Family Medicine 09/02/22 documented as of this encounter
--- OUTSIDE RECORDS SUMMARY | 2025-06-27 17:31 | XMS_ITS | Clinical Summary ---
Author Organization [facility] Address [address] [address] Phone Care Team Providers Care Geophysical Data Technician Name Role Phone Khushboo Lopez [facility] Primary Care Provider [phone] Allergies Active Allergy Reactions Criticality Noted Date Comments Cat Hair Standardized Allergenic Extract 09/17/2022 Other reaction(s): sneezing Grass Pollen-Red Top, Standard 09/17/2022 Other reaction(s): sneezing Mite Extract 11/13/2022 Penicillamine Rash Low 09/17/2022 Penicillins Restlessness Low 05/06/2024 Sulfa (Sulfonamide Antibiotics) Rash,Anaphylaxis High 09/17/2022 Medications triamcinolone (NASACORT AQ) 55 mcg/actuation nasal inhaler USE 1 SPRAY IN EACH NOSTRIL DAILY for 90 Active JANUVIA 100 mg tablet Take 100 mg by mouth daily. Active ascorbic acid, vitamin C, (VITAMIN C) 500 MG tablet Take 1 tablet by mouth daily. 4 Active albuterol 2.5 mg /3 mL (0.083 %) nebulizer solution USE 1 VIAL VIA NEBULIZER THREE TIMES DAILY NEEDED. Active VENTOLIN HFA 90 mcg/actuation inhaler INHALE 1 TO 2 PUFF INTO THE LUNGS BY MOUTH EVERY 4 HOURS NEEDED FOR SHORTNESS OF BREATH Active ALCOHOL PREP PADS PadM USE DIRECTED TWICE DAILY TO TEST BLOOD SUGAR 4 Active amitriptyline (ELAVIL) 50 MG tablet Take 50 mg by mouth nightly at bedtime. Active ASCORBIC ACID WITH CANDI HIPS 500 MG tablet Take 1 tablet by mouth every morning. 4 Active atorvastatin (LIPITOR) 10 MG tablet Take 10 mg by mouth daily. Active FREESTYLE LITE Strp strips USE TO CHECK BLOOD SUGAR TWICE DAILY 4 Active omeprazole (PRILOSEC) 20 MG capsule TAKE ONE CAPSULE BY MOUTH 30 MINUTES BEFORE MORNING MEAL ONCE A DAY 4 Active metFORMIN (GLUCOPHAGE) 1000 MG tablet TAKE 1 TABLET BY MOUTH WITH BREAKFAST AND 1 TABLET WITH EVENING MEAL 4 Active levothyroxine (SYNTHROID,LEVO THROID) 25 MCG tablet By mouth take one tablet Thursday through Thursday and take two tablets on the weekend (Thursday and Thursday) 4 Active rOPINIRole (REQUIP) 0.25 MG tablet Take 0.25 mg by mouth nightly at bedtime. Active senna (SENOKOT) 8.6 mg tablet Take 1 tablet by mouth daily. 4 Active SUMAtriptan (IMITREX) 50 MG tablet TAKE 1 TABLET BY MOUTH NEEDED FOR MIGRAINES DIRECTED Active oxyCODONE 5 MG immediate release tablet Take 5 mg by mouth 3 (three) times a day. Active dulaglutide (TRULICITY SUBQ) Inject under the skin. Active empagliflozin (JARDIANCE ORAL) Take by mouth. Activ e Encounters Date Type Department Care Team Description 05/19/2025 11:40 AM EDT Office Visit [facility] [address] [place] [address] [place] [address] Aleta Morris MD Routine gynecological examination (Primary Dx); Screening for cervical cancer from Last 3 Months Family History Medical History Relation Comments Diabetes Father No Known Problems Maternal Grandfather Diabetes Maternal Grandmother Diabetes Mother No Known Problems Paternal Grandfather No Known Problems Paternal Grandmother Relation Status Comments Father Maternal Grandfather Maternal Grandmother Mother Paternal Grandfather Paternal Grandmother Social History Tobacco Use Types Packs/Day Years Used Date Smoking Tobacco: Never Passive Smoke Exposure: Never Smokeless Tobacco: Never Alcohol Use Standard Drinks/Week Comments Not Currently 0 (1 standard drink = 0.6 oz pur e alcohol) Education Answer Date Recorded Are you interested in more education? Not on sarah e 04/13/2024 Are you concerned about learning? Not on file 04/13/2024 No 04/13/2024 No 04/13/2024 Digital Access Answer Date Recorded No 04/13/2024 No 04/13/2024 Reliable internet access at home? Not on file 04/13/2024 Device with a working camera? Not on file Comments No Sex and Gender Information Value Date Recorded Sex Assigned at Not on file Legal Sex Female 9:01 AM EDT Gender Identity Not on file Sexual Orientation Not on file Last Filed Vital Signs Vital Sign Reading Time Taken Comments Blood Pressure 130/78 05/19/2025 11:37 AM EDT Pulse - - Temperature - - Respiratory Rate - - Oxygen Saturation - - Inhaled Oxygen Concentration - - Weight 85.7 kg (189 lb) 05/19/2025 11:37 AM EDT Height 162.6 cm (5' 4 ) 05/19/2025 11:37 AM EDT Body Mass Index 32.44 05/19/2025 11:37 AM EDT Plan of Treatment Health Maintenance Due Date Last Done Comments CREATININE LEVEL 1969 TSH LEVEL 1969 DEPRESSION SCREENING 1981 HEPATITIS C SCREENING 12/27/1987 HIV ONE-TIME SCREENING (18-65 YEARS) 12/27/1987 SCREENING FOR DIABETES 2004 MAMMOGRAM 2009 COLOGUARD 2014 COLONOSCOPY 2014 COLORECTAL CANCER SCREENING 2014 FIT TEST 2014 FOBT 2014 SIGMOIDOSCOPY 2014 VIRTUAL COLONOSCOPY 2014 RSV VACCINE (1 - Risk 50-74 years 1-dose series) 12/27/2019 INFLUENZA VACCINE (#1) 2025 , 05/28/2023, 06/23/2022, Additional history exists COVID-19 VACCINE ( season) 2025 07/09/2024, 06/24/2023, 08/17/2022, Additional history exists Adult Td,Tdap Booster 07/10/2026 07/10/2016, 013 PAP SMEAR 05/19/2028 05/19/2025, 05/06/2024 LIPID PANEL 06/21/2029 06/21/2024, 02/03/2022 ZOSTER VACCINES Completed 01/20/2022, 11/01/2021 PNEUMOCOCCAL VACCINES (50+ years) Completed 08/17/2024, 03/18/2019 HEPATITIS A VACCINES Aged Out 11/21/2024, 05/16/20 24 No longer eligible based on patient's age to complete this topic SMOKING STATUS SCREENING (Once After 26 Yrs) Completed 05/19/2025 HIB VACCINES Aged Out No longer eligi ble based on patient's age to complete this topic MENINGOCOCCAL VACCINES (ACWY) Aged Out No longer eligible based on patient's age to complete this topic MENINGOCOCCAL VACCINES (B) Aged Out N o longer eligible based on patient's age to complete this topic Medical Devices Not on file Procedures Procedure Name Priority Date/Time Associated Diagnosis Comments PAP TEST Routine 05/19/2025 12:00 AM EDT from Last 3 Months Results * Pap Test (05/19/2025 12:00 AM EDT) 05/19/2025 05/23/2025 9:4 5 AM EDT Narrative SEE NARRATIVE - 05/26/2025 1:06 PM EDT [address] [address] Licensed Aircraft Maintenance Engineer: Jovon Villarreal MD IN SERVICE COORDINATOR Cytology Report FINAL DIAGNOSIS A. PAP SMEAR (THIN PREP) CE: SPECIMEN ADEQUACY: Satisfactory for evaluation; transformation zone present. INTERPRETATION: NEGATIVE FOR INTRAEPITHELIAL LESION OR MALIGNANCY. Atrophy. This specimen was analyzed by the automated ThinPrep Imaging System ([employer] and the selected zuniga were reviewed by a customer service sales associate. Electronically Signed Out By: MINDA Olmstead(ASCP) The Pap test is a screening test primarily for squamous cancers and precursors and has associated false-negative and false-positive results. New technologies such as liquid-based preparations may decrease but will not eliminate all false-negative results. Regular sampling and follow-up of unexplained clinical signs and symptoms are recommended to minimize false negative results. PROCEDURES/ADDENDA HPV Testing (Requested) Ordered Date: 05/23/2025 A. PAP SMEAR (THIN PREP) CE: High-risk HPV Panel w/ extended genotyping NEG HPV 16-NEG HPV 18-NEG HPV 45-NEG HPV 33/58-NEG HPV 31-NEG HPV 56/59/66-NEG HPV 51-NEG HPV 52-NEG HPV 35/39/68-NEG Performed by real-time polymerase chain reaction (PCR) at [facility], [address] [place] [address] using the FDA-approved BD Onclarity HPV Assay with extended genotyping. Uses of the assay in scenarios other than those approved by the FDA should be considered off-label use. The accuracy and precision of this test for all other off-label specimen sources has been verified in the Cytopathology Laboratory of the [facility] and has not been cleared or approved by the U.S. Food and Drug Administration. Clinical correlation is advised. The assay assesses the E6/E7 DNA target and utilizes human beta globin as an internal control. Cytology and HPV testing are screening assays and should not be used as the sole means of detecting cancer. False-positives and false-negatives can occur. CLINICAL HISTORY Date of Last Menstrual Period: Not Provided Menstrual History: Post Menopausal Other Clinical Conditions: Screening Pap SPECIMEN SOURCE A: PAP SMEAR (THIN PREP) CE Patient Name: VERONICAHARRY RIVERAET : 1970 (Age: 54) Sex: F [facility] Date of Collection: 05/19/2025 Date of Reported: 05/26/2025 13:06 Results to: Aleta Morris MD us Aleta Morris MD CYTOLOGY ORDERABLES Final Resu lt SEE NARRATIVE from Last 3 Months Insurance [facility] [address] [place] [address] [place] [address] [place] [address] [place] [address] [place] [address] [employer] Care Teams Geophysical Data Technician Relationship Specialty Start Date End Date Khushboo Lopez CNP [address] [place] [phone] [email or web address] PCP - General Nurse Practitioner 05/06/24 Additional Source Comments The information contained in this document represents components of the legal health record. It is not the complete legal health record.[facility]
--- OUTSIDE RECORDS SUMMARY | 2025-06-27 17:31 | XMS_ITS | Encounter Summary ---
Author Organization [employer] Address 75 [facility] 7t [place] [address] Care Team Providers Care Yarn Bleaching Machine Operator Name Role Phone Khushboo Lopez CNP Primary Care Provider [phone] Reason for Visit * Reason Comments Med Refill Encounter Details Date Type Department Care Team (Late st Contact Info) Description 09/18/2023 Refill [facility] MEDICAL [address] [place] [address] Khushboo Lopez CNP [address] [place] [address] Social History Tobacco Use Types Packs/Day Years [...] Ascorbic Acid (vitamin C) 500 MG tablet [[id number]] Order Details Dose: 500 mg Route: Oral Frequency: Daily Dispense Quantity: 30 tablet Refills: 2 Sig: TAKE 1 TABLET BY MOUTH EVERY DAY Start Date: 08/24/23 End Date: -- documented in this encounter Plan of Treatment Upcoming Encounters Date Type Department Care Team (Late st Contact Info) Description 08/23/2025 4:30 PM EST Office Visit [facility] MEDICAL [address] [place] [address] Khushboo Lopez, HOME CARE PROVIDER [address] [place] [address] 11/30/2025 2:00 PM EDT Office Visit [facility] OPTOMETRY [address] [place] [address] Brenda Marcelino, OD [address] [place] [address] documented as of this encounter Visit Diagnoses Not on filedocumented in this encounter Additional Health Concerns Assessment Noted Time PHQ-9 Depression Total Score: 5 01/15/20 23 8:09 AM EDT documented as of this encounter Care Teams Yarn Bleaching Machine Operator Relationship Specialty Start Date End Date Khushboo Lopez CNP [address] [place] [address] PCP - General Family Medicine 09/02/22 documented as of this encounter
--- OUTSIDE RECORDS SUMMARY | 2025-06-27 17:31 | XMS_ITS | Encounter Summary ---
Author Organization [employer] Address 75 [facility] 7t [place] [address] Care Team Providers Care Spinning Bath Person Name Role Phone Khushboo Lopez CNP Primary Care Provider [phone] Encounter Details Date Type Department Care Team (Late st Contact Info) Description 03/11/2024 Orders Only [facility] [address] [place] [address] Khushboo Lopez CNP [address] [place] [address] Social History Tobacco Use Types Packs/Day Years [...] Description 08/23/2025 4:30 PM EST Office Visit [facility] MEDICAL [address] [place] [address] Khushboo Lopez CNP [address] [place] [address] 11/30/2025 2:00 PM EDT Office Visit [facility] OPTOMETRY [address] [place] [address] Brenda Marcelino OD [address] [place] [address] documented as of this encounter Procedures Procedure Name Priority Date/Time Associated Diagnosis Comments HM PAP/HPV Routine 12/04/2023 10:25 AM EDT documented in this encounter Results * HM PAP/HPV (12/04/2023 10:25 AM EDT) us Khushboo Lopez CNP HEALTH MAINTENANCE Final Resu lt documented in this encounter Visit Diagnoses Not on filedocumented in this encounter Additional Health Concerns Assessment Noted Time PHQ-9 Depression Total Score: 2 02/16/20 24 3:19 PM EDT documented as of this encounter Care Teams Spinning Bath Person Relationship Specialty Start Date End Date Khushboo Lopez CNP [address] [place] [address] PCP - General Family Medicine 09/02/22 documented as of this encounter
--- OUTSIDE RECORDS SUMMARY | 2025-06-27 17:31 | XMS_ITS | Encounter Summary ---
Author Organization [employer] [facility] Address 75 [facility] 7t [place] [address] Care Team Providers Care Oral Therapist Name Role Phone Khushboo Lopez CNP Primary Care Provider [phone] Encounter Details Date Type Department Care Team (Late st Contact Info) Description 04/13/[address] [facility] MEDICAL [address] [place] [address] Provider, MD Robbie Social History Tobacco Use [...] Description 08/23/2025 4:30 PM EST Office Visit [facility] MEDICAL [address] [place] [address] Khushboo Lopez CNP [address] [place] [address] 11/30/2025 2:00 PM EDT Office Visit [facility] OPTOMETRY [address] [place] [address] Brenda Marcelino, BRADY [address] [place] [address] documented as of this encounter Procedures Procedure [...] documented as of this encounter Care Teams Oral Therapist Relationship Specialty Start Date End Date Khushboo Lopez CNP [address] [place] [address] PCP - General Family Medicine 09/02/22 documented as of this encounter
--- OUTSIDE RECORDS SUMMARY | 2025-06-27 17:31 | XMS_ITS | Encounter Summary ---
Author Organization [employer] Address 75 [facility] 7t [place] [address] Care Team Providers Care Disposal Plant Operator Name Role Phone Khushboo Lopez CORY Primary Care Provider [phone] Encounter Details Date Type Department Care Team (Late st Contact Info) Description 07/04/2024 Orders Only [facility] MEDICAL [address] [place] [address] Provider, MD Robbie Social History Tobacco Use [...] PM EST Office Visit [facility] MEDICAL [address] [place] [address] Khushboo Lopez, ASSISTANT PORTFOLIO MANAGER [address] [place] [address] 11/30/2025 2:00 PM EDT Office Visit [facility] OPTOMETRY [address] [place] [address] Brenda Marcelino, BRADY [address] [place] [address] documented as of this encounter Procedures Procedure [...] Blood Venous blood specimen / Unknown Result [facility] Provider MD LAB BLOOD ORDERABLES Rehana l Result * Lipid Panel, Standard (06/21/2024 2:51 PM EDT) Blood Venous blood specimen / Unknown Result [facility] Provider MD LAB BLOOD ORDERABLES Rehana l Result * Troponin T, High Sensitivity (hs-Anjelica) (06/21/2024 2:51 PM EDT) Result [facility] Provider MD LAB BLOOD ORDERABLES Rehana l Result * Prothrombin Time-INR (06/21/2024 2:51 PM EDT) Blood Venous blood specimen / Unknown Result [facility] MD LAB BLOOD ORDERABLES Rehana l Result * CBC auto differential (06/21/2024 2:51 PM EDT) Blood Venous blood specimen / Unknown Result [facility] Provider MD LAB BLOOD ORDERABLES Rehana l Result documented in this encounter Visit Diagnoses Not on filedocumented in this encounter Additional Health Concerns Assessment Noted Time PHQ-9 Depression Total Score: 2 02/16/20 24 3:19 PM EDT documented as of this encounter Care Teams Disposal Plant Operator Relationship Specialty Start Date End Date Khushboo Lopez CNP [address] [place] [address] PCP - General Family Medicine 09/02/22 documented as of this encounter
--- OUTSIDE RECORDS SUMMARY | 2025-06-27 17:31 | XMS_ITS | Data Portability ---
Author Organization [facility] Pain [facility], PAIN OFFICE Address [address] [facility] [place] [address] Care Team Providers Care Paper Box Maker Name Role Phone HARINDER TANG Primary Care [...] pain benefit. She is being seen at [facility] and has been getting prescriptions for oxycodone . She reports good pain benefit with medication . She states her functionality is better when she takes the medication. [facility] is denying the oxycodone . I have explained in detail that I am primarily an interventional pain specialist and I do not write Chronic opioid pain medications . She states she is not interested in trialing any injections at present. She is being seen at [facility]. I have advised her that it is [...] By Organization Details Last Modified Time 11/12/2016 40786 She was advised to continue with activities as tolerated. [email or web address] Not available 11/23/2016 20:13:23 Reason for Referral None Reported. Procedures Surgical History Date Name Laterality Status Provider Name and Address Organization Details Recorded Time Back Surgery completed Preet Renee MD [address] , [address], [place], [address], [facility] 11/12/2016 13:58:58 Other completed Preet Renee MD [address] , [address], [place], [address], [facility] 11/12/2016 13:59:56 Tubal Ligation completed Preet Renee MD [address] [place] , [address], [place], [address], [facility] 11/12/2016 14:00:18 Imaging Results None recorded. Procedure Notes None recorded. Medical Equipment None Reported. Allergies Allergen ID Allergen Name Allergen Category Reaction Reaction Severity Criticality Documentation Date Start Date Code Code System Note Provider Name and Address Organization Details Recorded Time 01899 Product containin g penicilli n (product) medicatio n rash Not available Not available 11/12/2016 58561 8001 SNOMED Preet becerra MD [address] [facility] , [address], [place], [address], [facility] 7 13:54:29 24386 Substance with sulfonami de structure and antibacte rial mechanism of action (substanc e) medicatio n rash Not available Not available 11/12/2016 12102 8003 SNOMED Preet becerra MD [address] [facility] , [address], [place], [place], [address], [facility] - [facility] 7 13:54:44 19535 house dust allergeni c extract environme nt,medica tion Not available Not available Not available 11/24/2016 78478 9 RxNorm Kirstin meyer [facility] 7 14:35:07 92008 cat dander environme nt Not available Not available Not available 11/24/2016 Kirstin meyer [facility] Pain Management 7 14:35:29 Medications Name Sig [...] Body weight Body mass index (BMI) Systolic And Diastolic Provider Name and Address Organization Details Last Updated DateTime 7 87 /min 97 % 97 % 162.56 cm 59680.0 3 g 30.7 kg/m2 127/86 mm[Hg] Preet becerra MD [address] [place] [address] , [address], [place], [address], [place] [facility] 7 13:52:31 Social History Question Answer Notes LastModified by Organizat ion Details LastModified Time Tobacco Smoking Status Former Smoker Quit x 12 years Not Available [employer] 07/06/2020 03:16:11 Which Illicit Or Recreational Drugs Have You Used? No [id number] Information not available 07/06/2020 Education 9 Information n ot available 11/12/2016 Live Alone Or With Others? Alone Information not available 11/12/2016 Marital Status Single zuleyma Informati on not available 11/12/2016 How Many Years Have You Smoked Tobacco? 3 [id number] Information not available 07/06/2020 Sex: Unknown Functional Status Question Answer Note LastModified by Organization D etails LastModified Time What is your level of alcohol consumption? None [id number] Information not available 07/06/2020 Are you currently employed? No [id number] Information not available 07/06/2020 Mental Status None recorded. Family History Relationship Description Onset Age of this Age Resolved Age Notes LastModified by Organization Details LastModified Time Maternal Aunt Malignant neoplastic disease [email or web address] Not available 10/23 13:57:38 Medical History Condition Response Anxiety Disorder Y Neuropathy/Neuralgia Y Headache Y Arthritis Y Kidney Stones Y GERD/Reflux Y Fibromyalgia Y Depression Y Asthma Y Gynecological HistoryNo gynecological history recorded. 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 25042879 M47.817 Displaceme nt of lumbar intervertebral disc without myelopathy 48383464 M51.26 Muscle pain 70803073 M79 .1 Health Concerns Section Related Observation LastModified by Organization Detai ls LastModified Time None Recorded Concern Status LastModified by Organization Details LastModified Time None Recorded Advance Directives Directive None Recorded Payers Insurance Date Sequence Insurance Name Policy Number Policy Suero Covered Member ID Suero Member ID Guarantor Name 11/23/2016 1 [place] [facility] Julia Veronica [id number] Julia Veronica Notes Date Note Type Note Provider Name and Address Organization Details Recorded Time 11/12/2016 text/html Pain Management L-spineReported by PatientHPIFor quality, patient reportsaching,cramping ,sharp, andtingling(she describes the pain as a sharp stabbing pain in her low back which radiates into both lower exremities. the pain in her lower extremities is an aching and throbbing type of pain and is associated with tingling.). For severity, patient reportsworsening,inter ference with sleep, andinterference with workbut reportscurrent pain level 5/10andworst pain 8/10. For duration, patient reportsconstant. For onset/timing, patient reportsgradual onsetandchronic. For context, patient reportscannot identify. For alleviating factors, patient reportsheat,medication , andrest(she is taking oxycodone which she states helps .). For aggravating factors, patient reportsflexion,standin g, andwalking. For associated symptoms, patient reportsno weakness,no numbness,no bladder compromise, andno bowel compromise. For radiation, patient reportsbilateral le. For work related, patient reportsno. For adl (activities of daily living), patient reportswalking,sweepin g, andmopping. For prior emg, patient reportsnone. For previous injections, patient reportsesi(she had injections at [facility] with no pain benefit.). For previous personal care service provider, patient reportsdid not help. For location, (julia martin is a 45 year old woman with complaints of low back pain radiating into both lower extremities . she has been chronic low back pain. she has been having an exacerbation of her pain for the past one and half years.). For previous surgery, (she is s/p surgery in 2004 at l4-5 level). For previous pt, (she had aquatic physical therapy and massage with no fpc pain benefit.). Preet Renee MD [address] [place] [address] , [address], [place], [address], [facility] 11/28/2016 11:35:15 OBGyn Episode No OBEpisode recorded.
--- OUTSIDE RECORDS SUMMARY | 2025-06-27 17:31 | XMS_ITS | Encounter Summary ---
Author Organization [employer] Address [address] [facility] 7t [place] [address] Care Team Providers Care Drive In Teller Name Role Phone Khushboo Lopez CORY Primary Care Provider [phone] Encounter Details Date Type Department Care Team (Late st Contact Info) Description 11/23/2023 Orders Only [facility] MEDICAL [address] [place] [address] Provider, MD Robbie Social History Tobacco Use [...] Description 08/23/2025 4:30 PM EST Office Visit [facility] MEDICAL [address] [place] [address] Khushboo Lopez CNP [address] [place] [address] 11/30/2025 2:00 PM EDT Office Visit [facility] OPTOMETRY [address] [place] [address] Brenda Marcelino OD [address] [place] [address] documented as of this encounter Procedures Procedure [...] documented as of this encounter Care Teams Drive In Teller Relationship Specialty Start Date End Date Khushboo Lopez CNP [address] [place] [address] PCP - General Family Medicine 09/02/22 documented as of this encounter
--- OUTSIDE RECORDS SUMMARY | 2025-06-27 17:31 | XMS_ITS | Encounter Summary ---
Author Organization [employer] Address [address] [facility] 7t [place] [address] Care Team Providers Care Coding Compliance Specialist Name Role Phone Khushboo Lopez CORY Primary Care Provider [phone] Reason for Visit * Reason Comments Med Refill Encounter Details Date Type Department Care Team (Late st Contact Info) Description 07/20/2023 Refill [facility] MEDICAL [address] [place] [address] Nelli Kingston FNP [address] [place] [address] Mild intermittent asthma without complication Social History [...] Description 08/23/2025 4:30 PM EST Office Visit [facility] MEDICAL [address] [place] [address] Khushboo Lopez CNP [address] [place] [address] 11/30/2025 2:00 PM EDT Office Visit [facility] OPTOMETRY [address] [place] [address] Brenda Marcelino, BRADY [address] [place] [address] documented as of this encounter Visit Diagnoses Diagnosis Mild intermittent asthma without complication documented in this encounter Additional Health Concerns Assessment Noted Time PHQ-9 Depression Total Score: 5 01/15/20 23 8:09 AM EDT documented as of this encounter Care Teams Coding Compliance Specialist Relationship Specialty Start Date End Date Khushboo Lopez CNP [address] [place] [address] PCP - General Family Medicine 09/02/22 documented as of this encounter
--- OUTSIDE RECORDS SUMMARY | 2025-06-27 17:31 | XMS_ITS | Encounter Summary ---
Author Organization [employer] Address [address] [facility] 7t [place] [address] Care Team Providers Care Master Electrician Name Role Phone Khushboo Lopez CORY Primary Care Provider [phone] Encounter Details Date Type Department Care Team (Late st Contact Info) Description 06/30/2024 Orders Only [facility] MEDICAL [address] [place] [address] Provider, MD Robbie Social History Tobacco Use [...] EST Office Visit [facility] MEDICAL [address] [place] [address] Khushboo Lopez, SKI MAKER WOOD [address] [place] [address] 11/30/2025 2:00 PM EDT Office Visit [facility] OPTOMETRY [address] [place] [address] Brenda Marcelino, BRADY [address] [place] [address] documented as of this encounter Procedures Procedure [...] documented as of this encounter Care Teams Master Electrician Relationship Specialty Start Date End Date Khushboo Lopez CNP [address] [place] [address] PCP - General Family Medicine 09/02/22 documented as of this encounter
--- OUTSIDE RECORDS SUMMARY | 2025-06-27 17:32 | XMS_ITS | Encounter Summary ---
Author Organization [email or web address] Address [address] [facility] 7t [place] [address] Care Team Providers Care Etl Database Developer Name Role Phone Khushboo Lopez CORY Primary Care Provider [phone] Encounter Details Date Type Department Care Team (Late st Contact Info) Description 11/06/2024 Orders Only [facility] MEDICAL [address] [place] [address] Provider, MD Robbie Social History Tobacco Use [...] Description 08/23/2025 4:30 PM EST Office Visit [place] [facility] MEDICAL [address] [place] [address] Khushboo Lopez, CORY [address] [place] [address] 11/30/2025 2:00 PM EDT Office Visit [place] [facility] OPTOMETRY [address] [place] [address] Brenda Marcelino OD [address] [place] [address] documented as of this encounter Procedures Procedure [...] documented as of this encounter Care Teams Etl Database Developer Relationship Specialty Start Date End Date Khushboo Lopez CNP [address] [place] [address] PCP - General Family Medicine 09/02/22 documented as of this encounter
--- OUTSIDE RECORDS SUMMARY | 2025-06-27 17:32 | XMS_ITS | Patient Health Record ---
Author Organization [facility] Address [address] [place] [address] Care Team Providers Care Master Glazier Name Role Phone Khushboo Lopez Primary Care Provider Johann Mondragon Jr Unavailable Allergies Allergen (clinical drug ingredient) Drug/Non Drug Allergy documented on EMR Reaction Allergy Type Onset Date Status Sulfa Unknown Drug Allergy Active Penicillin Unknown Drug Allergy Active Results Component Value Reference Range Notes Complete Blood Count no Diff Reviewed date:12/27/2024 03:43:37 PM Interpretation: Performing Lab:[facility], [address] [place] [address] Notes/Report: White Blood Count 8.1 4.8-10.8 X10*3/uL [...] Auto 0.000 0.0-0.012 X10*3/uL Liver Panel Reviewed date:12/27/2024 03:43:27 PM Interpretation: Performing Lab:[facility], [address] [place] [phone] Notes/Report: Bilirubin Total 0.6 0.0-1.0 mg/dL Bilirubin Direct 0.2 0.0-0.5 mg/dL Aspartate Amino Transferase 78 5-31 U/L Alanine Aminotransferase 135 0-31 U/L Total Protein 8.0 6.5-8.0 g/dL Albumin Level 4.5 3.5-5.0 g/dL Alkaline Phosphatase 89 39-117 U/L Liver Fibrosis Pnl Reviewed date:01/02/2025 07:52:45 AM Interpretation: Performing Lab:[facility], [address] [place] [address] Notes/Report: Liver Fibrosis Score 0.20 Liver Fibrosis Stage F0 Liver Fibrosis Interpretation SEE NOTE no fibrosis [...] F4 (severe fibrosis) Nec Inflam Act Score 0.55 Nec Inflam Act Grade A2 Nec Inflam Act Interpretation SEE NOTE significant activity ActiTest Score (a) Metavir Score a>=0 and a<=0.17 : A0 (no activity) a>0.17 and a<=0.29 : A0-A1 (no activity) a>0.29 and a<=0.36 : A1 (minimal activity) a>0.36 and a<=0.52 : A1-A2 (minimal activity) a>0.52 and a<=0.60 : A2 (significant activity) a>0.60 and a<=0.62 : A2-A3 (significant activity) a>0.62 and a<=1.00 : A3 (severe activity) KLP-Hihtr-3-Macroglobulin 154 106-279 mg/dL FIB-Haptoglobin 152 43-212 mg/dL FIB-Apolipoprotein A1 118 101-198 mg/dL FIB-Total Bilirubin 0.4 0.2-1.2 mg/dL FIB-GGT 81 3-70 U/L FIB-ALT 105 6-29 U/L Reference ID [id number] Footnote SEE NOTE The reliability of results is dependent on compliance with the preanalytical and analytical conditions recommended by [employer]. The tests have to be deferred for: [...] The performance characteristics have been [facility] by [facility]. It has not been cleared or approved by the U.S. Food and Drug Administration. Performance characteristics refer to the analytical performance of the test. Simpler, the associated logo, Plumbr and all associated [employer] horton are the registered trademarks of [employer]. All third green party horton - (R) and (TM) - are the property of their respective owners. (C) 2809-6710 [employer]. All rights reserved. THIS TEST WAS PERFORMED AT: [employer] [address] [place] [address] VISHAL CARROLL MD,PHD,STEVE Reason For Referral No Information Medications Medication [...] Problem Status W/U Status Risk Notes Problem 06550794 Epigastric pain (R10.13) Active confirmed Problem 528668641 Elevated LFTs (R79.89) Active confirmed Problem 336543557 Elevated liver enzymes (R74.8) Active confirmed Problem 710231603 Fatty liver (K76.0) Active confirmed Problem 261207420 Elevated lipase (R74.8) Active confirmed Problem 611055209 Gastroesophageal reflux disease, unspecified whether esophagitis present (K21.9) Active confirmed Vital Signs Temperature 97.3 degrees Fahrenheit 09/12/2024 Blood pressure diastolic 00 mm Hg 09/12/2024 Height 64 in 09/12/2024 Blood pressure systolic 000 mm Hg 09/12/2024 Weight 190 lbs 09/12/2024 BMI 32.61 kg/m2 09/12/2024 Encounters Encounter Location Date Provider Diagnosis [facility] [address] [place] [address] 09/12/2024 Johann Moreno Jr Elevated LFTs R79.89 and Gastroesophageal reflux disease, unspecified whether esophagitis present K21.9 [facility] [address] [place] [address] 01/02/2025 Johann Moreno Jr Assessments Encounter Date Diagnosis [...] office in one year. Plan Of Treatment Pending Test Test Name [...] PELVIS WITH CONTRAST 12/18/2021 US ABD 04/09/2023 Alpha 1 Anti-trypsin 01/22/2023 Liver Fibrosis Pnl 09/12/2024 Liver Fibrosis Pnl 12/07/2023 Liver Fibrosis Pnl 04/09/2023 HARINDER Reflex Titer and Pattern 01/22/2023 Next Appt Details Provider Name:Johann Zuri ohara , 09/07/2025 01:35:00 PM, [address] [place] [address], [address], [place], [address], Insurance Providers Payer Name Payer Address Payer Phone Subscriber Number Group Number Insured Name Patient Relationship to Insured Coverage Start Date Coverage End Date MEDICAID OF [facility] [address] [place] [address] [id number] DAVID KAY Self - patient is the insured Medical (General) History Medical History History ICD Code depression diabetes mellitus asthma gastroesophageal reflux disease colonoscopy 06/28/19, hyperplastic polyps , ten-year followup recommended. Surgical History Surgery Date(Month/Year) lower back fusion L-4,L-5 2003 bladder surgery tubal ligation
--- OUTSIDE RECORDS SUMMARY | 2025-06-27 17:32 | XMS_ITS | Encounter Summary ---
Author Organization [employer] Address [address] [facility] 7t [place] [address] Care Team Providers Care Escrow Clerk Name Role Phone Khushboo Lopez CNP Primary Care Provider [phone] Encounter Details Date Type Department Care Team (Late st Contact Info) Description 12/11/2023 Orders Only [facility] MEDICAL [address] [place] [address] Khushboo Lopez CNP [address] [place] [address] Visit for routine medical social consultant exam Social History Tobacco Use Types Packs/Day [...] 08/23/2025 4:30 PM EST Office Visit [facility] MEDICAL [address] [place] [address] Khushboo Lopez CNP [address] [place] [address] 11/30/2025 2:00 PM EDT Office Visit [facility] OPTOMETRY [address] [place] [address] Brenda Marcelino, OD [address] [place] [address] documented as of this encounter Procedures Procedure Name Priority Date/Time Associated Diagnosis Comments AMB REFERRAL TO OB-HEALTH PROFESSIONAL Routine 12/04/2023 Visit for routine medical social consultant exam documented in this encounter Results * Referral to Obstetrics / Gynecology (12/04/2023) Khushboo Lopez CNP OUTPATIENT REFERRAL ORDERABLE S Final Result documented in this encounter Visit Diagnoses Diagnosis Visit for routine medical social consultant exam documented in this encounter Additional Health Concerns Assessment Noted Time PHQ-9 Depression Total Score: 5 01/15/20 23 8:09 AM EDT documented as of this encounter Care Teams Escrow Clerk Relationship Specialty Start Date End Date Khushboo Lopez CNP [address] [place] [address] PCP - General Family Medicine 09/02/22 documented as of this encounter
--- OUTSIDE RECORDS SUMMARY | 2025-06-27 17:32 | XMS_ITS | Encounter Summary ---
Author Organization [employer] Address [address] [facility] 7t [place] [address] Care Team Providers Care Sheriffs Name Role Phone Khushboo Lopez CNP Primary Care Provider [phone] Reason for Referral * Imaging (Routine) - Authorized Specialty Diagnoses / Procedures Referred By Shilpi damon Referred To Contact Radiology Diagnoses Abnormal mammogram of left breast Procedures BI US Breast Complete Left Khushboo Lopez CNP [address] [place] [address] Phone: tel: fax: [address] Phone: tel: fax: Referral ID Status Reason Start Date Expiration Date V isits Requested Visits Authorized [id number] Authorized 11/11/2024 11/11/2025 1 1 * Imaging (Routine) - Closed Specialty Diagnoses / Procedures Referred By Shilpi damon Referred To Contact Radiology Diagnoses Abnormal mammogram of left breast Procedures BI Mammogram Diagnostic Left Khushboo Lopez CNP [address] [place] [address] Phone: tel: fax: [address] Phone: tel: fax: Referral ID Status Reason Start Date Expiration Date Visits Re quested Visits Authorized [id number] Closed 11/11/2024 11/11/2025 1 1 Reason for Visit * Reason Onset Date Comments Breast Cancer Screening 11/11/2024 Encounter Details Date Type Department Care Team (Late st Contact Info) Description 11/11/2024 Telephone [facility] MEDICAL [address] [place] [address] Khushboo Lopez CNP [address] [place] [address] Breast Cancer Screening Social History Tobacco Use [...] the past 12 months, has t he backstitch, gas, oil or water company threatened to [...] 11/12/2024 9:57 AM EST Orders fax[facility] [place] [facility] * Telephone Encounter - Khushboo Lopez CNP - 11/11/2024 10:32 AM EST Orders entered; will need to be faxed to [facility] * Telephone Encounter - Yajaira Shipley - 11/11/2024 9:44 AM EST [facility]ory[facility] from [facility] Mammography Dept [phone] LMOM Will need two new mammogram orders due to abnormal findings on 10/31 Diagnostic mammo for asymmetry of left breast Ultrasound of left breast for asymmetry documented in this encounter Plan of Treatment Upcoming Encounters Date Type Department Care Team (Late st Contact Info) Description 08/23/2025 4:30 PM EST Office Visit [facility] MEDICAL [address] [place] [address] Khushboo Lopez CNP [address] [place] [address] 11/30/2025 2:00 PM EDT Office Visit [facility] OPTOMETRY [address] [place] [address] Brenda Marcelino, BRADY [address] [place] [address] Scheduled Orders Name Type Priority Associated Diagnoses [...] Modality Breast Left Mammography us Khushboo Lopez SANITARY LANDFILL OPERATOR IMG BI PROCEDURES Final Resul t documented in this encounter Visit Diagnoses Diagnosis Abnormal mammogram of left breast- Primary documented in this encounter Additional Health Concerns Assessment Noted Time PHQ-9 Depression Total Score: 2 02/16/20 24 3:19 PM EDT documented as of this encounter Care Teams Sheriffs Relationship Specialty Start Date End Date Khushboo Lopez CNP [address] [place] [address] PCP - General Family Medicine 09/02/22 documented as of this encounter
--- OUTSIDE RECORDS SUMMARY | 2025-06-27 17:32 | XMS_ITS | Encounter Summary ---
Author Organization [employer] Address [address] [facility] 7t [place] [address] Care Team Providers Care Passenger Relations Representative Name Role Phone Khushboo Lopez CNP Primary Care Provider [phone] Encounter Details Date Type Department Care Team (Late st Contact Info) Description 11/15/2024 Orders Only [facility] [address] [place] [address] Khushboo Lopez CNP [address] [place] [address] Social History Tobacco Use Types Packs/Day Years [...] EST Office Visit [facility] MEDICAL [address] [place] [address] Khushboo Lopez CNP [address] [place] [address] 11/30/2025 2:00 PM EDT Office Visit [facility] OPTOMETRY [address] [place] [address] Brenda Marcelino, OD [address] [facility] [address] documented as of this encounter Procedures Procedure [...] documented as of this encounter Care Teams Passenger Relations Representative Relationship Specialty Start Date End Date Khushboo Lopez CNP [address] [place] [address] PCP - General Family Medicine 09/02/22 documented as of this encounter
--- OUTSIDE RECORDS SUMMARY | 2025-06-27 17:32 | XMS_ITS | Encounter Summary ---
Author Organization [employer] Address [address] [facility] 7t [place] [address] Care Team Providers Care Industrial Eng Name Role Phone Khushboo Lopez CNP Primary Care Provider [phone] Reason for Visit * Reason Comments Med Change Request Encounter Details Date Type Department Care Team (Late st Contact Info) Description 11/11/2024 Shravan Mcdonnell [facility] MED[facility] [address] [place] [address] Khushboo Lopez CNP [address] [place] [address] Social History Tobacco Use Types Packs/Day Years [...] Visit [facility] MEDICAL [address] [place] [address] Khushboo Lopez CNP [address] [place] [address] 11/30/2025 2:00 PM EDT Office Visit [facility] OPTOMETRY [address] [place] [address] Brenda Marcelino, OD [address] [place] [address] documented as of this encounter Visit Diagnoses Not on filedocumented in this encounter Additional Health Concerns Assessment Noted Time PHQ-9 Depression Total Score: 2 02/16/20 24 3:19 PM EDT documented as of this encounter Care Teams Industrial Eng Relationship Specialty Start Date End Date Khushboo Lopez CNP [address] [place] [address] PCP - General Family Medicine 09/02/22 documented as of this encounter
--- OUTSIDE RECORDS SUMMARY | 2025-06-27 17:32 | XMS_ITS | Encounter Summary ---
Author Organization [employer] Address [address] [facility] 7t [place] [address] Care Team Providers Care Commercial Development Manager Name Role Phone Khushboo Lopez CNP Primary Care Provider [phone] Encounter Details Date Type Department Care Team (Latest Contact Info) Description 05/25/2025 Results [facility] [address] [place] [address] Khushboo Lopez CNP [address] [place] [address] Comprehensive metabolic panel, CBC auto differential, TSH Reflex on Abnormal to Free T4, Additional followed-up results: 4 Social History Tobacco Use Types Packs/Day Years [...] Description 08/23/2025 4:30 PM EST Office Visit [facility] MEDICAL [address] [place] [address] Khushboo Lopez CNP [address] [place] [address] 11/30/2025 2:00 PM EDT Office Visit [facility] OPTOMETRY [address] [place] [address] Brenda Marcelino OD [address] [place] [address] documented as of this encounter Visit Diagnoses Diagnosis Subclinical hypothyroidism- Primary Other specified acquired hypothyroidism documented in this encounter Additional Health Concerns Assessment Noted Time PHQ-9 Depression Total Score: 2 02/16/20 24 3:19 PM EDT documented as of this encounter Care Teams Commercial Development Manager Relationship Specialty Start Date End Date Khushboo Lopez CNP [address] [place] [address] PCP - General Family Medicine 09/02/22 documented as of this encounter
--- OUTSIDE RECORDS SUMMARY | 2025-06-27 17:32 | XMS_ITS | Encounter Summary ---
Author Organization [employer] Address [address] [facility] [address] [place] [address] Care Team Providers Care Tank Assembler Name Role Phone Khushboo Lopez CNP Primary Care Provider [phone] Reason for Visit * Reason Onset Date Comments Med Refill 06/27/2025 Encounter Details Date Type Department Care Team (Late st Contact Info) Description 06/27/2025 Refill [facility] MEDICAL [address] [place] [address] Khushboo Lopez CNP [address] [place] [address] Social History Tobacco Use Types Packs/Day Years [...] PM EST Office Visit [facility] MEDICAL [address] [place] [address] Khushboo Lopez CNP [address] [place] [address] 11/30/2025 2:00 PM EDT Office Visit [facility] OPTOMETRY [address] [place] [address] Brenda Marcelino OD [address] [place] [address] documented as of this encounter Visit Diagnoses Not on filedocumented in this encounter Additional Health Concerns Assessment Noted Time PHQ-9 Depression Total Score: 2 02/16/20 24 3:19 PM EDT documented as of this encounter Care Teams Tank Assembler Relationship Specialty Start Date End Date Khushboo Lopez CNP [address] [place] [address] PCP - General Family Medicine 09/02/22 documented as of this encounter
== END 2025-06-27 14:10 | disposition home or self-care (01) ==
LOC: HO.HMGCX 14:09
PROVIDERS: PCP Nurse Practitioner Family; Visit Provider Nurse Practitioner Family
DX: M79.601 Pain in right arm (principal)
CPT/HCPCS: 73060

== ENCOUNTER → 2025-06-27 14:24 | Outpatient (BNV) | payer MEDICAID, SELFPAY | PROVIDERS: PCP Nurse Practitioner Family; Visit Provider Radiology Diagnostic Radiology | DX: M79.601 Pain in right arm (principal) | CPT/HCPCS: 73060 ==

== ENCOUNTER 2025-08-25 09:10 | Outpatient (REF) | payer MEDICAID, SELFPAY | END 2025-08-25 09:11 | disposition home or self-care (01) | LOC: HO.LAB 09:10 | PROVIDERS: PCP Nurse Practitioner Family; Visit Provider Nurse Practitioner Family | DX: E03.8 Other specified hypothyroidism (principal) | CPT/HCPCS: 36415; 84443 ==

== ENCOUNTER 2025-09-08 06:31 | Outpatient (REF) | payer MEDICAID, SELFPAY ==
--- OUTSIDE RECORDS SUMMARY | 2024-12-07 05:20 | XMS_ITS ---
Author Organization [facility] Address [address] [place] [address] Care Team Providers Care Golf Course Designer Name Role Phone Khushboo Lopez Primary Care Provider Johann Mondragon Jr REASON FOR VISIT elevated LFT's Encounters Encounter Location Date Provider Diagnosis [facility] [address] [place] [address] 12/07/2024 Johann Moreno Jr Plan Of Treatment Next Appt Details Provider Name:Johann ohara Jr, 09/20/2026 01:15:00 PM, [address], [address], [place], [address], Progress Notes * DAVID BROWNDOB:[birth year] (54 yo F)Acc No.[id number]:12/07/2024 Progress Notes Patient: DAVID CHIN Provider: Kam Moreno MD :1970 A ge:53 Y S ex:Female Date:12/07/2024 Address:[address], [id number] Pcp:Khushboo Lopez Subjective: * Chief Complaints: * e levated LFT's * The named appointment provid er may or may not be the originator of this progress note, and it is not deemed complete until electronically signed by the appointment provider. Sign off status: Pending * Provider: Kam Moreno MD Date: 0 12/07/2024 Generated for Lissett giles/Anthony/Jonitting on: 1 11/09/2024 06:34 AM EST
--- OUTSIDE RECORDS SUMMARY | 2025-09-07 08:35 | XMS_ITS ---
Author Organization [facility] Address [address] [place] [address] Care Team Providers Care Shipping Agent Name Role Phone John Khushboo Primary Care Provider Johann Mondragon Jr Unavailable [phone] Allergies Allergen (clinical drug ingredient) Drug/Non Drug Allergy documented on EMR Reaction Allergy Type Onset Date Status Penicillin Unknown Drug Allergy Active Sulfa Unknown Drug Allergy Active REASON FOR VISIT Patient presents today for elevated lft's Medications Medication SIG (Take, Route, Frequency, Duration) Notes Start Date End Date Status Atorvastatin Calcium 10 MG Tablet 1 tablet Orally Once a day; Duration: 30 day(s) Active oxyCODONE HCl 5 MG Tablet 1 tablet as needed Orally every 6 hrs Active FreeStyle Lite Test Active Triamcinolone Acetonide Active FreeStyle Lancets Ac tive metFORMIN HCl 500 MG Tablet 1 tablet with meals Orally Twice a day Active Cetirizine HCl 10 MG Tablet 1 tablet Orally Once a day Active Senna 8.6 MG Tablet 2 tablets at bedtime as needed Orally Once a day Active Albuterol Sulfate (2.5 MG/3ML) 0.083% Nebulization Solution 3 ml as needed Inhalation Three times a day Active SUMAtriptan Succinate 50 MG Tablet 1 tablet as needed Orally Twice a day Active Amitriptyline HCl 25 MG Tablet 1 tablet Orally Once a day Active Multi Vitamin/Minerals - Tablet 1 Orally QD Active Lyrica 150 MG Capsule 1 capsule 1 to 3 h ours before bedtime in the evening Orally Once a day Not-Taking/PRN clonazePAM 1 MG Tablet 1 tablet Orally O nce a day Not-Taking/PRN Januvia Not-Taking /PRN Jardiance 25 MG Tablet TAKE 1 TABLET BY MOUTH EVERY DAY Oral; Duration: 30 Active Trulicity 0.75 MG/0.5ML Solution Auto-injector INJECT 1 PEN SUBCUTANEOUSLY ONCE WEEKLY Subcutaneous; Duration: 28 Active Levothyroxine Sodium 25 MCG Tablet TAKE 1 TABLET (25 MCG) BY MOUTH IN THE MORNING Oral; Duration: 90 Active Vitamin C 500 MG Tablet TAKE 1 TABLET BY MOUTH EVERY DAY Oral; Duration: 90 Active rOPINIRole HCl 0.25 MG Tablet TAKE 1 TABLET BY MOUTH EVERY EVENING Oral; Duration: 90 Active Omeprazole 20 MG Capsule Delayed Release 1 capsule 30 minutes before morning meal Orally Once a day; Duration: 30 days 12/20/2021 Active Social History Tobacco Use: Social History Observation Description Date Details (start date - stop date) Former Smoker NA - NA Social History Drugs/Alcohol: Social Info Question Answer Notes Alcohol Screen Did you have a drink containing alcohol in the past year? Yes How often did you have a drink containing alcohol in the past year? Monthly or less (1 point) How many drinks did you have on a typical day when you were drinking in the past year? 1 or 2 drinks (0 point) How often did you have 6 or more drinks on one occasion in the past year? Never (0 point) Points 1 Interpretation Negative Drug/Alcohol: Social Info Question Answer Notes AUDIT-C (Standard) Did you have a drink containing alcohol in the past year? No Points 0 Interpretation Negative Tobacco Use: Social Info Question Answer Notes Tobacco Use/Smoking Patient is a former smoker How long has it been since you last smoked? > 10 years Vital Signs Blood pressure systolic 001 mm Hg 09/07/20 25 Blood pressure diastolic 01 mm Hg 025 Height 64 in 09/07/2025 Weight 187.8 lbs 09/07/2025 BMI 32.23 kg/m2 09/07/2025 Encounters Encounter Location Date Provider Diagnosis [facility] [address] [address] [place] [address] 09/07/2025 Johann Moreno Jr Fatty liver K76.0 and Gastroesophageal reflux disease, unspecified whether esophagitis present K21.9 Assessments Encounter Date Diagnosis (ICD Code) Assessment Notes Treatment Notes Treatment Clinical Notes Section Notes 09/07/2025 Fatty liver (ICD-10 - K76.0) Currently, Julia is doing well. Reflux symptoms are under good control on omeprazole. She will continue this. We discussed diet, lifestyle modifications , and weight management regarding the treatment of reflux. Liver function tests have remained stable with no evidence of fibrosis on testing. She does not drink and will continue to try to lose weight and watch her diabetes and other underlying comorbid conditions. She is up-to-date on colorectal cancer screening and we discussed this today. Laboratory testing will be obtained on liver functions and we will see her in follow-up in 1 year 09/07/2025 Gastroesophageal reflux disease, unspecified whether esophagitis present (ICD-10 - K21.9) Currently, Julia is doing well. Reflux symptoms are under good control on omeprazole. She will continue this. We discussed diet, lifestyle modifications , and weight management regarding the treatment of reflux. Liver function tests have remained stable with no evidence of fibrosis on testing. She does not drink and will continue to try to lose weight and watch her diabetes and other underlying comorbid conditions. She is up-to-date on colorectal cancer screening and we discussed this today. Laboratory testing will be obtained on liver functions and we will see her in follow-up in 1 year Plan Of Treatment Pending Test Test Name Order Date LIVER PROFILE 09/07/2025 CBC w/o DIFF 09/07/2025 Prothrombin Time INR 09/07/2025 Next Appt Details Provider Name:Johann ohara , 09/20/2026 01:15:00 PM, [address] [place] [address], [address], [place], [address], History and Physical Notes * HPI (History of Present Illness) Category Sub-Category Detail Notes Category Not es New symptom(s) The patient is a pleasant 54-year-old woman who returns today for follow-up of gastroesophageal reflux disease, fatty liver, and colon cancer screening. Since we saw her last in August 2024 she has been doing well. She reports reflux symptoms are under good control on omeprazole 20 mg daily. She has no heartburn, dysphagia, hematemesis, or melena. Weight and appetite have been stable. She has been working on her diabetes to try and get her A1c back hand to 6 after it was up to 7. She reports bowel movements are normal with no blood. She has no complaints of rectal bleeding or change in her bowel habits. She is up-to-date on colorectal cancer screening. Liver function test showed continued mild elevations from fatty liver last in December. These will be rechecked. She has no jaundice, pruritus, or fatigue. Fibrosis testing has shown F0. We reviewed this today. Examination Category Sub-Category Detail Notes Category Not es General Examination On exami nation today, she appears well. Skin is anicteric. Lungs are clear. Heart shows a regular rate and rhythm. Abdomen is soft without focal masses or tenderness. Progress Notes * JULIA BROWNDOB:[birth year] (54 yo F)Acc No.[id number]:09/07/2025 Progress Notes Patient: JULIA CHIN Provider: Kam Moreno MD :1970 A ge:54 Y S ex:Female Date:09/07/2025 Address:[address] [place], [place] [id number] Pcp:Khushboo Lopez Subjective: * Chief Complaints: * 1 . Patient presents today for elevated lft's. * HPI: N ew symptom(s): The patient is a pleasant 54-year-old woman who returns today for follow-up of gastroesophageal reflux disease, fatty liver, and colon cancer screening. Since we saw her last in August 2024 she has been doing well. She reports reflux symptoms are under good control on omeprazole 20 mg daily. She has no heartburn, dysphagia, hematemesis, or melena. Weight and appetite have been stable. She has been working on her diabetes to try and get her A1c back hand to 6 after it was up to 7. She reports bowel movements are normal with no blood. She has no complaints of rectal bleeding or change in her bowel habits. She is up-to-date on colorectal cancer screening. Liver function test showed continued mild elevations from fatty liver last in December. These will be rechecked. She has no jaundice, pruritus, or fatigue. Fibrosis testing has shown F0. We reviewed this today. * Medical History: * Surgical History: * Hospitalization/Major Diagno stic Procedure: * Family History: F ather: alive, diagnosed with Diabetes. M other: alive, diagnosed with HTN (hypertension), Diabetes. F amily History Verified.. denies family hx of colon cancer, colon polyps and liver ds. * Social History: T obacco Use: T obacco Use/Smoking P atient is a f ormer smoker, H ow long has it been since you last smoked? > 10 years. D rugs/Alcohol: A lcohol Screen D id you have a drink containing alcohol in the past year? Y es, H ow often did you have a drink containing alcohol in the past year? M onthly or less (1 point), How many drinks did you have on a typical day when you were drinking in the past year? 1 or 2 drinks (0 point), H ow often did you have 6 or more drinks on one occasion in the past year??Never (0 point), P oints 1 , I nterpretation N egative. D rug/Alcohol: A SEBASTIÁN-C (Standard) D id you have a drink containing alcohol in the past year? N o,?Points 0 , I nterpretation N egative. Social History Verified. * Medications: T aking Amitriptyline HCl 25 MG Tablet 1 tablet Orally Once a day , Taking Multi Vitamin/Minerals - Tablet 1 Orally QD , Taking metFORMIN HCl 500 MG Tablet 1 tablet with meals Orally Twice a day , Taking Senna 8.6 MG Tablet 2 tablets at bedtime as needed Orally Once a day , Taking Cetirizine HCl 10 MG Tablet 1 tablet Orally Once a day , Taking SUMAtriptan Succinate 50 MG Tablet 1 tablet as needed Orally Twice a day , Taking Albuterol Sulfate (2.5 MG/3ML) 0.083% Nebulization Solution 3 ml as needed Inhalation Three times a day , Taking oxyCODONE HCl 5 MG Tablet 1 tablet as needed Orally every 6 hrs , Taking Atorvastatin Calcium 10 MG Tablet 1 tablet Orally Once a day , Taking Triamcinolone Acetonide , Taking FreeStyle Lite Test , Taking FreeStyle Lancets , Taking Omeprazole 20 MG Capsule Delayed Release 1 capsule 30 minutes before morning meal Orally Once a day , Taking rOPINIRole HCl 0.25 MG Tablet TAKE 1 TABLET BY MOUTH EVERY EVENING Oral , Taking Vitamin C 500 MG Tablet TAKE 1 TABLET BY MOUTH EVERY DAY Oral , Taking Jardiance 25 MG Tablet TAKE 1 TABLET BY MOUTH EVERY DAY Oral , Taking Levothyroxine Sodium 25 MCG Tablet TAKE 1 TABLET (25 MCG) BY MOUTH IN THE MORNING Oral , Taking Trulicity 0.75 MG/0.5ML Solution Auto-injector INJECT 1 PEN SUBCUTANEOUSLY ONCE WEEKLY Subcutaneous , Not-Taking/PRN clonazePAM 1 MG Tablet 1 tablet Orally Once a day , Not-Taking/PRN Lyrica 150 MG Capsule 1 capsule 1 to 3 hours before bedtime in the evening Orally Once a day , Not-Taking/PRN Januvia , Medication List reviewed and reconciled with the patient * Allergies: P enicillin, Sulfa. Allergies Verified. Objective: * Vitals: W t: 187.8 lbs, Ht: 64 in, BMI:32.23Index, BP: 001/01 mm Hg, Ht-cm: 162.56 cm, Wt- k.19 kg. * Examination: G eneral Examination: O n examination today, she appears well. Skin is anicteric. Lungs are clear. Heart shows a regular rate and rhythm. Abdomen is soft without focal masses or tenderness. Assessment: * Assessment: 1. F atty liver - K76.0 (Primary) 2 . G astroesophageal reflux disease, unspecified whether esophagitis present - K21.9 Currently, Julia is doing we ll. Reflux symptoms are under good control on omeprazole. She will continue this. We discussed diet, lifestyle modifications, and weight management regarding the treatment of reflux. Liver function tests have remained stable with no evidence of fibrosis on testing. She does not drink and will continue to try to lose weight and watch her diabetes and other underlying comorbid conditions. She is up-to-date on colorectal cancer screening and we discussed this today. Laboratory testing will be obtained on liver functions and we will see her in follow-up in 1 year Plan: * Treatment: * Procedure Codes: 3 017F COLORECTAL CA SCREEN DOC REV, 1036F TOBACCO NON-USER, G8785 BP SCR NOT PRFRM REC REASON NOS * Preventive Medicine: Counseling: C are goal follow-up plan: A jackson Normal BMI Follow-up D ietary management education, guidance, and counseling, B MA management provided Y eliz. Billing Information: * Procedure Codes: 3017F COLORECTAL CA SCREEN DOC REV. 1036F TOBACCO NON-USER. G8785 BP SCR NOT PRFRM REC REASON NOS. * Sign off status: Completed true * Provider: Kam Moreno MD Date: 11/08/2024 Generated for Lissett giles/Anthony/Jonitting on: 11/09/2024 06:33 AM EST
--- NOTE | ~2025-09-08 | XR_ITS ---
EXAMINATION: XR SHOULDER 2 OR MORE VIEWS RIGHT HISTORY: M25.511 - Pain in right shoulder COMPARISON: Comparison is made with the prior examination dated 04/04/2020. FINDINGS: Three views of the right shoulder are submitted. Osseous mineralization is normal. There is no fracture or dislocation. The glenohumeral joint is maintained. There is mild narrowing of the AC joint. The soft tissues are unremarkable. XR/XR shoulder RT min 2V IMPRESSION: Mild narrowing of the AC joint. Electronically signed by: Miah Ruffin MD 09/08/2025 09:38 AM EST
--- OUTSIDE RECORDS SUMMARY | 2025-09-08 06:33 | XMS_ITS | Clinical Summary ---
Author Organization [employer] Address [address] [facility] 7[address] [place] [address] Care Team Providers Care Dye Operator Name Role Phone Savannah Yoon Unavailable Kaylan Fisher NP Primary Care Provider [phone] Allergies Active Allergy Reactions Criticality Noted Date [...] mg by mouth at bedtime. 024 Active rOPINIRole (Requip) 0.5 MG tablet Take 0.5 mg by mouth at bedtime. Active cetirizine (ZyrTEC) 10 MG tabletIndicatio ns:Seasonal allergic rhinitis due to pollen TAKE 1 TABLET BY MOUTH ONCE DAILY NEEDED FOR ALLERGIES 90 tablet 3 Active senna (Senokot) 8.6 MG tablet TAKE 1 TABLET BY MOUTH EVERY DAY 90 tablet 3 025 Active Ascorbic Acid (vitamin C) 500 MG tablet Take 1 tablet (500 mg) by mouth Once per day. 90 tablet 1 025 Active Alcohol Swabs (Alcohol Prep) 70 % pads USE DIRECTED TWICE DAILY TO TEST BLOOD SUGAR 100 each 3 Active albuterol (2.5 MG/3ML) 0.083% nebulizer solutionIndicat ions:Mild intermittent asthma without complication USE 1 VIAL VIA NEBULIZER THREE TIMES DAILY NEEDED. 810 mL 1 Active empagliflozin (Jardiance) 25 MG Take 1 [...] 24 hours. 27 tablet 3 025 Active triamcinolone (Nasacort) 55 MCG/ACT nasal inhaler INSTILL 1 SPRAY IN EACH NOSTRIL ONCE A DAY 50.7 mL 2 025 Active FREESTYLE LITE test strip USE TO CHECK BLOOD SUGAR TWICE DAILY 200 strip 3 Active Dulaglutide (Trulicity) 1.5 MG/0.5ML solution auto-injectorIn dications:Type 2 diabetes mellitus with hyperglycemia, without long-term current use of insulin (HCC) Inject 1.5 mg under the skin 1 (one) time per week. 6 mL 3 025 2025 Active atorvastatin (Lipitor) 10 MG tablet TAKE 1 TABLET BY MOUTH EVERY DAY 90 tablet 3 025 Active albuterol (Ventolin HFA) 108 (90 Base) MCG/ACT inhalerIndicati ons:Mild intermittent asthma without complication INHALE 1 TO 2 PUFF INTO THE LUNGS BY MOUTH EVERY 4 HOURS NEEDED FOR SHORTNESS OF BREATH 18 g 025 Active metFORMIN (Glucophage) 1000 MG tablet TAKE 1 TABLET BY MOUTH WITH BREAKFAST AND 1 TABLET WITH EVENING MEAL 180 tablet 3 Active oxyCODONE (Roxicodone) 5 MG immediate release tabletIndicatio ns:Chronic bilateral low back pain with sciatica, sciatica laterality unspecified Take 1 tablet (5 mg) by mouth 3 times daily for 28 days. For severe pain if needed 84 tablet 025 2025 Active atorvastatin (Lipitor) 10 MG tablet TAKE 1 TABLET BY MOUTH EVERY DAY 90 tablet 3 024 2024 Discontinued triamcinolone (Nasacort) 55 MCG/ACT nasal inhaler INSTILL 1 SPRAY IN EACH NOSTRIL ONCE A DAY 50.7 mL 2 024 2024 Discontinued FREESTYLE LITE test strip USE TO CHECK BLOOD SUGAR TWICE DAILY 200 strip 3 025 2024 Discontinued metFORMIN (Glucophage) 1000 MG tablet TAKE 1 TABLET BY MOUTH WITH BREAKFAST AND 1 TABLET WITH EVENING MEAL 180 tablet 3 025 2024 Discontinued albuterol (Ventolin HFA) 108 (90 Base) MCG/ACT inhalerIndicati ons:Mild intermittent asthma without complication INHALE 1 TO 2 PUFF INTO THE LUNGS BY MOUTH EVERY 4 HOURS NEEDED FOR SHORTNESS OF BREATH 18 g 3 025 2024 Discontinued oxyCODONE (Roxicodone) 5 MG immediate release tabletIndicatio ns:Chronic bilateral low back pain with sciatica, sciatica laterality unspecified Take 1 tablet (5 mg) by mouth 3 times daily for 28 days. For severe pain if needed 84 tablet 025 2024 Discontinued(R eorder (will not trigger notification to Pharmacy)) Dulaglutide (Trulicity) 0.75 MG/0.5ML solution auto-injectorIn dications:Type 2 diabetes mellitus with hyperglycemia, without long-term current use of insulin (HCC) Inject 0.75 mg under the skin 1 (one) time per week for 28 days. 6.5 mL 2 025 2024 Discontinued(I neffective) oxyCODONE (Roxicodone) 5 MG immediate release tabletIndicatio [...] pain with left-sided sciatica Overview (11/20/2022): In [facility] ER 11/02/22. Given Flexeril 5mg and [...] Encounters Date Type Department Care Team Description 09/07/[address] [address] Kaylan Fisher NP Chronic bilateral low back pain with sciatica, sciatica laterality unspecified 09/04/2025 Refill [facility] [address] [place] [address] Khushboo Lopez CNP 09/02/[address] [address] Khushboo Lopez CNP Mild intermittent asthma without complication 08/31/2025 Patient Outreach [facility] () Department [address] [place] [phone] Savannah Yoon 08/28/2025 Results Follow-Up [address] [address] Khushboo Lopez CNP POCT glycosylated hemoglobin (Hgb A1c), Microalbumin [id number], TSH Reflex on Abnormal to Free T4, Specimen Status Report [facility] [address] [place] [address] Khushboo Lopez CNP 08/24/2025 Patient Outreach [facility] ([facility]) Department [address] [phone] Savannah Yoon 08/23/2025 4:30 PM EST Office Visit [address] [address] Khushboo Lopez CAR RESTORER Immunization due (Primary Dx); Type 2 diabetes mellitus with hyperglycemia, without long-term current use of insulin (HCC); Subclinical hypothyroidism; Elevated liver enzymes; Gastroesophageal reflux disease with esophagitis without hemorrhage; Fatty liver; Failed back syndrome; Severe episode of recurrent major depressive disorder, without psychotic features (CMS/HCC) (HCC); Anxiety; Mild intermittent asthma without complication; Migraine without aura and without status migrainosus, not intractable; High risk medication use; Class 1 obesity due to excess calories with serious comorbidity and body mass index (BMI) of 32.0 to 32.9 in adult 08/23/[address] [address] Khushboo Lopez, CORY thyroid lab 08/19/[address] [address] Khushboo Lopez CNP 08/14/[address] [address] Khushboo Lopez CAR RESTORER 08/10/[address] [address] Khushboo oLpez, CAR RESTORER Chronic bilateral low back pain with sciatica, sciatica laterality unspecified 08/09/2025 Patient Outreach [facility] ([facility]) Department [address] [phone] Savannah Yoon 07/28/[address] [address] Khushboo Lopez, CAR RESTORER Type 2 diabetes mellitus with hyperglycemia, without long-term current use of insulin (HCC) (Primary Dx) 07[facility]14/2025 [facility] [address] [place] [address] AprilxNikkiKhushboo, CAR RESTORER Chronic bilateral low back pain with sciatica, sciatica laterality unspecified 06/27/2025 Refill [facility] [address] [place] [address] [place] Khushboo, CAR RESTORER Type 2 diabetes mellitus with hyperglycemia, without long-term current use of insulin (HCC) (Primary Dx) 06/27/2025 Refill [facility] [address] [place] [address] AprilxNikkiKhushboo, CAR RESTORER 06/19/[address] [address] AprilxNikkiKhushboo, CAR RESTORER Chronic bilateral low back pain with sciatica, [...] 06/23/2022 Influenza, IIV3, injectable 07/08/2022,1 09/24/2020,07/09/2021,07/26,08/21/2019,07/18/2011 Influenza, Injectable, MDCK, preservative free 05/29/2025 Influenza, Split (incl. maddy fied surface antigen) 06/07/2013,05/27/2012 Influenza, seasonal, injecta ble, preservative free 07/09/2024,08/16/2017 Moderna Covid-19 Vaccine 12+ 08/23/2025 Moderna Covid-19 Vaccine 6+ Bivalent 08/17/2022 Pneumococcal [...] have a drink containing alcohol ? 0 08/23/2025 How many drinks containing a lcohol do you have on a typical day when you are drinking? 0 08/23/2025 How often do you have six or more drinks on one occasion? 0 08/23/2025 Depression Answer Date Recorded Patient Health Questionnaire-9 [...] the past 12 months, has t he [employer], gas, oil or water [employer] threatened to shut off services in your [...] Sign Reading Time Taken Comments Blood Pressure 118/84 08/23/2025 4:12 PM EST Pulse 85 08/23/2025 4:12 PM EST Temperature 36.2 C (97.2 F) 08/23/2025 4:12 PM EST Respiratory Rate 17 08/17/2024 2:41 PM EST Oxygen Saturation 95% 08/23/2025 4:12 PM EST Inhaled Oxygen Concentration - - Weight 83.9 kg (185 lb) 08/23/2025 4:12 PM EST Height 162.6 cm (5' 4 ) 08/23/2025 4:12 PM EST Body Mass Index 31.76 08/23/2025 4:12 PM EST Plan of Treatment Upcoming Encounters Date Type Department Care Team (Late st Contact Info) Description 11/30/2025 2:00 PM EDT Office Visit [facility] [address] [place] [address] Brenda Marcelino, OD [address] [place] [address] 12/08/2025 11:30 AM EDT Office Visit [facility] [address] [place] [address] Khushboo Lopez, CAR RESTORER [address] [place] [address] Health Maintenance Due Date Last Done Comments CT Colonography 1969 FIT DNA/Cologuard 1969 FIT 1969 FOBT 1969 Sigmoidoscopy 1969 HPV/Cotest 12/27/1999 RSV Patients and Patients Aged 60 years or older (1 - Risk 50-74 years 1-dose series) 12/27/2019 Diabetes: Hemoglobin A1C 11/21/2025 025, 05/24/2025, 02/15/2025, Additional history exists Diabetes: Foot Exam 01/05/2026 01/05/2025, 11/16/2024, 11/16/2024, Additional history exists Depression Screening 02/15/2026 02/15/2025, 02/16/20 Disability Screening 05/24/2026 05/24/2025 Lipid Panel 05/24/2026 05/24/2025, 10/0 09/2023, 02/03/2022, Additional history exists DTaP/Tdap/Td Vaccines (2 - Td or Tdap) 07/10/2026 07/10/2016, 01/13/2013 Alcohol/Substance Use Screening 08/23/2026 08/23/2025 Diabetes: Urine Protein Screening 08/23/2026 08/23/2025, 02/03/2022, 02/03/2022, Additional history exists SDOH Screening 08/23/2026 08/23/2025 Tobacco Screening 08/23/2026 08/23/2025 Eye Exam 11/17/2026 11/17/2024, 10/23, 11/17/2024, Additional history exists Cervical Cancer Screening 12/03/2026 Pap Smear 12/03/2026 12/04/2023, 02/21/2021 Mammogram 12/12/2026 12/12/2024, 11/20, 10/31/2024, Additional history exists Colonoscopy 06/28/2029 06/28/2019 Colorectal Cancer Screening 06/28/2029 Hepatitis C Screening Completed 09/26/2019 Hepatitis B Vaccines Completed 10/29/2020, 07/26/2020, 04/02/2020 Zoster Vaccines Completed 01/20/2022, 11/01/2021 Pneumococcal Vaccine: 50+ Years Completed 08/17/2024, 03/18/2019 Hepatitis A Vaccines Completed 11/21/2024, 05/16/20 HIV Screening Completed 05/24/2025 Influenza Vaccine Completed 05/29/2025, , 05/28/2023, Additional history exists COVID-19 Vaccine Completed 08/23/2025, , 06/24/2023, Additional history exists HIB Vaccines Aged Out No longer eligi [...] on patient's age to complete this topic Goals Goal Patient Goal Type Associated Problems Recent Progress Patient-Stated? Author Help patients manage their type 2 diabetes Care Plan Help patients manage their type 2 diabetes No Savannah Yoon Patient has chronic kidney disease Care Plan Patient has chronic kidney disease No Savannah Yoon Patient has chronic kidney disease Care Plan Patient has chronic kidney disease No Laila Aguirre CMA Patient has chronic kidney disease Care Plan Patient has chronic kidney disease No Khushboo Lopez, CAR RESTORER Patient has chronic kidney disease Care Plan Patient has chronic kidney disease No AprilxNikkiKhushboo, CAR RESTORER Patient has chronic kidney disease Care Plan Patient has chronic kidney disease No Savannah Yoon Patient has chronic kidney disease Care Plan Patient has chronic kidney disease No AprilxNikkiKhushboo, CAR RESTORER Patient has chronic kidney disease Care Plan Patient has chronic kidney disease No Savannah Yoon Patient has chronic kidney disease Care Plan Patient has chronic kidney disease No Kaylan Fisher NP Patient has chronic kidney disease Care Plan Patient has chronic kidney disease No Laila Augirre CMA Procedures Procedure Name Priority Date/Time Associated Diagnosis Comments TSH REFLEX ON ABNORMAL TO FREE T4 Routine 08/25/2025 Subclinical hypothyroidism POCT GLYCOSYLATED HEMOGLOBIN (HGB A1C) Routine 08/23/2025 4:31 PM EST Type 2 diabetes mellitus with hyperglycemia, without long-term current use of insulin (HCC) SPECIMEN STATUS REPORT Routine 08/23/2025 12:00 AM EST MONITOR SCREEN 14-DRUG CLASS PROFILE Routine 08/23/2025 12:00 AM EST ALBUMIN/CREATININE RATIO, RANDOM URINE Routine 08/23/2025 12:00 AM EST Type 2 diabetes mellitus with hyperglycemia, without long-term current use of insulin (HCC) XR HUMERUS RIGHT Routine 06/27/2025 Right arm pain AMB REFERRAL TO DERMATOLOGY Routine 06/20/2025 Epidermal cyst HIV P24 ANTIGEN/ANTIBODY WITH REFLEX TO CONFIRMATION Routine 05/24/2025 3:34 PM EDT LIPID PANEL, STANDARD Routine 05/24/2025 3:34 PM EDT Health maintenance examination Type 2 diabetes mellitus with hyperglycemia, without long-term current use of insulin ([facility]/HCC) AMB REFERRAL TO PODIATRY Routine 01/05/2025 Calcaneal spur of foot, right Right foot pain BI MAMMOGRAM DIAGNOSTIC LEFT Routine 12/12/2024 Abnormal mammogram of left breast HM PAP/HPV Routine 12/04/2023 10:25 AM EDT [facility]ISTOR[facility] HEPATITIS C ANTIBODY TEST Routine 09/26/2019 3:51 PM EST COLONOSCOPY Routine 06/28/2019 12:00 AM EDT from Last 3 Months or Most Recently Relevant to Health Maintenance Results * TSH Reflex on Abnormal to Free T4 (08/25/2025) Blood Venous blood specimen / Unknown [facility] BLOOD ORDERABLES Final Re sult [facility] [address] [place] [address], [place] [phone] * (ABNORMAL) POCT glycosylated hemoglobin (Hgb A1c) (08/23/2025 4:31 PM EST) Hemoglobin A1C 7.4(A) 4.0 - 5.7 % Blood Capillary blood specimen / Unknown 08/23/2025 4:31 PM EST [facility] POINT OF CARE TEST ENTER/EDIT ORDERABLES Final Result * Monitor Screen 14-Drug Class Profile ([facility]??) (08/23/2025 12:00 AM EST) Amphetamines Screen, Urine Negative Cutoff=10 00 ng/mL [facility] Barbiturates Screen, Urine Negative Cutoff=20 0 ng/mL [facility] Benzodiazepines Screen, Urine Negative Cutoff=20 0 ng/mL [facility] Cannabinoid Screen, Urine Negative Cutoff=20 ng/mL [facility] Cocaine (Metab.) Screen, Urine Negative Cutoff=30 0 ng/mL [facility] Opiate Screen, Urine Negative Cutoff=30 0 ng/mL [facility] Comment:Opiate test includes Codeine, Morphine, Hydromorphone, Hydrocodone. Oxycodone/Oxymorpho ne, Urine Negative Cutoff=10 0 ng/mL [facility] Comment:Test includes Oxycod one and Oxymorphone Phencyclidine Screen, Urine Negative Cutoff=25 ng/mL [facility] Methadone Screen, Urine Negative Cutoff=30 0 ng/mL [facility] Propoxyphene Screen, Urine Negative Cutoff=30 0 ng/mL [facility] Meperidine Screen, Urine Negative Cutoff=20 0 ng/mL [facility] Comment: This test was developed and its performance characteristics determined by [facility]. It has not been cleared or approved by the Food and Drug Administration. Fentanyl, Urine Negative Cutoff=20 00 pg/mL [facility] Comment: Test includes Fentanyl and Norfentanyl This test was developed and its performance characteristics determined by [facility]. It has not been cleared or approved by the Food and Drug Administration. Tramadol Screen, Urine Negative Cutoff=20 0 ng/mL [facility] Buprenorphine Negative Cutoff=10 ng/mL [facility] Creatinine, Urine 73.6 20.0 - 300.0 mg/dL [facility] pH, Urine 6.0 4.5 - 8.9 [facility] Please Note: [facility] Comment: This assay provides a preliminary unconfirmed analytical test result that may be suitable for clinical management of patients in certain situations. Drug-test results should be interpreted in the context of clinical information. Patient metabolic variables, specific drug chemistry, and specimen characteristics can affect test outcome. Technical consultation is available if a test result is inconsistent with an expected outcome. Email: [email or web address] 08/23/2025 08/23/2025 Comment:Urine, Random Releas e Narrative Resulting Agency Comment Performed at: [address] [id number] Roundhouse Worker: Mana Ventura MD, Phone: [phone] us Khushboo Lopez [facility] LAB URINE ORDERABLES Final Re sult [facility] 1 [facility] [address] [place] [address] * Microalbumin [id number] (08/23/2025 12:00 AM EST) Creatinine, Random Urine 67.3 Not Estab. mg/dL [facility] Albumin, Urine 10.5 Not Estab. ug/mL [facility] Albumin/Creatin ine Ratio 16 0 - 29 mg/g creat [facility] Comment: Normal: 0 - 29 Moderately increased: 30 - 300 Severely increased: >300 Urine (Urine, Random) 08/23/2025 08/23/2025 Comment:Urine, Random Releas e Narrative Resulting Agency Comment Performed at: - [facility] [id number] Roundhouse Worker: Mana Ventura MD, Phone: [phone] Khushboo Lopez CAR RESTORER LAB URINE ORDERABLES Final Re sult Performing Organization Address [facility]/ZIP Co de Phone Number [facility] [address] [address] * Specimen Status Report (08/23/2025 12:00 AM EST) Specimen Status Report [facility] Comment: Written Authorization Written Authorization Written Authorization Received. Authorization received from ORIGINAL REQUEST 08-25-2025 Logged by Feli Johnson 08/23/2025 08/23/2025 Comment:Urine, Random Releas e Narrative Resulting Agency Comment Performed at: [facility] [id number] Roundhouse Worker: Mana Ventura MD, Phone: [phone] Khushboo Aprilx CAR RESTORER HISTORICAL/NON ORDERABLE LABS Final Result Performing Organization Address [facility] Co de Phone Number [facility] [address] [place] [address] * XR Humerus Right (06/27/2025) Anatomical Region Laterality Modality Upper Extremities, Humerus Right [facility] us Khushboo Chenx CAR RESTORER IMG XR PROCEDURES Final Resul t * Referral to Dermatology (06/20/2025) us Evelyn Mora METAL GRINDER OUTPATIENT REFERRAL O RDERABLES Final Result * HIV p24 Antigen/Antibody With Reflex to Confirmation (05/24/2025 3:34 PM EDT) HIV Ab/p24 Ag Screen Non Reactive Non Reactive [facility] Comment: HIV-1/HIV-2 antibodies and HIV-1 p24 antigen were NOT detected. There is no laboratory evidence of HIV infection. HIV Negative 05/24/2025 3:34 PM EDT 05/24/2025 Narrative Resulting Agency Comment Performed at: 01 - [facility] [address], [address], [place], [place] [id number] Roundhouse Worker: Ray Yip MD, Phone: [phone] Khushboo Thanhpinax CAR RESTORER LAB BLOOD ORDERABLES Final Re sult Performing Organization Address [facility] Co de Phone Number [facility] * (ABNORMAL) Lipid Panel, Standard [id number] (05/24/2025 3:34 PM EDT) Pathologist [facility] Cholesterol, Total 83(L) 100 - 199 mg/dL [facility] Triglycerides 144 0 - 149 mg/dL [facility] HDL Cholesterol 36(L) >39 mg/dL [facility] VLDL Cholesterol Grover 25 5 - 40 mg/dL [facility] LDL Chol Calc (NIH) 22 0 - 99 mg/dL [facility] 1 Blood Venous blood specimen / Unknown 05/24/2025 3:34 PM EDT 05/24/2025 Narrative Resulting Agency Comment Performed at: - [facility] [id number] Roundhouse Worker: Mana Ventura MD, Phone: [phone] Khushboo Thanhpinax CAR RESTORER LAB BLOOD ORDERABLES Final Re sult Performing Organization Address [facility] Co de Phone Number [facility] * Referral to Podiatry (01/05/2025) Khushboo Aprilx CAR RESTORER OUTPATIENT REFERRAL ORDERABLE S Final Result * BI Mammogram Diagnostic Left (12/12/2024) Anatomical Region Laterality Modality Breast Left Mammography Khushboo Chaloux CAR RESTORER IMG BI PROCEDURES Final Resul t * HM PAP/HPV (12/04/2023 10:25 AM EDT) Khushboo Chaloux CAR RESTORER HEALTH MAINTENANCE Final Resu lt * -Hepatitis C Antibody Test (09/26/2019 3:51 PM EST) ANTI-HEPATITIS C NEGATIVE (NEG) [facility] Comment: Reference range: Negative This test was performed on the [employer] Meter Installer immunoassay system. 09/26/2019 3:51 PM EST Khushboo Lopez CNP HISTORICAL/NON ORDERABLE LABS Final Result [facility] [address] * EGD-COLONOSCOPY: [facility] (06/28/2019 12:00 AM EDT) Anatomical Region Laterality Modality Endoscopy 06/28/2019 Narrative 06/28/2019 12:00 AM EDT Refer to Fovea for result details [facility] Procedure: [facility] Procedure Note Provider, MD Robbie - 01/15/2023 Refer to Ricky for result details [facility] Procedure: [facility] Historical Provider ENDOSCOPY PROCEDURE ORDER ONEIL Final Result from Last 3 Months or Most Recently Relevant to Health Maintenance Additional Health Concerns Active Problems Noted Date Diagnosed Date Help patients manage their type 2 diabetes 08/09 Patient has chronic kidney disease 08/09/2025 Patient has chronic kidney disease 08/10/2025 Patient has chronic kidney disease 08/16/2025 Patient has chronic kidney disease 08/23/2025 Patient has chronic kidney disease 08/24/2025 Patient has chronic kidney disease 08/28/2025 Patient has chronic kidney disease 08/31/2025 Patient has chronic kidney disease 09/04/2025 Patient has chronic kidney disease 09/07/2025 Insurance [facility] C3 GENERIC TPL [address] [place] [id number] [place] [id number] [place] [id number] Advance Directives Documents on File Type Date Recorded Patient Xray Tech Expl anation HealthCare Proxy 05/25/2025 10:56 AM HCP Care Teams Dye Operator Relationship Specialty Start Date End Date Kaylan Fisher NP [address] [place] [address] PCP - General 08/21/25 Savannah Yoon 08/09/25
--- OUTSIDE RECORDS SUMMARY | 2025-09-08 06:33 | XMS_ITS | Encounter Summary ---
Author Organization [employer] Address [address] [facility] 7t [place] [address] Care Team Providers Care Services Engineer Name Role Phone Khushboo Lopez FIRER LOCOMOTIVE CRANE Primary Care Provider [phone] Savannah Yoon Unavailable Kaylan iFsher FACE HARDENER Primary Care Provider [phone] Encounter Details Date Type Department Care Team (Late st Contact Info) Description 09/07/2022 Orders Only [facility] MED[facility] [address] [place] [address] Nancy Song MD [address] [place] [address] Chronic low back pain with sciatica, sciatica [...] Description 11/30/2025 2:00 PM EDT Office Visit [facility] OPTOMET[facility] [address] [place] [address] Brenda Marcelino OD [address] [place] [address] 12/08/2025 11:30 AM EDT Office Visit [facility] MED[facility] [address] [phone] Khushboo Lopez CNP [address] [place] [address] documented as of this encounter Visit Diagnoses Diagnosis Chronic low back pain with sciatica, sciatica laterality unspecified, unspecified back pain laterality- Primary documented in this encounter Care Teams Services Engineer Relationship Specialty Start Date End Date Khushboo Lopez CNP [address] [place] [address] PCP - General Family Medicine 09/02/22 08/20/25 Kayaln Fisher NP [address] [place] [address] PCP - General 08/21/25 Savannah Yoon 08/09/25 documented as of this encounter
--- OUTSIDE RECORDS SUMMARY | 2025-09-08 06:34 | XMS_ITS | Encounter Summary ---
Author Organization [employer] Address 75 [facility] 7t [place] [address] Care Team Providers Care Tensile Tester Name Role Phone Khushboo Lopez CNP Primary Care Provider [phone] Savannah Yoon Unavailable Kaylan Fisher NP Primary Care Provider [phone] Encounter Details Date Type Department Care Team (Late st Contact Info) Description 03/11/2024 Orders Only [place] [facility] [address] [place], [place] [id number] Khushboo Lopez CNP [address] [place] [address] Social History Tobacco Use Types Packs/Day Years [...] Description 11/30/2025 2:00 PM EDT Office Visit [facility] OPTOMETRY [address] [place] [address] Brenda Marcelino OD [address] [place] [address] 12/08/2025 11:30 AM EDT Office Visit [facility] MEDICAL [address] [place] [address] Khushboo Lopez CNP [address] [place] [address] documented as of this encounter Procedures Procedure [...] documented as of this encounter Care Teams Tensile Tester Relationship Specialty Start Date End Date Khushboo Lopez CNP [address] [place] [address] PCP - General Family Medicine 09/02/22 08/20/25 Kaylan Fisher NP [address] [place] [address] PCP - General 08/21/25 Savannah Yoon 08/09/25 documented as of this encounter
--- OUTSIDE RECORDS SUMMARY | 2025-09-08 06:34 | XMS_ITS | Encounter Summary ---
Author Organization [employer] Address 75 [facility] 7t [place] [address] Care Team Providers Care Mortgage Banker Name Role Phone Khushboo Lopez CNP Primary Care Provider [phone] Savannah Yoon Unavailable Kaylan Fisher NP Primary Care Provider [phone] Reason for Visit * Reason Comments Med Change Request Encounter Details Date Type Department Care Team (Late st Contact Info) Description 01/10/2025 Shravan Mcdonnell [facility] MEDICAL [address] [place] [address] Khushboo Lopez CNP [address] [place] [address] Social History Tobacco Use Types Packs/Day Years [...] Miscellaneous Notes * Telephone Encounter - Sun Nichols - 01/10/2025 2:44 PM EDT Duplicate documented in this encounter Plan of Treatment Upcoming Encounters Date Type Department Care Team (Late st Contact Info) Description 11/30/2025 2:00 PM EDT Office Visit [facility] OPTOMETRY [address] [place] [address] Brenda Marcelino, OD [address] [place] [address] 12/08/2025 11:30 AM EDT Office Visit [facility] MEDICAL [address] [facility] [address] Khushboo Lopez CNP [address] [place] [address] documented as of this encounter Visit Diagnoses Not on filedocumented in this encounter Additional Health Concerns Assessment Noted Time PHQ-9 Depression Total Score: 2 02/16/20 24 3:19 PM EDT documented as of this encounter Care Teams Mortgage Banker Relationship Specialty Start Date End Date Khushboo Lopez CNP [address] [place] [address] PCP - General Family Medicine 09/02/22 08/20/25 Kaylan Fisher NP [address] [place] [address] PCP - General 08/21/25 Savannah Yoon 08/09/25 documented as of this encounter
--- OUTSIDE RECORDS SUMMARY | 2025-09-08 06:34 | XMS_ITS | Clinical Summary ---
Author Organization [facility] Address [address] [address] Phone Care Team Providers Care Development Geologist Name Role Phone Khushboo Lopez NEWS ASSISTANT Primary Care Provider [phone] Allergies Active Allergy Reactions Criticality Noted Date [...] (JARDIANCE ORAL) Take by mouth. Activ e Family History Medical History Relation Comments Diabetes [...] Recently Relevant to Health Maintenance Results * Pap Test (05/19/2025 12:00 AM EDT) [place] [address] Allergy And Immunology Specialist: Jovon Villarreal MD ENERGY DIRECTOR Cytology Report FINAL DIAGNOSIS A. PAP SMEAR (THIN PREP) CE: SPECIMEN ADEQUACY: Satisfactory for evaluation; transformation zone present. INTERPRETATION: NEGATIVE FOR INTRAEPITHELIAL LESION OR MALIGNANCY. Atrophy. This specimen was analyzed by the automated ThinPrep Imaging System (Fusion Antibodies Nathalia.) and the selected zuniga were reviewed by a vehicle body maker. Electronically Signed Out By: MINDA Olmstead(ASCP) The [...] by real-time polymerase chain reaction (PCR) at [facility], [address] [place] [address] using the FDA-approved OpenGamma Onclarity HPV Assay with extended genotyping. Uses of the assay in scenarios other than those approved by the FDA should be considered off-label use. The accuracy and precision of this test for all other off-label specimen sources has been verified in the Cytopathology Laboratory of the [facility] and has not been cleared or approved [...] PAP SMEAR (THIN PREP) CE Patient Name: JULIA MARTIN : 1970 (Age: 54) Sex: F Institution: [facility] Location: [facility] Date of Collection: 05/19/2025 Date of Reported: 05/26/2025 13:06 Results to: Aleta Morris MD [facility] Final Diagnosis A. PAP SMEAR (THIN PREP) CE: SPECIMEN ADEQUACY: Satisfactory for evaluation; transformation zone present. INTERPRETATION: NEGATIVE FOR INTRAEPITHELIAL LESION OR MALIGNANCY. Atrophy. This specimen was analyzed by the automated ThinPrep Imaging System (Add[employer] Social.) and the selected zuniga were reviewed by a vehicle body maker. [facility] Results\Inter pretation A. PAP SMEAR (THIN PREP) CE: High-risk HPV Panel w/ extended genotyping NEG HPV 16-NEG HPV 18-NEG HPV 45-NEG HPV 33/58-NEG HPV 31-NEG HPV 56/59/66-NEG HPV 51-NEG HPV 52-NEG HPV 35/39/68-NEG Performed by real-time polymerase chain reaction (PCR) at [facility], [address] [place] [address] using the FDA-approved BD Onclarity HPV Assay with extended genotyping. Uses of the assay in scenarios other than those approved by the FDA should be considered off-label use. The accuracy and precision of this test for all other off-label specimen sources has been verified in the Cytopathology Laboratory of the [facility] and has not been cleared or approved by the U.S. Food and Drug Administration. Clinical correlation is advised. The assay assesses the E6/E7 DNA target and utilizes human beta globin as an internal control. Cytology and HPV testing are screening assays and should not be used as the sole means of detecting cancer. False-positives and false-negatives can occur. [facility] Conversion Type (Conversion Source) 05/19/2025 05/23/2025 9:45 AM EDT us Aleta Morris MD CYTOLOGY ORDERABLES Edited Res ult - Final [facility] [address] [place] [address] from Last 3 Months or Most Recently Relevant to Health Maintenance Insurance [address] [address] C3 ACO C3 ACO [facility] C3 ACO Care Teams Development Geologist Relationship Specialty Start Date End Date Khushboo Lopez NP [address] [place] [address] [email or web address] PCP - General Nurse Practitioner 05/06/24 Additional Source Comments The information contained in this document represents components of the legal health record. It is not the complete legal health record.[facility]
--- OUTSIDE RECORDS SUMMARY | 2025-09-08 06:34 | XMS_ITS | Encounter Summary ---
Author Organization [employer] Address 75 [facility] 7t [place] [address] Care Team Providers Care Sap Portal Architect Name Role Phone Khushboo Lopez CORONER TECHNICIAN Primary Care Provider [phone] Savannah Yoon Unavailable Kaylan Fisher REMEDIAL TEACHER Primary Care Provider [phone] Encounter Details Date Type Department Care Team (Late st Contact Info) Description 02/03/2024 Orders Only [facility] MEDICAL [address] [place] [address] Provider, MD Robbie Social History Tobacco Use [...] PM EDT Office Visit [facility] OPTOMETRY [address] [place] [address] Brenda Marcelino, OD [address] [place] [address] 12/08/2025 11:30 AM EDT Office Visit [facility] MEDICAL [address] [place] [address] Khushboo Lopez, CORONER TECHNICIAN [address] [place] [address] documented as of this encounter Procedures Procedure [...] documented as of this encounter Care Teams Sap Portal Architect Relationship Specialty Start Date End Date Khushboo Lopez CNP [address] [place] [address] PCP - General Family Medicine 09/02/22 08/20/25 Kaylan Fisher NP [address] [place] [address] PCP - General 08/21/25 Savannah Yoon 08/09/25 documented as of this encounter
--- OUTSIDE RECORDS SUMMARY | 2025-09-08 06:34 | XMS_ITS | Encounter Summary ---
Author Organization [facility] Address 75 [facility] 7t [place] [address] Care Team Providers Care Air Quality Consultant Name Role Phone Khushboo Lopez AIRCRAFT INSTRUMENT MECHANIC Primary Care Provider [phone] Savannah Yoon Unavailable Kaylan Fisher DSP ENGINEER Primary Care Provider [phone] Encounter Details Date Type Department Care Team (Late Contact Info) Description 11/14/2022 Abstract [facility] MEDICAL [address] [place], [place] [address] Marla Aparicio NP Social History Tobacco Use Types Packs/Day Years [...] Upcoming Encounters Date Type Department Care Team ([facility] Contact Info) Description 11/30/2025 2:00 PM EDT Office Visit [facility] OPTOMETRY [address] [place] [address] Brenda Marcelino, OD [address] [place] [address] 12/08/2025 11:30 AM EDT Office Visit [facility] MEDICAL [address] [place] [address] Khushboo Lopez CNP [address] [place] [address] documented as of this encounter Visit Diagnoses Not on filedocumented in this encounter Care Teams Air Quality Consultant Relationship Specialty Start Date End Date Khushboo Lopez CNP [address] [place] [address] PCP - General Family Medicine 09/02/22 08/20/25 Kaylan Fisher NP [address] [place] [address] PCP - General 08/21/25 Savannah Yoon 08/09/25 documented as of this encounter
--- OUTSIDE RECORDS SUMMARY | 2025-09-08 06:34 | XMS_ITS | Patient Health Record ---
Author Organization [facility] Address [address] [place] [address] Care Team Providers Care Grounds Crew Supervisor Name Role Phone John Khushboo Primary Care Provider Johann Mondragon Jr Unavailable Allergies Allergen (clinical drug ingredient) Drug/Non Drug Allergy documented on EMR Reaction Allergy Type Onset Date Status Penicillin Unknown Drug Allergy Active Sulfa Unknown Drug Allergy Active Results Component Value Reference Range Flag Notes Liver Fibrosis Pnl Reviewed date:01/02/2025 07:52:45 AM Interpretation: Performing Lab:[facility], [address] [place] [address] Notes/Report: Liver Fibrosis Score 0.20 Liver Fibrosis [...] a>0.62 and a<=1.00 : A3 (severe activity) GTI-Takeu-4-Macroglobulin 154 106-279 mg/dL FIB-Haptoglobin 152 43-212 mg/dL FIB-Apolipoprotein A1 118 101-198 mg/dL FIB-Total Bilirubin 0.4 0.2-1.2 mg/dL FIB-GGT 81 3-70 U/L A FIB-ALT 105 6-29 U/L A Reference ID [id number] Footnote SEE NOTE The reliability of results is dependent on compliance with the preanalytical and analytical conditions recommended by [employer]. The tests have to be deferred for: [...] The performance characteristics have been determined by [facility]. It has not been cleared or approved by the U.S. Food and Drug Administration. Performance characteristics refer to the analytical performance of the test. M-Files, the associated logo, Eventable and all associated [employer] horton are the registered trademarks of [employer]. All third green party horton - (R) and (TM) - are the property of their respective owners. (C) 2280-7736 [employer]. All rights reserved. THIS TEST WAS PERFORMED AT: [facility] [address] [place] [address] VISHAL CARROLL MD,PHD,STEVE Liver Panel Reviewed date:12/27/2024 03:43:27 PM Interpretation: Performing Lab:[facility], [address] [place] [phone] Notes/Report: Bilirubin Total 0.6 0.0-1.0 mg/dL N Bilirubin Direct 0.2 0.0-0.5 mg/dL N Aspartate Amino Transferase 78 5-31 U/L H Alanine Aminotransferase 135 0-31 U/L H Total Protein 8.0 6.5-8.0 g/dL N Albumin Level 4.5 3.5-5.0 g/dL N Alkaline Phosphatase 89 39-117 U/L N Complete Blood Count no Diff Reviewed date:12/27/2024 03:43:37 PM Interpretation: Performing Lab:[facility], [address] [place] [phone] Notes/Report: White Blood Count 8.1 4.8-10.8 X10*3/uL N Red Blood Count 4.76 4.20-5.50 X10*6/uL N Hemoglobin 13.9 12.0-16.0 g/dl N Hematocrit 43.8 37.0-47.0 % N Mean Corpuscular Volume 92.0 80.0-98.0 fL N Mean Corpuscular Hemoglobin 29.2 27.0-33.0 pg N Mean Corpuscular HGB Conc 31.7 31.0-35.0 g/dl N Red Cell Distribution Width 14.2 11.0-16.0 % N Platelet Count 316 160-400 X10*3/uL N Mean Platelet Volume 10.5 9.4-12.3 fL N NRBC Pct Auto 0.0 0.0-0.2 /100WBC N NRBC Abs Auto 0.000 0.0-0.012 X10*3/uL N Reason For Referral Referring Provider First Name Khushboo Referring Provider Last Name Aprilpadmaja Referred Organization [facility] Referred Provider Johann Moreno Jr Referred Address [address] [place] [address],[place] [address],[place], [place],[address],[place] Referred Provider Specialty Gastroentero logy Referral Priority Routine Medications Medication SIG (Take, Route, Frequency, Duration) Notes Start Date End Date Status Atorvastatin Calcium 10 MG Tablet 1 tablet Orally Once a day; Duration: 30 day(s) Active Lyrica 150 MG Capsule 1 capsule 1 to 3 h ours before bedtime in the evening Orally Once a day Not-Taking/PRN oxyCODONE HCl 5 MG Tablet 1 tablet as needed Orally every 6 hrs Active clonazePAM 1 MG Tablet 1 tablet Orally O nce a day Not-Taking/PRN FreeStyle Lite Test Active Triamcinolone Acetonide Active Januvia Not-Taking /PRN Omeprazole 20 MG Capsule Delayed Release 1 capsule 30 minutes before morning meal Orally Once a day; Duration: 30 days 12/20/2021 Active FreeStyle Lancets Ac tive Vitamin C 500 MG Tablet TAKE 1 TABLET BY MOUTH EVERY DAY Oral; Duration: 90 Active rOPINIRole HCl 0.25 MG Tablet TAKE 1 TABLET BY MOUTH EVERY EVENING Oral; Duration: 90 Active Amitriptyline HCl 25 MG Tablet 1 tablet Orally Once a day Active metFORMIN HCl 500 MG Tablet 1 tablet with meals Orally Twice a day Active Multi Vitamin/Minerals - Tablet 1 Orally QD Active Cetirizine HCl 10 MG Tablet 1 tablet Orally Once a day Active Jardiance 25 MG Tablet TAKE 1 TABLET BY MOUTH EVERY DAY Oral; Duration: 30 Active Senna 8.6 MG Tablet 2 tablets at bedtime as needed Orally Once a day Active Albuterol Sulfate (2.5 MG/3ML) 0.083% Nebulization Solution 3 ml as needed Inhalation Three times a day Active Trulicity 0.75 MG/0.5ML Solution Auto-injector INJECT 1 PEN SUBCUTANEOUSLY ONCE WEEKLY Subcutaneous; Duration: 28 Active SUMAtriptan Succinate 50 MG Tablet 1 tablet as needed Orally Twice a day Active Levothyroxine Sodium 25 MCG Tablet TAKE 1 TABLET (25 MCG) BY MOUTH IN THE MORNING Oral; Duration: 90 Active Immunizations Vaccine Route Administration Date Status Comme nts Influenza Unknown 08/21/2019 Administered Influenza Unknown 07/09/2021 Administered Influenza Unknown 07/08/2022 Administered Influenza Unknown 06/09/2023 Administered Influenza Unknown 08/23/2024 Administered Social History Tobacco Use: Social History Observation Description Date Details (start date - stop date) Former Smoker NA - NA Social History Drug/Alcohol: Social Info Question Answer Notes AUDIT-C (Standard) Did you have a drink containing alcohol in the past year? No Points 0 Interpretation Negative Tobacco Use: Social Info Question Answer Notes Tobacco Use/Smoking Patient is a former smoker How long has it been since you last smoked? > 10 years Additional Details Category Social Info Options Details Miscellaneous: Marital status: single Occupation: unemployed Problems Problem Type SNOMED Code ICD Code Onset Dates Problem Status W/U Status Risk Notes Problem Epigastric pain (94071596) Epigastric pain (R10.13) Active confirmed Problem Elevated liver enzymes level (889040994) Elevated LFTs (R79.89) Active confirmed Problem Elevated liver enzymes level (689682488) Elevated liver enzymes (R74.8) Active confirmed Problem Fatty liver (460505958) Fatty liver (K76.0) Active confirmed Problem Laboratory test result abnormal (437577684) Elevated lipase (R74.8) Active confirmed Problem Gastroesophageal reflux disease (921474642) Gastroesophageal reflux disease, unspecified whether esophagitis present (K21.9) Active confirmed Vital Signs Temperature 97.3 degrees Fahrenheit 09/12/2024 Blood pressure diastolic 01 mm Hg 09/07/2025 Height 64 in 09/07/2025 Blood pressure systolic 001 mm Hg 09/07/2025 Weight 187.8 lbs 09/07/2025 BMI 32.23 kg/m2 09/07/2025 Encounters Encounter Location Date Provider Diagnosis [facility] [address] [place] [phone] 09/12/2024 Johann Moreno Jr Elevated LFTs R79.89 and Gastroesophageal reflux disease, unspecified whether esophagitis present K21.9 [facility] [address] [place] [phone] 09/07/2025 Johann Moreno Jr Fatty liver K76.0 and Gastroesophageal reflux disease, unspecified whether esophagitis present K21.9 [facility] [address] [place] [phone] 01/02/2025 Johann Moreno Jr Assessments Encounter Date [...] followup in the office in one year. 09/07/2025 Fatty liver (ICD-10 - K76.0) Currently, [...] Test Test Name Order Date LIVER PROFILE 12/30/2019 LIVER PROFILE 06/20/2020 LIVER PROFILE 12/17/2022 LIVER PROFILE 12/07/2023 LIVER PROFILE 09/12/2024 LIVER PROFILE 09/07/2025 LIVER PROFILE 12/18/2022 LIVER PROFILE 01/22/2023 LIVER PROFILE 04/09/2023 LIVER PROFILE 06/11/2023 LIVER PROFILE 06/19/2023 LIPASE 12/07/2023 LIPASE 12/17/2022 CBC w/o DIFF 12/17/2022 CBC w/o DIFF 06/20/2020 CBC w/o DIFF 12/07/2023 CBC w/o DIFF 09/12/2024 CBC w/o DIFF 06/11/2023 CBC w/o DIFF 06/19/2023 CBC w/o DIFF 04/09/2023 CBC w/o DIFF 09/07/2025 PROTHROMBIN TIME (PT, INR) 06/20/2020 CERULOPLASMIN 01/22/2023 MITOCHONDRIAL AB 01/22/2023 SMOOTH MUSCLE ANTIBODIES 01/22/2023 CT ABD & PELVIS WITH CONTRAST 12/18/2021 US ABD 04/09/2023 Prothrombin Time INR 09/07/2025 Alpha 1 Anti-trypsin 01/22/2023 Liver Fibrosis Pnl 09/12/2024 Liver Fibrosis Pnl 12/07/2023 Liver Fibrosis Pnl 04/09/2023 HARINDER Reflex Titer and Pattern 01/22/2023 Next Appt Details Provider Name:Johann ohara , 09/20/2026 01:15:00 PM, [address] [place] [address], [address], [place], [address], Insurance Providers Payer Name Payer Address Payer Phone Subscriber Number Group Number Insured Name Patient Relationship to Insured Coverage Start Date Coverage End Date MEDICAID OF [facility] [address] [place] [address] [id number] JULIA KAY Self - patient is the insured Medical (General) History Medical History History ICD Code depression diabetes mellitus asthma gastroesophageal reflux disease colonoscopy 06/28/19, hyperplastic polyps , ten-year followup recommended. Chronic low back pain Surgical History Surgery Date(Month/Year) lower back fusion L-4,L-5 2003 bladder surgery tubal ligation
--- OUTSIDE RECORDS SUMMARY | 2025-09-08 06:34 | XMS_ITS | Encounter Summary ---
Author Organization [employer] Address 75 [facility] 7t [place] [address] Care Team Providers Care Licensing Representative Name Role Phone Khushboo Lopez CNP Primary Care Provider [phone] Savannah Yoon Unavailable Kaylan Fisher NP Primary Care Provider [phone] Encounter Details Date Type Department Care Team (Late st Contact Info) Description 12/11/2023 Orders Only [facility] MEDICAL [address] [place] [address] Khushboo Lopez CNP [address] [place] [address] Visit for routine certified pharmacy tech exam Social History Tobacco Use Types Packs/Day [...] Description 11/30/2025 2:00 PM EDT Office Visit [facility] OPTOMETRY [address] [place] [address] Brenda Marcelino OD [address] [place] [address] 12/08/2025 11:30 AM EDT Office Visit [facility] MEDICAL [address] [place] [address] Khushboo Lopez CNP [address] [place] [address] documented as of this encounter Procedures Procedure Name Priority Date/Time Associated Diagnosis Comments AMB REFERRAL TO OB-CAMPUS POLICE OFFICER Routine 12/04/2023 Visit for routine certified pharmacy tech exam documented in this encounter Results * Referral to Obstetrics / Gynecology (12/04/2023) us Khushboo Lopez CNP OUTPATIENT REFERRAL ORDERABLE S Final Result documented in this encounter Visit Diagnoses Diagnosis Visit for routine certified pharmacy tech exam documented in this encounter Additional Health Concerns Assessment Noted Time PHQ-9 Depression Total Score: 5 04/26/20 23 8:09 AM EDT documented as of this encounter Care Teams Licensing Representative Relationship Specialty Start Date End Date Khushboo Lopez CNP [address] [place] [address] PCP - General Family Medicine 09/02/22 08/20/25 Kaylan Fisher NP [address] [place] [address] PCP - General 08/21/25 Savannah Yoon 08/09/25 documented as of this encounter
--- OUTSIDE RECORDS SUMMARY | 2025-09-08 06:34 | XMS_ITS | Data Portability ---
Author Organization [facility], PAIN OFFICE Address [address] [facility],[address] [place] [address] Care Team Providers Care Freight Rate Specialist Name Role Phone HARINDER TANG Primary Care [...] pain benefit. She is being seen at [facility] and has been getting prescriptions for oxycodone . She reports good pain benefit with medication . She states her functionality is better when she takes the medication. [facility] is denying the oxycodone . I have explained in detail that I am primarily an interventional pain specialist and I do not write Chronic opioid pain medications . She states she is not interested in trialing any injections at present. She is being seen at [facility]. I have advised her that it [...] By Organization Details Last Modified Time 11/12/2016 44959 She was advised to continue with activities as tolerated. [email or web address] Not available 11/23/2016 20:13:23 Reason for Referral None Reported. Procedures Surgical History Date Name Laterality Status Provider Name and Address Organization Details Recorded Time Back Surgery completed Preet Renee MD [address] , [address], [place], [address], [facility] - Pain Management 11/12/2016 13:58:58 Other completed Preet Renee MD [address] , [address], [place], [address], [facility] - [facility] Management 11/12/2016 13:59:56 Tubal Ligation completed Preet Renee MD [address], [place], [address], [facility] - [facility] Management 11/12/2016 14:00:18 Imaging Results None recorded. Procedure Notes None recorded. Medical Equipment None Reported. Allergies Allergen ID Allergen Name Allergen Category Reaction Reaction Severity Criticality Documentation Date Start Date Code Code System Note Provider Name and Address Organization Details Recorded Time 09640 Product containin g penicilli n (product) medicatio n rash Not available Not available 11/12/2016 78510 8001 SNOMED Preet becerra MD [address] [facility] , [address], [place], [address], [facility] - Pain Management 7 13:54:29 84921 Substance with sulfonami de structure and antibacte rial mechanism of action (substanc e) medicatio n rash Not available Not available 11/12/2016 65139 8003 SNOMED Preet becerra MD [address] [facility] [facility] , [address], [place], [place], [address], [facility] - Pain Management 7 13:54:44 61185 house dust allergeni c extract environme nt,medica tion Not available Not available Not available 11/24/2016 60385 9 RxNorm Kirstin meyer [facility] 7 14:35:07 52728 cat dander environme nt Not available Not available Not available 11/24/2016 Kirstin meyer [facility] 7 14:35:29 Medications Name Sig [...] Vitals Date Recorded Heart rate Oxygen saturation Body height Body weight Body mass index (BMI) Systolic And Diastolic Provider Name and Address Organization Details Last Updated DateTime 7 87 /min 97 % 162.56 cm 67646.0 3 g 30.7 kg/m2 127/86 mm[Hg] Preet becerra MD [facility] [address] [facility] , [address], [place], [address], [place] [facility] 7 13:52:31 Social History Question Answer Notes LastModified by Organizat ion Details LastModified Time Tobacco Smoking Status Former Smoker Quit x 12 years Not Available [employer] 07/06/2020 03:16:11 Which Illicit Or Recreational Drugs Have You Used? No [id number] Information not available 07/06/2020 Education 9 Information n ot available 11/12/2016 Live Alone Or With Others? Alone Information not available 11/12/2016 Marital Status Single [email or web address] Informati on not available 11/12/2016 How Many Years Have You Smoked Tobacco? 3 [id number] Information not available 07/06/2020 Sex: Unknown Functional Status Question Answer Note LastModified by Organization D etails LastModified Time What is your level of alcohol consumption? None [id number] Information not available 07/06/2020 Are you currently employed? No [id number] Information not available 07/06/2020 Mental Status None [...] ICD10 Code Diagnosis IMO Codes Diagnosis Note 89202 Preet Renee MD PAIN OFFICE [address] [address] 11/12/2016 13:42:42 11/23/2016 20:15:32 Lumbar post-laminectomy syndrome 745867035 M96.1 Lumbosacra l radiculitis 21916145 M54.17 Lumbosacra l spondylosis without myelopathy 09396026 M47.817 Displaceme nt of lumbar intervertebral disc without myelopathy 66379672 M51.26 Muscle pain 57711045 M79 .1 Health Concerns Section Related Observation LastModified by Organization Detai ls LastModified Time None Recorded Concern Status LastModified by Organization Details LastModified Time None Recorded Advance Directives Directive None Recorded Payers Insurance Date Sequence Insurance Name Policy Number Policy Suero Covered Member ID Suero Member ID Guarantor Name 11/23/2016 1 [place] [facility] Julia Veronica [id number] Julia Veronica Notes Date Note Type Note [...] previous injections, patient reportsesi(she [facility] with no pain benefit.). For previous geriatric care manager, patient reportsdid not help. For location, (julia [...] aquatic physical therapy and massage with no intermediate frame tender pain benefit.). Preet Renee MD [address] [place] [address] , [address], [place], [address], [facility] 11/28/2016 11:35:15 OBGyn Episode No OBEpisode recorded.
--- OUTSIDE RECORDS SUMMARY | 2025-09-08 06:34 | XMS_ITS | Encounter Summary ---
Author Organization [employer] Address [address] [facility] 7t [place] [address] Care Team Providers Care Heel Slugger Name Role Phone Khushboo Lopez CNP Primary Care Provider [phone] Savannah Yoon Unavailable Kaylan Fisher NP Primary Care Provider [phone] Reason for Visit * Reason Comments Med Change Request Encounter Details Date Type Department Care Team (Late st Contact Info) Description 11/11/2024 Shravan Mcdonnell [facility] MEDICAL [address] [place] [address] Khushboo Lopez CNP [address] [place] [address] Social History Tobacco Use Types Packs/Day Years [...] Description 11/30/2025 2:00 PM EDT Office Visit [facility] OPTOMETRY [address] [place] [address] Brenda Marcelino, OD [address] [place] [address] 12/08/2025 11:30 AM EDT Office Visit [facility] MEDICAL [address] [place] [address] Khushboo Lopez CNP [address] [place] [address] documented as of this encounter Visit Diagnoses Not on filedocumented in this encounter Additional Health Concerns Assessment Noted Time PHQ-9 Depression Total Score: 2 02/16/20 24 3:19 PM EDT documented as of this encounter Care Teams Heel Slugger Relationship Specialty Start Date End Date Khushboo Lopez CNP [address] [place] [address] PCP - General Family Medicine 09/02/22 08/20/25 Kaylan Fisher NP [address] [place] [address] PCP - General 08/21/25 Savannah Yoon 08/09/25 documented as of this encounter
--- OUTSIDE RECORDS SUMMARY | 2025-09-08 06:34 | XMS_ITS | Encounter Summary ---
Author Organization [employer] Address [address] [facility] [address] [place] [address] Care Team Providers Care Senior Java Web Application Developer Name Role Phone Savannah Yoon Unavailable Kaylan Fisher NP Primary Care Provider [phone] Reason for Visit * Reason Comments Med Refill Encounter Details Date Type Department Care Team (Late st Contact Info) Description 09/04/2025 Refill [facility] MEDICAL [address] [place] [address] Khushboo Lopez, CORY [address] [place] [address] Social History Tobacco Use Types Packs/Day Years [...] PM EDT Office Visit [facility] OPTOMETRY [address] [place] [address] Brenda Marcelino OD [address] [place] [address] 12/08/2025 11:30 AM EDT Office Visit [facility] MEDICAL [address] [place] [address] ChalNikki albrechtnda, OUTBOUND SALES REPRESENTATIVE [address] [place] [address] documented as of this encounter Goals Goal Patient Goal Type Associated Problems Recent Progress Patient-Stated? Author Help patients manage their type 2 diabetes Care Plan Help patients manage their type 2 diabetes No Yoon, Savannah Patient has chronic kidney disease Care Plan Patient has chronic kidney disease No Yoon, Savannah Patient has chronic kidney disease Care Plan Patient has chronic kidney disease No Laila Aguirre CMA Patient has chronic kidney disease Care Plan Patient has chronic kidney disease No Chaloux, Khushboo, OUTBOUND SALES REPRESENTATIVE Patient has chronic kidney disease Care Plan Patient has chronic kidney disease No Chaloux, Khushboo, OUTBOUND SALES REPRESENTATIVE Patient has chronic kidney disease Care Plan Patient has chronic kidney disease No Yoon, Savannah Patient has chronic kidney disease Care Plan Patient has chronic kidney disease No Chaloux, Khushboo, OUTBOUND SALES REPRESENTATIVE Patient has chronic kidney disease Care Plan Patient has chronic kidney disease No Yoon, Savannah Patient has chronic kidney disease Care Plan Patient has chronic kidney disease No Kaylan Fisher NP documented as of this encounter Visit Diagnoses Not on filedocumented in this encounter Additional Health Concerns Active Problems Noted Date [...] 08/31/2025 Patient has chronic kidney disease 09/04/2025 Assessment Noted Time PHQ-9 Depression Total Score: 2 02/16/20 24 3:19 PM EDT documented as of this encounter Care Teams Senior Java Web Application Developer Relationship Specialty Start Date End Date Kaylan Fisher NP [address] [place] [address] PCP - General 08/21/25 Savannah Yoon 08/09/25 documented as of this encounter
--- OUTSIDE RECORDS SUMMARY | 2025-09-08 06:34 | XMS_ITS | Encounter Summary ---
Author Organization [facility] [facility] Address [address] [facility] 7t [place] [address] Care Team Providers Care Ceramics Test Engineer Name Role Phone Khushboo Lopez SENIOR MECHANICAL PROJECT ENGINEER Primary Care Provider [phone] Savannah Yoon Unavailable Kaylan Fisher CUSTOMER SALES ADVISOR Primary Care Provider [phone] Encounter Details Date Type Department Care Team (Late Contact Info) Description 11/13/[address] [facility] MEDICAL [address] [place], [place] [id number] Marla Aparicio NP Social History Tobacco Use [...] Upcoming Encounters Date Type Department Care Team ([facility] Contact Info) Description 11/30/2025 2:00 PM EDT Office Visit [facility] OPTOMETRY [address] [place] [address] Brenda Marcelino, OD [address] [place] [address] 12/08/2025 11:30 AM EDT Office Visit [facility] MEDICAL [address] [place] [address] Khushboo Lopez CNP [address] [place] [address] documented as of this encounter Visit Diagnoses Not on filedocumented in this encounter Care Teams Ceramics Test Engineer Relationship Specialty Start Date End Date Khushboo Lopez CNP [address] [place] [address] PCP - General Family Medicine 09/02/22 08/20/25 Kaylan Fisher NP [address] [place] [address] PCP - General 08/21/25 Savannah Yoon 08/09/25 documented as of this encounter
--- OUTSIDE RECORDS SUMMARY | 2025-09-08 06:34 | XMS_ITS | Encounter Summary ---
Author Organization [employer] Address [address] [facility] 7t [place] [address] Care Team Providers Care Ball Points Inspector Name Role Phone Khushboo Lopez GREEK PROFESSOR Primary Care Provider [phone] Savannah Yoon Unavailable Kaylan Fisher INSPECTOR TOOL Primary Care Provider [phone] Encounter Details Date Type Department Care Team (Late st Contact Info) Description 11/06/[address] [facility] [place] [place] [address] [place] [address] Provider, MD Robbie Social History Tobacco Use [...] Upcoming Encounters Date Type Department Care Team ([facility] st Contact Info) Description 11/30/2025 2:00 PM EDT Office Visit [facility] OPTOMETRY [address] [place] [address] Brenda Marcelino, OD [address] [place] [address] 12/08/2025 11:30 AM EDT Office Visit [facility] MEDICAL [address] [place] [address] Khushboo Lopez CNP [address] [place] [address] documented as of this encounter Procedures Procedure [...] documented as of this encounter Care Teams Ball Points Inspector Relationship Specialty Start Date End Date Khushboo Lopez CNP [address] [place] [address] PCP - General Family Medicine 09/02/22 08/20/25 Kaylan Fisher NP [address] [place] [address] PCP - General 08/21/25 Savannah Yoon 08/09/25 documented as of this encounter
--- OUTSIDE RECORDS SUMMARY | 2025-09-08 06:34 | XMS_ITS | Encounter Summary ---
Author Organization [employer] Address [address] [facility] 7t [place] [address] Care Team Providers Care Adolescent Specialist Name Role Phone Khushboo Lopez DITTO MACHINE OPERATOR Primary Care Provider [phone] Saavnnah Yoon Unavailable Kaylan Fisher IMPLEMENTATION DIRECTOR Primary Care Provider Encounter Details Date Type Department Care Team (Late st Contact Info) Description 07/04/2024 Orders Only [facility] MEDICAL [address] [place] [address] Provider, MD Robbie Social History Tobacco Use [...] Description 11/30/2025 2:00 PM EDT Office Visit [facility] OPTOMETRY [address] [place] [address] Brenda Marcelino OD [address] [place] [address] 12/08/2025 11:30 AM EDT Office Visit [facility] MEDICAL [address] [place] [address] Khushboo Lopez, CORY [address] [place] [address] documented as of this encounter Procedures Procedure [...] Blood Venous blood specimen / Unknown Result [facility] MD LAB BLOOD ORDERABLES Rehana l Result * Lipid Panel, Standard (06/21/2024 2:51 PM EDT) Blood Venous blood specimen / Unknown Result [facility] MD LAB BLOOD ORDERABLES Rehana l Result * Troponin T, High Sensitivity (hs-Anjelica) (06/21/2024 2:51 PM EDT) Result [facility] MD LAB BLOOD ORDERABLES Rehana l Result * Prothrombin Time-INR (06/21/2024 2:51 PM EDT) Blood Venous blood specimen / Unknown Result [facility] MD LAB BLOOD ORDERABLES Rehana l Result * CBC auto differential (06/21/2024 2:51 PM EDT) Blood Venous blood specimen / Unknown Result [facility] MD LAB BLOOD ORDERABLES Rehana l Result documented in this encounter Visit Diagnoses Not on filedocumented in this encounter Additional Health Concerns Assessment Noted Time PHQ-9 Depression Total Score: 2 02/16/20 24 3:19 PM EDT documented as of this encounter Care Teams Adolescent Specialist Relationship Specialty Start Date End Date Khushboo Lopez CNP [address] [place] [address] PCP - General Family Medicine 09/02/22 08/20/25 Kaylan Fisher NP [address] [place] [address] PCP - General 08/21/25 Savannah Yoon 08/09/25 documented as of this encounter
--- OUTSIDE RECORDS SUMMARY | 2025-09-08 06:34 | XMS_ITS | Encounter Summary ---
Author Organization [employer] Address [address] [facility] 7t [place] [address] Care Team Providers Care Imaging Science Professor Name Role Phone Khushboo Lopez CNP Primary Care Provider [phone] Savannah Yoon Unavailable Kaylan Fisher NP Primary Care Provider [phone] Encounter Details Date Type Department Care Team (Late st Contact Info) Description 11/15/2024 Orders Only [facility] [address] [place], [place] [id number] Khushboo Lopez CNP [address] [place] [address] Social History Tobacco Use Types Packs/Day Years [...] Description 11/30/2025 2:00 PM EDT Office Visit [facility] OPTOMETRY [address] [place] [address] Brenda Marcelino OD [address] [place] [address] 12/08/2025 11:30 AM EDT Office Visit [facility] MEDICAL [address] [place] [address] Khushboo oLpez CNP [address] [place] [address] documented as of this encounter Procedures Procedure [...] documented as of this encounter Care Teams Imaging Science Professor Relationship Specialty Start Date End Date Khushboo Lopez CNP [address] [place] [address] PCP - General Family Medicine 09/02/22 08/20/25 Kaylan Fisher NP [address] [place] [address] PCP - General 08/21/25 Savannha Yoon 08/09/25 documented as of this encounter
--- OUTSIDE RECORDS SUMMARY | 2025-09-08 06:34 | XMS_ITS | Encounter Summary ---
Author Organization [employer] Address [address] [facility] 7t [place] [address] Care Team Providers Care Analytics Specialist Name Role Phone Khushboo Lopez KITCHEN PORTER Primary Care Provider [phone] Savannah Yoon Unavailable Kaylan Fisher WEB MARKETING INTERN Primary Care Provider [phone] Encounter Details Date Type Department Care Team (Late st Contact Info) Description 11/23/2023 Orders Only [facility] MEDICAL [address] [place] [address] Provider, MD Robbie Social History Tobacco Use [...] [facility] OPTOMETRY [address] [place] [address] Brenda Marcelino, BRADY [address] [place] [address] 12/08/2025 11:30 AM EDT Office Visit [facility] MEDICAL [address] [place] [address] Khushboo Lopez CNP [address] [place] [address] documented as of this encounter Procedures Procedure [...] documented as of this encounter Care Teams Analytics Specialist Relationship Specialty Start Date End Date Khushboo Lopez CNP [address] [place] [address] PCP - General Family Medicine 09/02/22 08/20/25 Kaylan Fisher NP [address] [place] [address] PCP - General 08/21/25 Savannah Yoon 08/09/25 documented as of this encounter
--- OUTSIDE RECORDS SUMMARY | 2025-09-08 06:34 | XMS_ITS | Encounter Summary ---
Author Organization [employer] Address [address] [facility] 7t [place] [address] Care Team Providers Care Chemistry Instructor Name Role Phone Khushboo Lopez CNP Primary Care Provider [phone] Savannah Yoon Unavailable Kaylan Fisher NP Primary Care Provider [phone] Reason for Visit * Reason Comments Med Refill Encounter Details Date Type Department Care Team (Late st Contact Info) Description 09/18/2023 Refill [facility] MEDICAL [address] [place] [address] Khushboo Lopez CNP [address] [place] [address] Social History Tobacco Use Types Packs/Day Years [...] Ascorbic Acid (vitamin C) 500 MG tablet [[id number]] Order Details Dose: 500 mg Route: Oral Frequency: Daily Dispense Quantity: 30 tablet Refills: 2 Sig: TAKE 1 TABLET BY MOUTH EVERY DAY Start Date: 08/24/23 End Date: -- documented in this encounter Plan of Treatment Upcoming Encounters Date Type Department Care Team (Late st Contact Info) Description 11/30/2025 2:00 PM EDT Office Visit [facility] OPTOMETRY [address] [place] [address] Brenda Marcelino OD [address] [place] [address] 12/08/2025 11:30 AM EDT Office Visit [facility] MEDICAL [address] [place] [address] Khushboo Lopez CNP [address] [place] [address] documented as of this encounter Visit Diagnoses Not on filedocumented in this encounter Additional Health Concerns Assessment Noted Time PHQ-9 Depression Total Score: 5 01/15/20 23 8:09 AM EDT documented as of this encounter Care Teams Chemistry Instructor Relationship Specialty Start Date End Date Khushboo Lopez CNP [address] [place] [address] PCP - General Family Medicine 09/02/22 08/20/25 Kaylan Fisher NP [address] [place] [address] PCP - General 08/21/25 Savannah Yoon 08/09/25 documented as of this encounter
--- OUTSIDE RECORDS SUMMARY | 2025-09-08 06:34 | XMS_ITS | Encounter Summary ---
Author Organization [employer] Address [address] [facility] 7t [place] [address] Care Team Providers Care Bilingual Call Center Representative Name Role Phone Savannah Yoon Unavailable Kaylan Fisher NP Primary Care Provider [phone] Encounter Details Date Type Department Care Team (Latest Contact Info) Description 08/28/2025 Results Follow-Up [facility] MEDICAL [address] [place] [address] Khushboo Lopez, SENIOR FORMULATION SCIENTIST [address] [place] [address] POCT glycosylated hemoglobin (Hgb A1c), Microalbumin 817942, TSH Reflex on Abnormal to Free T4, Specimen Status Report Social History Tobacco Use Types Packs/Day Years [...] Description 11/30/2025 2:00 PM EDT Office Visit [facility] OPTOMETRY [address] [place] [address] Brenda Marcelino, OD [address] [place] [address] 12/08/2025 11:30 AM EDT Office Visit [facility] MEDICAL [address] [place] [address] Chaloux, Khushboo, SENIOR FORMULATION SCIENTIST [address] [place] [address] documented as of this encounter Goals Goal [...] Patient has chronic kidney disease No Laila Aguirre, CHUTE PULLER Patient has chronic kidney disease Care Plan Patient has chronic kidney disease No Chaloux, Khushboo, SENIOR FORMULATION SCIENTIST Patient has chronic kidney disease Care Plan Patient has chronic kidney disease No Chaloux, Khushboo, SENIOR FORMULATION SCIENTIST Patient has chronic kidney disease Care Plan Patient has chronic kidney disease No Yoon, Savannah Patient has chronic kidney disease Care Plan Patient has chronic kidney disease No Chaloux, Khushboo, SENIOR FORMULATION SCIENTIST documented as of this encounter Visit Diagnoses [...] 08/24/2025 Patient has chronic kidney disease 08/28/2025 Assessment Noted Time PHQ-9 Depression Total Score: 2 02/16/20 24 3:19 PM EDT documented as of this encounter Care Teams Bilingual Call Center Representative Relationship Specialty Start Date End Date Kaylan Fisher NP [address] [place] [address] PCP - General 08/21/25 Savannah Yoon 08/09/25 documented as of this encounter
--- OUTSIDE RECORDS SUMMARY | 2025-09-08 06:34 | XMS_ITS | Encounter Summary ---
Author Organization [employer] Address [address] [facility] 7t [place] [address] Care Team Providers Care Battery Charger Tester Name Role Phone Savannah Yoon Unavailable Kaylan Fisher NP Primary Care Provider Reason for Visit * Reason Onset Date Comments Med Refill 09/07/2025 Encounter Details Date Type Department Care Team (Late st Contact Info) Description 09/07/2025 Refill [place] [address] [place] [address] Kaylan Fisher NP [address] [place] [address] Chronic bilateral low back pain with sciatica, sciatica laterality unspecified Social History Tobacco Use Types Packs/Day Years [...] encounter Miscellaneous Notes * Telephone Encounter - Laila Aguirre CMA - 09/07/2025 8:29 AM EST Oxycodone 5mg Masspat Last fill Date: 08/15/25 Masspat sold Date: 08/15/25 Last OV: 08/23/25 Next OV: 12/08/25 Last UTOX: 08/23/25 CSA Date: 06/19/25 DNF Date: Thursday09/12/25 documented in this encounter Plan of Treatment Upcoming Encounters Date Type Department Care Team (Late st Contact Info) Description 11/30/2025 2:00 PM EDT [place] [facility] [place] [address] [place] [address] Brenda Marcelino, OD [address] [place] [address] 12/08/2025 11:30 AM EDT Office [place] [facility] [place] [address] [place] [address] Khushboo Lopez CNP [address] [place] [address] documented as of this encounter Goals Goal [...] Plan Patient has chronic kidney disease No Chalpinax, Khushboo, LDR RN Patient has chronic kidney disease Care Plan Patient has chronic kidney disease No ChalNikki albrechtnda, LDR RN Patient has chronic kidney disease Care Plan Patient has chronic kidney disease No Savannah Yoon Patient has chronic kidney disease Care Plan Patient has chronic kidney disease No Chalpinax, Khushboo, LDR RN Patient has chronic kidney disease Care Plan Patient has chronic kidney disease No Savannah Yoon Patient has chronic kidney disease Care Plan Patient has chronic kidney disease No Kaylan Fisher NP Patient has chronic kidney disease Care Plan Patient has chronic kidney disease No Laila Aguirre CMA documented as of this encounter Visit Diagnoses Diagnosis Chronic bilateral low back pain with sciatica, sciatica laterality unspecified documented in this encounter Additional Health Concerns Active [...] 09/04/2025 Patient has chronic kidney disease 09/07/2025 Assessment Noted Time PHQ-9 Depression Total Score: 2 02/16/20 24 3:19 PM EDT documented as of this encounter Care Teams Battery Charger Tester Relationship Specialty Start Date End Date Kaylan Fisher NP [address] [place] [address] PCP - General 08/21/25 Savannah Yoon 08/09/25 documented as of this encounter
--- OUTSIDE RECORDS SUMMARY | 2025-09-08 06:34 | XMS_ITS | Encounter Summary ---
Author Organization [employer] [facility] Address [address] [facility] 7t [place] [address] Care Team Providers Care Gum Puller Name Role Phone Khushboo Lopez DOG GROOMER Primary Care Provider [phone] Savannah Yoon Unavailable Kaylan Fisher SNOW REMOVAL SUPERVISOR Primary Care Provider [phone] Encounter Details Date Type Department Care Team (Late st Contact Info) Description 04/13/2023 Orders Only [facility] MED[facility] [address] [place] [address] Provider, MD Robbie Social History Tobacco Use [...] Description 11/30/2025 2:00 PM EDT Office Visit [facility] OPTOMETRY [address] [place] [address] Brenda Marcelino, OD [address] [place] [address] 12/08/2025 11:30 AM EDT Office Visit [facility] MEDICAL [address] [place] [address] Khushboo Lopez CNP [address] [place] [address] documented as of this encounter Procedures Procedure [...] documented as of this encounter Care Teams Gum Puller Relationship Specialty Start Date End Date Khushboo Lopez CNP [address] [place] [address] PCP - General Family Medicine 09/02/22 08/20/25 Kaylan Fisher NP [address] [place] [address] PCP - General 08/21/25 Savannah Yoon 08/09/25 documented as of this encounter
--- OUTSIDE RECORDS SUMMARY | 2025-09-08 06:34 | XMS_ITS ---
Author Organization [employer] Address [address] [place] [address] 7t [place] [address] Care Team Providers Care Director Orange Name Role Phone Savannah Yoon Unavailable Kaylan Fisher AERONAUTICAL DESIGN ENGINEER Primary Care Provider [phone] CM Complex Status:Outreach In Progress (Enrolling) Start date:08/09/2025 Enrollment reason:Risk Strat Case Team Name Relationship Phone Savannah Yoon(Responsible Staff) [phone] Continued Care and Services Coordination
--- OUTSIDE RECORDS SUMMARY | 2025-09-08 06:34 | XMS_ITS | Encounter Summary ---
Author Organization [employer] Address 75 [facility] 7t [place] [address] Care Team Providers Care Machine I Engraver Name Role Phone Khushboo Lopez ZIPPER REPAIRER Primary Care Provider [phone] Savannah Yoon Unavailable Kaylan Fisher ICE CREAM SERVER Primary Care Provider [phone] Reason for Visit * Reason Comments Med Refill Encounter Details Date Type Department Care Team (Late st Contact Info) Description 07/20/2023 Refill [place] [facility] [address] [place] [address] Nelli Kingston FNP [address] [place] [address] Mild intermittent asthma without complication Social History [...] PM EDT Office Visit [facility] OPTOMETRY [address] [place] [address] Brenda Marcelino, BRADY [address] [place] [address] 12/08/2025 11:30 AM EDT Office Visit [facility] MEDICAL [address] [place] [address] Khushboo Lopez CNP [address] [place] [address] documented as of this encounter Visit Diagnoses Diagnosis Mild intermittent asthma without complication documented in this encounter Additional Health Concerns Assessment Noted Time PHQ-9 Depression Total Score: 5 01/15/20 23 8:09 AM EDT documented as of this encounter Care Teams Machine I Engraver Relationship Specialty Start Date End Date Khushboo Lopez CNP [address] [place] [address] PCP - General Family Medicine 09/02/22 08/20/25 Kaylan Fisher NP [address] [place] [address] PCP - General 08/21/25 Savannah Yoon 08/09/25 documented as of this encounter
--- OUTSIDE RECORDS SUMMARY | 2025-09-08 06:34 | XMS_ITS | Clinical Summary ---
Author Organization [facility] Address [address] [place] [address] Phone Care Team Providers Care Hairspring Ii Inspector Name Role Phone Khushboo Lopez STAND GRINDER Primary Care Provider Allergies Active Allergy Reactions Criticality Noted Date Comments Penicillins 12/01/2024 Sulfa (Sulfonamide Antibiotics) Rash,Unknown Low Medications Alcohol Prep Pads pads, medicated USE [...] each day if needed for allergies. Active Hospital, Clinic, or Other Facility Administered Medication Ordered Dose Route Frequency Start Date End Date Status lidocaine (PF) (XYLOCAINE-MPF) 1 % injection 0.5 mLIndications:Planta r fascial fibromatosis,Disorde r of ligament of foot, left,Arthritis of right ankle .5 mL Once PRN Procedure 08/09/2025 08/09/2025 Ended lidocaine (PF) (XYLOCAINE-MPF) 1 % injection 0.5 mLIndications:Planta r fascial fibromatosis,Disorde r of ligament of foot, left,Arthritis of right ankle .5 mL Once PRN Procedure 08/09/2025 08/09/2025 Ended triamcinolone acetonide (KENALOG-40) 40 mg/mL injection 20 mgIndications:Planta r fascial fibromatosis,Disorde r of ligament of foot, left,Arthritis of right ankle 20 mg Once PRN Procedure 08/09/2025 08/09/2025 Ended triamcinolone acetonide (KENALOG-40) 40 mg/mL injection 20 mgIndications:Planta r fascial fibromatosis,Disorde r of ligament of foot, left,Arthritis of right ankle 20 mg Once PRN Procedure 08/09/2025 08/09/2025 Ended Encounters Date Type Department Care Team Description 08/09/2025 2:00 PM EST Office Visit [facility] Surgery - [address] [address] Ozzy Vivar, DPM Calcaneal spur, right foot (Primary Dx); Plantar fascial fibromatosis; Equinus contracture of ankle; Disorder of ligament of foot, left; Arthritis of right ankle from Last 3 Months Social History [...] 04/20/2025 8:48 AM EDT Plan of Treatment Health Maintenance Due Date Last Done Comments Breast Cancer Screening 1969 Diabetes: Annual Retina Eye Exam 12/27/1979 Cervical Cancer Screening: Pap Smear 1990 RSV Immunization Adult Patients (1 - Risk 50-74 years 1-dose series) 12/27/2019 Depression Screening 09/21/2024 Hepatitis C Screening 10/18/2024 Social Influencers of Health Screening 10/18/2024 Diabetes: Annual Urine Albumin-Creatinine Ratio (uACR) 12/01/2024 COVID-19 Vaccine ( season) 2025 07/09/2024, 06/24/2023, 08/17/2022, Additional history exists Diabetes: Blood Sugar Control Test (HGBA1C) 11/21/2025 05/24/2025, 02/15/2025, 11/17/2024 Diabetes: Annual Foot Exam 01/05/2026 01/05/2025, Diabetes: Annual GFR (Glomerular Filtration Rate) 05/24/2026 05/24/2025 DTaP,Tdap,and Td Vaccines (3 - Td or Tdap) 07/10/2026 07/10/2016, 01/13/2013 Colorectal Cancer Screening: Colonoscopy 06/28/2029 06/28/2019 Cholesterol Screening (Lipid Panel) 05/24/2030 05/24/2025, 06/21/2024 Hepatitis B Vaccines Completed 10/29/2020, 07/26/2020, 04/02/2020 Zoster Vaccines Completed 01/20/2022, 11/01/2021 Pneumococcal Vaccine: 50+ Years Completed 08/17/2024, 03/18/2019 Hepatitis A Vaccines Completed 11/21/2024, 05/16/20 HIV Screening Completed 05/24/2025 Influenza Vaccine Completed 05/29/2025, , 05/28/2023, Additional history exists HIB Vaccines Aged Out [...] Diagnosis Comments INJECTION TENDON OR LIGAMENT Routine 08/09/2025 2:00 PM EST Plantar fascial fibromatosis Disorder of ligament of foot, left Arthritis of right ankle INJECTION TENDON OR LIGAMENT Routine 08/09/2025 2:00 PM EST Plantar fascial fibromatosis Disorder of ligament of foot, left Arthritis of right ankle from Last 3 Months Results * Injection tendon or ligament (08/09/2025 2:00 PM EST) Ozzy Maguire DPM - 08/09/2025 2:00 PM EST Ozzy Vivar DPM 08/09/2025 5:58 PM Injection tendon or ligament Indications: pain Details: 25 G needle Medications: 0.5 mL lidocaine (PF) 1 %; 20 mg triamcinolone acetonide 40 mg/mL Informed Consent: Site: Foot ligament tendon Ozzy Vivar DPM IN CLINIC/BEDSIDE ORDERAB LES Final Result * Injection tendon or ligament (08/09/2025 2:00 PM EST) Ozzy Maguire DPM - 08/09/2025 2:00 PM EST Ozzy Vivar DPM 08/09/2025 5:58 PM Injection tendon or ligament Indications: pain Details: 25 G needle Medications: 0.5 mL lidocaine (PF) 1 %; 20 mg triamcinolone acetonide 40 mg/mL Informed Consent: Site: Foot ligament tendon Ozzy Vivar DPM IN CLINIC/BEDSIDE ORDERAB LES Final Result from Last 3 Months Insurance MEDICAID - [place] Care Teams Hairspring Ii Inspector Relationship Specialty Start Date End Date Khushboo Lopez, GUY [address] [place] [address] PCP - General Nurse Practitioner 10/18/24
--- OUTSIDE RECORDS SUMMARY | 2025-09-08 06:34 | XMS_ITS | Encounter Summary ---
Author Organization [employer] Address [address] [facility] 7t [place] [address] Care Team Providers Care Certified Ophthalmic Assistant Name Role Phone Savannah Yoon Unavailable Kaylan Fisher NP Primary Care Provider [phone] Reason for Visit * Reason Comments Med Refill Encounter Details Date Type Department Care Team (Late st Contact Info) Description 09/02/2025 Refill [facility] MED[facility] [address] [place] [address] Khushboo Lopez, TRANSIT PLANNER [address] [place] [address] Mild intermittent asthma without complication Social History [...] 2:00 PM EDT Office Visit [facility] OPTOMETRY [address] [place] [address] Brenda Marcelino OD [address] [place] [address] 12/08/2025 11:30 AM EDT Office Visit [facility] MEDICAL [address] [place] [address] Chaloux, Khushboo, TRANSIT PLANNER [address] [place] [address] documented as of this encounter Goals Goal [...] has chronic kidney disease No Laila Aguirre, SENIOR DEVOPS ENGINEER Patient has chronic kidney disease Care Plan Patient has chronic kidney disease No [place], Khushboo, TRANSIT PLANNER Patient has chronic kidney disease Care Plan Patient has chronic kidney disease No [place], Khushboo, TRANSIT PLANNER Patient has chronic kidney disease Care Plan Patient has chronic kidney disease No Yoon, Savannah Patient has chronic kidney disease Care Plan Patient has chronic kidney disease No Chaloux, Khushboo, TRANSIT PLANNER Patient has chronic kidney disease Care Plan Patient has chronic kidney disease No Yoon, Savannah documented as of this encounter Visit Diagnoses [...] 08/28/2025 Patient has chronic kidney disease 08/31/2025 Assessment Noted Time PHQ-9 Depression Total Score: 2 02/16/20 24 3:19 PM EDT documented as of this encounter Care Teams Certified Ophthalmic Assistant Relationship Specialty Start Date End Date Kaylan Fihser NP [address] [place] [address] PCP - General 08/21/25 Savannah Yoon 08/09/25 documented as of this encounter
--- OUTSIDE RECORDS SUMMARY | 2025-09-08 06:34 | XMS_ITS | Encounter Summary ---
Author Organization [employer] Address [address] [facility] 7t [place] [address] Care Team Providers Care Fence Repairman Name Role Phone Khushboo Lopez CNP Primary Care Provider [phone] Savannah Yoon Unavailable Kaylan Fisher NP Primary Care Provider [phone] Encounter Details Date Type Department Care Team (Late st Contact Info) Description 11/18/2023 Orders Only [facility] MEDICAL [address] [place], [place] [id number] Khushboo Lopez CNP [address] [place] [address] Social History Tobacco Use Types Packs/Day Years [...] Description 11/30/2025 2:00 PM EDT Office Visit [facility] OPTOMETRY [address] [place] [address] Brenda Marcelino OD [address] [place] [address] 12/08/2025 11:30 AM EDT Office Visit [facility] MEDICAL [address] [place] [address] Khushboo Lopez CNP [address] [place] [address] documented as of this encounter Procedures Procedure Name Priority Date/Time Associated Diagnosis Comments HM MAMMOGRAPHY Routine 10/31/2023 6:08 AM EST documented in this encounter Results * Hm Mammography (10/31/2023 6:08 AM EST) Anatomical Region Laterality Modality Other us Khushboo Lopez CNP HEALTH MAINTENANCE Final Resu lt documented in this encounter Visit Diagnoses Not on filedocumented in this encounter Additional Health Concerns Assessment Noted Time PHQ-9 Depression Total Score: 5 01/15/20 23 8:09 AM EDT documented as of this encounter Care Teams Fence Repairman Relationship Specialty Start Date End Date Khushboo Lopez CNP [address] [place] [address] PCP - General Family Medicine 09/02/22 08/20/25 Kaylan Fisher NP [address] [place] [address] PCP - General 08/21/25 Savannah Yoon 08/09/25 documented as of this encounter
--- OUTSIDE RECORDS SUMMARY | 2025-09-08 06:34 | XMS_ITS | Encounter Summary ---
Author Organization [employer] Address [address] [facility] 7t [place] [address] Care Team Providers Care Histologist Name Role Phone Khushboo Lopez REROLLER HAND Primary Care Provider [phone] Savannah Yoon Unavailable Kaylan Fisher STREET CAR MECHANIC Primary Care Provider [phone] Encounter Details Date Type Department Care Team (Late st Contact Info) Description 06/30/2024 [facility] [address] [place] [address] Provider, MD Robbie Social History Tobacco Use [...] 2:00 PM EDT Office Visit [facility] OPTOMETRY [address] [place] [address] Brenda Marcelino OD [address] [place] [address] 12/08/2025 11:30 AM EDT Office Visit [facility] MEDICAL [address] [place] [address] Khushboo Lopez, CORY [address] [place] [address] documented as of this encounter Procedures Procedure [...] documented as of this encounter Care Teams Histologist Relationship Specialty Start Date End Date Khushboo Lopez CNP [address] [place] [address] PCP - General Family Medicine 09/02/22 08/20/25 Kaylan Fisher NP [address] [place] [address] PCP - General 08/21/25 Savannah Yoon 08/09/25 documented as of this encounter
== END 2025-09-08 06:32 | disposition home or self-care (01) ==
LOC: HO.HOSX 06:31
PROVIDERS: Visit Provider Physician Assistant
DX: M19.011 Primary osteoarthritis, right shoulder (principal); M75.81 Other shoulder lesions, right shoulder
CPT/HCPCS: 20610; 73030; 99212; J0665; J1100; J2003

== ENCOUNTER 2025-09-08 09:22 | Outpatient (AMB) | payer MEDICAID, SELFPAY ==
--- NOTE | 2025-09-08 09:41 | MHC.OFFVIS ---
Intake Visit Reasons: New Prob-Right Arm Pain Intake Note: Julia 54 yr old left hand dominant female who is disabled, presents today for a evaluation of her right shoulder. States pain started after she closed a heavy window shut on May, she felt a weird sensation and felt immediate pain. At the time she was very limited ROM, weakness and mild neck pain. She was seen with her PCP who referred her to orthopedics specialist. Today patient states her pain is better, she has improved her ROM but is still somwewhat limted and has pain. Pain increase mainly at night time and wakes up with a stiff shoulder. She also has numbness and tingling in her hands. Hx of DM. Hand Filer Balance Wheel Required: Yes Hand Filer Balance Wheel Services: Hand Filer Balance Wheel Present Hand Filer Balance Wheel Name: Yuli NANCE/WATSON Allergies Penicillins Allergy (Intermediate, Verified 09/08/25 09:48) Rash Sulfa (Sulfonamide Antibiotics) (SULFA (SULFONAMIDE ANTIBIOTICS)) Allergy (Intermediate, Verified 09/08/25 09:48) Rash, hives penicillin V Allergy (Unknown, Verified 09/08/25 09:48) hives, rash cat dander Allergy (Verified 09/08/25 09:48) Sneezing pollen extracts Allergy (Verified 09/08/25 09:48) Sneezing morphine Adverse Reaction (Unknown, Verified 09/08/25 09:48) Gastrointestinal Upset Medication List - Last Reconciled 09/08/25 by Naeem Montes PA-C albuterol sulfate 90 mcg/actuation (Ventolin HFA) grams inhalation amitriptyline 100 mg PO DAILY ascorbic acid (vitamin C) (Vitamin C) 500 mg PO atorvastatin 10 mg PO cetirizine (Zyrtec) 10 mg PO DAILY PRN dulaglutide (Trulicity) mg subcut QWEEK empagliflozin (Jardiance) 25 mg PO levothyroxine 25 mcg PO QAM metformin 1,000 mg PO BID omeprazole 20 mg PO oxycodone 5 mg PO Q8H PRN oxycodone 5 mg PO TID PRN polyethylene glycol 3350 (Miralax) 17 grams PO DAILY ropinirole 0.25 mg PO QPM sitagliptin phosphate (Januvia) 100 mg PO DAILY sumatriptan succinate (Imitrex) 50 mg PO Q2-4H PRN HPI HPI New Prob-Right Arm Pain: Details: 54-year-old female presents to the office today for an injury to her right shoulder. She states back in May she was closing her window which is heavy and she felt a pulling sensation in the right shoulder. Since that time she has had ongoing right shoulder pain which is worse with sleeping at night and also lifting and reaching behind her back. She has had no treatment to date. [facility] Medical History Bilateral nephrolithiasis Renal and ureteric calculus Asthma Diabetes mellitus History of anxiety History of depression Surgical History History of bladder surgery History of back surgery Hx of tubal ligation History of endometrial ablation Family History Father Diabetes Mother HTN (hypertension) Diabetes Social History Household Members: None Housing: Apartment Alcohol intake: unknown Patient Tobacco Use Status: Former Tobacco user Current occupational status: disabled Current occupation: lt handed Sexual orientation: Straight/Heterosexual Gender identity: Female Female Reproductive History Menstrual Age of Menarche: 10 Review of Systems Const All systems reviewed & are unremarkable except as noted in HPI and below Physical Exam Extrem Other: Right shoulder is normal to inspection. She does have tenderness over the AC joint and proximal biceps tendon. She has full range of motion in all planes however discomfort with internal rotation. She is able to activate rotator cuff strength with pain. Neurovascularly intact. Office Procedures AMB Joint Injection/Aspiration Joint Injection/Aspiration Primary Site: Right Shoulder Prep: site was prepped using aseptic technique, ethochloride spray was applied and injection warnings given Injected: 40 mg of, Decadron, with 3 mL of, 1% plain Lidocaine, 0.25% Bupivacaine and in the subcromial space Approach Used: posterolateral Procedure: The patient tolerated the procedure well and there was some relief with the local anesthesia Coding 46708 - Glenohumeral/Tronchanteric Bursa/Intraarticular Procedure code (CPT) selection complete Results Reviewed Results Reviewed: X-rays of the right shoulder obtained in the office today and reviewed by me show mild AC joint arthritis Assessment & Plan Assessment & Plan (1) Right shoulder tendinitis: Code(s): M75.81 - Other shoulder lesions, right shoulder Category: Medical Plan: We discussed options today, which include steroid injection. The patient did consent to move forward with the right shoulder injection, which was tolerated well.? I recommended rest, ice and elevation and OTC antiinflammatories prn for discomfort. If symptoms persist over the next 6-8 weeks, they will contact our office, otherwise, prn I also discussed with the patient the effect steroid injections may have on their blood-glucose levels. The steroid may elevate their blood-glucose levels over the next 12-36 hours, or even several days. Due to this response, I strongly encourage the patient to monitor their BG levels and if they are feeling unwell, or their levels are difficult to manage, they should present tot he closet emergency department. The patient did express understanding. Orders: Orders PT Evaluation and Treatment Today M75.81 - Other shoulder lesions, right shoulder XR shoulder RT min 2V Today M25.511 - Pain in right shoulder Coding Level of Care Code Est Pt Level 3 (38836) Add On Problem Visit Only Diagnoses Right shoulder tendinitis M75.81 CPT Codes Coding - Joint 7: 32189 - Glenohumeral/Tronchanteric Bursa/Intraarticular ([id number])
== END 2025-09-08 10:36 | disposition home or self-care (01) ==
LOC: HO.HOS 09:23
PROVIDERS: PCP Nurse Practitioner Family; Visit Provider Physician Assistant
DX: M75.81 Other shoulder lesions, right shoulder (principal)
CPT/HCPCS: 20610; 99213

== ENCOUNTER → 2025-09-08 09:25 | Outpatient (BNV) | payer MEDICAID, SELFPAY | PROVIDERS: Visit Provider Radiology Diagnostic Radiology | DX: M19.011 Primary osteoarthritis, right shoulder (principal) | CPT/HCPCS: 73030 ==